=== PATIENT | male | born 1955 | race Two or more races ===

== ENCOUNTER 2016-09-07 12:09 | Day surgery (SDC) | payer OTHER ==
[~2016-09-07] VITALS: Ht 165.1 cm; Wt 77.4 kg
[~2016-09-07 12:09] MED LIST: ATOR20TA38 PO; FENO48TA PO; NICO1PAT6 TD; OMEG1CAP2 PO
[2016-09-07 12:54] VITALS: Ht 165.1 cm; Wt 77.4 kg
[2016-09-07] MEDS ORDERED: SITA100T8 PO (13:14)
[2016-09-07] MEDS ORDERED: MTF1000T PO (13:15)
[2016-09-07] MEDS ORDERED: ASPI81TA3 PO (13:15)
[2016-09-07 13:25] VITALS: BP 164/80; PULSE 55; RESP 15
[2016-09-07] MEDS ORDERED: MIDAZOLAM 1 MG/ML 2 ML INJ ONE ×2 (14:31)
[2016-09-07] MEDS ORDERED: FENTAnyl 50 MCG/ML VIAL ONE (14:32)
[2016-09-07 14:43] VITALS: BP 130/69; PULSE 62; RESP 24
--- NOTE | 2016-09-08 08:16 | GILP ---
DATE OF PROCEDURE: 09/07/2016 PREOPERATIVE DIAGNOSIS: Screening colonoscopy. PROCEDURE DONE: Colonoscopy, biopsy. POSTOPERATIVE DIAGNOSES: Three mall hyperplastic polyps less than 2 mm in the rectum, hyperplasia a lso noted. Internal hemorrhoids, grade II. DESCRIPTION OF PROCEDURE: The patient was put in left lateral decubitus after obtaining informed co nsent, was sedated, monitored on oximetry, EKG, blood pressure. He received 3 mg IV Versed and 75 m cg of fentanyl. Advanced an Olympus video colonoscope all the way to cecum. Appendiceal opening an d ileocecal valve were identified. Cecum, ascending colon, transverse colon, descending colon, sigm oid colon thoroughly examined and normal. In the rectum hyperplasia with a hyperplastic polyps note d. They were less than 2 mm. Three of them were biopsied. There was very normal looking mucosa on top and then it was sent to histopathology. While in the rectum by retroflexion and antegrade exam , grade II hemorrhoids were noted. Internal hemorrhoids noted. Upon removal of scope, patient had no complication. Rectal exam also negative for any mass. Plan will be to await for biopsy report, follow up in 2 weeks. Dictated By: BRUCE HOPSON Conf#: [id number] DID#: [id number] CC: Yg Sanabria;*End*
== END 2016-09-07 16:00 | disposition home or self-care (01) ==
LOC: GIL 12:09
PROVIDERS: ATTEND Internal Medicine
DX: Z12.11 Encounter for screening for malignant neoplasm of colon (principal); K62.1 Rectal polyp; K64.1 Second degree hemorrhoids; E11.9 Type 2 diabetes mellitus without complications; E78.5 Hyperlipidemia, unspecified
CPT/HCPCS: 45380; 88305; J2250; J3010; Z7610

== ENCOUNTER 2017-04-16 09:01 | Emergency (ER) | payer OTHER ==
[~2017-04-16] VITALS: Wt 77.5 kg
[~2017-04-16 09:01] MED LIST changes: +ASPI81TA3 PO; +MTF1000T PO; -NICO1PAT6 TD; -OMEG1CAP2 PO; +SITA100T8 PO
--- NOTE | 2017-04-16 09:36 | RADRPT ---
PROCEDURE: XR Chest. CLINICAL INDICATION: Positive quantiferon TECHNIQUE: Single frontal view of the chest was obtained COMPARISON: None FINDINGS: The heart and mediastinum are within normal limits. The lungs are clear and there is no pleural effusion or pneumothorax. RPTAT: AA IMPRESSION: No active disease. No radiographic evidence of active tuberculosis. .Lennox Santana MD, MD Date Time Electronically viewed and signed by .Lennox Santana MD, on 04/16/2017 09:35 .S/
[2017-04-16] MEDS ORDERED: ISON300T72 PO (09:53)
--- NOTE | 2017-04-16 13:25 | ERD ---
ER Documentation Chief Complaint Chief Complaint bodyaches, fever, seen by clinic sent to ed for + quant gold test(TB) HPI Patient is a 62-year-old female with diabetes and high cholesterol who presents with possible tuberculosis. The patient had a positive QuantiFERON gold study and was sent to the ER by the clinic. The patient has had fevers off and on. The patient denies cough. The patient has whole body pain. He has been dealing with this for weeks. He goes to a local clinic for his care. ROS All systems reviewed and are negative except as per history of present illness. Medications Home Meds Active Scripts Isoniazid* (Isoniazid*) 300 Mg Tablet, 300 MG PO DAILY, #30 TAB Prov:AVA EASTMAN MD 04/16/17 Reported Medications Aspirin* (Aspirin* Chew) 81 Mg Tab.chew, 81 MG PO DAILY, TAB.CHEW 09/07/16 Metformin* (Glucophage*) 1,000 Mg Tablet, 1000 MG PO BID, #60 TAB 09/07/16 Sitagliptin* (Januvia*) 100 Mg Tablet, 100 MG PO DAILY, #30 TAB 09/07/16 Fenofibrate Nanocrystallized* (Tricor*) 48 Mg Tablet, 40 MG PO DAILY, TAB 11/26/14 Atorvastatin Calcium* (Atorvastatin Calcium*) 20 Mg Tablet, 20 MG PO DAILY, TAB 11/26/14 Allergies Allergies: Coded Allergies: No Known Allergy (Unverified , 09/07/16) PMhx/Soc History of Surgery: Yes (LT. INGUINAL HERNIA) Anesthesia Reaction: No Hx Neurological Disorder: No Hx Respiratory Disorders: Yes (LATENT TUBERCULOSIS) Hx Cardiac Disorders: Yes (HLD, ) Hx Psychiatric Problems: No Hx Miscellaneous Medical Probl: Yes (DM, LIVER) Hx Alcohol Use: Yes (quit 16 years ago) Hx Substance Use: No Hx Tobacco Use: Yes (quit may 2016) Smoking Status: Former smoker FmHx Family History: diabetes Physical Exam Vitals Vital Signs Date Time Temp Pulse Resp B/P Pulse Ox O2 Delivery O2 Flow Rate FiO2 04/16/17 09:06 97.5 62 20 165/77 98 Physical Exam Const: No acute distress Head: Atraumatic Eyes: Normal Conjunctiva ENT: Normal External Ears, Nose and Mouth. Neck: Full range of motion..~ No meningismus. Resp: Clear to auscultation bilaterally Cardio: Regular rate and rhythm, no murmurs Abd: Soft, non tender, non distended. Normal bowel sounds Skin: No petechiae or rashes Back: No midline or flank tenderness Ext: No cyanosis, or edema Neur: Awake and alert Psych: Normal Mood and Affect Procedures/MDM Chest x-ray negative per radiology. Patient is a 62-year-old male with latent tuberculosis. The patient had no active TB seen on his chest x-ray. He has no weight loss or fever or cough to suggest active tuberculosis. I will treat the patient with isoniazid. The patient will be given a one-month course but he will need to get the next 8 months from his primary doctor who can follow his LFTs and other laboratory studies while being on isoniazid. The patient can return for any worsening symptoms. The patient will be reported to the public health department. The patient can return for any worsening symptoms. Departure Diagnosis: Primary Impression: Latent tuberculosis Condition: Fair Patient Instructions: Tuberculosis (TB) Referrals: ABY MARTINEZ Additional Instructions: Llame al doctor mike alejandro (Referral Sources) MAANA y soni aleksandra PAM PARA DENTRO DE ALEKSANDRA SEMANA. Dgale a la secretaria que nosotros le instruimos hacer esta pam.Avise o llame si britt condicin se empeora antes de la pam. AVA EASTMAN MD Apr 16, 2017 13:24
== END 2017-04-16 13:12 | disposition home or self-care (01) ==
LOC: E/R 09:01
DX: R76.11 Nonspecific reaction to tuberculin skin test without active tuberculosis (principal); E11.9 Type 2 diabetes mellitus without complications; Z79.84 Long term (current) use of oral hypoglycemic drugs; Z79.82 Long term (current) use of aspirin; Z87.891 Personal history of nicotine dependence
CPT/HCPCS: 71010; Z7502

== ENCOUNTER 2017-04-27 13:47 | Inpatient (IN) | payer OTHER ==
[~2017-04-27] VITALS: Ht 165.1 cm; Wt 74.8 kg
[~2017-04-27 13:47] MED LIST changes: +ISON300T72 PO
[2017-04-27] MEDS ORDERED: SOD CHLORIDE 0.9% 1,000 ML IV ONE (16:00)
[2017-04-27 16:33] LABS: ADD UMIC YES; UR ASCORBIC ACID NEGATIVE (NEGATIVE); UR BILIRUBIN (Dip) 2+ mg/dL (NEGATIVE); UR BLOOD (Dip) NEGATIVE (NEGATIVE); UR CLARITY CLEAR (CLEAR); UR COLOR AMBER (YELLOW); UR GLUCOSE (Dip) 3+ mg/dL (NEGATIVE); UR KETONES (Dip) NEGATIVE (NEGATIVE); UR LEUKOCYTE ESTERASE (Dip) NEGATIVE Leu/ul (NEGATIVE); UR NITRITE (Dip) NEGATIVE (NEGATIVE); UR RBC 1 /HPF (0-5); UR SPECIFIC GRAVITY (Dip) 1.029 (1.003-1.030); UR TOTAL PROTEIN (Dip) 1+ mg/dl (NEGATIVE); UR UROBILINOGEN (Dip) 2+ mg/dL (NEGATIVE)
[2017-04-27 16:41] LABS: BASOPHILS % 0.5 % (0.0-2.0); EOSINOPHILS # 0.2 10^3/ul (0.0-0.5); EOSINOPHILS % 2.4 % (0.0-7.0); HEMATOCRIT 40.5 % (42.0-52.0); HEMOGLOBIN 13.5 g/dl (14.0-18.0); LYMPHOCYTES # 2.4 10^3/ul (0.8-2.9); MEAN CORPUSCULAR HEMOGLOBIN 26.8 pg (29.0-33.0); MEAN CORPUSCULAR HGB CONC 33.3 g/dl (32.0-37.0); MEAN CORPUSCULAR VOLUME 80.4 fl (82.0-101.0); MEAN PLATELET VOLUME 11.7 fl (7.4-10.4); MONOCYTE # 0.5 10^3/ul (0.3-0.9); MONOCYTES % 8.4 % (0.0-11.0); NEUTROPHIL # 3.1 10^3/ul (1.6-7.5); NEUTROPHILS % 50.5 % (39.0-77.0); PLATELET COUNT 363 10^3/UL (140-415); RED BLOOD COUNT 5.04 10^6/ul (4.70-6.10); RED CELL DISTRIBUTION WIDTH 17.5 % (11.5-14.5); WHITE BLOOD COUNT 6.2 10^3/ul (4.8-10.8)
[2017-04-27 16:59] LABS: INR 0.87; PROTIME 11.8 Sec (12.2-14.2); PT RATIO 0.9
[2017-04-27 17:00] LABS: PARTIAL THROMBOPLASTIN TIME 28.1 Sec (25.0-35.0)
[2017-04-27 17:04] LABS: ALBUMIN 4.4 g/dl (3.3-4.9); ALBUMIN/GLOBULIN RATIO 0.84; BILIRUBIN,DIRECT 5.1 mg/dl (0.00-0.20); BILIRUBIN,INDIRECT 1.3 mg/dl (0-1.1); BILIRUBIN,TOTAL 6.4 mg/dl (0.2-1.3); CALCIUM 10.1 mg/dl (8.4-10.2); CREATININE 1.26 mg/dl (0.61-1.24); POTASSIUM 4.4 mmol/L (3.5-5.1); TOTAL PROTEIN 9.6 g/dl (6.1-8.1)
--- NOTE | 2017-04-27 18:17 | RADRPT ---
PROCEDURE: US Abdomen Limited . CLINICAL INDICATION: Elevated bilirubin. TECHNIQUE: Multiple real-time images were acquired of the patient's right upper quadrant abdomen u tilizing a high resolution transducer. COMPARISON: None FINDINGS: The liver measures 18.0 cm and demonstrates a coarsened echogenicity. Mild potential intrahepatic bi liary dilatation is seen. The gallbladder is filled with a moderate amount of bile. Echogenic sludg e is identified in the gallbladder. No shadowing stones are seen. The gallbladder wall is not thicke camila at 0.7 mm. No pericholecystic fluid is noted. The common bile duct measures 11.1 mm in diameter. The pancreas is not well visualized. Antegrade flow is seen in the portal vein. Right kidney measures 9.9 cm. Right kidney demonstrates a normal echogenicity. No hydronephrosis, masses or stones are noted. IMPRESSION: Diffuse fatty infiltration of an enlarged liver. Gallbladder sludge. Dilated common bile duct with mild potential intrahepatic biliary dilatation. Distal common bile taylor t obstruction is not excluded. If further characterization is needed MRCP or ERCP is recommended. Pancreas not well visualized. If characterization of this structure is needed repeat exam or CT/MRI is recommended. RPTAT: AA .Dameon Brady MD, Date Time Electronically viewed and signed by .Dameon Brady MD, on 04/27/2017 18:17 .P/
--- NOTE | 2017-04-27 18:26 | ERD ---
ER Documentation Chief Complaint Chief Complaint body itchiness x 1 month; abnormal lab test HPI This is a 62-year-old male that presents to the ER with itchy skin, yellow skin and yellowing of the eyes. Patient has been on isoniazid April 16, 2017 patient went to his primary care doctor and was told to come to the ER for further follow-up. Patient has not had any fevers or chills. He does complain of fatigue. He denies any abdominal pain. He denies any chest pain, shortness of breath. He denies any abnormal hand tremors. Doctor told him to discontinue the medication today. ROS 12 point review of systems was done, all negative except per HPI. Medications Home Meds Active Scripts Isoniazid* (Isoniazid*) 300 Mg Tablet, 300 MG PO DAILY, #30 TAB Prov:AVA EASTMAN MD 04/16/17 Reported Medications Aspirin* (Aspirin* Chew) 81 Mg Tab.chew, 81 MG PO DAILY, TAB.CHEW 09/07/16 Metformin* (Glucophage*) 1,000 Mg Tablet, 1000 MG PO BID, #60 TAB 09/07/16 Sitagliptin* (Januvia*) 100 Mg Tablet, 100 MG PO DAILY, #30 TAB 09/07/16 Fenofibrate Nanocrystallized* (Tricor*) 48 Mg Tablet, 40 MG PO DAILY, TAB 11/26/14 Atorvastatin Calcium* (Atorvastatin Calcium*) 20 Mg Tablet, 20 MG PO DAILY, TAB 11/26/14 Allergies Allergies: Coded Allergies: No Known Allergy (Unverified , 09/07/16) PMhx/Soc History of Surgery: Yes (LT. INGUINAL HERNIA) Anesthesia Reaction: No Hx Neurological Disorder: No Hx Respiratory Disorders: Yes (LATENT TUBERCULOSIS) Hx Cardiac Disorders: Yes (HLD, ) Hx Psychiatric Problems: No Hx Miscellaneous Medical Probl: Yes (DM, LIVER) Hx Alcohol Use: Yes (quit 16 years ago) Hx Substance Use: No Hx Tobacco Use: Yes (quit may 2016) Smoking Status: Former smoker Physical Exam Vitals Vital Signs Date Time Temp Pulse Resp B/P Pulse Ox O2 Delivery O2 Flow Rate FiO2 04/27/17 14:22 98.4 76 18 147/97 96 Physical Exam GENERAL: The patient is well developed and appropriate for usual state of health , in no apparent distress. HEENT: Atraumatic. he has icterus. Pupils equal, round, and reactive to light. Extraocular muscles are grossly intact. Bilateral tympanic membranes are clear with no evidence of erythema, effusion or dulling of the light reflex. The oropharynx is clear with no erythema or exudates. CHEST: Clear to auscultation bilaterally. There are no rales, wheezes or rhonchi. HEART: Regular rate and rhythm. No murmurs, clicks, rubs or gallops. ABDOMEN: Soft, nontender and nondistended. Good bowel sounds. No rebound or guarding. No gross peritonitis. No gross organomegaly or masses. No Sheppard sign or McBurney point tenderness. BACK: No midline or flank tenderness. EXTREMITIES: Equal pulses bilaterally. There is no peripheral clubbing, cyanosis or edema. No focal swelling or erythema. Full range of motion. Grossly neurovascularly intact. NEURO: Alert and oriented. Cranial nerves II through XII are intact. Motor strength in all 4 extremities with 5/5 strength. Sensation grossly intact. Normal speech and gait. SKIN: jaundiced. Result Diagram: 04/27/17 1625 04/27/17 1625 Results 24 hrs Laboratory Tests Test 04/27/17 16:10 04/27/17 16:25 Urine Color ARANZA Urine Clarity CLEAR Urine pH 6.0 Urine Specific [place] 1.029 Urine Ketones NEGATIVEmg/dL Urine Nitrite NEGATIVEmg/dL Urine Bilirubin 2+mg/dL Urine Urobilinogen 2+mg/dL Urine Leukocyte Esterase NEGATIVELeu/ul Urine Microscopic RBC 1/HPF Urine Microscopic WBC 1/HPF Urine Hemoglobin NEGATIVEmg/dL Urine Glucose 3+mg/dL Urine Total Protein 1+mg/dl White Blood Count 6.210^3/ul Red Blood Count 5.0410^6/ul Hemoglobin 13.5g/dl Hematocrit 40.5% Mean Corpuscular Volume 80.4fl Mean Corpuscular Hemoglobin 26.8pg Mean Corpuscular Hemoglobin Concent 33.3g/dl Red Cell Distribution Width 17.5% Platelet Count 58040^3/UL Mean Platelet Volume 11.7fl Neutrophils % 50.5% Lymphocytes % 38.0% Monocytes % 8.4% Eosinophils % 2.4% Basophils % 0.5% Nucleated Red Blood Cells % 0.0/100WBC Neutrophils # 3.110^3/ul Lymphocytes # 2.410^3/ul Monocytes # 0.510^3/ul Eosinophils # 0.210^3/ul Basophils # 0.010^3/ul Nucleated Red Blood Cells # 0.010^3/ul Prothrombin Time 11.8Sec Prothrombin Time Ratio 0.9 INR International Normalized Ratio 0.87 Activated Partial Thromboplast Time 28.1Sec Sodium Level 138mmol/L Potassium Level 4.4mmol/L Chloride Level 98mmol/L Carbon Dioxide Level 25mmol/L Anion Gap 19 Blood Urea Nitrogen 20mg/dl Creatinine 1.26mg/dl Glucose Level 361mg/dl Calcium Level 10.1mg/dl Total Bilirubin 6.4mg/dl Direct Bilirubin 5.10mg/dl Indirect Bilirubin 1.3mg/dl Aspartate Amino Transf (AST/SGOT) 71IU/L Alanine Aminotransferase (ALT/SGPT) 171IU/L Alkaline Phosphatase 463IU/L Total Protein 9.6g/dl Albumin 4.4g/dl Globulin 5.20g/dl Albumin/Globulin Ratio 0.84 Current Medications Medications (Trade) Dose Ordered Sig/Calli Route PRN Reason Start Time Stop Time Status Last Admin Dose Admin Sodium Chloride (NS) 1,000 ml @ 1,000 mls/hr Q1H ONCE IV 04/27/17 16:00 04/27/17 16:59 DC 04/27/17 16:21 Procedures/MDM This is a 62-year-old male that is here for evaluation secondary to abnormal lab test and yellowing of skin. Patient's bilirubin was noted to have increased from 1.8-6. Patient will be admitted into the hospital for further management and care. Departure Diagnosis: Primary Impression: Abnormal bilirubin test Condition: Stable MICHELLE VILLEGAS Apr 27, 2017 18:26
[2017-04-27 18:37] LABS: HAAIG REFLEX REFLEX FILED
[2017-04-27] MEDS ORDERED: ACETAMINOPHEN 325 MG TAB PO PRN ×2 (19:00→21:30)
[2017-04-27] MEDS ORDERED: ONDANSETRON 4 MG INJ IV PRN ×2 (19:00→21:30)
[2017-04-27 19:40] LABS: HEPATITIS B CORE ANTIBODY NEGATIVE (NEGATIVE)
[2017-04-27 21:03] VITALS: TEMP 97.4
[2017-04-27] MEDS ORDERED: SOD CHLORIDE 0.9% 1,000 ML IV SCH (21:11)
[2017-04-27] MEDS ORDERED: NACL 0.9% 3 ML SYG IV SCH (21:30)
[2017-04-27] MEDS ORDERED: CEFTRIAXONE 1 GM/50 ML (PMX) 50 ML IVPB ONE (21:30)
[2017-04-27] MEDS ORDERED: MAGNESIUM HYDROXIDE 30ML CUP PO PRN (21:30)
[2017-04-27] MEDS ORDERED: DEXTROSE 50% 50 ML SYRINGE IV PRN ×2 (21:30)
[2017-04-27] MEDS ORDERED: GLUCAGON 1 MG INJ IM PRN (21:30)
[2017-04-27] MEDS ORDERED: HYDROCODONE/APAP (5/325) TAB PO PRN (21:30)
[2017-04-27] MEDS ORDERED: GLUCOSE GEL 15 GRAM TUBE BUCCAL PRN (21:30)
[2017-04-27] MEDS ORDERED: GLUCOSE GEL 15 GRAM TUBE PO PRN ×2 (21:30)
[2017-04-27] MEDS ORDERED: morphine 2 MG INJ IV PRN (21:30)
[2017-04-27 21:50] VITALS: Ht 165.1 cm; Wt 74.8 kg
[2017-04-27] MEDS: metroNIDAZOLE 500 MG/NS (PMX) 250 MG in EVAC CONTAINER 1 BOTTLE IVPB SCH (22:00)
[2017-04-28] MEDS: metroNIDAZOLE 500 MG/NS (PMX) 250 MG in EVAC CONTAINER 1 BOTTLE IVPB SCH ×4 (01:08→22:03)
[2017-04-28] MEDS: INSULIN ASPART [NOVOLOG] 3 ML PEN SC SCH ×5 (01:17→21:40)
[2017-04-28 01:41] VITALS: BP 119/69; RESP 20
[2017-04-28] MEDS: ACCU-CHEK XX SCH (02:00)
[2017-04-28 06:00] LABS: BASOPHILS % 0.6 % (0.0-2.0); EOSINOPHILS # 0.3 10^3/ul (0.0-0.5); EOSINOPHILS % 5.1 % (0.0-7.0); HEMATOCRIT 36.2 % (42.0-52.0); HEMOGLOBIN 11.8 g/dl (14.0-18.0); LYMPHOCYTES # 1.6 10^3/ul (0.8-2.9); LYMPHOCYTES % 32.6 % (15.0-51.0); MEAN CORPUSCULAR HEMOGLOBIN 26.2 pg (29.0-33.0); MEAN CORPUSCULAR HGB CONC 32.6 g/dl (32.0-37.0); MEAN CORPUSCULAR VOLUME 80.4 fl (82.0-101.0); MEAN PLATELET VOLUME 12.1 fl (7.4-10.4); MONOCYTE # 0.5 10^3/ul (0.3-0.9); MONOCYTES % 9.8 % (0.0-11.0); NEUTROPHIL # 2.5 10^3/ul (1.6-7.5); NEUTROPHILS % 51.3 % (39.0-77.0); PLATELET COUNT 320 10^3/UL (140-415); RED CELL DISTRIBUTION WIDTH 17.7 % (11.5-14.5); WHITE BLOOD COUNT 4.9 10^3/ul (4.8-10.8)
[2017-04-28] MEDS ORDERED: PANTOPRAZOLE 40 MG INJ IV SCH (06:00)
[2017-04-28 06:35] LABS: ALBUMIN 3.5 g/dl (3.3-4.9); ALBUMIN/GLOBULIN RATIO 0.87; BILIRUBIN,DIRECT 3.8 mg/dl (0.00-0.20); BILIRUBIN,INDIRECT 1.1 mg/dl (0-1.1); BILIRUBIN,TOTAL 4.9 mg/dl (0.2-1.3); CALCIUM 8.9 mg/dl (8.4-10.2); CREATININE 1.07 mg/dl (0.61-1.24); MAGNESIUM 2.1 mg/dl (1.7-2.5); PHOSPHORUS 4.3 mg/dl (2.5-4.9); POTASSIUM 4.2 mmol/L (3.5-5.1); TOTAL PROTEIN 7.5 g/dl (6.1-8.1)
[2017-04-28 08:22] VITALS: BP 131/59; RESP 18
[2017-04-28 13:36] VITALS: BP 116/57; RESP 18
--- NOTE | 2017-04-28 17:48 | RADRPT ---
PROCEDURE: MRCP. CLINICAL INDICATION: Elevated bilirubin. Dilated bile ducts. TECHNIQUE: MRCP was performed. The following sequences were obtained: Three plane gradient echo localizers, coronal gradient echo images, breath hold axial T2-weighted fat saturation images, kem nal T2-weighted images, axial 3-D LAVA images, axial T2-weighted breath hold fast spin echo images, and 3-D coronal rotating MIP images of the biliary tree. COMPARISON: Gallbladder ultrasound dated 04/27/2017. FINDINGS: The liver is normal in size. There is normal signal intensity within the liver. There is no focal hepatic lesion. The spleen is normal in size and homogeneous in signal intensity. The gallbladder is distended. There are no gallstones in the gallbladder. There is no gallbladder wa ll thickening and there is no fluid around the gallbladder. The intrahepatic bile ducts are diffusely dilated. The common bile duct is dilated measuring 21 mm. There are small filling defects distally in the common bile duct consistent with probable stones. The pancreatic duct is not dilated. The kidneys are grossly normal. The abdominal aorta is not dilated. IMPRESSION: 1. Distended gallbladder. 2. No evidence of cholecystitis. 3. Diffusely dilated intrahepatic bile ducts and common bile duct. Small filling defects distally i n the common bile duct consistent with probable stones. Correlation with ERCP advised. 4. Otherwise unremarkable study. RPTAT: QQ .Yg Baptiste MD, Date Time Electronically viewed and signed by .Yg Baptiste MD, on 04/28/2017 17:48 .R/
--- NOTE | 2017-04-28 18:16 | QN ---
Documentation Comment [id number] EDDIE ANGLIN MD Apr 28, 2017 18:16
[2017-04-28 20:00] VITALS: BP 139/80; RESP 18
--- NOTE | 2017-04-28 22:52 | HP ---
DATE OF ADMISSION: 04/16/2017 HISTORY OF PRESENT ILLNESS: The patient is a 62-year-old male with history of diabetes, hypertensio n. Was sent in from clinic. Patient recently was noted to have QuantiFERON Gold test positive and the patient was started on INH. He has been taking it for a couple of weeks. The patient previousl y had a chest x-ray done on 04/16/2017 that shows no active disease, no radiographic evidence of act gladys tuberculosis. The patient now noted to have abnormal LFT, so patient is being admitted for furt her management. The patient has some nausea, but denies any abdominal pain. Denies any fever or ch ills. Denies any cough or sputum production. The patient was seen in the ER by the ER physician tracie quinones noted to be jaundiced. Blood pressure 147/97, hematocrit 40.5, sodium 138, potassium 4.4, creatin ine 1.26, glucose 361. Patient's total bilirubin 4.9, direct bilirubin 3.80, AST 58, ALT 140, alkal ine phosphatase 369, globulin 4. The patient had diffuse fatty infiltration of enlarged liver, gall bladder sludge, dilated common bile duct with mild potential intrahepatic biliary dilatation. Dr. Helio cordova has been called to see this patient in consultation in the morning. PAST MEDICAL HISTORY: Diabetes mellitus, hypertension, QuantiFERON Gold test positive. Patient has history of hernia surgery. ALLERGY HISTORY: NEGATIVE. FAMILY HISTORY: Negative. SOCIAL HISTORY: Negative. MEDICATION HISTORY: 1. Aspirin. 2. Atorvastatin. 3. Fenofibric acid. 4. Isoniazid. 5. Metformin. 6. Januvia. REVIEW OF SYSTEMS: HEENT: Unremarkable. RESPIRATORY: Unremarkable. CARDIOVASCULAR: Unremarkable. ABDOMEN: No nausea, vomiting, abdominal tenderness. EXTREMITIES: Unremarkable. GENITOURINARY: Unremarkable. MUSCULOSKELETAL: Unremarkable. PHYSICAL EXAMINATION: GENERAL: The patient is awake and alert. VITAL SIGNS: Stable. HEAD: Atraumatic, normocephalic. Pupils equal, reactive to light. Pale conjunctivae. Icterus posi tive. NECK: Supple, no JVD. LUNGS: Clear. CARDIOVASCULAR: S1, S2 are normal. ABDOMEN: Soft. Bowel sounds present. No palpable mass or hepatosplenomegaly. No guarding, reboun d tenderness. EXTREMITIES: There is no cyanosis, clubbing, or edema. CENTRAL NERVOUS SYSTEM: The patient is awake and alert with no focal deficit. LABORATORY DATA: Sodium 130, potassium 4.2, BUN 15, creatinine 1.107, hematocrit 36.2. Urinalysis is bilirubin positive. IMPRESSION: 1. Acute liver failure. 2. Possible common bile duct stone. 3. Gallbladder sludge. 4. The patient has a fatty liver. 5. Anemia. 6. QuantiFERON Gold test positive in the past. PLAN: To continue to give this patient gentle IV fluid. GI consultation. Sliding scale, pain medi cations, PPI. Orders were done. Dictated By: EDDIE ANGLIN MD BS/NTS Conf#: [id number] DID#: [id number]
[2017-04-29] VITALS (11 sets, daily range): BP systolic 135–172; BP diastolic 65–104; PULSE 62–77; RESP 9–22
[2017-04-29] MEDS: ACCU-CHEK XX SCH (02:12)
[2017-04-29] MEDS: PANTOPRAZOLE (EC) 40 MG TAB PO SCH (05:36)
[2017-04-29] MEDS: metroNIDAZOLE 500 MG/NS (PMX) 250 MG in EVAC CONTAINER 1 BOTTLE IVPB SCH ×3 (05:36→22:36)
[2017-04-29 06:19] LABS: BASOPHILS % 0.6 % (0.0-2.0); EOSINOPHILS # 0.3 10^3/ul (0.0-0.5); EOSINOPHILS % 5.7 % (0.0-7.0); HEMATOCRIT 36.4 % (42.0-52.0); LYMPHOCYTES # 1.5 10^3/ul (0.8-2.9); LYMPHOCYTES % 30.2 % (15.0-51.0); MEAN CORPUSCULAR HEMOGLOBIN 26.4 pg (29.0-33.0); MEAN CORPUSCULAR VOLUME 80.2 fl (82.0-101.0); MONOCYTE # 0.4 10^3/ul (0.3-0.9); MONOCYTES % 8.7 % (0.0-11.0); NEUTROPHIL # 2.7 10^3/ul (1.6-7.5); NEUTROPHILS % 54.6 % (39.0-77.0); PLATELET COUNT 319 10^3/UL (140-415); RED BLOOD COUNT 4.54 10^6/ul (4.70-6.10); RED CELL DISTRIBUTION WIDTH 17.9 % (11.5-14.5); WHITE BLOOD COUNT 4.9 10^3/ul (4.8-10.8)
[2017-04-29] MEDS ORDERED: ROCURONIUM 50 MG INJ ONE (07:00)
[2017-04-29] MEDS ORDERED: CIPRO 400 MG/200 ML D5W IVPB ONE (07:00)
[2017-04-29] MEDS ORDERED: PROPOFOL 200 MG INJ ONE (07:00)
[2017-04-29] MEDS ORDERED: LIDOCAINE 2% (SDV) 5 ML INJ ONE (07:00)
[2017-04-29] MEDS ORDERED: GLYCOPYRROLATE 0.4 MG INJ ONE (07:00)
[2017-04-29] MEDS ORDERED: NEOSTIGMINE 3 MG/3 ML SYRINGE ONE (07:00)
[2017-04-29 07:06] LABS: ALBUMIN 3.9 g/dl (3.3-4.9); ALBUMIN/GLOBULIN RATIO 1.08; BILIRUBIN,DIRECT 4.5 mg/dl (0.00-0.20); BILIRUBIN,INDIRECT 1.4 mg/dl (0-1.1); BILIRUBIN,TOTAL 5.9 mg/dl (0.2-1.3); CALCIUM 8.9 mg/dl (8.4-10.2); CREATININE 1.18 mg/dl (0.61-1.24); POTASSIUM 4.3 mmol/L (3.5-5.1); TOTAL PROTEIN 7.5 g/dl (6.1-8.1)
[2017-04-29] MEDS: INSULIN ASPART [NOVOLOG] 3 ML PEN SC SCH ×5 (08:15→20:44)
[2017-04-29] MEDS ORDERED: IOHEXOL 300MG/ML 30 ML BTL ONE (09:51)
[2017-04-29] MEDS ORDERED: INDOMETHACIN 50 MG SUPP PR ONE (10:00)
[2017-04-29] MEDS ORDERED: ONDANSETRON 4 MG INJ IV PRN (10:30)
[2017-04-29] MEDS ORDERED: METOCLOPRAMIDE 10 MG INJ IV PRN (10:30)
[2017-04-29] MEDS ORDERED: hydrALAzine 20 MG INJ IV PRN (10:30)
[2017-04-29] MEDS ORDERED: FENTAnyl 50 MCG/ML VIAL IV PRN ×3 (10:30)
[2017-04-29] MEDS ORDERED: EPHEDrine SULFATE 50 MG/5 ML SYG IV PRN (10:30)
[2017-04-29] MEDS ORDERED: LABETALOL HCL 20MG INJ IV PRN (10:30)
[2017-04-29] MEDS ORDERED: morphine (1 MG/ML) 10ML SYRINGE IV PRN ×3 (10:30)
--- NOTE | 2017-04-29 11:45 | OPPN ---
Date/Time of Note Date/Time of Note DATE: 04/29/17 TIME: 11:44 Proc Note GI Procedure Date 04/29/17 Indication: treatment Pre-procedure Diagnosis Obstructive jaundice Post-procedure Diagnosis Impacted ampulla Large sphincterotomy done Brushing done Stent deployed 10 Kh[place] 5 cm with excellent drainage Cystic duct appeared to be blocked Procedure Performed: ERCP Surgeon see signature line Project Manager/Team Coach none Anesthesia Type: MAC Tourniquet Time none EBL none Transfusion required none Biopsy 1: Brushing done Grafts/Implants none Tubes/Drains none Complication(s) none Disposition: PACU Procedure Description Dictated JUVENAL NGO MD Apr 29, 2017 11:45
--- NOTE | 2017-04-29 11:51 | RADRPT ---
PROCEDURE: Intraoperative imaging for ERCP with fluoroscopy. CLINICAL INDICATION: Right upper quadrant pain. Intraoperative. TECHNIQUE: Eight images of the right upper quadrant of the abdomen were obtained in the operating room with an image intensifier. No radiologist was in attendance. Fluoroscopy time is 5.3 seconds. COMPARISON: MRCP dated 04/28/2017. FINDINGS: Images demonstrate the endoscope in position and contrast injected into the common bile duct. The co mmon bile duct is markedly dilated. A balloon sweep was made and a stent was placed. IMPRESSION: 1. ERCP as described above. RPTAT: QQ .Yg Baptiste MD, Date Time Electronically viewed and signed by .Yg Baptiste MD, on 04/29/2017 11:51 .R/
--- NOTE | 2017-04-29 12:21 | GILP ---
DATE OF PROCEDURE: PROCEDURE PERFORMED: ERCP sphincterotomy, brushing and placement of a stent. INDICATION: A 62-year-old male who was referred to the hospital for itching and abnormal LFTs, bili sandoval was 3. MRCP done which showed 2 stones in the distal part of the bile duct. The purpose of t his procedure is to evaluate the biliary system and perform therapeutic endoscopy at the same time. Her bilirubin had jumped today almost to 6. INFORMED CONSENT: The risk of the procedure, related and unrelated complications, anesthetic risks, alternatives discussed and informed consent was obtained. DESCRIPTION OF PROCEDURE: The patient was brought to the OR room #5, intubated and placed in prone position. He was given Indocin suppository and also anesthesiologist was advised to give Ringer's l actate solution, 2 L over a period of 4 hours. After administration of antibiotics, scope was passe d with much ease into esophagus and advanced further down into stomach and duodenum. Ampulla was id entified. This was a huge ampulla. No bile was coming out and the opening was on the inferior aspe ct of the huge ampulla, long route could not be done to lift them to see the ampullary opening, so w ith a short route, with the help of sphincterotome, retrained the ampulla, lifted it up and selectiv fan cannulated the bile duct. Bile duct was dilated. The large sphincterotomy was done and after t hat there was excellent flow of dye, but no bile was coming out. The bile was not coming out most p robably due to the acute complete obstruction. A 9 to 12 mm balloon was used. Bile duct was swept multiple times with 12 mm balloon which would come out easily without any resistance. At this point , decided to do brushing, dressing was done. I did not see any stone and since the opening was so l arge that the sweeping of the bile duct with a balloon, stone may have come out. So at this point, after doing brushing, decided to deploy the stent, 10-[place] 5 cm stent was successfully deployed an d on the fluoroscopy the drainage was excellent. Scope was removed with good patient tolerance. IMPRESSION 1. Impacted stone in the ampulla. The ampulla was huge. Selectively, bile duct cannulated and lar ge sphincterotomy was done. Bile duct was swept multiple times with a 12 mm balloon which would com e out easily. 2. Brushing was done. 3. Stent was successfully deployed, 10-[place] 5 cm, excellent drainage was established. 4. Total fluoro time was 2 seconds. PLAN: Monitor LFT. Will review the brushing and when we remove the stent, we will reevaluate the a mpulla and the biliary system. ADDENDUM: While I was doing the procedure for 15 minutes the current went off and we could not do a nything with the scope inside. Dictated By: JUVENAL JOHNSTON/ABDULLAHI Conf#: [id number] DID#: [id number] CC: EDDIE ANGLIN MD;*EndCC*
--- NOTE | 2017-04-29 18:53 | PN ---
Date/Time of Note Date/Time of Note DATE: 04/29/17 TIME: 18:52 Assessment/Plan VTE Prophylaxis VTE Prophylaxis Intervention: other Lines/Catheters IV [facility] Type (from [facility] Peripheral IV Urinary Cath still in place: No Assessment/Plan Chief Complaint/Hosp Course liver failure s/p ercp dm plan per gi and ck labs Problems: Subjective 24 Hr Interval Summary Subjective hx not possible: other (s/p ercp and interven,) Respiratory: cough, no complaints Cardiovascular: no complaints Gastrointestinal: no complaints Exam/Review of Systems Vital Signs Vitals Vital Signs Date Time Temp Pulse Resp B/P Pulse Ox O2 Delivery O2 Flow Rate FiO2 04/29/17 15:33 98.4 58 18 158/90 95 04/29/17 11:56 Room Air Intake and Output 04/28/17 04/28/17 04/29/17 15:00 23:00 07:00 Intake Total 290 ml 300 ml Output Total 700 ml 600 ml Balance -410 ml -300 ml Exam Respiratory: clear to auscultation Cardiovascular: regular rate and rhythm Gastrointestinal: bowel sounds (+), soft Extremities: normal pulses Results Result Diagram: 04/29/17 0544 04/29/17 0544 Results 24 hrs Laboratory Tests Test 04/28/17 21:34 04/29/17 02:03 04/29/17 05:44 04/29/17 08:15 Bedside Glucose 241 H 208 247 H White Blood Count 4.9 Red Blood Count 4.54 L Hemoglobin 12.0 L Hematocrit 36.4 L Mean Corpuscular Volume 80.2 L Mean Corpuscular Hemoglobin 26.4 L Mean Corpuscular Hemoglobin Concent 33.0 Red Cell Distribution Width 17.9 H Platelet Count 319 Mean Platelet Volume 12.0 H Neutrophils % 54.6 Lymphocytes % 30.2 Monocytes % 8.7 Eosinophils % 5.7 Basophils % 0.6 Nucleated Red Blood Cells % 0.0 Neutrophils # 2.7 Lymphocytes # 1.5 Monocytes # 0.4 Eosinophils # 0.3 Basophils # 0.0 Nucleated Red Blood Cells # 0.0 Sodium Level 139 Potassium Level 4.3 Chloride Level 105 Carbon Dioxide Level 18 L Anion Gap 20 H Blood Urea Nitrogen 16 Creatinine 1.18 Glucose Level 244 H Calcium Level 8.9 Total Bilirubin 5.9 H Direct Bilirubin 4.50 H Indirect Bilirubin 1.4 H Aspartate Amino Transf (AST/SGOT) 55 H Alanine Aminotransferase (ALT/SGPT) 122 H Alkaline Phosphatase 372 H Total Protein 7.5 Albumin 3.9 Globulin 3.60 H Albumin/Globulin Ratio 1.08 Test 04/29/17 09:21 04/29/17 14:50 04/29/17 17:32 Bedside Glucose 215 281 H 268 H Medications Medications Current Medications Ondansetron HCl (Zofran Inj) 4 mg Q6H PRN IV NAUSEA AND/OR VOMITING; Start 04/27/17 at 21:30 Acetaminophen/ Hydrocodone Bitart ([place] (5/325)) 1 tab Q6H PRN PO MODERATE PAIN LEVEL 4-6; Start 04/27/17 at 21:30 Morphine Sulfate (morphine) 2 mg Q4H PRN IV SEVERE PAIN LEVEL 7-10; Start 04/27 at 21:30 Magnesium Hydroxide (Milk Of Mag) 30 ml DAILY PRN PO CONSTIPATION; Start at 21:30 Diagnostic Test (Pha) (Accu-Chek) 1 ea 02 XX Last administered on 04/29/17 02: 12; Admin Dose 1 EA; Start 04/28/17 at 02:00 Miscellaneous Information 1 ea NOTE XX ; Start 04/27/17 at 21:30 Glucose (Glutose) 15 gm Q15M PRN PO DECREASED GLUCOSE; Start 04/27/17 at 21:30 Glucose (Glutose) 22.5 gm Q15M PRN PO DECREASED GLUCOSE; Start 04/27/17 at 21: 30 Dextrose (D50w Syringe) 25 ml Q15M PRN IV DECREASED GLUCOSE; Start 04/27/17 at 21:30 Dextrose (D50w Syringe) 50 ml Q15M PRN IV DECREASED GLUCOSE; Start 04/27/17 at 21:30 Glucagon (Glucagen) 1 mg Q15M PRN IM DECREASED GLUCOSE; Start 04/27/17 at 21:30 Glucose 15 gm 15 gm Q15M PRN BUCCAL DECREASED GLUCOSE; Start 04/27/17 at 21:30 Metronidazole/N/A (Flagyl 500 Mg (Pmx)/Evac Container) 50 ml @ 50 mls/hr Q8 IVPB Last administered on 04/29/17 14:51; Admin Dose 50 MLS/HR; Start at 22:00 Pantoprazole (Protonix Tab) 40 mg DAILY@06 PO ; Start 04/29/17 at 06:00 EDDIE ANGLIN MD Apr 29, 2017 18:53
[2017-04-30 02:26] VITALS: BP 146/73; RESP 18
[2017-04-30] MEDS: ACCU-CHEK XX SCH (02:44)
[2017-04-30] MEDS: PANTOPRAZOLE (EC) 40 MG TAB PO SCH (05:47)
[2017-04-30] MEDS: metroNIDAZOLE 500 MG/NS (PMX) 250 MG in EVAC CONTAINER 1 BOTTLE IVPB SCH (05:47)
[2017-04-30 05:48] LABS: BASOPHILS % 0.2 % (0.0-2.0); EOSINOPHILS # 0.2 10^3/ul (0.0-0.5); EOSINOPHILS % 1.6 % (0.0-7.0); HEMATOCRIT 37.7 % (42.0-52.0); HEMOGLOBIN 12.5 g/dl (14.0-18.0); LYMPHOCYTES # 1.3 10^3/ul (0.8-2.9); LYMPHOCYTES % 14.3 % (15.0-51.0); MEAN CORPUSCULAR HEMOGLOBIN 26.4 pg (29.0-33.0); MEAN CORPUSCULAR HGB CONC 33.2 g/dl (32.0-37.0); MEAN CORPUSCULAR VOLUME 79.5 fl (82.0-101.0); MEAN PLATELET VOLUME 12.3 fl (7.4-10.4); MONOCYTE # 0.7 10^3/ul (0.3-0.9); MONOCYTES % 6.9 % (0.0-11.0); NEUTROPHIL # 7.2 10^3/ul (1.6-7.5); NEUTROPHILS % 76.6 % (39.0-77.0); PLATELET COUNT 367 10^3/UL (140-415); RED BLOOD COUNT 4.74 10^6/ul (4.70-6.10); RED CELL DISTRIBUTION WIDTH 17.5 % (11.5-14.5); WHITE BLOOD COUNT 9.4 10^3/ul (4.8-10.8)
[2017-04-30 06:17] LABS: ALBUMIN/GLOBULIN RATIO 1.08; BILIRUBIN,DIRECT 6.1 mg/dl (0.00-0.20); BILIRUBIN,INDIRECT 1.6 mg/dl (0-1.1); BILIRUBIN,TOTAL 7.7 mg/dl (0.2-1.3); CREATININE 1.32 mg/dl (0.61-1.24); POTASSIUM 4.4 mmol/L (3.5-5.1); TOTAL PROTEIN 7.7 g/dl (6.1-8.1)
[2017-04-30] MEDS: INSULIN ASPART [NOVOLOG] 3 ML PEN SC SCH ×4 (08:10→21:00)
[2017-04-30 08:33] VITALS: BP 139/88; RESP 18
--- NOTE | 2017-04-30 12:32 | PN ---
Date/Time of Note Date/Time of Note DATE: 04/30/17 TIME: 12:31 Assessment/Plan VTE Prophylaxis VTE Prophylaxis Intervention: ambulation, SCD's Lines/Catheters IV C[facility]ter Type (from [facility]): Peripheral IV Urinary Cath still in place: No Assessment/Plan Chief Complaint/Hosp Course 1. S/p ERCP: Findings are:A. Impacted stone in the ampulla. The ampulla was huge. Selectively, bile duct cannulated and large sphincterotomy was done. Bile duct was swept multiple times with a 12 mm balloon which would come out easily. B. Brushing was done. C. Stent was successfully deployed, 10-[place] 5 cm, excellent drainage was established. 2. Liver failure 3. diabetes Mellitus type II 4. Overweight 5. Hx of Quantiferon test positive Problems: Assessment/Plan 1. Better Dm control 2. Chest xray 3. continue isolation 4. Pain control Subjective 24 Hr Interval Summary Gastrointestinal: pain (abdomen) Exam/Review of Systems Vital Signs Vitals Vital Signs Date Time Temp Pulse Resp B/P Pulse Ox O2 Delivery O2 Flow Rate FiO2 04/30/17 08:33 98.4 82 18 139/88 98 04/29/17 11:56 Room Air Intake and Output 04/29/17 04/29/17 04/30/17 15:00 23:00 07:00 Intake Total 50 ml 410 ml 600 ml Output Total 500 ml Balance 50 ml -90 ml 600 ml Exam Constitutional: alert ENMT: nl external ears & nose Neck: supple Respiratory: clear to auscultation Cardiovascular: regular rate and rhythm Results Result Diagram: 04/30/1712 04/30/17 0512 Results 24 hrs Laboratory Tests Test 04/29/17 14:50 04/29/17 17:32 04/29/17 20:35 04/30/17 02:43 Bedside Glucose 281 H 268 H 181 179 Test 04/30/17 05:12 04/30/17 08:03 04/30/17 12:17 White Blood Count 9.4 # Red Blood Count 4.74 Hemoglobin 12.5 L Hematocrit 37.7 L Mean Corpuscular Volume 79.5 L Mean Corpuscular Hemoglobin 26.4 L Mean Corpuscular Hemoglobin Concent 33.2 Red Cell Distribution Width 17.5 H Platelet Count 367 Mean Platelet Volume 12.3 H Neutrophils % 76.6 Lymphocytes % 14.3 L Monocytes % 6.9 Eosinophils % 1.6 Basophils % 0.2 Nucleated Red Blood Cells % 0.0 Neutrophils # 7.2 Lymphocytes # 1.3 Monocytes # 0.7 Eosinophils # 0.2 Basophils # 0.0 Nucleated Red Blood Cells # 0.0 Sodium Level 137 Potassium Level 4.4 Chloride Level 101 Carbon Dioxide Level 24 Anion Gap 16 Blood Urea Nitrogen 21 H Creatinine 1.32 H Glucose Level 206 Calcium Level 9.0 Total Bilirubin 7.7 H Direct Bilirubin 6.10 H Indirect Bilirubin 1.6 H Aspartate Amino Transf (AST/SGOT) 53 H Alanine Aminotransferase (ALT/SGPT) 107 H Alkaline Phosphatase 389 H Total Protein 7.7 Albumin 4.0 Globulin 3.70 H Albumin/Globulin Ratio 1.08 Bedside Glucose 188 246 H Medications Medications Current Medications Ondansetron HCl (Zofran Inj) 4 mg Q6H PRN IV NAUSEA AND/OR VOMITING; Start 04/27/17 at 21:30 Acetaminophen/ Hydrocodone Bitart ([place] (5/325)) 1 tab Q6H PRN PO MODERATE PAIN LEVEL 4-6 Last administered on 04/29/17 20:55; Admin Dose 1 TAB; Start at 21:30 Morphine Sulfate (morphine) 2 mg Q4H PRN IV SEVERE PAIN LEVEL 7-10; Start 04/27 at 21:30 Magnesium Hydroxide (Milk Of Mag) 30 ml DAILY PRN PO CONSTIPATION; Start at 21:30 Diagnostic Test (Pha) (Accu-Chek) 1 ea 02 XX Last administered on 04/30/17 02 :44; Admin Dose 1 EA; Start 04/28/17 at 02:00 Miscellaneous Information 1 ea NOTE XX ; Start 04/27/17 at 21:30 Glucose (Glutose) 15 gm Q15M PRN PO DECREASED GLUCOSE; Start 04/27/17 at 21:30 Glucose (Glutose) 22.5 gm Q15M PRN PO DECREASED GLUCOSE; Start 04/27/17 at 21: 30 Dextrose (D50w Syringe) 25 ml Q15M PRN IV DECREASED GLUCOSE; Start 04/27/17 at 21:30 Dextrose (D50w Syringe) 50 ml Q15M PRN IV DECREASED GLUCOSE; Start 04/27/17 at 21:30 Glucagon (Glucagen) 1 mg Q15M PRN IM DECREASED GLUCOSE; Start 04/27/17 at 21:30 Glucose (Glutose) 15 gm Q15M PRN BUCCAL DECREASED GLUCOSE; Start 04/27/17 at 21 :30 Pantoprazole (Protonix Tab) 40 mg DAILY@06 PO Last administered on 04/30/17t 05:47; Admin Dose 40 MG; Start 04/29/17 at 06:00 Metronidazole (Flagyl) 250 mg TID PO ; Start 04/30/17 at 13:00 TRACY QUEZADA Apr 30, 2017 12:32
[2017-04-30] MEDS: metroNIDAZOLE 250 MG TAB PO SCH ×2 (13:45→21:30)
--- NOTE | 2017-04-30 14:11 | RADRPT ---
PROCEDURE: XR Chest. CLINICAL INDICATION: Positive TB screening TECHNIQUE: A single AP view of the chest was obtained. COMPARISON: Chest x-ray dated 04/16/2017 FINDINGS: There is bibasilar atelectasis. No focal airspace opacification, pleural effusion or pneumothorax is seen. The cardiomediastinal silhouette is within normal limits for size. The osseous structures a re unremarkable. IMPRESSION: 1. Bibasilar atelectasis, mildly increased when compared to the prior examination. Otherwise, unrem arkable chest x-ray. 2. No radiographic evidence of active tuberculosis. RPTAT: HH .Olivia Harrison MD, MD Date Time Electronically viewed and signed by .Olivia Harrison MD, on 04/30/2017 14:10 .G/
[2017-04-30 15:45] VITALS: BP 151/75; RESP 18
--- NOTE | 2017-04-30 16:29 | CONS ---
Date/Time of Note Date/Time of Note DATE: 04/30/17 TIME: 16:28 Assessment/Plan Assessment/Plan Additional Assessment/Plan 1. Status post a sphincterotomy removal of the stone and stenting 2. Jaundice this should come down slowly 3. Fatty liver 4. Positive gold QuantiFERON test for which patient was on INH. Plan Advance diet Monitor LFT. Consultation Date/Type/Reason Admit Date/Time Apr 27, 2017 at 18:40 Initial Consult Date 24 HR Interval Summary Free Text/Dictation Patient had a mild abdominal discomfort now feels much better Exam/Review of Systems Vital Signs Vitals Vital Signs Date Time Temp Pulse Resp B/P Pulse Ox O2 Delivery O2 Flow Rate FiO2 04/30/17 15:45 99.0 77 18 151/75 99 04/29/17 11:56 Room Air Intake and Output 04/29/17 04/29/17 04/30/17 15:00 23:00 07:00 Intake Total 50 ml 410 ml 600 ml Output Total 500 ml Balance 50 ml -90 ml 600 ml Exam Constitutional: alert, oriented, well developed Psych: nl mood/affect, no complaints Head: atraumatic, normocephalic Eyes: EOMI, PERRL, nl conjunctiva, nl lids, nl sclera ENMT: nl external ears & nose, nl lips & teeth, nl nasal mucosa & septum Neck: non-tender, supple Respiratory: clear to auscultation, normal air movement Cardiovascular: nl pulses, regular rate and rhythm Gastrointestinal: nl liver, spleen, non-tender, soft Musculoskeletal: nl extremities to inspection, nl gait and stance Extremities: normal pulses 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, nl mental status, nl speech, nl strength Skin: nl turgor, No rash or lesions Lymph: nl lymph nodes Results Result Diagram: 04/30/1751104/30/1712 Results 24 hrs Laboratory Tests Test 04/29/17 17:32 04/29/17 20:35 04/30/17 02:43 04/30/17 05:12 Bedside Glucose 268 H 181 179 White Blood Count 9.4 # Red Blood Count 4.74 Hemoglobin 12.5 L Hematocrit 37.7 L Mean Corpuscular Volume 79.5 L Mean Corpuscular Hemoglobin 26.4 L Mean Corpuscular Hemoglobin Concent 33.2 Red Cell Distribution Width 17.5 H Platelet Count 367 Mean Platelet Volume 12.3 H Neutrophils % 76.6 Lymphocytes % 14.3 L Monocytes % 6.9 Eosinophils % 1.6 Basophils % 0.2 Nucleated Red Blood Cells % 0.0 Neutrophils # 7.2 Lymphocytes # 1.3 Monocytes # 0.7 Eosinophils # 0.2 Basophils # 0.0 Nucleated Red Blood Cells # 0.0 Sodium Level 137 Potassium Level 4.4 Chloride Level 101 Carbon Dioxide Level 24 Anion Gap 16 Blood Urea Nitrogen 21 H Creatinine 1.32 H Glucose Level 206 Calcium Level 9.0 Total Bilirubin 7.7 H Direct Bilirubin 6.10 H Indirect Bilirubin 1.6 H Aspartate Amino Transf (AST/SGOT) 53 H Alanine Aminotransferase (ALT/SGPT) 107 H Alkaline Phosphatase 389 H Total Protein 7.7 Albumin 4.0 Globulin 3.70 H Albumin/Globulin Ratio 1.08 Test 04/30/17 08:03 04/30/17 12:17 Bedside Glucose 188 246 H Medications Medications Current Medications Ondansetron HCl (Zofran Inj) 4 mg Q6H PRN IV NAUSEA AND/OR VOMITING; Start 04/27/17 at 21:30 Acetaminophen/ Hydrocodone Bitart ([place] (5/325)) 1 tab Q6H PRN PO MODERATE PAIN LEVEL 4-6 Last administered on 04/29/17 20:55; Admin Dose 1 TAB; Start at 21:30 Morphine Sulfate (morphine) 2 mg Q4H PRN IV SEVERE PAIN LEVEL 7-10; Start 04/27 at 21:30 Magnesium Hydroxide (Milk Of Mag) 30 ml DAILY PRN PO CONSTIPATION; Start at 21:30 Diagnostic Test (Pha) (Accu-Chek) 1 ea 02 XX Last administered on 04/30/17 02 :44; Admin Dose 1 EA; Start 04/28/17 at 02:00 Miscellaneous Information 1 ea NOTE XX ; Start 04/27/17 at 21:30 Glucose (Glutose) 15 gm Q15M PRN PO DECREASED GLUCOSE; Start 04/27/17 at 21:30 Glucose (Glutose) 22.5 gm Q15M PRN PO DECREASED GLUCOSE; Start 04/27/17 at 21: 30 Dextrose (D50w Syringe) 25 ml Q15M PRN IV DECREASED GLUCOSE; Start 04/27/17 at 21:30 Dextrose (D50w Syringe) 50 ml Q15M PRN IV DECREASED GLUCOSE; Start 04/27/17 at 21:30 Glucagon (Glucagen) 1 mg Q15M PRN IM DECREASED GLUCOSE; Start 04/27/17 at 21:30 Glucose (Glutose) 15 gm Q15M PRN BUCCAL DECREASED GLUCOSE; Start 04/27/17 at 21 :30 Pantoprazole (Protonix Tab) 40 mg DAILY@06 PO Last administered on 04/30/17 05:47; Admin Dose 40 MG; Start 04/29/17 at 06:00 Metronidazole (Flagyl) 250 mg TID PO Last administered on 04/30/17 13:45; Admin Dose 250 MG; Start 04/30/17 at 13:00 Insulin Detemir (Levemir) 10 unit DAILY@20 SC ; Start 04/30/17 at 20:00 JUVENAL NGO MD Apr 30, 2017 16:29
[2017-04-30 19:27] VITALS: BP 151/69; RESP 20
--- NOTE | 2017-04-30 19:35 | CONS ---
DATE OF ADMISSION: 04/27/2017 DATE OF CONSULTATION: HISTORY OF PRESENT ILLNESS: The patient is a 62-year-old male admitted through the emergency room f or jaundice, abnormal LFTs, which they attributed to INH, which was started 2 weeks ago for positive gold QuantiFERON test. The patient denies abdominal pain, no nausea, no vomiting. He had lost abdon e weight. In the emergency room, his bilirubin was high at 4.9. Alkaline phosphatase was 369. MRC P was done which showed a stone in the distal part of the bile duct and biliary system was dilated, so GI consult was called in. PAST MEDICAL HISTORY: Diabetes mellitus, hypertension, history of hernia surgery. ALLERGIES: NONE. FAMILY HISTORY: Negative. SOCIAL HISTORY: Negative. MEDICATIONS: All the medication all reviewed. PHYSICAL EXAMINATION VITALS: Stable. GENERAL: Well-built, nourished, not in distress. CARDIOVASCULAR: No murmur, gallop or click. LUNGS: Clear. ABDOMEN: Benign. EXTREMITIES: No edema. CENTRAL NERVOUS SYSTEM: Grossly within normal limits. IMPRESSION: 1. Obstructive jaundice with dilatation of the biliary system and stone in the distal part of the b ile duct as described on MRCP. 2. Fatty liver. 3. Diabetes. 4. Hypertension. 5. Positive QuantiFERON test. PLAN: At this point is to stop INH. We will proceed with ERCP and continue present care. Dictated By: JUVENAL JOHNSTON/ABDULLAHI Conf#: [id number] DID#: [id number] CC: EDDIE ANGLIN MD;*EndCC*
[2017-04-30] MEDS: INSULIN DETEMIR [LEVEMIR] 3ML CART SC SCH (21:34)
[2017-05-01] MEDS: ACCU-CHEK XX SCH (02:00)
[2017-05-01 02:03] VITALS: BP 114/72; RESP 20
[2017-05-01] MEDS: PANTOPRAZOLE (EC) 40 MG TAB PO SCH (05:59)
[2017-05-01 06:00] LABS: BASOPHILS % 0.2 % (0.0-2.0); EOSINOPHILS # 0.2 10^3/ul (0.0-0.5); EOSINOPHILS % 1.7 % (0.0-7.0); HEMATOCRIT 35.5 % (42.0-52.0); HEMOGLOBIN 12.1 g/dl (14.0-18.0); LYMPHOCYTES # 2.1 10^3/ul (0.8-2.9); LYMPHOCYTES % 17.2 % (15.0-51.0); MEAN CORPUSCULAR HEMOGLOBIN 26.5 pg (29.0-33.0); MEAN CORPUSCULAR HGB CONC 34.1 g/dl (32.0-37.0); MEAN CORPUSCULAR VOLUME 77.9 fl (82.0-101.0); MEAN PLATELET VOLUME 12.3 fl (7.4-10.4); MONOCYTE # 0.9 10^3/ul (0.3-0.9); MONOCYTES % 7.6 % (0.0-11.0); NEUTROPHIL # 8.8 10^3/ul (1.6-7.5); NEUTROPHILS % 72.7 % (39.0-77.0); PLATELET COUNT 340 10^3/UL (140-415); RED BLOOD COUNT 4.56 10^6/ul (4.70-6.10); RED CELL DISTRIBUTION WIDTH 18.1 % (11.5-14.5); WHITE BLOOD COUNT 12.2 10^3/ul (4.8-10.8)
[2017-05-01 06:27] LABS: ALBUMIN 3.8 g/dl (3.3-4.9); ALBUMIN/GLOBULIN RATIO 0.97; BILIRUBIN,DIRECT 6.2 mg/dl (0.00-0.20); BILIRUBIN,INDIRECT 1.8 mg/dl (0-1.1); CALCIUM 8.8 mg/dl (8.4-10.2); CREATININE 1.3 mg/dl (0.61-1.24); POTASSIUM 4.1 mmol/L (3.5-5.1); TOTAL PROTEIN 7.7 g/dl (6.1-8.1)
[2017-05-01 08:11] VITALS: BP 137/83; RESP 18
[2017-05-01] MEDS: metroNIDAZOLE 250 MG TAB PO SCH ×3 (08:14→20:17)
[2017-05-01] MEDS: INSULIN ASPART [NOVOLOG] 3 ML PEN SC SCH ×4 (08:18→20:22)
[2017-05-01 13:51] VITALS: BP 143/75; RESP 20
--- NOTE | 2017-05-01 14:36 | PN ---
Date/Time of Note Date/Time of Note DATE: 05/01/17 TIME: 14:35 Assessment/Plan VTE Prophylaxis VTE Prophylaxis Intervention: ambulation Lines/Catheters IV [facility] Type [facility] [place] Urinary Cath still in place: No Assessment/Plan Chief Complaint/Hosp Course 1. S/p ERCP: Findings are:A. Impacted stone in the ampulla. The ampulla was huge. Selectively, bile duct cannulated and large sphincterotomy was done. Bile duct was swept multiple times with a 12 mm balloon which would come out easily. B. Brushing was done. C. Stent was successfully deployed, 10-[place] 5 cm, excellent drainage was established. 2. Liver failure 3. diabetes Mellitus type II, uncontrolled 4. Overweight 5. Hx of Quantiferon test positive 6. Hepatitis C Problems: Assessment/Plan 1. Per GI 2. Advance diet as condition permits Subjective 24 Hr Interval Summary Constitutional: improved, no complaints Exam/Review of Systems Vital Signs Vitals Vital Signs Date Time Temp Pulse Resp B/P Pulse Ox O2 Delivery O2 Flow Rate FiO2 05/01/17 13:51 100.3 76 20 143/75 98 04/29/17 11:56 Room Air Intake and Output 04/30/17 04/30/17 05/01/17 14:59 22:59 06:59 Intake Total 1240 ml 200 ml Output Total 750 ml 800 ml Balance 490 ml -600 ml Exam Constitutional: alert, oriented Neck: supple Respiratory: clear to auscultation Cardiovascular: regular rate and rhythm Results Result Diagram: 05/01/17 0503 05/01/17 0503 Results 24 hrs Laboratory Tests Test 04/30/17 17:37 04/30/17 21:29 05/01/17 05:03 05/01/17 05:48 Bedside Glucose 204 172 White Blood Count 12.2 #H Red Blood Count 4.56 L Hemoglobin 12.1 L Hematocrit 35.5 L Mean Corpuscular Volume 77.9 L Mean Corpuscular Hemoglobin 26.5 L Mean Corpuscular Hemoglobin Concent 34.1 Red Cell Distribution Width 18.1 H Platelet Count 340 Mean Platelet Volume 12.3 H Neutrophils % 72.7 Lymphocytes % 17.2 Monocytes % 7.6 Eosinophils % 1.7 Basophils % 0.2 Nucleated Red Blood Cells % 0.0 Neutrophils # 8.8 H Lymphocytes # 2.1 Monocytes # 0.9 Eosinophils # 0.2 Basophils # 0.0 Nucleated Red Blood Cells # 0.0 Sodium Level 137 Potassium Level 4.1 Chloride Level 102 Carbon Dioxide Level 21 Anion Gap 18 H Blood Urea Nitrogen 20 Creatinine 1.30 H Glucose Level 188 Calcium Level 8.8 Total Bilirubin 8.0 H Direct Bilirubin 6.20 H Indirect Bilirubin 1.8 H Aspartate Amino Transf (AST/SGOT) 41 Alanine Aminotransferase (ALT/SGPT) 90 H Alkaline Phosphatase 384 H Total Protein 7.7 Albumin 3.8 Globulin 3.90 H Albumin/Globulin Ratio 0.97 Lab Scanned Report REFERENCE LAB Test 05/01/17 08:12 05/01/17 12:15 Bedside Glucose 163 182 Medications Medications Current Medications Ondansetron HCl (Zofran Inj) 4 mg Q6H PRN IV NAUSEA AND/OR VOMITING; Start 04/27/17 at 21:30 Acetaminophen/ Hydrocodone Bitart ([place] (5/325)) 1 tab Q6H PRN PO MODERATE PAIN LEVEL 4-6 Last administered on 04/29/17 20:55; Admin Dose 1 TAB; Start at 21:30 Morphine Sulfate (morphine) 2 mg Q4H PRN IV SEVERE PAIN LEVEL 7-10; Start 04/27 at 21:30 Magnesium Hydroxide (Milk Of Mag) 30 ml DAILY PRN PO CONSTIPATION; Start at 21:30 Diagnostic Test (Pha) (Accu-Chek) 1 ea 02 XX Last administered on 04/30/17 02 :44; Admin Dose 1 EA; Start 04/28/17 at 02:00 Miscellaneous Information 1 ea NOTE XX ; Start 04/27/17 at 21:30 Glucose (Glutose) 15 gm Q15M PRN PO DECREASED GLUCOSE; Start 04/27/17 at 21:30 Glucose (Glutose) 22.5 gm Q15M PRN PO DECREASED GLUCOSE; Start 04/27/17 at 21: 30 Dextrose (D50w Syringe) 25 ml Q15M PRN IV DECREASED GLUCOSE; Start 04/27/17 at 21:30 Dextrose (D50w Syringe) 50 ml Q15M PRN IV DECREASED GLUCOSE; Start 04/27/17 at 21:30 Glucagon (Glucagen) 1 mg Q15M PRN IM DECREASED GLUCOSE; Start 04/27/17 at 21:30 Glucose (Glutose) 15 gm Q15M PRN BUCCAL DECREASED GLUCOSE; Start 04/27/17 at 21 :30 Pantoprazole (Protonix Tab) 40 mg DAILY@06 PO Last administered on 05/01/17 05:59; Admin Dose 40 MG; Start 04/29/17 at 06:00 Metronidazole (Flagyl) 250 mg TID PO Last administered on 05/01/17 12:18; Admin Dose 250 MG; Start 04/30/17 at 13:00 Insulin Detemir (Levemir) 10 unit DAILY@20 SC Last administered on 04/30/17 21:34; Admin Dose 10 UNIT; Start 04/30/17 at 20:00 TRACY QUEZADA May 01, 2017 14:36
[2017-05-01] MEDS ORDERED: ACETAMINOPHEN 325 MG TAB PO PRN (19:00)
[2017-05-01 19:15] VITALS: BP 140/73; RESP 20
[2017-05-01] MEDS: INSULIN DETEMIR [LEVEMIR] 3ML CART SC SCH (20:22)
--- NOTE | 2017-05-01 21:54 | CONS ---
Date/Time of Note Date/Time of Note DATE: 05/01/17 TIME: 21:50 Assessment/Plan Assessment/Plan Chief Complaint/Hosp Course Impression: 1. S/p ERCP: Findings are:A. Impacted stone in the ampulla. The ampulla was huge. Selectively, bile duct cannulated and large sphincterotomy was done. Bile duct was swept multiple times with a 12 mm balloon which would come out easily. B. Brushing was done. C. Stent was successfully deployed, 10-[place] 5 cm, excellent drainage was established. 2. Liver failure 3. diabetes Mellitus type II, uncontrolled 4. Overweight 5. Hx of Quantiferon test positive 6. Hepatitis C Recommendations 1. Per GI 2. advance diet as tolerated 3. ok to dc from gi perspective if ok with primary and other consultants Problems: Consultation Date/Type/Reason Admit Date/Time Apr 27, 2017 at 18:40 Type of Consultation: GI 24 HR Interval Summary Free Text/Dictation no n/v, mild abdominal pain Exam/Review of Systems Vital Signs Vitals Vital Signs Date Time Temp Pulse Resp B/P Pulse Ox O2 Delivery O2 Flow Rate FiO2 05/01/17 19:15 98.9 95 20 140/73 97 04/29/17 11:56 Room Air Intake and Output 04/30/17 04/30/17 05/01/17 14:59 22:59 06:59 Intake Total 1240 ml 200 ml Output Total 750 ml 800 ml Balance 490 ml -600 ml Exam Constitutional: alert, oriented, well developed Psych: nl mood/affect, no complaints Head: atraumatic, normocephalic Eyes: EOMI, nl conjunctiva, nl lids ENMT: nl external ears & nose, nl lips & teeth, nl nasal mucosa & septum Neck: non-tender, supple Respiratory: clear to auscultation, normal air movement Cardiovascular: nl pulses, regular rate and rhythm Gastrointestinal: bowel sounds, non-tender, soft Results Result Diagram: 05/01/17 0503 05/01/17 0503 Results 24 hrs Laboratory Tests Test 05/01/17 05:03 05/01/17 05:48 05/01/17 08:12 05/01/17 12:15 White Blood Count 12.2 #H Red Blood Count 4.56 L Hemoglobin 12.1 L Hematocrit 35.5 L Mean Corpuscular Volume 77.9 L Mean Corpuscular Hemoglobin 26.5 L Mean Corpuscular Hemoglobin Concent 34.1 Red Cell Distribution Width 18.1 H Platelet Count 340 Mean Platelet Volume 12.3 H Neutrophils % 72.7 Lymphocytes % 17.2 Monocytes % 7.6 Eosinophils % 1.7 Basophils % 0.2 Nucleated Red Blood Cells % 0.0 Neutrophils # 8.8 H Lymphocytes # 2.1 Monocytes # 0.9 Eosinophils # 0.2 Basophils # 0.0 Nucleated Red Blood Cells # 0.0 Sodium Level 137 Potassium Level 4.1 Chloride Level 102 Carbon Dioxide Level 21 Anion Gap 18 H Blood Urea Nitrogen 20 Creatinine 1.30 H Glucose Level 188 Calcium Level 8.8 Total Bilirubin 8.0 H Direct Bilirubin 6.20 H Indirect Bilirubin 1.8 H Aspartate Amino Transf (AST/SGOT) 41 Alanine Aminotransferase (ALT/SGPT) 90 H Alkaline Phosphatase 384 H Total Protein 7.7 Albumin 3.8 Globulin 3.90 H Albumin/Globulin Ratio 0.97 Lab Scanned Report REFERENCE LAB Bedside Glucose 163 182 Test 05/01/17 17:17 05/01/17 20:18 Bedside Glucose 174 238 H Medications Medications Current Medications Ondansetron HCl (Zofran Inj) 4 mg Q6H PRN IV NAUSEA AND/OR VOMITING; Start 04/27/17 at 21:30 Acetaminophen/ Hydrocodone Bitart ([place] (5/325)) 1 tab Q6H PRN PO MODERATE PAIN LEVEL 4-6 Last administered on 04/29/17 20:55; Admin Dose 1 TAB; Start at 21:30 Morphine Sulfate (morphine) 2 mg Q4H PRN IV SEVERE PAIN LEVEL 7-10; Start 04/27 at 21:30 Magnesium Hydroxide (Milk Of Mag) 30 ml DAILY PRN PO CONSTIPATION Last administered on 05/01/17 20:17; Admin Dose 30 ML; Start 04/27/17 at 21:30 Diagnostic Test (Pha) (Accu-Chek) 1 ea 02 XX Last administered on 04/30/17 02 :44; Admin Dose 1 EA; Start 04/28/17 at 02:00 Miscellaneous Information 1 ea NOTE XX ; Start 04/27/17 at 21:30 Glucose (Glutose) 15 gm Q15M PRN PO DECREASED GLUCOSE; Start 04/27/17 at 21:30 Glucose (Glutose) 22.5 gm Q15M PRN PO DECREASED GLUCOSE; Start 04/27/17 at 21: 30 Dextrose (D50w Syringe) 25 ml Q15M PRN IV DECREASED GLUCOSE; Start 04/27/17 at 21:30 Dextrose (D50w Syringe) 50 ml Q15M PRN IV DECREASED GLUCOSE; Start 04/27/17 at 21:30 Glucagon (Glucagen) 1 mg Q15M PRN IM DECREASED GLUCOSE; Start 04/27/17 at 21:30 Glucose (Glutose) 15 gm Q15M PRN BUCCAL DECREASED GLUCOSE; Start 04/27/17 at 21 :30 Pantoprazole (Protonix Tab) 40 mg DAILY@06 PO Last administered on 05/01/17 05:59; Admin Dose 40 MG; Start 04/29/17 at 06:00 Metronidazole (Flagyl) 250 mg TID PO Last administered on 05/01/17 20:17; Admin Dose 250 MG; Start 04/30/17 at 13:00 Insulin Detemir (Levemir) 10 unit DAILY@20 SC Last administered on 05/01/17 20:22; Admin Dose 10 UNIT; Start 04/30/17 at 20:00 Acetaminophen (Tylenol Tab) 650 mg Q8H PRN PO PAIN AND OR ELEVATED TEMP; Start 05/01/17 at 19:00 JAUN HANEY MD May 01, 2017 21:54
[2017-05-02 01:27] VITALS: BP 130/71; RESP 20
[2017-05-02] MEDS: ACCU-CHEK XX SCH (01:59)
[2017-05-02] MEDS: PANTOPRAZOLE (EC) 40 MG TAB PO SCH (05:35)
[2017-05-02 07:25] VITALS: BP 141/73; RESP 18
[2017-05-02] MEDS: metroNIDAZOLE 250 MG TAB PO SCH ×3 (08:06→20:41)
[2017-05-02] MEDS: INSULIN ASPART [NOVOLOG] 3 ML PEN SC SCH ×4 (08:12→20:48)
[2017-05-02] MEDS ORDERED: BISACODYL 10 MG SUPP PR PRN (09:30)
[2017-05-02] MEDS ORDERED: LACTULOSE 30ML CUP PO PRN (09:30)
--- NOTE | 2017-05-02 09:33 | PN ---
Date/Time of Note Date/Time of Note DATE: 05/02/17 TIME: 09:30 Assessment/Plan VTE Prophylaxis VTE Prophylaxis Intervention: ambulation Lines/Catheters IV C[facility]ter Type (from [facility]): [place] Urinary Cath still in place: No Assessment/Plan Chief Complaint/Hosp Course 1. S/p ERCP: Findings are:A. Impacted stone in the ampulla. The ampulla was huge. Selectively, bile duct cannulated and large sphincterotomy was done. Bile duct was swept multiple times with a 12 mm balloon which would come out easily. B. Brushing was done. C. Stent was successfully deployed, 10-B[place] 5 cm, excellent drainage was established. 2. Liver failure 3. diabetes Mellitus type II, uncontrolled 4. Overweight 5. Hx of Quantiferon test positive 6. Hepatitis C 7. SIRS 8. Possible cholangitis or cholecystitis. Problems: Assessment/Plan 1. Sepsis workout 2. Start on NAcl 50 ml hour 3. Start on Zosyn 4. Bile sequestrant per dr Hu 5. Dr Peña called Subjective 24 Hr Interval Summary Constitutional: chills Musculoskeletal: back pain, bone/joint pain Skin: other (icteric) Exam/Review of Systems Vital Signs Vitals Vital Signs Date Time Temp Pulse Resp B/P Pulse Ox O2 Delivery O2 Flow Rate FiO2 05/02/17 07:25 99.3 82 18 141/73 96 04/29/17 11:56 Room Air Intake and Output 05/01/17 05/01/17 05/02/17 15:00 23:00 07:00 Intake Total 1640 ml 400 ml Output Total 450 ml 0 ml Balance 1190 ml 400 ml Exam Constitutional: alert, oriented Cardiovascular: regular rate and rhythm Gastrointestinal: soft Results Result Diagram: 05/01/17 0503 05/01/17 0503 Results 24 hrs Laboratory Tests Test 05/01/17 12:15 05/01/17 17:17 05/01/17 20:18 05/02/17 01:49 Bedside Glucose 182 174 238 H 183 Test 05/02/17 08:04 Bedside Glucose 170 Medications Medications Current Medications Ondansetron HCl (Zofran Inj) 4 mg Q6H PRN IV NAUSEA AND/OR VOMITING; Start 04/27/17 at 21:30 Acetaminophen/ Hydrocodone Bitart ([place] (5/325)) 1 tab Q6H PRN PO MODERATE PAIN LEVEL 4-6 Last administered on 04/29/17 20:55; Admin Dose 1 TAB; Start at 21:30 Morphine Sulfate (morphine) 2 mg Q4H PRN IV SEVERE PAIN LEVEL 7-10; Start 04/27 at 21:30 Magnesium Hydroxide (Milk Of Mag) 30 ml DAILY PRN PO CONSTIPATION Last administered on 05/01/17 20:17; Admin Dose 30 ML; Start 04/27/17 at 21:30 Diagnostic Test (Pha) (Accu-Chek) 1 ea 02 XX Last administered on 05/02/17 01 :59; Admin Dose 1 EA; Start 04/28/17 at 02:00 Miscellaneous Information 1 ea NOTE XX ; Start 04/27/17 at 21:30 Glucose (Glutose) 15 gm Q15M PRN PO DECREASED GLUCOSE; Start 04/27/17 at 21:30 Glucose (Glutose) 22.5 gm Q15M PRN PO DECREASED GLUCOSE; Start 04/27/17 at 21: 30 Dextrose (D50w Syringe) 25 ml Q15M PRN IV DECREASED GLUCOSE; Start 04/27/17 at 21:30 Dextrose (D50w Syringe) 50 ml Q15M PRN IV DECREASED GLUCOSE; Start 04/27/17 at 21:30 Glucagon (Glucagen) 1 mg Q15M PRN IM DECREASED GLUCOSE; Start 04/27/17 at 21:30 Glucose (Glutose) 15 gm Q15M PRN BUCCAL DECREASED GLUCOSE; Start 04/27/17 at 21 :30 Pantoprazole (Protonix Tab) 40 mg DAILY@06 PO Last administered on 05/02/17 05:35; Admin Dose 40 MG; Start 04/29/17 at 06:00 Metronidazole (Flagyl) 250 mg TID PO Last administered on 05/02/17 08:06; Admin Dose 250 MG; Start 04/30/17 at 13:00 Insulin Detemir (Levemir) 10 unit DAILY@20 SC Last administered on 05/01/17 20:22; Admin Dose 10 UNIT; Start 04/30/17 at 20:00 Acetaminophen (Tylenol Tab) 650 mg Q8H PRN PO PAIN AND OR ELEVATED TEMP; Start 05/01/17 at 19:00 TRACY QUEZADA May 02, 2017 09:33
--- NOTE | 2017-05-02 09:54 | CONS ---
Date/Time of Note Date/Time of Note DATE: 05/02/17 TIME: 09:47 Assessment/Plan Assessment/Plan Chief Complaint/Hosp Course Impression: 1. S/p ERCP: Findings are:A. Impacted stone in the ampulla. The ampulla was huge. Selectively, bile duct cannulated and large sphincterotomy was done. Bile duct was swept multiple times with a 12 mm balloon which would come out easily. B. Brushing was done. C. Stent was successfully deployed, 10-English 5 cm, excellent drainage was established. 2. Liver failure 3. diabetes Mellitus type II, uncontrolled 4. Overweight 5. Hx of Quantiferon test positive 6. Hepatitis C Recommendations 1. patient now has fever with rising bili. ERCP was already done with stent placed. Patient likely has cholecystitis causing fever. Thus, would strongly recommend surgical eval if not done already 2. start zosyn for likely cholecystitis, further abx modification per surgery 3. start ursodiol 300 mg bid 4. NPO until seen by surgery 5. increased IVF to 80 cc/hr given NPO status 6. Dr. Hu to resume care of this patient tomorrow Problems: Consultation Date/Type/Reason Admit Date/Time Apr 27, 2017 at 18:40 Type of Consultation: GI 24 HR Interval Summary Free Text/Dictation RUQ pain, fever Exam/Review of Systems Vital Signs Vitals Vital Signs Date Time Temp Pulse Resp B/P Pulse Ox O2 Delivery O2 Flow Rate FiO2 05/02/17 07:25 99.3 82 18 141/73 96 04/29/17 11:56 Room Air Intake and Output 05/01/17 05/01/17 05/02/17 15:00 23:00 07:00 Intake Total 1640 ml 400 ml Output Total 450 ml 0 ml Balance 1190 ml 400 ml Exam Constitutional: alert, oriented, well developed Psych: nl mood/affect, no complaints Head: atraumatic, normocephalic Eyes: EOMI, icteric, nl lids ENMT: nl external ears & nose, nl lips & teeth, nl nasal mucosa & septum Neck: non-tender, supple Respiratory: clear to auscultation, normal air movement Cardiovascular: nl pulses, regular rate and rhythm Gastrointestinal: bowel sounds, non-tender, soft Results Result Diagram: 05/01/17 0503 05/01/17 0503 Results 24 hrs Laboratory Tests Test 05/01/17 12:15 05/01/17 17:17 05/01/17 20:18 05/02/17 01:49 Bedside Glucose 182 174 238 H 183 Test 05/02/17 08:04 Bedside Glucose 170 Medications Medications Current Medications Ondansetron HCl (Zofran Inj) 4 mg Q6H PRN IV NAUSEA AND/OR VOMITING; Start 04/27/17 at 21:30 Acetaminophen/ Hydrocodone Bitart ([place] (5/325)) 1 tab Q6H PRN PO MODERATE PAIN LEVEL 4-6 Last administered on 04/29/17 20:55; Admin Dose 1 TAB; Start at 21:30 Morphine Sulfate (morphine) 2 mg Q4H PRN IV SEVERE PAIN LEVEL 7-10; Start 04/27 at 21:30 Magnesium Hydroxide (Milk Of Mag) 30 ml DAILY PRN PO CONSTIPATION Last administered on 05/01/17 20:17; Admin Dose 30 ML; Start 04/27/17 at 21:30 Diagnostic Test (Pha) (Accu-Chek) 1 ea 02 XX Last administered on 05/02/17 01 :59; Admin Dose 1 EA; Start 04/28/17 at 02:00 Miscellaneous Information 1 ea NOTE XX ; Start 04/27/17 at 21:30 Glucose (Glutose) 15 gm Q15M PRN PO DECREASED GLUCOSE; Start 04/27/17 at 21:30 Glucose (Glutose) 22.5 gm Q15M PRN PO DECREASED GLUCOSE; Start 04/27/17 at 21: 30 Dextrose (D50w Syringe) 25 ml Q15M PRN IV DECREASED GLUCOSE; Start 04/27/17 at 21:30 Dextrose (D50w Syringe) 50 ml Q15M PRN IV DECREASED GLUCOSE; Start 04/27/17 at 21:30 Glucagon (Glucagen) 1 mg Q15M PRN IM DECREASED GLUCOSE; Start 04/27/17 at 21:30 Glucose (Glutose) 15 gm Q15M PRN BUCCAL DECREASED GLUCOSE; Start 04/27/17 at 21 :30 Pantoprazole (Protonix Tab) 40 mg DAILY@06 PO Last administered on 05/02/17 05:35; Admin Dose 40 MG; Start 04/29/17 at 06:00 Metronidazole (Flagyl) 250 mg TID PO Last administered on 05/02/17t 08:06; Admin Dose 250 MG; Start 04/30/17 at 13:00 Acetaminophen (Tylenol Tab) 650 mg Q8H PRN PO PAIN AND OR ELEVATED TEMP; Start 05/01/17 at 19:00 Insulin Detemir 15 unit 15 unit DAILY@20 SC ; Start 05/02/17 at 20:00 Piperacillin Sod/ Tazobactam Sod (Zosyn 3.375gm/ 50 ml (Pmx)) 50 ml @ 100 mls/ hr Q8 IVPB ; Start 05/02/17 at 14:00; Status UNV Bisacodyl (Dulcolax Supp) 10 mg DAILY PRN [place] CONSTIPATION; Start 05/02/17 at 09:30; Status UNV Lactulose 10 gm 10 gm DAILY PRN PO CONSTIPATION; Start 05/02/17 at 09:30; Status UNV Sodium Chloride (NS) 1,000 ml @ 50 mls/hr Q20H IV ; Start 05/02/17 at 09:30; Status UNV JAUN HANEY MD May 02, 2017 09:54
[2017-05-02] MEDS: SOD CHLORIDE 0.9% 1,000 ML IV SCH ×2 (09:57→22:08)
[2017-05-02] MEDS: PIPER-TAZO 3.375 GM IV (PMX) 50 ML IVPB SCH ×3 (11:50→21:42)
[2017-05-02 15:48] VITALS: BP 138/73; RESP 18
--- NOTE | 2017-05-02 17:45 | CONS ---
Date/Time of Note Date/Time of Note DATE: 05/02/17 TIME: 17:09 Assessment/Plan Assessment/Plan Chief Complaint/Hosp Course 1. Obstructive jaundice with choledocholithiasis, cholangitis, ?cholelithiasis possible cholecystitis: Impacted stone in ampulla; s/p ercp with sphincterotomy and stent; wbc elevated, biliary dilatation, jaundice -recommend repeat ercp -eventual lap howie when stable -abx -npo 2. Pancreatitis: likely 2/2 #1 -ivf -npo 3. Transaminitis: 2/2 #1 +/- liver disease -as above 4. JULIO: -judicious fluids -limit nephrotoxic meds 5. Fatty liver and reactive hep c antibody -diet and exercise modification 6. Diabetes: -blood sugar optimization -weight management 7. Microcytic hypochromic anemia: -monitor -transfuse as needed -further workup per medical team Thank you. Patient seen and examined in collaboration with Dr. Aditya Peña. Problems: Consultation Date/Type/Reason Admit Date/Time Apr 27, 2017 at 18:40 Date of Consultation: May 02, 2017 Type of Consultation: Surgical Reason for Consultation ?cholecystitis, cholelithiasis, choledocholithiasis Referring Provider: MARYCARMEN DE LA CRUZ MD Hx of Present Illness Aditya Peck is a 62 yo man who presented with jaundice and elevated lft's. He had an MRCP which showed choledocholithiasis, for which he had an ERCP on the with sphincterotomy and stenting. His numbers were initially improving after the ERCP, however his bilirubin has recently began to increase. He reports minimal tenderness in his abdomen. He denies fever, chills, congested cough, nausea, vomiting, esparza, dizziness, cp, palpitations, hematochezia, hematemesis. General surgery was asked to evaluate. 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: s/p inh treatment Past Surgical History Left open inguinal hernia repair Family History Significant Family History: no pertinent family hx Social History Alcohol Use: none Smoking Status: Former smoker Exam/Review of Systems Vital Signs Vitals Vital Signs Date Time Temp Pulse Resp B/P Pulse Ox O2 Delivery O2 Flow Rate FiO2 05/02/17 15:48 99.0 76 18 138/73 96 04/29/17 11:56 Room Air Intake and Output 05/01/17 05/01/17 05/02/17 15:00 23:00 07:00 Intake Total 1640 ml 400 ml Output Total 450 ml 0 ml Balance 1190 ml 400 ml Exam Constitutional: alert, oriented Psych: nl mood/affect Head: atraumatic, normocephalic Eyes: icteric, nl lids ENMT: mucosa pink and moist, nl nasal mucosa & septum Neck: non-tender, supple Respiratory: clear to auscultation, normal air movement Cardiovascular: nl pulses, regular rate and rhythm Gastrointestinal: distended (min), soft, tender (tender lower abdomen) Genitourinary - Male: nl penis, nl scrotum Musculoskeletal: nl extremities to inspection Extremities: normal pulses Neurological: nl mental status, nl speech, nl strength Skin: other (jaundice) Results Result Diagram: 05/01/17 0503 05/01/17 0503 Results 24 hrs Laboratory Tests Test 05/01/17 17:17 05/01/17 20:18 05/02/17 01:49 05/02/17 08:04 Bedside Glucose 174 238 H 183 170 Test 05/02/17 10:55 05/02/17 11:57 Lactic Acid Level 1.6 Bedside Glucose 203 Medications Medications Current Medications Ondansetron HCl (Zofran Inj) 4 mg Q6H PRN IV NAUSEA AND/OR VOMITING; Start 04/27/17 at 21:30 Acetaminophen/ Hydrocodone Bitart ([place] (5/325)) 1 tab Q6H PRN PO MODERATE PAIN LEVEL 4-6 Last administered on 04/29/17 20:55; Admin Dose 1 TAB; Start at 21:30 Morphine Sulfate (morphine) 2 mg Q4H PRN IV SEVERE PAIN LEVEL 7-10; Start 04/27 at 21:30 Magnesium Hydroxide (Milk Of Mag) 30 ml DAILY PRN PO CONSTIPATION Last administered on 05/01/17 20:17; Admin Dose 30 ML; Start 04/27/17 at 21:30 Diagnostic Test (Pha) (Accu-Chek) 1 ea 02 XX Last administered on 05/02/17 01 :59; Admin Dose 1 EA; Start 04/28/17 at 02:00 Miscellaneous Information 1 ea NOTE XX ; Start 04/27/17 at 21:30 Glucose (Glutose) 15 gm Q15M PRN PO DECREASED GLUCOSE; Start 04/27/17 at 21:30 Glucose (Glutose) 22.5 gm Q15M PRN PO DECREASED GLUCOSE; Start 04/27/17 at 21: 30 Dextrose (D50w Syringe) 25 ml Q15M PRN IV DECREASED GLUCOSE; Start 04/27/17 at 21:30 Dextrose (D50w Syringe) 50 ml Q15M PRN IV DECREASED GLUCOSE; Start 04/27/17 at 21:30 Glucagon (Glucagen) 1 mg Q15M PRN IM DECREASED GLUCOSE; Start 04/27/17 at 21:30 Glucose (Glutose) 15 gm Q15M PRN BUCCAL DECREASED GLUCOSE; Start 04/27/17 at 21 :30 Pantoprazole (Protonix Tab) 40 mg DAILY@06 PO Last administered on 05/02/17 05:35; Admin Dose 40 MG; Start 04/29/17 at 06:00 Metronidazole (Flagyl) 250 mg TID PO Last administered on 05/02/17 12:24; Admin Dose 250 MG; Start 04/30/17 at 13:00 Acetaminophen (Tylenol Tab) 650 mg Q8H PRN PO PAIN AND OR ELEVATED TEMP; Start 05/01/17 at 19:00 Insulin Detemir 15 unit 15 unit DAILY@20 SC ; Start 05/02/17 at 20:00 Piperacillin Sod/ Tazobactam Sod (Zosyn 3.375gm/ 50 ml (Pmx)) 50 ml @ 100 mls/ hr Q8 IVPB Last administered on 05/02/17 16:23; Admin Dose 100 MLS/HR; Start 05/02/17 at 11:00 Bisacodyl (Dulcolax Supp) 10 mg DAILY PRN [place] CONSTIPATION Last administered on 05/02/17 11:51; Admin Dose 10 MG; Start 05/02/17 at 09:30 Lactulose 10 gm 10 gm DAILY PRN PO CONSTIPATION; Start 05/02/17 at 09:30 Sodium Chloride (NS) 1,000 ml @ 80 mls/hr [id number] IV Last administered on t 09:57; Admin Dose 80 MLS/HR; Start 05/02/17 at 09:30 Ursodiol (Actigall) 300 mg BID PO ; Start 05/02/17 at 21:00 DARIN THAKUR NP May 02, 2017 17:19
[2017-05-02 19:27] VITALS: BP 127/69; RESP 20
[2017-05-02] MEDS ORDERED: INSULIN GLARGINE [LANtus] 3 ML PEN SC SCH (20:00)
[2017-05-02] MEDS ORDERED: INSULIN DETEMIR [LEVEMIR] 3ML CART SC SCH (20:00)
[2017-05-02] MEDS: URSODIOL 300 MG CAP PO SCH (20:41)
[2017-05-03 01:53] VITALS: BP 151/76; RESP 20
[2017-05-03] MEDS: ACCU-CHEK XX SCH (02:00)
[2017-05-03] MEDS: INSULIN ASPART [NOVOLOG] 3 ML PEN SC SCH ×4 (05:09→17:52)
[2017-05-03] MEDS: PANTOPRAZOLE (EC) 40 MG TAB PO SCH (05:10)
[2017-05-03] MEDS: PIPER-TAZO 3.375 GM IV (PMX) 50 ML IVPB SCH ×3 (05:10→21:27)
[2017-05-03] MEDS: SOD CHLORIDE 0.9% 1,000 ML IV SCH ×3 (05:11→21:27)
[2017-05-03 06:12] LABS: BASOPHILS % 0.3 % (0.0-2.0); EOSINOPHILS # 0.2 10^3/ul (0.0-0.5); EOSINOPHILS % 1.5 % (0.0-7.0); HEMATOCRIT 33.9 % (42.0-52.0); HEMOGLOBIN 11.2 g/dl (14.0-18.0); LYMPHOCYTES # 1.7 10^3/ul (0.8-2.9); LYMPHOCYTES % 12.7 % (15.0-51.0); MEAN CORPUSCULAR HEMOGLOBIN 26.1 pg (29.0-33.0); MEAN PLATELET VOLUME 12.1 fl (7.4-10.4); MONOCYTES % 7.6 % (0.0-11.0); NEUTROPHIL # 10.5 10^3/ul (1.6-7.5); NEUTROPHILS % 76.9 % (39.0-77.0); PLATELET COUNT 364 10^3/UL (140-415); RED BLOOD COUNT 4.29 10^6/ul (4.70-6.10); RED CELL DISTRIBUTION WIDTH 18.4 % (11.5-14.5); WHITE BLOOD COUNT 13.6 10^3/ul (4.8-10.8)
[2017-05-03 06:30] LABS: ALBUMIN 3.2 g/dl (3.3-4.9); ALBUMIN/GLOBULIN RATIO 0.78; BILIRUBIN,DIRECT 6.9 mg/dl (0.00-0.20); BILIRUBIN,INDIRECT 1.6 mg/dl (0-1.1); BILIRUBIN,TOTAL 8.5 mg/dl (0.2-1.3); CALCIUM 8.5 mg/dl (8.4-10.2); CREATININE 1.08 mg/dl (0.61-1.24); TOTAL PROTEIN 7.3 g/dl (6.1-8.1)
[2017-05-03 07:56] VITALS: BP 130/75; RESP 18
[2017-05-03] MEDS: metroNIDAZOLE 250 MG TAB PO SCH (08:31)
[2017-05-03] MEDS: URSODIOL 300 MG CAP PO SCH ×2 (08:31→21:26)
--- NOTE | 2017-05-03 10:02 | PN ---
Date/Time of Note Date/Time of Note DATE: 05/03/17 TIME: 09:50 Assessment/Plan VTE Prophylaxis VTE Prophylaxis Intervention: SCD's Lines/Catheters IV [facility]from [facility] Peripheral IV Urinary Cath still in place: No Assessment/Plan Chief Complaint/Hosp Course 62 y/o with # Obstructive jaundice with choledocholithiasis and cholangitis and cholelithiasis possible cholecystitis s/p ERCP on 04/29 with impacted ampulla Large sphincterotomy done Brushing done Stent deployed 10 English 5 cm with excellent drainage Cystic duct appeared to be blocked. 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 Isonazid Plan - Spoke to Dr Hu , will do stat HIDA, IF cystic duct blocked will put stent again - c/w zosyn, dc flagyl - monitor for fevers and wbc - c/w NPO - iv fluids - hold lantus while NPO - c/w Urodiol - GI Prophylaxsis Problems: Subjective 24 Hr Interval Summary Free Text/Dictation Slight lower abdominal pain NPO Exam/Review of Systems Vital Signs Vitals Vital Signs Date Time Temp Pulse Resp B/P Pulse Ox O2 Delivery O2 Flow Rate FiO2 05/03/17 07:56 98.3 81 18 130/75 98 04/29/17 11:56 Room Air Intake and Output 05/02/17 05/02/17 05/03/17 14:59 22:59 06:59 Intake Total 50 ml 700 ml 570 ml Output Total 500 ml Balance 50 ml 200 ml 570 ml Exam Gen: Awake,alert HEENT: Scleral icterus CVS: Regular rate and rthym Lungs: clear to auscultate Abdomen: some TTP suprapubic Ext: no edema Results Result Diagram: 05/03/17 0533 05/03/1733 Results 24 hrs Laboratory Tests Test 05/02/17 10:55 05/02/17 11:57 05/02/17 17:10 05/02/17 20:39 Lactic Acid Level 1.6 Bedside Glucose 203 140 150 Test 05/03/17 00:10 05/03/17 05:09 05/03/17 05:33 Bedside Glucose 118 135 White Blood Count 13.6 H Red Blood Count 4.29 L Hemoglobin 11.2 L Hematocrit 33.9 L Mean Corpuscular Volume 79.0 L Mean Corpuscular Hemoglobin 26.1 L Mean Corpuscular Hemoglobin Concent 33.0 Red Cell Distribution Width 18.4 H Platelet Count 364 Mean Platelet Volume 12.1 H Neutrophils % 76.9 Lymphocytes % 12.7 L Monocytes % 7.6 Eosinophils % 1.5 Basophils % 0.3 Nucleated Red Blood Cells % 0.0 Neutrophils # 10.5 H Lymphocytes # 1.7 Monocytes # 1.0 H Eosinophils # 0.2 Basophils # 0.0 Nucleated Red Blood Cells # 0.0 Sodium Level 137 Potassium Level 4.0 Chloride Level 106 Carbon Dioxide Level 22 Anion Gap 13 Blood Urea Nitrogen 20 Creatinine 1.08 Glucose Level 149 Calcium Level 8.5 Total Bilirubin 8.5 H Direct Bilirubin 6.90 H Indirect Bilirubin 1.6 H Aspartate Amino Transf (AST/SGOT) 42 Alanine Aminotransferase (ALT/SGPT) 67 Alkaline Phosphatase 344 H Total Protein 7.3 Albumin 3.2 L Globulin 4.10 H Albumin/Globulin Ratio 0.78 Medications Medications Current Medications Ondansetron HCl (Zofran Inj) 4 mg Q6H PRN IV NAUSEA AND/OR VOMITING; Start 04/27/17 at 21:30 Acetaminophen/ Hydrocodone Bitart ([place] (5/325)) 1 tab Q6H PRN PO MODERATE PAIN LEVEL 4-6 Last administered on 04/29/17 20:55; Admin Dose 1 TAB; Start at 21:30 Morphine Sulfate (morphine) 2 mg Q4H PRN IV SEVERE PAIN LEVEL 7-10; Start 04/27 at 21:30 Magnesium Hydroxide (Milk Of Mag) 30 ml DAILY PRN PO CONSTIPATION Last administered on 05/01/17 20:17; Admin Dose 30 ML; Start 04/27/17 at 21:30 Diagnostic Test (Pha) (Accu-Chek) 1 ea 02 XX Last administered on 05/02/17 01 :59; Admin Dose 1 EA; Start 04/28/17 at 02:00 Miscellaneous Information 1 ea NOTE XX ; Start 04/27/17 at 21:30 Glucose (Glutose) 15 gm Q15M PRN PO DECREASED GLUCOSE; Start 04/27/17 at 21:30 Glucose (Glutose) 22.5 gm Q15M PRN PO DECREASED GLUCOSE; Start 04/27/17 at 21: 30 Dextrose (D50w Syringe) 25 ml Q15M PRN IV DECREASED GLUCOSE; Start 04/27/17 at 21:30 Dextrose (D50w Syringe) 50 ml Q15M PRN IV DECREASED GLUCOSE; Start 04/27/17 at 21:30 Glucagon (Glucagen) 1 mg Q15M PRN IM DECREASED GLUCOSE; Start 04/27/17 at 21:30 Glucose (Glutose) 15 gm Q15M PRN BUCCAL DECREASED GLUCOSE; Start 04/27/17 at 21 :30 Pantoprazole (Protonix Tab) 40 mg DAILY@06 PO Last administered on 05/03/17 05:10; Admin Dose 40 MG; Start 04/29/17 at 06:00 Metronidazole (Flagyl) 250 mg TID PO Last administered on 05/03/17 08:31; Admin Dose 250 MG; Start 04/30/17 at 13:00 Acetaminophen (Tylenol Tab) 650 mg Q8H PRN PO PAIN AND OR ELEVATED TEMP; Start 05/01/17 at 19:00 Insulin Detemir 15 unit 15 unit DAILY@20 SC ; Start 05/02/17 at 20:00 Piperacillin Sod/ Tazobactam Sod (Zosyn 3.375gm/ 50 ml (Pmx)) 50 ml @ 100 mls/ hr Q8 IVPB Last administered on 05/03/17 05:10; Admin Dose 100 MLS/HR; Start 05/02/17 at 11:00 Bisacodyl (Dulcolax Supp) 10 mg DAILY PRN [place] CONSTIPATION Last administered on 05/02/17 11:51; Admin Dose 10 MG; Start 05/02/17 at 09:30 Lactulose 10 gm 10 gm DAILY PRN PO CONSTIPATION; Start 05/02/17 at 09:30 Sodium Chloride (NS) 1,000 ml @ 80 mls/hr [id number] IV Last administered on 05:11; Admin Dose 80 MLS/HR; Start 05/02/17 at 09:30 Ursodiol (Actigall) 300 mg BID PO Last administered on 05/03/17 08:31; Admin Dose 300 MG; Start 05/02/17 at 21:00 Insulin Aspart (Novolog Insulin Pen) NOVOLOG *MILD* ALGORI... Q6 SC ; Start at 00:00 MARYCARMEN DE LA CRUZ MD May 03, 2017 10:01
--- NOTE | 2017-05-03 13:29 | PN ---
Date/Time of Note Date/Time of Note DATE: 05/03/17 TIME: 13:22 Assessment/Plan Lines/Catheters IV C[facility]ter Type (from [facility]): Peripheral IV Diaz in Place (from [facility]): No Assessment/Plan Chief Complaint/Hosp Course 1. Obstructive jaundice with choledocholithiasis, cholangitis, ?cholelithiasis possible cholecystitis: Impacted stone in ampulla; s/p ercp with sphincterotomy and stent; wbc elevated, biliary dilatation, jaundice -recommend repeat ercp- pending HIDA -eventual lap howie when stable -abx -npo 2. Pancreatitis: likely 2/2 #1 -ivf -npo 3. Transaminitis: 2/2 #1 +/- liver disease; improving -as above 4. JULIO: -judicious fluids -limit nephrotoxic meds 5. Fatty liver and reactive hep c antibody -diet and exercise modification 6. Diabetes: -blood sugar optimization -weight management 7. Microcytic hypochromic anemia: -monitor -transfuse as needed -further workup per medical team 8. Leukocytosis: likely 2/2 #1,2 -as above Thank you. Patient seen and examined in collaboration with Dr. Aditya Peña. Problems: Subjective 24 Hr Interval Summary No acute abdominal pain. Bili continuing to increase. Itchy. Pending HIDA. No fevers, chills, sob, congested cough, cp, palpitations, esparza, dizziness, n/v/d/ dysuria. Exam/Review of Systems Vital Signs Vitals Vital Signs Date Time Temp Pulse Resp B/P Pulse Ox O2 Delivery O2 Flow Rate FiO2 05/03/17 07:56 98.3 81 18 130/75 98 04/29/17 11:56 Room Air Intake and Output 05/02/17 05/02/17 05/03/17 14:59 22:59 06:59 Intake Total 50 ml 700 ml 570 ml Output Total 500 ml Balance 50 ml 200 ml 570 ml Exam Free Text/Dictation Constitutional: alert, oriented Psych: nl mood/affect Head: atraumatic, normocephalic Eyes: icteric, nl lids ENMT: mucosa pink and moist, nl nasal mucosa & septum Neck: non-tender, supple Respiratory: clear to auscultation, normal air movement Cardiovascular: nl pulses, regular rate and rhythm Gastrointestinal: distended (min), soft, tender (tender lower abdomen) Genitourinary - Male: nl penis, nl scrotum Musculoskeletal: nl extremities to inspection Extremities: normal pulses Neurological: nl mental status, nl speech, nl strength Skin: other (jaundice), no rash Results Result Diagram: 05/03/17 0533 05/03/17 0533 DARIN THAKUR NP May 03, 2017 13:28
[2017-05-03 13:36] VITALS: BP 134/71; RESP 18
--- NOTE | 2017-05-03 17:51 | RADRPT ---
PROCEDURE: HIDA scan CLINICAL INDICATION: 62 -year-old patient with abdominal pain. TECHNIQUE: Following the intravenous injection of 9.0 mCi of Tc-99m Mebrofenin, multiple anterior dynamic images of the abdomen along with numerous planar spot images of the abdomen were obtained up to 90 minutes post injection. COMPARISON: No prior HIDA scans. FINDINGS: The liver is promptly visualized, demonstrates homogeneous distribution of radionuclide. There is a visualization of the common bile duct, gallbladder and gastrointestinal activity within n ormal time. IMPRESSION: No evidence to suggest the presence of common bile or cystic ducts obstruction. RPTAT: HH .Rekha Elias MD, MD Date Time Electronically viewed and signed by .Rekha Elias MD, MD on 05/03/2017 17:51 .L/
[2017-05-03 19:22] VITALS: BP 142/63; RESP 20
[2017-05-04] MEDS: ACCU-CHEK XX SCH (00:19)
[2017-05-04 01:37] VITALS: BP 130/77; RESP 20
--- NOTE | 2017-05-04 01:56 | CONS ---
DATE OF ADMISSION: 04/27/2017 DATE OF CONSULTATION: GASTROINTESTINAL CONSULTATION HISTORY OF PRESENT ILLNESS: A 62-year-old male has a constant itching and his abdominal pain has re solved. OBJECTIVE: VITAL SIGNS: Stable. ABDOMEN: Benign. LUNGS: Clear. EXTREMITIES: No edema. CENTRAL NERVOUS SYSTEM: Grossly within normal limits. LABORATORY DATA: Bilirubin indeed has gone up. WBC is 13.2. Bilirubin is 8.5, alkaline phosphatas e is 344. The patient had a HIDA scan done. The bile duct was visualized there was no eviden ce of obstruction. IMPRESSION: 1. Jaundice. Stent is functional. 2. Itching. 3. Fever for which the patient is on antibiotic. PLAN: Not to give any hepatotoxic medication. We will monitor LFTs closely and if the bilirubin do es not come down, then may need repeat ERCP or liver biopsy. Dictated By: JUVENAL JOHNSTON/NTS Conf#: [id number] DID#: [id number] CC: MARYCARMEN DE LA CRUZ;*EndCC*
[2017-05-04] MEDS: INSULIN ASPART [NOVOLOG] 3 ML PEN SC SCH ×4 (06:00→21:58)
[2017-05-04 06:03] LABS: BASOPHIL # 0.1 10^3/ul (0.0-0.1); BASOPHILS % 0.4 % (0.0-2.0); EOSINOPHILS # 0.4 10^3/ul (0.0-0.5); HEMATOCRIT 32.3 % (42.0-52.0); HEMOGLOBIN 10.8 g/dl (14.0-18.0); LYMPHOCYTES # 1.7 10^3/ul (0.8-2.9); LYMPHOCYTES % 13.9 % (15.0-51.0); MEAN CORPUSCULAR HEMOGLOBIN 26.7 pg (29.0-33.0); MEAN CORPUSCULAR HGB CONC 33.4 g/dl (32.0-37.0); MEAN PLATELET VOLUME 11.2 fl (7.4-10.4); MONOCYTE # 1.1 10^3/ul (0.3-0.9); NEUTROPHIL # 8.5 10^3/ul (1.6-7.5); NEUTROPHILS % 72.1 % (39.0-77.0); PLATELET COUNT 391 10^3/UL (140-415); RED BLOOD COUNT 4.04 10^6/ul (4.70-6.10); RED CELL DISTRIBUTION WIDTH 18.2 % (11.5-14.5); WHITE BLOOD COUNT 11.8 10^3/ul (4.8-10.8)
[2017-05-04] MEDS: PANTOPRAZOLE (EC) 40 MG TAB PO SCH (06:15)
[2017-05-04] MEDS: PIPER-TAZO 3.375 GM IV (PMX) 50 ML IVPB SCH ×3 (06:15→21:53)
[2017-05-04 06:28] LABS: MAGNESIUM 2.3 mg/dl (1.7-2.5); PHOSPHORUS 4.1 mg/dl (2.5-4.9)
[2017-05-04 06:57] LABS: ALBUMIN/GLOBULIN RATIO 0.85; BILIRUBIN,DIRECT 5.7 mg/dl (0.00-0.20); BILIRUBIN,INDIRECT 1.4 mg/dl (0-1.1); BILIRUBIN,TOTAL 7.1 mg/dl (0.2-1.3); CALCIUM 8.6 mg/dl (8.4-10.2); CREATININE 1.03 mg/dl (0.61-1.24); TOTAL PROTEIN 6.5 g/dl (6.1-8.1)
[2017-05-04 07:17] VITALS: BP 130/72; RESP 16
[2017-05-04] MEDS: URSODIOL 300 MG CAP PO SCH ×2 (09:01→21:53)
[2017-05-04 10:52] LABS: TB-NIL 0.03 IU/mL
[2017-05-04] MEDS ORDERED: DIPHENHYDRAMINE 25 MG CAP PO PRN (12:00)
--- NOTE | 2017-05-04 12:32 | PN ---
Date/Time of Note Date/Time of Note DATE: 05/04/17 TIME: 12:29 Assessment/Plan VTE Prophylaxis VTE Prophylaxis Intervention: contraindicated Lines/Catheters IV Catheter Type (from [facility]): Peripheral IV Urinary Cath still in place: No Assessment/Plan Chief Complaint/Hosp Course 62 y/o with # Obstructive jaundice with choledocholithiasis and cholangitis and cholelithiasis possible cholecystitis s/p ERCP on 04/29 with impacted ampulla Large sphincterotomy done Brushing done Stent deployed 10 [place] 5 cm with excellent drainage Cystic duct appeared to be blocked. 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 Isonazid Plan - HIDA scan negative - Monitor LFT, if does not improve will need ERCP vs biopsy - D C vicodin/tyenolol - c/w zosyn, dc flagyl - monitor for fevers and wbc - advance diet - dc iv fluids - c/w Urodiol - benadryl prn - GI Prophylaxsis Problems: Subjective 24 Hr Interval Summary Free Text/Dictation Pt denies any abdominal pain Exam/Review of Systems Vital Signs Vitals Vital Signs Date Time Temp Pulse Resp B/P Pulse Ox O2 Delivery O2 Flow Rate FiO2 05/04/17 07:17 97.8 65 16 130/72 99 Intake and Output 05/03/17 05/03/17 05/04/17 15:00 23:00 07:00 Intake Total 50 ml 1050 ml 700 ml Output Total 500 ml Balance 50 ml 550 ml 700 ml Exam Gen: Awake,alert HEENT: Scleral icterus CVS: Regular rate and rthym Lungs: clear to auscultate Abdomen: some TTP suprapubic Ext: no edema Results Result Diagram: 05/04/17 0533 05/04/1733 Results 24 hrs Laboratory Tests Test 05/03/17 17:38 05/04/17 00:18 05/04/17 05:33 05/04/17 06:14 Bedside Glucose 111 107 110 White Blood Count 11.8 H Red Blood Count 4.04 L Hemoglobin 10.8 L Hematocrit 32.3 L Mean Corpuscular Volume 80.0 L Mean Corpuscular Hemoglobin 26.7 L Mean Corpuscular Hemoglobin Concent 33.4 Red Cell Distribution Width 18.2 H Platelet Count 391 Mean Platelet Volume 11.2 H Neutrophils % 72.1 Lymphocytes % 13.9 L Monocytes % 9.0 Eosinophils % 3.0 Basophils % 0.4 Nucleated Red Blood Cells % 0.0 Neutrophils # 8.5 H Lymphocytes # 1.7 Monocytes # 1.1 H Eosinophils # 0.4 Basophils # 0.1 Nucleated Red Blood Cells # 0.0 Sodium Level 139 Potassium Level 5.0 Chloride Level 108 Carbon Dioxide Level 22 Anion Gap 14 Blood Urea Nitrogen 23 H Creatinine 1.03 Glucose Level 112 Calcium Level 8.6 Phosphorus Level 4.1 Magnesium Level 2.3 Total Bilirubin 7.1 H Direct Bilirubin 5.70 H Indirect Bilirubin 1.4 H Aspartate Amino Transf (AST/SGOT) 49 H Alanine Aminotransferase (ALT/SGPT) 64 Alkaline Phosphatase 305 H Total Protein 6.5 Albumin 3.0 L Globulin 3.50 H Albumin/Globulin Ratio 0.85 Lipase 405 H Test 05/04/17 12:09 Bedside Glucose 112 Medications Medications Current Medications Ondansetron HCl (Zofran Inj) 4 mg Q6H PRN IV NAUSEA AND/OR VOMITING; Start 04/27/17 at 21:30 Morphine Sulfate (morphine) 2 mg Q4H PRN IV SEVERE PAIN LEVEL 7-10; Start 04/27 at 21:30 Magnesium Hydroxide (Milk Of Mag) 30 ml DAILY PRN PO CONSTIPATION Last administered on 05/01/17 20:17; Admin Dose 30 ML; Start 04/27/17 at 21:30 Diagnostic Test (Pha) (Accu-Chek) 1 ea 02 XX Last administered on 05/02/17 01 :59; Admin Dose 1 EA; Start 04/28/17 at 02:00 Miscellaneous Information 1 ea NOTE XX ; Start 04/27/17 at 21:30 Glucose (Glutose) 15 gm Q15M PRN PO DECREASED GLUCOSE; Start 04/27/17 at 21:30 Glucose (Glutose) 22.5 gm Q15M PRN PO DECREASED GLUCOSE; Start 04/27/17 at 21: 30 Dextrose (D50w Syringe) 25 ml Q15M PRN IV DECREASED GLUCOSE; Start 04/27/17 at 21:30 Dextrose (D50w Syringe) 50 ml Q15M PRN IV DECREASED GLUCOSE; Start 04/27/17 at 21:30 Glucagon (Glucagen) 1 mg Q15M PRN IM DECREASED GLUCOSE; Start 04/27/17 at 21:30 Glucose (Glutose) 15 gm Q15M PRN BUCCAL DECREASED GLUCOSE; Start 04/27/17 at 21 :30 Pantoprazole 40 mg 40 mg DAILY@06 PO Last administered on 05/04/17 06:15; Admin Dose 40 MG; Start 04/29/17 at 06:00 Piperacillin Sod/ Tazobactam Sod (Zosyn 3.375gm/ 50 ml (Pmx)) 50 ml @ 100 mls/ hr Q8 IVPB Last administered on 05/04/17 06:15; Admin Dose 100 MLS/HR; Start 05/02/17 at 11:00 Bisacodyl (Dulcolax Supp) 10 mg DAILY PRN [place] CONSTIPATION Last administered on 05/02/17 11:51; Admin Dose 10 MG; Start 05/02/17 at 09:30 Lactulose 10 gm 10 gm DAILY PRN PO CONSTIPATION; Start 05/02/17 at 09:30 Sodium Chloride (NS) 1,000 ml @ 80 mls/hr [id number] IV Last administered on 21:27; Admin Dose 80 MLS/HR; Start 05/02/17 at 09:30 Ursodiol (Actigall) 300 mg BID PO Last administered on 05/04/17 09:01; Admin Dose 300 MG; Start 05/02/17 at 21:00 Insulin Aspart (Novolog Insulin Pen) NOVOLOG *MILD* ALGORI... Q6 SC ; Start at 00:00 Diphenhydramine HCl (Benadryl) 25 mg Q6H PRN PO ITCHING; Start 05/04/17 at 12: 00 MARYCARMEN DE LA CRUZ MD May 04, 2017 12:32
[2017-05-04 15:51] VITALS: BP 142/70; RESP 17
--- NOTE | 2017-05-04 17:53 | PN ---
Date/Time of Note Date/Time of Note DATE: 05/04/17 TIME: 17:51 Assessment/Plan Lines/Catheters IV Catheter Type (from [facility]): Peripheral IV Diaz in Place (from [facility]): No Assessment/Plan Chief Complaint/Hosp Course 1. Obstructive jaundice with choledocholithiasis, cholangitis, ?cholelithiasis possible cholecystitis: Impacted stone in ampulla; s/p ercp with sphincterotomy and stent; wbc elevated, biliary dilatation, jaundice -if not improving or worsening may need repeat ercp -eventual lap howie when stable -abx 2. Pancreatitis: likely 2/2 #1 -ivf -monitor 3. Transaminitis: 2/2 #1 +/- liver disease; improving -as above 4. JULIO: -judicious fluids -limit nephrotoxic meds 5. Fatty liver and reactive hep c antibody -diet and exercise modification 6. Diabetes: -blood sugar optimization -weight management 7. Microcytic hypochromic anemia: -monitor -transfuse as needed -further workup per medical team 8. Leukocytosis: likely 2/2 #1,2 -as above Thank you, Problems: Subjective 24 Hr Interval Summary HIDA negative. No acute abdominal pain. Abnormal LFTs. Itchy. No fevers, chills, sob, congested cough, cp, palpitations, esparza, dizziness, n/v/d/dysuria. Exam/Review of Systems Vital Signs Vitals Vital Signs Date Time Temp Pulse Resp B/P Pulse Ox O2 Delivery O2 Flow Rate FiO2 05/04/17 15:51 97.7 65 17 142/70 100 Intake and Output 05/03/17 05/03/17 05/04/17 14:59 22:59 06:59 Intake Total 50 ml 1050 ml 700 ml Output Total 500 ml Balance 50 ml 550 ml 700 ml Exam Free Text/Dictation Constitutional: alert, oriented Psych: nl mood/affect Head: atraumatic, normocephalic Eyes: icteric, nl lids ENMT: mucosa pink and moist, nl nasal mucosa & septum Neck: non-tender, supple Respiratory: clear to auscultation, normal air movement Cardiovascular: nl pulses, regular rate and rhythm Gastrointestinal: distended (min), soft, tender (tender lower abdomen) Genitourinary - Male: nl penis, nl scrotum Musculoskeletal: nl extremities to inspection Extremities: normal pulses Neurological: nl mental status, nl speech, nl strength Skin: other (jaundice), no rash Results Result Diagram: 05/04/17 0533 05/04/17 0533 JENNIFER BLACKWELL MD May 04, 2017 17:53
--- NOTE | 2017-05-04 19:21 | CONS ---
Date/Time of Note Date/Time of Note DATE: 05/04/17 TIME: 19:20 Assessment/Plan Assessment/Plan Additional Assessment/Plan IMPRESSION: 1. Jaundice. Stent is functional. Total bilirubin is gradually coming down 2. Itching. 3. Fever for which the patient is on antibiotic. Plan Patient is overall improving it does a delay in improvement and the bilirubin to come down due to acute obstruction and high back pressure in the biliary system Consultation Date/Type/Reason Admit Date/Time Apr 27, 2017 at 18:40 Type of Consultation: Surgical Referring Provider: MARYCARMEN DE LA CRUZ MD 24 HR Interval Summary Free Text/Dictation Pain has disappeared Itching has reduced Constitutional: improved Exam/Review of Systems Vital Signs Vitals Vital Signs Date Time Temp Pulse Resp B/P Pulse Ox O2 Delivery O2 Flow Rate FiO2 05/04/17 15:51 97.7 65 17 142/70 100 Intake and Output 05/03/17 05/03/17 05/04/17 15:00 23:00 07:00 Intake Total 50 ml 1050 ml 700 ml Output Total 500 ml Balance 50 ml 550 ml 700 ml Exam Constitutional: alert, oriented, well developed Psych: nl mood/affect, no complaints Head: atraumatic, normocephalic Eyes: EOMI, PERRL, nl conjunctiva, nl lids, nl sclera ENMT: nl external ears & nose, nl lips & teeth, nl nasal mucosa & septum Neck: non-tender, supple Respiratory: clear to auscultation, normal air movement Cardiovascular: nl pulses, regular rate and rhythm Gastrointestinal: nl liver, spleen, non-tender, soft Musculoskeletal: nl extremities to inspection, nl gait and stance Extremities: normal pulses Neurological: TOP AND SEAT COVER FITTER II-XII intact, nl mental status, nl speech, nl strength Skin: nl turgor, No rash or lesions Lymph: nl lymph nodes Results Result Diagram: 05/04/17 0533 05/04/1733 Results 24 hrs Laboratory Tests Test 05/04/17 00:18 05/04/17 05:33 05/04/17 06:14 05/04/17 12:09 Bedside Glucose 107 110 112 White Blood Count 11.8 H Red Blood Count 4.04 L Hemoglobin 10.8 L Hematocrit 32.3 L Mean Corpuscular Volume 80.0 L Mean Corpuscular Hemoglobin 26.7 L Mean Corpuscular Hemoglobin Concent 33.4 Red Cell Distribution Width 18.2 H Platelet Count 391 Mean Platelet Volume 11.2 H Neutrophils % 72.1 Lymphocytes % 13.9 L Monocytes % 9.0 Eosinophils % 3.0 Basophils % 0.4 Nucleated Red Blood Cells % 0.0 Neutrophils # 8.5 H Lymphocytes # 1.7 Monocytes # 1.1 H Eosinophils # 0.4 Basophils # 0.1 Nucleated Red Blood Cells # 0.0 Sodium Level 139 Potassium Level 5.0 Chloride Level 108 Carbon Dioxide Level 22 Anion Gap 14 Blood Urea Nitrogen 23 H Creatinine 1.03 Glucose Level 112 Calcium Level 8.6 Phosphorus Level 4.1 Magnesium Level 2.3 Total Bilirubin 7.1 H Direct Bilirubin 5.70 H Indirect Bilirubin 1.4 H Aspartate Amino Transf (AST/SGOT) 49 H Alanine Aminotransferase (ALT/SGPT) 64 Alkaline Phosphatase 305 H Total Protein 6.5 Albumin 3.0 L Globulin 3.50 H Albumin/Globulin Ratio 0.85 Lipase 405 H Test 05/04/17 17:32 Bedside Glucose 106 Medications Medications Current Medications Ondansetron HCl (Zofran Inj) 4 mg Q6H PRN IV NAUSEA AND/OR VOMITING; Start 04/27/17 at 21:30 Morphine Sulfate (morphine) 2 mg Q4H PRN IV SEVERE PAIN LEVEL 7-10; Start 04/27 at 21:30 Magnesium Hydroxide (Milk Of Mag) 30 ml DAILY PRN PO CONSTIPATION Last administered on 05/01/17 20:17; Admin Dose 30 ML; Start 04/27/17 at 21:30 Diagnostic Test (Pha) (Accu-Chek) 1 ea 02 XX Last administered on 05/02/17 01 :59; Admin Dose 1 EA; Start 04/28/17 at 02:00 Miscellaneous Information 1 ea NOTE XX ; Start 04/27/17 at 21:30 Glucose (Glutose) 15 gm Q15M PRN PO DECREASED GLUCOSE; Start 04/27/17 at 21:30 Glucose (Glutose) 22.5 gm Q15M PRN PO DECREASED GLUCOSE; Start 04/27/17 at 21: 30 Dextrose (D50w Syringe) 25 ml Q15M PRN IV DECREASED GLUCOSE; Start 04/27/17 at 21:30 Dextrose (D50w Syringe) 50 ml Q15M PRN IV DECREASED GLUCOSE; Start 04/27/17 at 21:30 Glucagon (Glucagen) 1 mg Q15M PRN IM DECREASED GLUCOSE; Start 04/27/17 at 21:30 Glucose (Glutose) 15 gm Q15M PRN BUCCAL DECREASED GLUCOSE; Start 04/27/17 at 21 :30 Pantoprazole 40 mg 40 mg DAILY@06 PO Last administered on 05/04/17 06:15; Admin Dose 40 MG; Start 04/29/17 at 06:00 Piperacillin Sod/ Tazobactam Sod (Zosyn 3.375gm/ 50 ml (Pmx)) 50 ml @ 100 mls/ hr Q8 IVPB Last administered on 05/04/17 13:38; Admin Dose 100 MLS/HR; Start 05/02/17 at 11:00 Bisacodyl (Dulcolax Supp) 10 mg DAILY PRN [place] CONSTIPATION Last administered on 05/02/17 11:51; Admin Dose 10 MG; Start 05/02/17 at 09:30 Lactulose (Enulose) 10 gm DAILY PRN PO CONSTIPATION; Start 05/02/17 at 09:30 Ursodiol (Actigall) 300 mg BID PO Last administered on 05/04/17 09:01; Admin Dose 300 MG; Start 05/02/17 at 21:00 Diphenhydramine HCl (Benadryl) 25 mg Q6H PRN PO ITCHING; Start 05/04/17 at 12: 00 JUVENAL NGO MD May 04, 2017 19:21
[2017-05-04 19:59] VITALS: BP 139/68; RESP 18
[2017-05-05] MEDS: ACCU-CHEK XX SCH (02:00)
[2017-05-05 02:18] VITALS: BP 125/69; RESP 18
[2017-05-05] MEDS: PANTOPRAZOLE (EC) 40 MG TAB PO SCH (06:08)
[2017-05-05] MEDS: PIPER-TAZO 3.375 GM IV (PMX) 50 ML IVPB SCH ×3 (06:08→21:19)
[2017-05-05 06:21] LABS: BASOPHIL # 0.1 10^3/ul (0.0-0.1); BASOPHILS % 0.5 % (0.0-2.0); EOSINOPHILS # 0.4 10^3/ul (0.0-0.5); EOSINOPHILS % 3.5 % (0.0-7.0); HEMATOCRIT 33.8 % (42.0-52.0); HEMOGLOBIN 11.4 g/dl (14.0-18.0); LYMPHOCYTES # 2.3 10^3/ul (0.8-2.9); LYMPHOCYTES % 22.8 % (15.0-51.0); MEAN CORPUSCULAR HEMOGLOBIN 26.9 pg (29.0-33.0); MEAN CORPUSCULAR HGB CONC 33.7 g/dl (32.0-37.0); MEAN CORPUSCULAR VOLUME 79.7 fl (82.0-101.0); MEAN PLATELET VOLUME 11.2 fl (7.4-10.4); MONOCYTE # 0.8 10^3/ul (0.3-0.9); MONOCYTES % 7.9 % (0.0-11.0); NEUTROPHIL # 6.6 10^3/ul (1.6-7.5); NEUTROPHILS % 63.6 % (39.0-77.0); PLATELET COUNT 455 10^3/UL (140-415); RED BLOOD COUNT 4.24 10^6/ul (4.70-6.10); RED CELL DISTRIBUTION WIDTH 18.1 % (11.5-14.5); WHITE BLOOD COUNT 10.3 10^3/ul (4.8-10.8)
[2017-05-05 06:35] LABS: ALBUMIN 3.3 g/dl (3.3-4.9); ALBUMIN/GLOBULIN RATIO 0.86; BILIRUBIN,DIRECT 3.4 mg/dl (0.00-0.20); BILIRUBIN,INDIRECT 1.3 mg/dl (0-1.1); BILIRUBIN,TOTAL 4.7 mg/dl (0.2-1.3); CALCIUM 8.7 mg/dl (8.4-10.2); CREATININE 1.11 mg/dl (0.61-1.24); TOTAL PROTEIN 7.1 g/dl (6.1-8.1)
[2017-05-05 07:33] VITALS: BP 125/70; RESP 18
[2017-05-05] MEDS: INSULIN ASPART [NOVOLOG] 3 ML PEN SC SCH ×4 (08:00→21:11)
[2017-05-05] MEDS: URSODIOL 300 MG CAP PO SCH ×2 (08:24→21:05)
--- NOTE | 2017-05-05 10:27 | PN ---
Date/Time of Note Date/Time of Note DATE: 05/05/17 TIME: 10:24 Assessment/Plan Lines/Catheters IV Catheter Type (from [facility]): Saline Lock Diaz in Place (from [facility]): No Assessment/Plan Chief Complaint/Hosp Course 1. Obstructive jaundice with choledocholithiasis, cholangitis, ?cholelithiasis possible cholecystitis: Impacted stone in ampulla; s/p ercp with sphincterotomy and stent; wbc elevated, biliary dilatation, jaundice -eventual lap howie when common duct cleared -abx 2. Pancreatitis: likely 2/2 #1. Improved -ivf -monitor 3. Transaminitis: 2/2 #1 +/- liver disease; Improving -as above 4. JULIO: -judicious fluids -limit nephrotoxic meds 5. Fatty liver and hep c antibody -diet and exercise modification -?eventual liver bx 6. Diabetes: -blood sugar optimization -weight management 7. Microcytic hypochromic anemia: -monitor -transfuse as needed -further workup per medical team 8. Leukocytosis: likely 2/2 #1,2. Resolved. -as above Thank you, Problems: Subjective 24 Hr Interval Summary WBC normalized. LFTs improving. No acute abdominal pain. Itchy. No fevers, chills, sob, congested cough, cp, palpitations, esparza, dizziness, n/v/d/dysuria. Exam/Review of Systems Vital Signs Vitals Vital Signs Date Time Temp Pulse Resp B/P Pulse Ox O2 Delivery O2 Flow Rate FiO2 05/05/17 07:33 97.7 64 18 125/70 98 Intake and Output 05/04/17 05/04/17 05/05/17 15:00 23:00 07:00 Intake Total 650 ml 50 ml 550 ml Output Total 450 ml Balance 650 ml 50 ml 100 ml Exam Free Text/Dictation Constitutional: alert, oriented Psych: nl mood/affect Head: atraumatic, normocephalic Eyes: icteric, nl lids ENMT: mucosa pink and moist, nl nasal mucosa & septum Neck: non-tender, supple Respiratory: clear to auscultation, normal air movement Cardiovascular: nl pulses, regular rate and rhythm Gastrointestinal: ND, soft, less tender Genitourinary - Male: nl penis, nl scrotum Musculoskeletal: nl extremities to inspection Extremities: normal pulses Neurological: nl mental status, nl speech, nl strength Skin: jaundice, no rash Results Result Diagram: 05/05/17 0548 05/05/17 0548 JENNIFER BLACKWELL MD May 05, 2017 10:27
--- NOTE | 2017-05-05 10:58 | PN ---
Date/Time of Note Date/Time of Note DATE: 05/05/17 TIME: 10:43 Assessment/Plan Lines/Catheters IV Catheter Type (from [facility]): Saline Lock Diaz in Place (from [facility]): No Assessment/Plan Chief Complaint/Hosp Course 1. Obstructive jaundice with choledocholithiasis, cholangitis, ?cholelithiasis: Impacted stone in ampulla; s/p ercp with sphincterotomy and stent; wbc elevated , biliary dilatation, jaundice; negative hida -eventual lap howie when duct is cleared -abx -npo 2. Pancreatitis: likely 2/2 #1 -ivf -npo -trend 3. Transaminitis: 2/2 #1 +/- liver disease; improving -as above 4. JULIO: -judicious fluids -limit nephrotoxic meds 5. Fatty liver and reactive hep c antibody -diet and exercise modification 6. Diabetes: -blood sugar optimization -weight management 7. Microcytic hypochromic anemia: -monitor -transfuse as needed -further workup per medical team 8. Leukocytosis: likely 2/2 #1,2 -as above Thank you. Patient seen and examined in collaboration with Dr. Aditya Peña. Problems: Subjective 24 Hr Interval Summary Feels well. No c/o abd pain/discomfort. Transaminases improving. No fevers, chills, sob, congested cough, cp, palpitations, esparza, dizziness, n/v/d/dysuria. Exam/Review of Systems Vital Signs Vitals Vital Signs Date Time Temp Pulse Resp B/P Pulse Ox O2 Delivery O2 Flow Rate FiO2 05/05/17 07:33 97.7 64 18 125/70 98 Intake and Output 05/04/17 05/04/17 05/05/17 15:00 23:00 07:00 Intake Total 650 ml 50 ml 550 ml Output Total 450 ml Balance 650 ml 50 ml 100 ml Exam Free Text/Dictation Constitutional: alert, oriented Psych: nl mood/affect Head: atraumatic, normocephalic Eyes: icteric, nl lids ENMT: mucosa pink and moist, nl nasal mucosa & septum Neck: non-tender, supple Respiratory: clear to auscultation, normal air movement Cardiovascular: nl pulses, regular rate and rhythm Gastrointestinal: ND, soft, non tender Genitourinary - Male: nl penis, nl scrotum Musculoskeletal: nl extremities to inspection Extremities: normal pulses Neurological: nl mental status, nl speech, nl strength Skin: jaundice, no rash Results Result Diagram: 05/05/17 0548 05/05/17 0548 DARIN THAKUR NP May 05, 2017 10:55
--- NOTE | 2017-05-05 13:59 | PN ---
Date/Time of Note Date/Time of Note DATE: 05/05/17 TIME: 13:56 Assessment/Plan VTE Prophylaxis VTE Prophylaxis Intervention: ambulation Lines/Catheters IV Catheter Type (from [facility]): Saline Lock Urinary Cath still in place: No Assessment/Plan Chief Complaint/Hosp Course 62 y/o with # Obstructive jaundice with choledocholithiasis and cholangitis and cholelithiasis possible cholecystitis s/p ERCP on 04/29 with impacted ampulla Large sphincterotomy done Brushing done Stent deployed 10 [place] 5 cm with excellent drainage Cystic duct appeared to be blocked. Now still with elevated LFT> improving now # Abdominal pain with Pancreatitis # Hyperbilirubemenia and elevated alk phos due to #1 # JULIO resolved # Hep C ab+ # DM # Microcytic hypochromic anemia: # hx Quantiferon gold in past was on Isonazid Plan - HIDA scan negative, c/w monitor LFT - D C vicodin/tyenolol - c/w zosyn, - advance diet - c/w Urodiol - benadryl prn - GI Prophylaxsis - Will likely need Cholecystectomy Problems: Subjective 24 Hr Interval Summary Free Text/Dictation Overall improving, denies any abdominal pain Started on regular diet Wbc normalized and bilirubin improving Exam/Review of Systems Vital Signs Vitals Vital Signs Date Time Temp Pulse Resp B/P Pulse Ox O2 Delivery O2 Flow Rate FiO2 05/05/17 07:33 97.7 64 18 125/70 98 Intake and Output 05/04/17 05/04/17 05/05/17 15:00 23:00 07:00 Intake Total 650 ml 50 ml 550 ml Output Total 450 ml Balance 650 ml 50 ml 100 ml Exam Gen: Awake,alert HEENT: Scleral icterus CVS: Regular rate and rthym Lungs: clear to auscultate Abdomen: some TTP suprapubic Ext: no julia Results Result Diagram: 05/05/17 0548 05/05/17 0548 Results 24 hrs Laboratory Tests Test 05/04/17 17:32 05/04/17 21:52 05/05/17 02:01 05/05/17 05:48 Bedside Glucose 106 149 136 White Blood Count 10.3 Red Blood Count 4.24 L Hemoglobin 11.4 L Hematocrit 33.8 L Mean Corpuscular Volume 79.7 L Mean Corpuscular Hemoglobin 26.9 L Mean Corpuscular Hemoglobin Concent 33.7 Red Cell Distribution Width 18.1 H Platelet Count 455 H Mean Platelet Volume 11.2 H Neutrophils % 63.6 Lymphocytes % 22.8 Monocytes % 7.9 Eosinophils % 3.5 Basophils % 0.5 Nucleated Red Blood Cells % 0.0 Neutrophils # 6.6 Lymphocytes # 2.3 Monocytes # 0.8 Eosinophils # 0.4 Basophils # 0.1 Nucleated Red Blood Cells # 0.0 Sodium Level 137 Potassium Level 4.0 Chloride Level 104 Carbon Dioxide Level 23 Anion Gap 14 Blood Urea Nitrogen 17 Creatinine 1.11 Glucose Level 164 Calcium Level 8.7 Total Bilirubin 4.7 #H Direct Bilirubin 3.40 #H Indirect Bilirubin 1.3 H Aspartate Amino Transf (AST/SGOT) 50 H Alanine Aminotransferase (ALT/SGPT) 61 Alkaline Phosphatase 321 H Total Protein 7.1 Albumin 3.3 Globulin 3.80 H Albumin/Globulin Ratio 0.86 Test 05/05/17 12:10 Bedside Glucose 127 Medications Medications Current Medications Ondansetron HCl (Zofran Inj) 4 mg Q6H PRN IV NAUSEA AND/OR VOMITING; Start 04/27/17 at 21:30 Morphine Sulfate (morphine) 2 mg Q4H PRN IV SEVERE PAIN LEVEL 7-10; Start 04/27 at 21:30 Magnesium Hydroxide (Milk Of Mag) 30 ml DAILY PRN PO CONSTIPATION Last administered on 05/01/17 20:17; Admin Dose 30 ML; Start 04/27/17 at 21:30 Diagnostic Test (Pha) (Accu-Chek) 1 ea 02 XX Last administered on 05/02/17 01 :59; Admin Dose 1 EA; Start 04/28/17 at 02:00 Miscellaneous Information 1 ea NOTE XX ; Start 04/27/17 at 21:30 Glucose (Glutose) 15 gm Q15M PRN PO DECREASED GLUCOSE; Start 04/27/17 at 21:30 Glucose (Glutose) 22.5 gm Q15M PRN PO DECREASED GLUCOSE; Start 04/27/17 at 21: 30 Dextrose (D50w Syringe) 25 ml Q15M PRN IV DECREASED GLUCOSE; Start 04/27/17 at 21:30 Dextrose (D50w Syringe) 50 ml Q15M PRN IV DECREASED GLUCOSE; Start 04/27/17 at 21:30 Glucagon (Glucagen) 1 mg Q15M PRN IM DECREASED GLUCOSE; Start 04/27/17 at 21:30 Glucose (Glutose) 15 gm Q15M PRN BUCCAL DECREASED GLUCOSE; Start 04/27/17 at 21 :30 Pantoprazole 40 mg 40 mg DAILY@06 PO Last administered on 05/05/17 06:08; Admin Dose 40 MG; Start 04/29/17 at 06:00 Piperacillin Sod/ Tazobactam Sod (Zosyn 3.375gm/ 50 ml (Pmx)) 50 ml @ 100 mls/ hr Q8 IVPB Last administered on 05/05/17 13:49; Admin Dose 100 MLS/HR; Start 05/02/17 at 11:00 Bisacodyl (Dulcolax Supp) 10 mg DAILY PRN [place] CONSTIPATION Last administered on 05/02/17 11:51; Admin Dose 10 MG; Start 05/02/17 at 09:30 Lactulose (Enulose) 10 gm DAILY PRN PO CONSTIPATION; Start 05/02/17 at 09:30 Ursodiol (Actigall) 300 mg BID PO Last administered on 05/05/17 08:24; Admin Dose 300 MG; Start 05/02/17 at 21:00 Diphenhydramine HCl (Benadryl) 25 mg Q6H PRN PO ITCHING Last administered on 21:53; Admin Dose 25 MG; Start 05/04/17 at 12:00 MARYCARMEN DE LA CRUZ MD May 05, 2017 13:59
[2017-05-05 14:10] VITALS: BP 128/89; RESP 18
--- NOTE | 2017-05-05 16:13 | CONS ---
Date/Time of Note Date/Time of Note DATE: 05/05/17 TIME: 16:13 Assessment/Plan Assessment/Plan Additional Assessment/Plan IMPRESSION: 1. Jaundice. Stent is functional. Total bilirubin is gradually coming down 2. Itching. 3. Fever for which the patient is on antibiotic. 4. Abdominal pain resolved 5. Itching drastically reduced 6. Positive gold QuantiFERON test, will hold off on INH until LFT normalizes Plan Continue present care monitor LFT Consultation Date/Type/Reason Admit Date/Time Apr 27, 2017 at 18:40 Type of Consultation: Surgical Referring Provider: MARYCARMEN DE LA CRUZ MD 24 HR Interval Summary Constitutional: improved Exam/Review of Systems Vital Signs Vitals Vital Signs Date Time Temp Pulse Resp B/P Pulse Ox O2 Delivery O2 Flow Rate FiO2 05/05/17 14:10 97.8 70 18 128/89 100 Intake and Output 05/04/17 05/04/17 05/05/17 15:00 23:00 07:00 Intake Total 650 ml 50 ml 550 ml Output Total 450 ml Balance 650 ml 50 ml 100 ml Exam Constitutional: alert, oriented, well developed Psych: nl mood/affect, no complaints Head: atraumatic, normocephalic Eyes: EOMI, PERRL, nl conjunctiva, nl lids, nl sclera ENMT: nl external ears & nose, nl lips & teeth, nl nasal mucosa & septum Neck: non-tender, supple Respiratory: clear to auscultation, normal air movement Cardiovascular: nl pulses, regular rate and rhythm Gastrointestinal: nl liver, spleen, non-tender, soft Musculoskeletal: nl extremities to inspection, nl gait and stance Extremities: normal pulses 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, nl mental status, nl speech, nl strength Skin: nl turgor, No rash or lesions Lymph: nl lymph nodes Results Result Diagram: 05/05/17 0548 05/05/17 0548 Results 24 hrs Laboratory Tests Test 05/04/17 17:32 05/04/17 21:52 05/05/17 02:01 05/05/17 05:48 Bedside Glucose 106 149 136 White Blood Count 10.3 Red Blood Count 4.24 L Hemoglobin 11.4 L Hematocrit 33.8 L Mean Corpuscular Volume 79.7 L Mean Corpuscular Hemoglobin 26.9 L Mean Corpuscular Hemoglobin Concent 33.7 Red Cell Distribution Width 18.1 H Platelet Count 455 H Mean Platelet Volume 11.2 H Neutrophils % 63.6 Lymphocytes % 22.8 Monocytes % 7.9 Eosinophils % 3.5 Basophils % 0.5 Nucleated Red Blood Cells % 0.0 Neutrophils # 6.6 Lymphocytes # 2.3 Monocytes # 0.8 Eosinophils # 0.4 Basophils # 0.1 Nucleated Red Blood Cells # 0.0 Sodium Level 137 Potassium Level 4.0 Chloride Level 104 Carbon Dioxide Level 23 Anion Gap 14 Blood Urea Nitrogen 17 Creatinine 1.11 Glucose Level 164 Calcium Level 8.7 Total Bilirubin 4.7 #H Direct Bilirubin 3.40 #H Indirect Bilirubin 1.3 H Aspartate Amino Transf (AST/SGOT) 50 H Alanine Aminotransferase (ALT/SGPT) 61 Alkaline Phosphatase 321 H Total Protein 7.1 Albumin 3.3 Globulin 3.80 H Albumin/Globulin Ratio 0.86 Test 05/05/17 12:10 Bedside Glucose 127 Medications Medications Current Medications Ondansetron HCl (Zofran Inj) 4 mg Q6H PRN IV NAUSEA AND/OR VOMITING; Start 04/27/17 at 21:30 Morphine Sulfate (morphine) 2 mg Q4H PRN IV SEVERE PAIN LEVEL 7-10; Start 04/27 at 21:30 Magnesium Hydroxide (Milk Of Mag) 30 ml DAILY PRN PO CONSTIPATION Last administered on 05/01/17t 20:17; Admin Dose 30 ML; Start 04/27/17 at 21:30 Diagnostic Test (Pha) (Accu-Chek) 1 ea 02 XX Last administered on 05/02/17 01 :59; Admin Dose 1 EA; Start 04/28/17 at 02:00 Miscellaneous Information 1 ea NOTE XX ; Start 04/27/17 at 21:30 Glucose (Glutose) 15 gm Q15M PRN PO DECREASED GLUCOSE; Start 04/27/17 at 21:30 Glucose (Glutose) 22.5 gm Q15M PRN PO DECREASED GLUCOSE; Start 04/27/17 at 21: 30 Dextrose (D50w Syringe) 25 ml Q15M PRN IV DECREASED GLUCOSE; Start 04/27/17 at 21:30 Dextrose (D50w Syringe) 50 ml Q15M PRN IV DECREASED GLUCOSE; Start 04/27/17 at 21:30 Glucagon (Glucagen) 1 mg Q15M PRN IM DECREASED GLUCOSE; Start 04/27/17 at 21:30 Glucose (Glutose) 15 gm Q15M PRN BUCCAL DECREASED GLUCOSE; Start 04/27/17 at 21 :30 Pantoprazole 40 mg 40 mg DAILY@06 PO Last administered on 05/05/17 06:08; Admin Dose 40 MG; Start 04/29/17 at 06:00 Piperacillin Sod/ Tazobactam Sod (Zosyn 3.375gm/ 50 ml (Pmx)) 50 ml @ 100 mls/ hr Q8 IVPB Last administered on 05/05/17 13:49; Admin Dose 100 MLS/HR; Start 05/02/17 at 11:00 Bisacodyl (Dulcolax Supp) 10 mg DAILY PRN [place] CONSTIPATION Last administered on 05/02/17 11:51; Admin Dose 10 MG; Start 05/02/17 at 09:30 Lactulose (Enulose) 10 gm DAILY PRN PO CONSTIPATION; Start 05/02/17 at 09:30 Ursodiol (Actigall) 300 mg BID PO Last administered on 05/05/17 08:24; Admin Dose 300 MG; Start 05/02/17 at 21:00 Diphenhydramine HCl (Benadryl) 25 mg Q6H PRN PO ITCHING Last administered on 21:53; Admin Dose 25 MG; Start 05/04/17 at 12:00 JUVENAL NGO MD May 05, 2017 16:13
[2017-05-05 19:55] VITALS: BP 144/78; RESP 20
[2017-05-06] MEDS: ACCU-CHEK XX SCH (01:50)
[2017-05-06 02:10] VITALS: BP 133/70; RESP 20
[2017-05-06 05:36] LABS: BASOPHIL # 0.1 10^3/ul (0.0-0.1); BASOPHILS % 0.6 % (0.0-2.0); EOSINOPHILS # 0.3 10^3/ul (0.0-0.5); EOSINOPHILS % 3.3 % (0.0-7.0); HEMATOCRIT 32.4 % (42.0-52.0); HEMOGLOBIN 10.8 g/dl (14.0-18.0); LYMPHOCYTES # 2.3 10^3/ul (0.8-2.9); LYMPHOCYTES % 27.2 % (15.0-51.0); MEAN CORPUSCULAR HEMOGLOBIN 26.9 pg (29.0-33.0); MEAN CORPUSCULAR HGB CONC 33.3 g/dl (32.0-37.0); MEAN CORPUSCULAR VOLUME 80.6 fl (82.0-101.0); MONOCYTE # 0.9 10^3/ul (0.3-0.9); NEUTROPHIL # 4.8 10^3/ul (1.6-7.5); NEUTROPHILS % 56.3 % (39.0-77.0); PLATELET COUNT 452 10^3/UL (140-415); RED BLOOD COUNT 4.02 10^6/ul (4.70-6.10); RED CELL DISTRIBUTION WIDTH 17.8 % (11.5-14.5); WHITE BLOOD COUNT 8.5 10^3/ul (4.8-10.8)
[2017-05-06] MEDS: PIPER-TAZO 3.375 GM IV (PMX) 50 ML IVPB SCH ×3 (05:40→21:17)
[2017-05-06] MEDS: PANTOPRAZOLE (EC) 40 MG TAB PO SCH (05:40)
[2017-05-06 06:02] LABS: MAGNESIUM 2.1 mg/dl (1.7-2.5); PHOSPHORUS 4.3 mg/dl (2.5-4.9)
[2017-05-06 06:05] LABS: ALBUMIN 3.4 g/dl (3.3-4.9); ALBUMIN/GLOBULIN RATIO 0.91; AMYLASE 93 U/L (11-123); BILIRUBIN,DIRECT 1.6 mg/dl (0.00-0.20); BILIRUBIN,TOTAL 2.6 mg/dl (0.2-1.3); CALCIUM 8.8 mg/dl (8.4-10.2); CREATININE 1.21 mg/dl (0.61-1.24); POTASSIUM 4.4 mmol/L (3.5-5.1); TOTAL PROTEIN 7.1 g/dl (6.1-8.1)
[2017-05-06 07:37] VITALS: BP 111/67; PULSE 67; RESP 16
[2017-05-06] MEDS: INSULIN ASPART [NOVOLOG] 3 ML PEN SC SCH ×4 (08:15→21:13)
[2017-05-06] MEDS: URSODIOL 300 MG CAP PO SCH ×2 (08:19→21:07)
--- NOTE | 2017-05-06 10:27 | PN ---
Date/Time of Note Date/Time of Note DATE: 05/06/17 TIME: 10:12 Assessment/Plan Lines/Catheters IV Catheter Type (from [facility]): Saline Lock Diaz in Place (from [facility]): No Assessment/Plan Chief Complaint/Hosp Course 1. Obstructive jaundice with choledocholithiasis, cholangitis, ?cholelithiasis: Impacted stone in ampulla; s/p ercp with sphincterotomy and stent; wbc elevated , biliary dilatation, jaundice; negative hida -eventual lap howie when duct is cleared- outpatient -abx 2. Pancreatitis: likely 2/2 #1; improving -monitor 3. Transaminitis: 2/2 #1 +/- liver disease; improving -as above 4. Fatty liver and reactive hep c antibody -diet and exercise modification 5. Diabetes: -blood sugar optimization -weight management 6. Microcytic hypochromic anemia: -monitor -transfuse as needed -further workup per medical team Thank you. Patient seen and examined in collaboration with Dr. Aditya Peña. Problems: Subjective 24 Hr Interval Summary Feels well. Transaminitis. Tolerating diet. No fevers, chills, sob, congested cough, cp, palpitations, esparza, dizziness, n/v/d/dysuria. Exam/Review of Systems Vital Signs Vitals Vital Signs Date Time Temp Pulse Resp B/P Pulse Ox O2 Delivery O2 Flow Rate FiO2 05/06/17 07:37 97.4 67 16 111/67 98 Room Air Intake and Output 05/05/17 05/05/17 05/06/17 14:59 22:59 06:59 Intake Total 50 ml 1150 ml Output Total 1300 ml Balance 50 ml -150 ml Exam Free Text/Dictation Constitutional: alert, oriented Psych: nl mood/affect Head: atraumatic, normocephalic Eyes: icteric (improved), nl lids ENMT: mucosa pink and moist, nl nasal mucosa & septum Neck: non-tender, supple Respiratory: clear to auscultation, normal air movement Cardiovascular: nl pulses, regular rate and rhythm Gastrointestinal: ND, soft, non tender Genitourinary - Male: nl penis, nl scrotum Musculoskeletal: nl extremities to inspection Extremities: normal pulses Neurological: nl mental status, nl speech, nl strength Skin: jaundice (improved), no rash Results Result Diagram: 05/06/1715 05/06/17 0515 DARIN THAKUR [employer] May 06, 2017 10:22
[2017-05-06 13:08] VITALS: BP 132/75; PULSE 64; RESP 18
--- NOTE | 2017-05-06 17:23 | PN ---
Date/Time of Note Date/Time of Note DATE: 05/06/17 TIME: 17:22 Assessment/Plan VTE Prophylaxis VTE Prophylaxis Intervention: SCD's Lines/Catheters IV C[facility] Type (from [facility]): Saline Lock Urinary Cath still in place: No Assessment/Plan Chief Complaint/Hosp Course 62 y/o with # Obstructive jaundice with choledocholithiasis and cholangitis and cholelithiasis possible cholecystitis s/p ERCP on 04/29 with impacted ampulla Large sphincterotomy done Brushing done Stent deployed 10 Telugu 5 cm with excellent drainage Cystic duct appeared to be blocked. Now still with elevated LFT> improving now # Abdominal pain with Pancreatitis # Hyperbilirubemenia and elevated alk phos due to #1 # JULIO resolved # Hep C ab+ # DM # Microcytic hypochromic anemia: # hx Quantiferon gold in past was on Isonazid Plan - HIDA scan negative, c/w monitor LFT - c/w zosyn, - advance diet - c/w Urodiol - benadryl prn - GI Prophylaxsis - Will likely need Cholecystectomy as outpatient - Will dc home if LFT continue to improve Problems: Subjective 24 Hr Interval Summary Free Text/Dictation Abdominal pain improving LFT improving Exam/Review of Systems Vital Signs Vitals Vital Signs Date Time Temp Pulse Resp B/P Pulse Ox O2 Delivery O2 Flow Rate FiO2 05/06/17 13:08 97.7 64 18 132/75 99 Room Air Intake and Output 05/05/17 05/05/17 05/06/17 15:00 23:00 07:00 Intake Total 50 ml 1150 ml Output Total 1300 ml Balance 50 ml -150 ml Exam Gen: Awake,alert HEENT: Scleral icterus CVS: Regular rate and rthym Lungs: clear to auscultate Abdomen: some TTP suprapubic Ext: no julia Results Result Diagram: 05/06/17 0515 05/06/17 0515 Results 24 hrs Laboratory Tests Test 05/05/17 17:32 05/05/17 21:07 05/06/17 01:50 05/06/17 05:15 Bedside Glucose 153 178 136 White Blood Count 8.5 Red Blood Count 4.02 L Hemoglobin 10.8 L Hematocrit 32.4 L Mean Corpuscular Volume 80.6 L Mean Corpuscular Hemoglobin 26.9 L Mean Corpuscular Hemoglobin Concent 33.3 Red Cell Distribution Width 17.8 H Platelet Count 452 H Mean Platelet Volume 11.0 H Neutrophils % 56.3 Lymphocytes % 27.2 Monocytes % 10.0 Eosinophils % 3.3 Basophils % 0.6 Nucleated Red Blood Cells % 0.0 Neutrophils # 4.8 Lymphocytes # 2.3 Monocytes # 0.9 Eosinophils # 0.3 Basophils # 0.1 Nucleated Red Blood Cells # 0.0 Sodium Level 137 Potassium Level 4.4 Chloride Level 103 Carbon Dioxide Level 25 Anion Gap 13 Blood Urea Nitrogen 17 Creatinine 1.21 Glucose Level 177 Calcium Level 8.8 Phosphorus Level 4.3 Magnesium Level 2.1 Total Bilirubin 2.6 #H Direct Bilirubin 1.60 #H Indirect Bilirubin 1.0 Aspartate Amino Transf (AST/SGOT) 62 H Alanine Aminotransferase (ALT/SGPT) 69 Alkaline Phosphatase 309 H Total Protein 7.1 Albumin 3.4 Globulin 3.70 H Albumin/Globulin Ratio 0.91 Amylase Level 93 Lipase 476 H Test 05/06/17 07:48 05/06/17 11:56 05/06/17 16:55 Bedside Glucose 176 164 174 Medications Medications Current Medications Ondansetron HCl (Zofran Inj) 4 mg Q6H PRN IV NAUSEA AND/OR VOMITING; Start 04/27/17 at 21:30 Morphine Sulfate (morphine) 2 mg Q4H PRN IV SEVERE PAIN LEVEL 7-10; Start 04/27 at 21:30 Magnesium Hydroxide (Milk Of Mag) 30 ml DAILY PRN PO CONSTIPATION Last administered on 05/01/17 20:17; Admin Dose 30 ML; Start 04/27/17 at 21:30 Diagnostic Test (Pha) (Accu-Chek) 1 ea 02 XX Last administered on 05/06/17 01 :50; Admin Dose 1 EA; Start 04/28/17 at 02:00 Miscellaneous Information 1 ea NOTE XX ; Start 04/27/17 at 21:30 Glucose (Glutose) 15 gm Q15M PRN PO DECREASED GLUCOSE; Start 04/27/17 at 21:30 Glucose (Glutose) 22.5 gm Q15M PRN PO DECREASED GLUCOSE; Start 04/27/17 at 21: 30 Dextrose (D50w Syringe) 25 ml Q15M PRN IV DECREASED GLUCOSE; Start 04/27/17 at 21:30 Dextrose (D50w Syringe) 50 ml Q15M PRN IV DECREASED GLUCOSE; Start 04/27/17 at 21:30 Glucagon (Glucagen) 1 mg Q15M PRN IM DECREASED GLUCOSE; Start 04/27/17 at 21:30 Glucose (Glutose) 15 gm Q15M PRN BUCCAL DECREASED GLUCOSE; Start 04/27/17 at 21 :30 Pantoprazole 40 mg 40 mg DAILY@06 PO Last administered on 05/06/17 05:40; Admin Dose 40 MG; Start 04/29/17 at 06:00 Piperacillin Sod/ Tazobactam Sod (Zosyn 3.375gm/ 50 ml (Pmx)) 50 ml @ 100 mls/ hr Q8 IVPB Last administered on 05/06/17 13:20; Admin Dose 100 MLS/HR; Start 05/02/17 at 11:00 Bisacodyl (Dulcolax Supp) 10 mg DAILY PRN [place] CONSTIPATION Last administered on 05/02/17 11:51; Admin Dose 10 MG; Start 05/02/17 at 09:30 Lactulose (Enulose) 10 gm DAILY PRN PO CONSTIPATION; Start 05/02/17 at 09:30 Ursodiol (Actigall) 300 mg BID PO Last administered on 05/06/17 08:19; Admin Dose 300 MG; Start 05/02/17 at 21:00 Diphenhydramine HCl (Benadryl) 25 mg Q6H PRN PO ITCHING Last administered on 21:53; Admin Dose 25 MG; Start 05/04/17 at 12:00 MARYCARMEN DE LA CRUZ MD May 06, 2017 17:23
[2017-05-06 19:16] VITALS: BP 125/82; PULSE 65; RESP 16
--- NOTE | 2017-05-06 20:32 | CONS ---
Date/Time of Note Date/Time of Note DATE: 05/06/17 TIME: 20:31 Assessment/Plan Assessment/Plan Additional Assessment/Plan Additional Assessment/Plan IMPRESSION: 1. Jaundice. Stent is functional. Total bilirubin is gradually coming down 2. Itching. 3. Fever for which the patient is on antibiotic. 4. Abdominal pain resolved 5. Itching drastically reduced 6. 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 Mild elevation of lipase is common after ERCP and does not justify the diagnosis of pancreatitis Consultation Date/Type/Reason Admit Date/Time Apr 27, 2017 at 18:40 Type of Consultation: Surgical Referring Provider: MARYCARMEN DE LA CRUZ MD 24 HR Interval Summary Constitutional: improved Exam/Review of Systems Vital Signs Vitals Vital Signs Date Time Temp Pulse Resp B/P Pulse Ox O2 Delivery O2 Flow Rate FiO2 05/06/17 19:16 98.4 65 16 125/82 99 Room Air Intake and Output 05/05/17 05/05/17 05/06/17 15:00 23:00 07:00 Intake Total 50 ml 1150 ml Output Total 1300 ml Balance 50 ml -150 ml Exam Constitutional: alert, oriented, well developed Psych: nl mood/affect, no complaints Head: atraumatic, normocephalic Eyes: EOMI, PERRL, nl conjunctiva, nl lids, nl sclera ENMT: nl external ears & nose, nl lips & teeth, nl nasal mucosa & septum Neck: non-tender, supple Respiratory: clear to auscultation, normal air movement Cardiovascular: nl pulses, regular rate and rhythm Gastrointestinal: nl liver, spleen, non-tender, soft Musculoskeletal: nl extremities to inspection, nl gait and stance Extremities: normal pulses 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, nl mental status, nl speech, nl strength Skin: nl turgor, No rash or lesions Lymph: nl lymph nodes Results Result Diagram: 05/06/17 0515 05/06/17 0515 Results 24 hrs Laboratory Tests Test 05/05/17 21:07 05/06/17 01:50 05/06/17 05:15 05/06/17 07:48 Bedside Glucose 178 136 176 White Blood Count 8.5 Red Blood Count 4.02 L Hemoglobin 10.8 L Hematocrit 32.4 L Mean Corpuscular Volume 80.6 L Mean Corpuscular Hemoglobin 26.9 L Mean Corpuscular Hemoglobin Concent 33.3 Red Cell Distribution Width 17.8 H Platelet Count 452 H Mean Platelet Volume 11.0 H Neutrophils % 56.3 Lymphocytes % 27.2 Monocytes % 10.0 Eosinophils % 3.3 Basophils % 0.6 Nucleated Red Blood Cells % 0.0 Neutrophils # 4.8 Lymphocytes # 2.3 Monocytes # 0.9 Eosinophils # 0.3 Basophils # 0.1 Nucleated Red Blood Cells # 0.0 Sodium Level 137 Potassium Level 4.4 Chloride Level 103 Carbon Dioxide Level 25 Anion Gap 13 Blood Urea Nitrogen 17 Creatinine 1.21 Glucose Level 177 Calcium Level 8.8 Phosphorus Level 4.3 Magnesium Level 2.1 Total Bilirubin 2.6 #H Direct Bilirubin 1.60 #H Indirect Bilirubin 1.0 Aspartate Amino Transf (AST/SGOT) 62 H Alanine Aminotransferase (ALT/SGPT) 69 Alkaline Phosphatase 309 H Total Protein 7.1 Albumin 3.4 Globulin 3.70 H Albumin/Globulin Ratio 0.91 Amylase Level 93 Lipase 476 H Test 05/06/17 11:56 05/06/17 16:55 Bedside Glucose 164 174 Medications Medications Current Medications Ondansetron HCl (Zofran Inj) 4 mg Q6H PRN IV NAUSEA AND/OR VOMITING; Start 04/27/17 at 21:30 Morphine Sulfate (morphine) 2 mg Q4H PRN IV SEVERE PAIN LEVEL 7-10; Start 04/27 at 21:30 Magnesium Hydroxide (Milk Of Mag) 30 ml DAILY PRN PO CONSTIPATION Last administered on 05/01/17 20:17; Admin Dose 30 ML; Start 04/27/17 at 21:30 Diagnostic Test (Pha) (Accu-Chek) 1 ea 02 XX Last administered on 05/06/17 01 :50; Admin Dose 1 EA; Start 04/28/17 at 02:00 Miscellaneous Information 1 ea NOTE XX ; Start 04/27/17 at 21:30 Glucose (Glutose) 15 gm Q15M PRN PO DECREASED GLUCOSE; Start 04/27/17 at 21:30 Glucose (Glutose) 22.5 gm Q15M PRN PO DECREASED GLUCOSE; Start 04/27/17 at 21: 30 Dextrose (D50w Syringe) 25 ml Q15M PRN IV DECREASED GLUCOSE; Start 04/27/17 at 21:30 Dextrose (D50w Syringe) 50 ml Q15M PRN IV DECREASED GLUCOSE; Start 04/27/17 at 21:30 Glucagon (Glucagen) 1 mg Q15M PRN IM DECREASED GLUCOSE; Start 04/27/17 at 21:30 Glucose (Glutose) 15 gm Q15M PRN BUCCAL DECREASED GLUCOSE; Start 04/27/17 at 21 :30 Pantoprazole 40 mg 40 mg DAILY@06 PO Last administered on 05/06/17 05:40; Admin Dose 40 MG; Start 04/29/17 at 06:00 Piperacillin Sod/ Tazobactam Sod (Zosyn 3.375gm/ 50 ml (Pmx)) 50 ml @ 100 mls/ hr Q8 IVPB Last administered on 05/06/17 13:20; Admin Dose 100 MLS/HR; Start 05/02/17 at 11:00 Bisacodyl (Dulcolax Supp) 10 mg DAILY PRN [place] CONSTIPATION Last administered on 05/02/17 11:51; Admin Dose 10 MG; Start 05/02/17 at 09:30 Lactulose (Enulose) 10 gm DAILY PRN PO CONSTIPATION; Start 05/02/17 at 09:30 Ursodiol (Actigall) 300 mg BID PO Last administered on 05/06/17 08:19; Admin Dose 300 MG; Start 05/02/17 at 21:00 Diphenhydramine HCl (Benadryl) 25 mg Q6H PRN PO ITCHING Last administered on 21:53; Admin Dose 25 MG; Start 05/04/17 at 12:00 JUVENAL NGO MD May 06, 2017 20:32
[2017-05-06 20:37] VITALS: BP 136/72; RESP 16
[2017-05-07 02:00] VITALS: BP 124/74; RESP 16
[2017-05-07] MEDS: ACCU-CHEK XX SCH (02:31)
[2017-05-07 05:32] LABS: BASOPHILS % 0.6 % (0.0-2.0); EOSINOPHILS # 0.2 10^3/ul (0.0-0.5); EOSINOPHILS % 3.3 % (0.0-7.0); HEMATOCRIT 33.7 % (42.0-52.0); LYMPHOCYTES # 1.8 10^3/ul (0.8-2.9); LYMPHOCYTES % 25.2 % (15.0-51.0); MEAN CORPUSCULAR HEMOGLOBIN 26.6 pg (29.0-33.0); MEAN CORPUSCULAR HGB CONC 32.6 g/dl (32.0-37.0); MEAN CORPUSCULAR VOLUME 81.6 fl (82.0-101.0); MEAN PLATELET VOLUME 11.1 fl (7.4-10.4); MONOCYTE # 0.7 10^3/ul (0.3-0.9); MONOCYTES % 9.1 % (0.0-11.0); NEUTROPHIL # 4.2 10^3/ul (1.6-7.5); NEUTROPHILS % 57.9 % (39.0-77.0); PLATELET COUNT 451 10^3/UL (140-415); RED BLOOD COUNT 4.13 10^6/ul (4.70-6.10); RED CELL DISTRIBUTION WIDTH 17.2 % (11.5-14.5); WHITE BLOOD COUNT 7.3 10^3/ul (4.8-10.8)
[2017-05-07] MEDS: PANTOPRAZOLE (EC) 40 MG TAB PO SCH (05:44)
[2017-05-07] MEDS: PIPER-TAZO 3.375 GM IV (PMX) 50 ML IVPB SCH ×2 (05:44→14:06)
[2017-05-07 05:59] LABS: MAGNESIUM 2.2 mg/dl (1.7-2.5); PHOSPHORUS 4.7 mg/dl (2.5-4.9)
[2017-05-07 06:00] LABS: ALBUMIN 3.4 g/dl (3.3-4.9); ALBUMIN/GLOBULIN RATIO 0.97; BILIRUBIN,DIRECT 1.4 mg/dl (0.00-0.20); BILIRUBIN,INDIRECT 0.7 mg/dl (0-1.1); BILIRUBIN,TOTAL 2.1 mg/dl (0.2-1.3); CALCIUM 8.8 mg/dl (8.4-10.2); CREATININE 1.08 mg/dl (0.61-1.24); POTASSIUM 4.4 mmol/L (3.5-5.1); TOTAL PROTEIN 6.9 g/dl (6.1-8.1)
[2017-05-07 07:33] VITALS: BP 113/73; PULSE 65; RESP 16
[2017-05-07 07:36] VITALS: BP 113/73; RESP 16
[2017-05-07] MEDS: URSODIOL 300 MG CAP PO SCH (08:09)
[2017-05-07] MEDS: INSULIN ASPART [NOVOLOG] 3 ML PEN SC SCH ×3 (08:28→17:39)
--- NOTE | 2017-05-07 12:31 | PDOCDIS ---
Discharge Instructions CONDITION Patient Condition: Stable HOME CARE INSTRUCTIONS: Special Diet: CARB CONTROLLED DIET ACTIVITY: Activity Restrictions: Slowly Increase Activity FOLLOW UP/APPOINTMENTS Follow-up Plan dr Hu 1 month PCP 1 week ID 1 month tocontinue care for the latent TB REFERRALS Other Referrals case management please make an appointment for surgeon per insurance for scheduled outpatient cholecystectomy SCHOOL/WORK RELEASE May return to School/Work with: With Restrictions TRACY QUEZADA May 07, 2017 12:31
[2017-05-07] MEDS ORDERED: URSO300C21 PO (12:33)
[2017-05-07] MEDS ORDERED: NOVO3I SC (12:33)
--- NOTE | 2017-05-07 12:40 | DS ---
Date/Time of Note Date/Time of Note DATE: 05/07/17 TIME: 12:40 Discharge Summary Admission/Discharge Info Admit Date/Time Apr 27, 2017 at 18:40 Discharge Date/Time 05/07/2017 Discharge Diagnosis Obstructive jaundice with choledocholithiasis and cholangitis Patient Condition: Stable Consults Dr Hu GI, Dr Mariee surgeon Procedures ERCP, MRCP, HIDA scan Hospital Course 62 y/o male was admitted. # Obstructive jaundice with choledocholithiasis and cholangitis and cholelithiasis possible cholecystitis s/p ERCP on 04/29 with impacted ampulla Large sphincterotomy done Brushing done Stent deployed 10 Turkmen 5 cm with excellent drainage Cystic duct appeared to be blocked. Now still with elevated LFT> improving now # Abdominal pain with Pancreatitis # Hyperbilirubinemia and elevated alk phos due to #1 # JULIO resolved # Hep C ab+ # DM type II # Microcytic hypochromic anemia: # hx Quantiferon gold in past was on Isonazid Pt was underwent ERCP, MRCP and his bilirubin got decreased. Surgeon evaluated him on possible gall bladder removal, recommended it in outpatient setting. Pt was stabilized, his pruritis was decreased, diabetic education was performed and pt was discharged Home Meds Active Scripts Lancets (ADVANCED TRAVEL LANCETS) 1 Each Each, 1 EACH MC, #100 Prov:TRACY QUEZADA 05/07/17 Blood Glucose Strips-Dispmeter (Cardinal Midstream Blood Glucose System) 1 Each Kit, 1 EACH MC, #100 Prov:TRACY QUEZADA 05/07/17 [glucometer] No Conflict Check Prov:TRACY QUEZADA 05/07/17 Insulin Detemir (Levemir) 100 Unit/1 Ml Vial, 12 UNIT SC QHS for 30 Days, VIAL Prov:TRACY QUEZADA 05/07/17 Ursodiol* (Actigall*) 300 Mg Cap, 300 MG PO BID for 30 Days, CAP Prov:TRACY QUEZADA 05/07/17 Reported Medications Aspirin* (Aspirin* Chew) 81 Mg Tab.chew, 81 MG PO DAILY, TAB.CHEW 09/07/16 Atorvastatin Calcium* (Atorvastatin Calcium*) 20 Mg Tablet, 20 MG PO DAILY, TAB 11/26/14 Discontinued Reported Medications Metformin* (Glucophage*) 1,000 Mg Tablet, 1000 MG PO BID, #60 TAB 09/07/16 Sitagliptin* (Januvia*) 100 Mg Tablet, 100 MG PO DAILY, #30 TAB 09/07/16 Fenofibrate Nanocrystallized* (Tricor*) 48 Mg Tablet, 40 MG PO DAILY, TAB 11/26/14 Discontinued Scripts Isoniazid* (Isoniazid*) 300 Mg Tablet, 300 MG PO DAILY, #30 TAB Prov:AVA EASTMAN MD 04/16/17 Follow-up Plan PCP 1 week, ID specialist for the latent TB 1 month 3. Outpatient surgeon 2 weeks for possible cholecystectomy Primary Care Provider Yg Sanabria Time spent on discharge: < 30 minutes Pending Labs Laboratory Tests Test 05/06/17 16:55 05/06/17 21:09 05/07/17 02:28 05/07/17 05:00 Bedside Glucose 174mg/dL (70-220) 180mg/dL (70-220) 179mg/dL (70-220) White Blood Count 7.310^3/ul (4.8-10.8) Red Blood Count 4.1310^6/ul (4.70-6.10) Hemoglobin 11.0g/dl (14.0-18.0) Hematocrit 33.7% (42.0-52.0) Mean Corpuscular Volume 81.6fl (82.0-101.0) Mean Corpuscular Hemoglobin 26.6pg (29.0-33.0) Mean Corpuscular Hemoglobin Concent 32.6g/dl (32.0-37.0) Red Cell Distribution Width 17.2% (11.5-14.5) Platelet Count 27445^3/UL (140-415) Mean Platelet Volume 11.1fl (7.4-10.4) Neutrophils % 57.9% (39.0-77.0) Lymphocytes % 25.2% (15.0-51.0) Monocytes % 9.1% (0.0-11.0) Eosinophils % 3.3% (0.0-7.0) Basophils % 0.6% (0.0-2.0) Nucleated Red Blood Cells % 0.0/100WBC (0.0-0.0) Neutrophils # 4.210^3/ul (1.6-7.5) Lymphocytes # 1.810^3/ul (0.8-2.9) Monocytes # 0.710^3/ul (0.3-0.9) Eosinophils # 0.210^3/ul (0.0-0.5) Basophils # 0.010^3/ul (0.0-0.1) Nucleated Red Blood Cells # 0.010^3/ul (0.0-0.0) Sodium Level 139mmol/L (135-144) Potassium Level 4.4mmol/L (3.5-5.1) Chloride Level 105mmol/L (97-110) Carbon Dioxide Level 24mmol/L (21-31) Anion Gap 14 (8-16) Blood Urea Nitrogen 15mg/dl (7-20) Creatinine 1.08mg/dl (0.61-1.24) Glucose Level 190mg/dl (70-220) Calcium Level 8.8mg/dl (8.4-10.2) Phosphorus Level 4.7mg/dl (2.5-4.9) Magnesium Level 2.2mg/dl (1.7-2.5) Total Bilirubin 2.1mg/dl (0.2-1.3) Direct Bilirubin 1.40mg/dl (0.00-0.20) Indirect Bilirubin 0.7mg/dl (0-1.1) Aspartate Amino Transf (AST/SGOT) 64IU/L (15-46) Alanine Aminotransferase (ALT/SGPT) 62IU/L (13-69) Alkaline Phosphatase 294IU/L (42-121) Total Protein 6.9g/dl (6.1-8.1) Albumin 3.4g/dl (3.3-4.9) Globulin 3.50g/dl (1.3-3.2) Albumin/Globulin Ratio 0.97 Test 05/07/17 07:57 05/07/17 12:02 Bedside Glucose 174mg/dL (70-220) 122mg/dL (70-220) TRACY QUEZADA May 07, 2017 12:40
[2017-05-07] MEDS ORDERED: LEVEM SC (12:47)
[2017-05-07] MEDS ORDERED: glucometer (13:14)
[2017-05-07] MEDS ORDERED: BLOO-432 MC (13:14)
[2017-05-07] MEDS ORDERED: LANC1EAC MC (13:14)
--- NOTE | 2017-05-07 13:31 | CONS ---
Date/Time of Note Date/Time of Note DATE: 05/07/17 TIME: 13:30 Assessment/Plan Assessment/Plan Additional Assessment/Plan Additional Assessment/Plan IMPRESSION: 1. Jaundice. Stent is functional. Total bilirubin is gradually coming down 2. Itching. 3. Fever for which the patient is on antibiotic. 4. Abdominal pain resolved 5. Itching drastically reduced 6. 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 Mild elevation of lipase is common after ERCP Patient needs to be followed by pharmacy coordinator for the removal of the stent after 6-8 weeks Consultation Date/Type/Reason Admit Date/Time Apr 27, 2017 at 18:40 Type of Consultation: Surgical Referring Provider: MARYCARMEN DE LA CRUZ MD 24 HR Interval Summary Free Text/Dictation No abdominal pain Itching reduced atraumatically Constitutional: improved Exam/Review of Systems Vital Signs Vitals Vital Signs Date Time Temp Pulse Resp B/P Pulse Ox O2 Delivery O2 Flow Rate FiO2 05/07/17 07:36 98.3 65 16 113/73 91 05/07/17 07:33 Room Air Intake and Output 05/06/17 05/06/17 05/07/17 15:00 23:00 07:00 Intake Total 1050 ml 1690 ml 810 ml Output Total 1500 ml 650 ml Balance 1050 ml 190 ml 160 ml Exam Constitutional: alert, oriented, well developed Psych: nl mood/affect, no complaints Head: atraumatic, normocephalic Eyes: EOMI, PERRL, nl conjunctiva, nl lids, nl sclera ENMT: nl external ears & nose, nl lips & teeth, nl nasal mucosa & septum Neck: non-tender, supple Respiratory: clear to auscultation, normal air movement Cardiovascular: nl pulses, regular rate and rhythm Gastrointestinal: nl liver, spleen, non-tender, soft Musculoskeletal: nl extremities to inspection, nl gait and stance Extremities: normal pulses Neurological: WASHER ENGINEER II-XII intact, nl mental status, nl speech, nl strength Skin: nl turgor, No rash or lesions Lymph: nl lymph nodes Results Result Diagram: 05/07/17 0500 05/07/17 0500 Results 24 hrs Laboratory Tests Test 05/06/17 16:55 05/06/17 21:09 05/07/17 02:28 05/07/17 05:00 Bedside Glucose 174 180 179 White Blood Count 7.3 Red Blood Count 4.13 L Hemoglobin 11.0 L Hematocrit 33.7 L Mean Corpuscular Volume 81.6 L Mean Corpuscular Hemoglobin 26.6 L Mean Corpuscular Hemoglobin Concent 32.6 Red Cell Distribution Width 17.2 H Platelet Count 451 H Mean Platelet Volume 11.1 H Neutrophils % 57.9 Lymphocytes % 25.2 Monocytes % 9.1 Eosinophils % 3.3 Basophils % 0.6 Nucleated Red Blood Cells % 0.0 Neutrophils # 4.2 Lymphocytes # 1.8 Monocytes # 0.7 Eosinophils # 0.2 Basophils # 0.0 Nucleated Red Blood Cells # 0.0 Sodium Level 139 Potassium Level 4.4 Chloride Level 105 Carbon Dioxide Level 24 Anion Gap 14 Blood Urea Nitrogen 15 Creatinine 1.08 Glucose Level 190 Calcium Level 8.8 Phosphorus Level 4.7 Magnesium Level 2.2 Total Bilirubin 2.1 H Direct Bilirubin 1.40 H Indirect Bilirubin 0.7 Aspartate Amino Transf (AST/SGOT) 64 H Alanine Aminotransferase (ALT/SGPT) 62 Alkaline Phosphatase 294 H Total Protein 6.9 Albumin 3.4 Globulin 3.50 H Albumin/Globulin Ratio 0.97 Test 05/07/17 07:57 05/07/17 12:02 Bedside Glucose 174 122 Medications Medications Current Medications Ondansetron HCl (Zofran Inj) 4 mg Q6H PRN IV NAUSEA AND/OR VOMITING; Start 04/27/17 at 21:30 Morphine Sulfate (morphine) 2 mg Q4H PRN IV SEVERE PAIN LEVEL 7-10; Start 04/27 at 21:30 Magnesium Hydroxide (Milk Of Mag) 30 ml DAILY PRN PO CONSTIPATION Last administered on 05/01/17 20:17; Admin Dose 30 ML; Start 04/27/17 at 21:30 Diagnostic Test (Pha) (Accu-Chek) 1 ea 02 XX Last administered on 05/07/17 02 :31; Admin Dose 1 EA; Start 04/28/17 at 02:00 Miscellaneous Information 1 ea NOTE XX ; Start 04/27/17 at 21:30 Glucose (Glutose) 15 gm Q15M PRN PO DECREASED GLUCOSE; Start 04/27/17 at 21:30 Glucose (Glutose) 22.5 gm Q15M PRN PO DECREASED GLUCOSE; Start 04/27/17 at 21: 30 Dextrose (D50w Syringe) 25 ml Q15M PRN IV DECREASED GLUCOSE; Start 04/27/17 at 21:30 Dextrose (D50w Syringe) 50 ml Q15M PRN IV DECREASED GLUCOSE; Start 04/27/17 at 21:30 Glucagon (Glucagen) 1 mg Q15M PRN IM DECREASED GLUCOSE; Start 04/27/17 at 21:30 Glucose (Glutose) 15 gm Q15M PRN BUCCAL DECREASED GLUCOSE; Start 04/27/17 at 21 :30 Pantoprazole 40 mg 40 mg DAILY@06 PO Last administered on 05/07/17 05:44; Admin Dose 40 MG; Start 04/29/17 at 06:00 Piperacillin Sod/ Tazobactam Sod (Zosyn 3.375gm/ 50 ml (Pmx)) 50 ml @ 100 mls/ hr Q8 IVPB Last administered on 05/07/17 05:44; Admin Dose 100 MLS/HR; Start 05/02/17 at 11:00 Bisacodyl (Dulcolax Supp) 10 mg DAILY PRN [place] CONSTIPATION Last administered on 05/02/17 11:51; Admin Dose 10 MG; Start 05/02/17 at 09:30 Lactulose (Enulose) 10 gm DAILY PRN PO CONSTIPATION; Start 05/02/17 at 09:30 Ursodiol (Actigall) 300 mg BID PO Last administered on 05/07/17 08:09; Admin Dose 300 MG; Start 05/02/17 at 21:00 Diphenhydramine HCl (Benadryl) 25 mg Q6H PRN PO ITCHING Last administered on 21:53; Admin Dose 25 MG; Start 05/04/17 at 12:00 JUVENAL NGO MD May 07, 2017 13:31
[2017-05-07 13:55] VITALS: BP 152/71; RESP 16
--- NOTE | 2017-05-07 20:11 | PN ---
Date/Time of Note Date/Time of Note DATE: 05/07/17 TIME: 20:10 Assessment/Plan Lines/Catheters IV Catheter Type (from [facility]): Saline Lock Diaz in Place (from [facility]): No Assessment/Plan Chief Complaint/Hosp Course 1. Obstructive jaundice with choledocholithiasis, cholangitis, ?cholelithiasis: Impacted stone in ampulla; s/p ercp with sphincterotomy and stent; wbc elevated , biliary dilatation, jaundice; negative hida -eventual lap howie when duct is cleared- outpatient -abx 2. Pancreatitis: likely 2/2 #1; improving -monitor 3. Transaminitis: 2/2 #1 +/- liver disease; improving -as above 4. Fatty liver and reactive hep c antibody -diet and exercise modification 5. Diabetes: -blood sugar optimization -weight management 6. Microcytic hypochromic anemia: -monitor -transfuse as needed -further workup per medical team Thank you, Problems: Subjective 24 Hr Interval Summary Feels well. Transaminitis. Tolerating diet. No fevers, chills, sob, congested cough, cp, palpitations, esparza, dizziness, n/v/d/dysuria. Exam/Review of Systems Vital Signs Vitals Vital Signs Date Time Temp Pulse Resp B/P Pulse Ox O2 Delivery O2 Flow Rate FiO2 05/07/17 13:55 98.1 62 16 152/71 98 05/07/17 07:33 Room Air Intake and Output 05/06/17 05/06/17 05/07/17 15:00 23:00 07:00 Intake Total 1050 ml 1690 ml 810 ml Output Total 1500 ml 650 ml Balance 1050 ml 190 ml 160 ml Exam Free Text/Dictation Constitutional: alert, oriented Psych: nl mood/affect Head: atraumatic, normocephalic Eyes: icteric (improved), nl lids ENMT: mucosa pink and moist, nl nasal mucosa & septum Neck: non-tender, supple Respiratory: clear to auscultation, normal air movement Cardiovascular: nl pulses, regular rate and rhythm Gastrointestinal: ND, soft, non tender Genitourinary - Male: nl penis, nl scrotum Musculoskeletal: nl extremities to inspection Extremities: normal pulses Neurological: nl mental status, nl speech, nl strength Skin: jaundice (improved), no rash Results Result Diagram: 05/07/17 0500 05/07/17 0500 JENNIFER BLACKWELL MD May 07, 2017 20:11
== END 2017-05-07 18:25 | disposition home or self-care (01) | DRG 444 ==
LOC: FTE 13:47 → MS2 18:40
PROVIDERS: ADMIT Internal Medicine; ATTEND Internal Medicine
PROC: 0F798DZ Dilation of Common Bile Duct with Intraluminal Device, Via Natural or Artificial Opening Endoscopic (ICD-10-PCS; 2017-04-29)
PROC: 0FB98ZX Excision of Common Bile Duct, Via Natural or Artificial Opening Endoscopic, Diagnostic (ICD-10-PCS; 2017-04-29)
PROC: 0FC98ZZ Extirpation of Matter from Common Bile Duct, Via Natural or Artificial Opening Endoscopic (ICD-10-PCS; principal; 2017-04-29 10:00)
DX: K80.61 Calculus of gallbladder and bile duct with cholecystitis, unspecified, with obstruction (principal); K72.00 Acute and subacute hepatic failure without coma; K85.90 Acute pancreatitis without necrosis or infection, unspecified; N17.9 Acute kidney failure, unspecified; B19.20 Unspecified viral hepatitis C without hepatic coma; E11.9 Type 2 diabetes mellitus without complications; D50.9 Iron deficiency anemia, unspecified; K76.0 Fatty (change of) liver, not elsewhere classified; E66.3 Overweight; Z68.27 Body mass index [BMI] 27.0-27.9, adult
CPT/HCPCS: 71010; 74181; 74330; 76705; 78226; 80053; 81001; 82150; 82962; 83036; 83605; 83690; 83735; 84100; 85025; 85610; 85730; 86480; 86704; 86709; 86803; 87040; 87340; 88104; 88305; A4310; A9537; C2617; C9113; J0696; J0744; J1815; J2543; J2710; J3010; J7030; Q9967

== ENCOUNTER 2017-09-29 06:08 | Inpatient (IN) | END 2017-10-02 15:29 | disposition home or self-care (01) | DRG 445 ==

== ENCOUNTER 2017-11-19 07:33 | Day surgery (SDC) | END 2017-11-19 13:35 | disposition home or self-care (01) ==

== ENCOUNTER → 2018-03-23 | Day surgery (SDC) | END | disposition home or self-care (01) ==

== ENCOUNTER 2018-06-30 22:30 | Inpatient (IN) | payer MEDICARE, OTHER ==
[~2018-06-30] VITALS: Ht 165.1 cm; Wt 60.0 kg
[~2018-06-30 22:30] MED LIST changes: -ASPI81TA3 PO; +ATOR-2 PO; -ATOR20TA38 PO; -FENO48TA PO; +INSU100I7 SQ; -ISON300T72 PO; +LANT3I SC; -MTF1000T PO; -SITA100T8 PO
--- NOTE | 2018-06-30 23:08 | ERD ---
ER Documentation Chief Complaint Chief Complaint AP, HX OF GASTRIC CA HPI The patient is a 63-year-old, resenting to the ER because of epigastric abdominal pain chronically, worse tonight, constipation, dysuria, vomiting and subjective fever for the last 3 days. He is taking morphine for pain but it is not controlling his pain. He complains of bilateral leg edema for the last 11- day and intermittent dyspnea, denies chest pain. He does not smoke nor drink Past medical history: Diabetes mellitus, dyslipidemia, gastric carcinoma on chemotherapy since March 2018, last chemotherapy was about a week ago, history of cholangitis, hypertension, hepatitis C Past surgical history: Cholecystectomy, left inguinal herniorrhaphy, ERCP with stent placement and removal ROS All systems reviewed and are negative except as per history of present illness. Medications Home Meds Reported Medications Morphine Sulfate* (Ms Contin ER*) 15 Mg Tabsr, 15 MG PO BID PRN for PAIN LEVEL 6-10, TAB TAKE 1 TABLET BY MOUTH TWICE A DAY IF NEEDED FOR PAIN. 07/01/18 Atorvastatin* (Atorvastatin*) 80 Mg Tablet, 80 MG PO QHS, #30 TAB 03/23/18 Discontinued Reported Medications Insulin Glargine* (Lantus*) 100 Unit/Ml Soln, 17 UNIT SC DAILY PRN for ELEVATED GLUCOSE, #1 VIAL 03/23/18 Insulin Lispro Protamin/Lispro (Humalog Mix 75-25 Kwikpen) 100 Unit/1 Ml Insuln.pen, 5 UNIT SQ BID PRN for ELEVATED GLUCOSE 03/23/18 Allergies Allergies: Coded Allergies: No Known Allergy (Unverified , 07/01/18) PMhx/Soc History of Surgery: Yes (LAP LASHA, ENDOSCOPY, LT HERNIA REPAIR) Anesthesia Reaction: No Hx Neurological Disorder: No Hx Respiratory Disorders: No Hx Cardiac Disorders: No Hx Psychiatric Problems: No Hx Miscellaneous Medical Probl: No Hx Alcohol Use: No Hx Substance Use: No Hx Tobacco Use: No Physical Exam Vitals Vital Signs Date Temp Pulse Resp B/P (MAP) Pulse Ox O2 O2 Flow FiO2 Time Delivery Rate 07/01/18 98.2 91 18 99/70 (80) 100 Room Air 02:00 07/01/18 99.7 100 16 103/68 98 Room Air 00:30 (80) 06/30/18 100.2 104 18 112/81 100 Room Air 23:30 (91) 06/30/18 100.2 121 18 128/77 100 22:33 (94) Physical Exam Const: No acute distress. Head: Atraumatic. Eyes: Normal Conjunctiva. ENT: Normal External Ears, Nose and Mouth. Neck: Full range of motion. No meningismus. Resp: Clear to auscultation bilaterally. Cardio: Regular rate and rhythm. Abd: Soft, non distended, normal bowel sounds, epigastric abdominal mass, diffusely tender but more tender in the epigastric area, no rigidity, rebound or CVA tenderness Skin: No petechiae or rashes. Back: No midline or flank tenderness. Ext: Mild bilateral leg edema with mild bilateral calf tenderness Neur: Awake and alert. No focal deficit Psych: Normal Mood and Affect. Result Diagram: 06/30/18233906/30/182339 Results 24 hrs Laboratory Tests Test 06/30/18 23:35 06/30/18 23:40 07/01/18 01:46 Urine Color ARANZA Urine Clarity SLIGHTLY CLOUDY Urine pH 5.0 Urine Specific Hedrick 1.021 Urine Ketones NEGATIVE mg/dL Urine Nitrite NEGATIVE mg/dL Urine Bilirubin NEGATIVE mg/dL Urine Urobilinogen 1+ mg/dL Urine Leukocyte Esterase NEGATIVE Juan R/ul Urine Microscopic RBC 1 /HPF Urine Microscopic WBC 4 /HPF Urine Mucus MANY /HPF Urine Hemoglobin NEGATIVE mg/dL Urine Glucose NEGATIVE mg/dL Urine Total Protein 1+ mg/dl White Blood Count 20.2 10^3/ul Red Blood Count 3.16 10^6/ul Hemoglobin 8.8 g/dl Hematocrit 27.0 % Mean Corpuscular Volume 85.4 fl Mean Corpuscular Hemoglobin 27.8 pg Mean Corpuscular 32.6 g/dl Hemoglobin Concent Red Cell Distribution Width 24.5 % Platelet Count 485 10^3/UL Mean Platelet Volume 9.5 fl Immature Granulocytes % 1.700 % Neutrophils % 80.9 % Lymphocytes % 9.2 % Monocytes % 8.0 % Eosinophils % 0.0 % Basophils % 0.2 % Nucleated Red Blood Cells % 0.0 /100WBC Immature Granulocytes # 0.350 10^3/ul Neutrophils # 16.4 10^3/ul Lymphocytes # 1.9 10^3/ul Monocytes # 1.6 10^3/ul Eosinophils # 0.0 10^3/ul Basophils # 0.1 10^3/ul Nucleated Red Blood Cells # 0.0 10^3/ul Prothrombin Time 16.7 Sec Prothrombin Time Ratio 1.3 INR International 1.34 Normalized Ratio Activated Partial Thromboplast 31.1 Sec Time Sodium Level 135 mmol/L Potassium Level 4.2 mmol/L Chloride Level 94 mmol/L Carbon Dioxide Level 27 mmol/L Anion Gap 14 Blood Urea Nitrogen 21 mg/dl Creatinine 1.19 mg/dl Est Glomerular Filtrat > 60 mL/min Rate mL/min Glucose Level 117 mg/dl POC Venous Lactate 4.4 mmol/L 3.3 mmol/L Calcium Level 8.3 mg/dl Total Bilirubin 1.0 mg/dl Direct Bilirubin 0.20 mg/dl Indirect Bilirubin 0.8 mg/dl Aspartate Amino 278 IU/L Transf (AST/SGOT) Alanine 50 IU/L Aminotransferase (ALT/SGPT) Alkaline Phosphatase 640 IU/L Troponin I < 0.012 ng/ml B-Type Natriuretic Peptide 1020 PG/ML Total Protein 6.9 g/dl Albumin 3.0 g/dl Globulin 3.90 g/dl Albumin/Globulin Ratio 0.76 Current Medications Medications Dose Sig/Calli Start Time Status Last (Trade) Ordered Route PRN Stop Time Admin Dose Reason Admin Sodium 1,790 ml BOLUS OVER 2 06/30/18 Cancel Chloride HOURS STAT 23:28 (NS) IV* 06/30/18 23:29 Vancomycin 250 ml @ ONCE ONCE 07/01/18 DC 07/01/18 HCl 125 mls/hr IVPB 00:30 02:01 07/01/18 02:29 Piperacillin 100 ml @ ONCE ONCE 07/01/18 DC 07/01/18 Sod/ 200 mls/hr IVPB 00:30 00:27 Tazobactam 07/01/18 00:59 Sod Sodium 1,790 ml @ BOLUS X1 07/01/18 DC 07/01/18 Chloride 895 mls/hr ONCE IV 00:30 00:27 07/01/18 02:29 Ondansetron 4 mg ONCE ONCE 07/01/18 DC 07/01/18 HCl (Zofran IV 01:59 02:01 Inj) 07/01/18 02:00 Ondansetron 4 mg STK-MED 07/01/18 DC HCl (Zofran ONCE .ROUTE 01:59 Inj) 07/01/18 02:00 Sodium 1,000 ml @ Q10H IV 07/01/18 UNV Chloride 100 mls/hr 03:17 IV Flush 3 ml PER 07/01/18 UNV (NS 3 ml) PROTOCOL IV 03:30 Ondansetron 4 mg Q6H PRN 07/01/18 UNV HCl (Zofran IV NAUSEA 03:30 Inj) AND/OR VOMITING 650 mg Q6H PRN 07/01/18 UNV Acetaminophen PO PAIN 03:30 (Tylenol LEVEL 1-3 OR Tab) FEVER Sodium 1,000 ml @ Q1H ONCE 07/01/18 UNV Chloride 1,000 mls/hr IV 03:30 07/01/18 04:29 Procedures/MDM [place] [id number] Radiology Main Line: [phone] DIAGNOSTIC IMAGING REPORT Patient: JENNIFER SHANKAR : 1955 Age: 63 Sex: M MR #: [id number] DOS: 07/01/18 2328 Ordering MD: GLENN KIRBY MD Location: E/R Room/Bed: PROCEDURE: US Lower extremity venous. CLINICAL INDICATION: Lower extremity edema TECHNIQUE: Multiple sonographic images of the bilateral lower extremity deep venous systems obtained utilizing grayscale, color-flow, compressive sonography and doppler imaging with augmentation. The images were reviewed on a PACS workstation. COMPARISON: None. FINDINGS: There is normal compressibility and flow within the bilateral common femoral, superficial femoral, posterior tibial, peroneal and popliteal veins. IMPRESSION: No sonographic evidence for deep venous thrombosis. RPTAT: HJBB Physician Marylou Date Time Electronically viewed and signed by Physician Marylou on 07/01/2018 01:14 xB/ CC: GLENN KIRBY MD [id number] [address] [address] Radiology Main Line: [phone] DIAGNOSTIC IMAGING REPORT Patient: JENNIFER SHANKAR : 1955 Age: 63 Sex: M MR #: [id number] [facility] #: [id number] DOS: 07/01/18 0021 Ordering MD: GLENN KIRBY MD Location: E/R Room/Bed: PROCEDURE: CT Abdomen and pelvis without contrast. CLINICAL INDICATION: Abdominal pain. TECHNIQUE: CT scan of the abdomen and pelvis was performed on a multi- detector high-resolution CT scanner. Contiguous axial images were obtained from the lung bases to the ischial tuberosities without intravenous contrast. Coronal and sagittal reformatted images were also obtained. Images were reviewed on the PACS workstation. DICOM images are available. One or more of the following dose reduction techniques were used: - Automated exposure control. - Adjustment of the mA and/or kV according to patient size. - Use of iterative reconstruction technique. Exam CTD/vol = 7.99 mGy. Total exam DLP = 479.64 mGy-cm. COMPARISON: 09/29/2017. FINDINGS: Evaluation of the lung bases demonstrates mild bibasilar atelectasis. Again demonstrated is a 6 mm nodule within the lingula (image 23). Abdomen: The liver is normal in size. There are innumerable poorly defined hypodense masses throughout the liver measuring up to 4 cm in size. There is moderate dilatation of the biliary tree and pneumobilia. A biliary stent is present. The patient is status post cholecystectomy. The spleen, pancreas and bilateral adrenal glands are within normal limits. Bilateral kidneys are normal in size with no contour deforming mass identified. There is no radiopaque renal or ureteral calculus identified. There is no hydronephrosis or hydroureter. There is no retroperitoneal adenopathy. The abdominal aorta is of normal caliber with scattered atherosclerotic calcifications. There is diffuse intra-abdominal stranding and mild free fluid. There is no bowel obstruction or free air. A normal appendix is identified. There is no diverticulosis or diverticulitis. Pelvis: The bladder is unremarkable. There is mild pelvic free fluid. The prostate and seminal vesicles are within normal limits. There is no significant pelvic adenopathy or free fluid. Evaluation of the osseous structures demonstrates no suspicious lytic or blastic lesion. There are defects of bilateral pars interarticularis of L5 with grade II anterolisthesis of L5 on S1 measuring 10 mm in AP diameter. IMPRESSION: Innumerable poorly defined hypodense masses throughout the liver compatible with metastatic disease, new compared with 09/29/2017. Status post cholecystectomy with moderate biliary ductal dilatation and pneumobilia, increased compared with the prior study. There is interval placement of a biliary stent. Mild abdominal and pelvic free fluid. Lingular 6 mm nodule, unchanged. Vascular calcifications reflective of atherosclerosis. Bilateral pars defects of L5 with grade II anterolisthesis of L5 on S1, unchanged. .Spencer Gray MD, MD Date Time Electronically viewed and signed by .Spencer Gray MD, MD on 07/01/2018 01:38 .T/ CC: GLENN KIRBY MD [id number] [place] [address] Radiology Main Line: [phone] DIAGNOSTIC IMAGING REPORT Patient: JENNIFER SHANKAR : 1955 Age: 63 Sex: M MR #: [id number] DOS: 06/30/18 2328 Ordering MD: GLENN KIRBY MD Location: E/R Room/Bed: PROCEDURE: XR Chest. CLINICAL INDICATION: Possible sepsis. TECHNIQUE: Single portable view of the chest was obtained COMPARISON: 09/29/2017 FINDINGS: Right sided Port-A-Cath terminates at the cavoatrial junction. The cardiomediastinal silhouette is unremarkable. There is no focal airspace consolidation or evidence of pulmonary vascular congestion. Minimal atelectasis is noted at the left lung base. There is no pleural effusion or pneumothorax. The visualized osseous structures and soft tissues are unremarkable. IMPRESSION: 1. Minimal atelectasis at the left lung base. 2. No focal airspace opacity, pleural effusion or pneumothorax. RPTAT: HEUY. r-margaret yutan, Physician Date Time Electronically viewed and signed by adams villarreal Physician on 07/01/2018 00:23 ry/ CC: GLENN KIRBY MD [id number] EKG: Read by emergency physician Rate/Rhythm: Normal Sinus Rhythm 99 beats/min QRS, ST, T-waves: No ST elevation, no T inversion Impression: Normal EKG MEDICAL MAKING DECISION: The patient is a 63-year-old male, presenting with acute septic shock, metastatic gastric carcinoma. He was treated with Zosyn IV, vancomycin IV, 30 mL/kg normal saline IV with good response The differential diagnoses considered include but are not limited to choledocholithiasis, cholangitis, pancreatitis, hepatitis, gastritis, peptic ulcer disease, gastric ulcer, appendicitis, cystitis, diverticulitis, partial small bowel obstruction. MDM: Patient's infectious symptoms have not stabilized and the patient is at risk of rapid decompensation. The patient will be admitted for careful hydration, antibiotic therapy, and infectious source control. SEVERE SEPSIS CRITERIA: Infectious source:unknown End organ damage indicated by: Lactate > 2.0 mmol/L SEPSIS MANAGEMENT Time of recognition of septic shock: 12:20 am 3 HOUR BUNDLE Blood cultures x 2 before broad-spectrum antibiotics: Yes 30 ml/kg NS bolus completed Initial lactate4.4 Repeat lactatepending SEPTIC SHOCK ASSESSMENT: Yes lactic acid > 4.0 No persistent hypotension (SBP < 90 or 40 mmHg drop, MAP < 65) despite 30 mL/kg IV fluid bolus VOLUME REASSESSMENT FOR SEPTIC SHOCK: Reevaluation Time:12:30 am Temp99.7, BP103/68, HR100, RR16, Pox98% Heart regular rate & rhythm Lungs no crackles Skin warm & dry Cap Refill less than 2 seconds Peripheral pulses radially present PERSISTENT HYPOTENSION TREATMENT: Comfort care no Central line not Required Vasopressor started not required I considered further perfusion assessment with CVP measurement, SCVO2, bedside ultrasound volume assessment, passive leg raise, trial of further fluid bolus. And proceeded with 30 ml/kg fluid bolus of NSS and additional 1L NS, broad spectrum antibiotics, and admission. CRITICAL CARE Critical care time 35 minutes Emergent fluid management while maintaining close respiratory support. Provision of immediate and broad-spectrum antibiotic therapy. Simultaneous ass essment for possible sources in order to direct targeted therapy. Consideration for invasive and chemical support to prevent cardiopulmonary collapse. Critical care time is independent of procedures performed. Departure Diagnosis: Primary Impression: Septic shock Additional Impressions: Abnormal LFTs Anemia Condition: Stable Comments I discussed the findings with the patient. I have paged his physician Dr Melissa multiple times for more than 2 hr without response. I then discussed the patient with the hospitalist Dr Ross at 3:30 am, who was made aware of the lab, the treatment, the patient condition. He kindly accepted the patient. The patient is admitted to Tel Disclaimer: Inadvertent spelling and grammatical errors are likely due to EHR/dictation software use and do not reflect on the overall quality of patient care. Also, please note that the electronic time recorded on this note does not necessarily reflect the actual time of the patient encounter. GLENN KIRBY MD Jun 30, 2018 23:08
[2018-06-30] MEDS ORDERED: SODIUM CHLORIDE 0.9% 1L BAG IV* STA (23:28)
[2018-07-01] VITALS (8 sets, daily range): BP systolic 90–101; BP diastolic 56–57; PULSE 67–84; RESP 16–18
[2018-07-01] MEDS ORDERED: VANCOMYCIN 1 GM (PMX) 250 ML IVPB ONE (00:30)
[2018-07-01] MEDS ORDERED: PIPER-TAZO 3.375 GM IV (PMX) 100 ML IVPB ONE (00:30)
[2018-07-01] MEDS ORDERED: SOD CHLORIDE 0.9% IV ONE (00:30)
[2018-07-01] MEDS ORDERED: ONDANSETRON 4 MG INJ IV ONE (01:59)
[2018-07-01] MEDS ORDERED: ONDANSETRON 4 MG INJ ONE (01:59)
[2018-07-01] MEDS ORDERED: MORP-72 PO (03:03)
[2018-07-01] MEDS ORDERED: ONDANSETRON 4 MG INJ IV PRN (03:30)
[2018-07-01] MEDS ORDERED: NACL 0.9% 3 ML SYG IV SCH (03:30)
[2018-07-01] MEDS ORDERED: SOD CHLORIDE 0.9% 1,000 ML IV ONE (03:30)
[2018-07-01] MEDS: SOD CHLORIDE 0.9% 1,000 ML IV SCH ×3 (03:43→19:51)
[2018-07-01] MEDS ORDERED: VANCOMYCIN IV PER PHARMACY XX SCH (04:00)
--- NOTE | 2018-07-01 05:15 | NUR ---
ADMISSION NOTES: Admitted this 63y/o male pt from the ER via mihaela accompanied by the OFFICE MACHINE REPAIR SHOP SUPERVISOR and the tar heat exchanger cleaner in stable condition with the diagnosis of Sepsis. Admission care rendered. Pt is alert and oriented X4; ambulatory with steady gait. VS stable with mechanical design engineer products showing SR=82. Denies any discomfort. IVF infusing well. at bedside. Dr Ross with new orders noted and carried out. Pt and notified of new orders. Kept clean and comfortable. Call light in reach. All needs anticipated and attended promptly.
[2018-07-01] MEDS: PIPER-TAZO 3.375 GM IV (PMX) 100 ML IVPB SCH ×4 (06:05→23:58)
--- NOTE | 2018-07-01 12:50 | CONS ---
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 Recommend continuation of current care, supportive care. once he is stable recommend f/u with Dr Lawson who is his primary oncologist. Check CT chest for full staging Result Diagram: 06/30/18233906/30/182339 Results 24hrs Laboratory Tests Test 06/30/18 23:35 06/30/18 23:40 07/01/18 01:46 07/01/18 03:56 Urine Color ARANZA Urine Clarity SLIGHTLY CLOUDY A Urine pH 5.0 Urine Specific 1.021 [place] Urine Ketones NEGATIVE Urine Nitrite NEGATIVE Urine Bilirubin NEGATIVE Urine 1+ H Urobilinogen Urine Leukocyte NEGATIVE Esterase Urine Microscopic 1 RBC Urine Microscopic 4 WBC Urine Mucus MANY A Urine Hemoglobin NEGATIVE Urine Glucose NEGATIVE Urine Total 1+ H Protein White Blood Count 20.2 #H Red Blood Count 3.16 #L Hemoglobin 8.8 #L Hematocrit 27.0 #L Mean Corpuscular 85.4 Volume Mean Corpuscular 27.8 L Hemoglobin Mean Corpuscular 32.6 Hemoglobin Concen t Red Cell 24.5 #H Distribution Width Platelet Count 485 #H Mean Platelet 9.5 Volume Immature 1.700 H Granulocytes % Neutrophils % 80.9 H Lymphocytes % 9.2 L Monocytes % 8.0 Eosinophils % 0.0 Basophils % 0.2 Nucleated Red 0.0 Blood Cells % Immature 0.350 H Granulocytes # Neutrophils # 16.4 H Lymphocytes # 1.9 Monocytes # 1.6 H Eosinophils # 0.0 Basophils # 0.1 Nucleated Red 0.0 Blood Cells # Prothrombin Time 16.7 #H Prothrombin Time 1.3 Ratio INR International 1.34 Normalized Ratio Activated 31.1 Partial Thrombopl ast Time Sodium Level 135 Potassium Level 4.2 Chloride Level 94 L Carbon Dioxide 27 Level Anion Gap 14 H Blood Urea 21 H Nitrogen Creatinine 1.19 Est Glomerular > 60 Filtrat Rate mL/min Glucose Level 117 POC Venous 4.4 *H 3.3 *H Lactate Calcium Level 8.3 L Total Bilirubin 1.0 Direct Bilirubin 0.20 Indirect 0.8 Bilirubin Aspartate Amino 278 H Transf (AST/SGOT) Alanine 50 Aminotransferase (ALT/SGPT) Alkaline 640 H Phosphatase Troponin I < 0.012 B-Type 1020 H Natriuretic Peptide Total Protein 6.9 Albumin 3.0 L Globulin 3.90 H Albumin/Globulin 0.76 Ratio Lactic Acid Level 2.6 *H Test 07/01/18 08:05 Lactic Acid Level 2.3 *H Consultation Date/Type/Reason Admit Date/Time Jul 01, 2018 at 03:27 Hx of Present Illness 63 yo admitted through ER. He has h/o Diabetes mellitus, dyslipidemia, gastric carcinoma on chemotherapy since March 2018, last chemotherapy was about a week ago, history of cholangitis, hypertension, hepatitis C. He has surgical history of Cholecystectomy, left inguinal herniorrhaphy, ERCP with stent placement and removal. He presented with epigastric abdominal pain chronically, worse tonight, constipation, dysuria, vomiting and subjective fever for the last 3 days. He is taking morphine for pain but it is not controlling his pain. He had CT AP yesterday showing: Innumerable poorly defined hypodense masses throughout the liver compatible with metastatic disease, new compared with 09/29/2017. Status post cholecystectomy with moderate biliary ductal dilatation and pneumobilia, increased compared with the prior study. There is interval placement of a biliary stent. Mild abdominal and pelvic free fluid. Lingular 6 mm nodule, unchanged. Vascular calcifications reflective of atherosclerosis. Bilateral pars defects of L5 with grade II anterolisthesis of L5 on S1, unchanged. PET scan as outpt from Jan 2018 showed: PET + cholangiocarcinoma CBD, PET + peripancreatic adenopathy with liver mets Constitutional: no complaints, improved Eyes: no complaints ENT: no complaints Respiratory: no complaints Cardiovascular: no complaints Gastrointestinal: nausea Genitourinary: no complaints Musculoskeletal: no complaints Past Medical History Medications Current Medications Sodium Chloride 1,000 ml @ 100 mls/hr Q10H IV Last administered on 07/01/18at 03:43; Admin Dose 100 MLS/HR; Start 07/01/18 at 03:17 IV Flush (NS 3 ml) 3 ml PER PROTOCOL IV ; Start 07/01/18 at 03:30 Acetaminophen (Tylenol Tab) 650 mg Q6H PRN PO PAIN LEVEL 1-3 OR FEVER; Start 07/01/18 at 03:30 Ondansetron HCl (Zofran Inj) 4 mg Q4 PRN IV NAUSEA AND/OR VOMITING; Start 07/01/18 at 03:30 Vancomycin HCl (Vanco Iv Per Pharmacy) VANCOMYCIN PER PHARMACY PER PROTOCOL XX ; Start 07/01/18 at 04:00 Piperacillin Sod/ Tazobactam Sod 100 ml @ 200 mls/hr Q6 IVPB Last administered on 07/01/18at 11:53; Admin Dose 200 MLS/HR; Start 07/01/18 at 06:00 Vancomycin/Sodium Chloride 250 ml @ 125 mls/hr Q12H IVPB ; Start 07/01/18 at 14:00 Allergies: Coded Allergies: No Known Allergy (Unverified , 07/01/18) Social History Smoking Status: Never smoker Exam/Review of Systems Vital Signs Vitals Vital Signs Date Temp Pulse Resp B/P (MAP) Pulse Ox O2 O2 Flow FiO2 Time Delivery Rate 07/01/18 97.9 67 17 101/57 98 Room Air 12:31 (72) Intake and Output 06/30/18 06/30/18 07/01/18 1414:59 22:59 06:59 IntakeIntake Total 200 ml OutputOutput Total 0 ml BalanceBalance 200 ml Exam Constitutional: frail Head: normocephalic, atraumatic Eyes: nl conjunctiva, EOMI, nl lids, nl sclera, PERRL ENMT: nl external ears & nose, nl lips & teeth, nl nasal mucosa & septum Neck: supple, non-tender Respiratory: clear to auscultation, normal air movement Cardiovascular: regular rate and rhythm, nl pulses Medications Medications Current Medications Sodium Chloride 1,000 ml @ 100 mls/hr Q10H IV Last administered on 07/01/18at 03:43; Admin Dose 100 MLS/HR; Start 07/01/18 at 03:17 IV Flush (NS 3 ml) 3 ml PER PROTOCOL IV ; Start 07/01/18 at 03:30 Acetaminophen (Tylenol Tab) 650 mg Q6H PRN PO PAIN LEVEL 1-3 OR FEVER; Start 07/01/18 at 03:30 Ondansetron HCl (Zofran Inj) 4 mg Q4 PRN IV NAUSEA AND/OR VOMITING; Start 07/01/18 at 03:30 Vancomycin HCl (Vanco Iv Per Pharmacy) VANCOMYCIN PER PHARMACY PER PROTOCOL XX ; Start 07/01/18 at 04:00 Piperacillin Sod/ Tazobactam Sod 100 ml @ 200 mls/hr Q6 IVPB Last administered on 07/01/18at 11:53; Admin Dose 200 MLS/HR; Start 07/01/18 at 06:00 Vancomycin/Sodium Chloride 250 ml @ 125 mls/hr Q12H IVPB ; Start 07/01/18 at 14:00 RYANN GONSALES Jul 01, 2018 12:50
--- NOTE | 2018-07-01 13:05 | CONS ---
Date/Time of Note Date/Time of Note DATE: 07/01/18 TIME: 12:28 Assessment/Plan Assessment/Plan Hospital Course 63 yo male with gastric cancer presents with worsening epigastric pain 1. Abdominal, RUQ pain -worsening -R/O cholangitis, pt has stent placed in 09/2017 2. 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 Pancreatic ductal dilatation noted on US 4. Abnormal LFTs 5. Mod free fluid and diffuse intra abdominal stranding seen in CT scan 6. Anemia, chronic 7. H/O Hep C 8. H/O cholecystectomy for blocked cystic duct Stent placement in bile duct per Dr Hu in September 2017 IMPRESSION: 1. Removal of the old clogged stent. 2. Large sphincterotomy done. 3. Multiple small stones removed, fragments removed. 4. Self-expanding metallic stent deployed with successful hemostasis and excellent drainage. 5. There was a lesion distal to the ampulla 1 cm in diameter, the exact significance of which is unclear, may need a biopsy in the future. PLAN: To continue present care. We will monitor LFTs. The patient definitely needs laparoscopic cholecystectomy since the cystic duct is completely blocked. We will remove the stent after [address] scan of abd/pelvis 07/01: IMPRESSION: Innumerable poorly defined hypodense masses throughout the liver compatible with metastatic disease, new compared with 09/29/2017. Status post cholecystectomy with moderate biliary ductal dilatation and pneumobilia, increased compared with the prior study. There is interval placement of a biliary stent. Mild abdominal and pelvic free fluid. Lingular 6 mm nodule, unchanged. Vascular calcifications reflective of atherosclerosis. Bilateral pars defects of L5 with grade II anterolisthesis of L5 on S1, unchanged. Plan: ERCP. Procedure was explained to pt along with risks and benefits. Pt consents to procedure NO anti coagulants Continue with Zosyn NPO CBC, CMP, INR, lipase in am Anemia work up PPI for GI prophylaxis Pt examined and plan of care discussed iwth Dr. Hu Result Diagram: 06/30/18 2340 06/30/18 2340 Results 24hrs Laboratory Tests Test 06/30/18 23:35 06/30/18 23:40 07/01/18 01:46 07/01/18 03:56 Urine Color ARANZA Urine Clarity SLIGHTLY CLOUDY A Urine pH 5.0 Urine Specific 1.021 [place] Urine Ketones NEGATIVE Urine Nitrite NEGATIVE Urine Bilirubin NEGATIVE Urine 1+ H Urobilinogen Urine Leukocyte NEGATIVE Esterase Urine Microscopic 1 RBC Urine Microscopic 4 WBC Urine Mucus MANY A Urine Hemoglobin NEGATIVE Urine Glucose NEGATIVE Urine Total 1+ H Protein White Blood Count 20.2 #H Red Blood Count 3.16 #L Hemoglobin 8.8 #L Hematocrit 27.0 #L Mean Corpuscular 85.4 Volume Mean Corpuscular 27.8 L Hemoglobin Mean Corpuscular 32.6 Hemoglobin Concen t Red Cell 24.5 #H Distribution Width Platelet Count 485 #H Mean Platelet 9.5 Volume Immature 1.700 H Granulocytes % Neutrophils % 80.9 H Lymphocytes % 9.2 L Monocytes % 8.0 Eosinophils % 0.0 Basophils % 0.2 Nucleated Red 0.0 Blood Cells % Immature 0.350 H Granulocytes # Neutrophils # 16.4 H Lymphocytes # 1.9 Monocytes # 1.6 H Eosinophils # 0.0 Basophils # 0.1 Nucleated Red 0.0 Blood Cells # Prothrombin Time 16.7 #H Prothrombin Time 1.3 Ratio INR International 1.34 Normalized Ratio Activated 31.1 Partial Thrombopl ast Time Sodium Level 135 Potassium Level 4.2 Chloride Level 94 L Carbon Dioxide 27 Level Anion Gap 14 H Blood Urea 21 H Nitrogen Creatinine 1.19 Est Glomerular > 60 Filtrat Rate mL/min Glucose Level 117 POC Venous 4.4 *H 3.3 *H Lactate Calcium Level 8.3 L Total Bilirubin 1.0 Direct Bilirubin 0.20 Indirect 0.8 Bilirubin Aspartate Amino 278 H Transf (AST/SGOT) Alanine 50 Aminotransferase (ALT/SGPT) Alkaline 640 H Phosphatase Troponin I < 0.012 B-Type 1020 H Natriuretic Peptide Total Protein 6.9 Albumin 3.0 L Globulin 3.90 H Albumin/Globulin 0.76 Ratio Lactic Acid Level 2.6 *H Test 07/01/18 08:05 Lactic Acid Level 2.3 *H Consultation Date/Type/Reason Admit Date/Time Jul 01, 2018 at 03:27 Hx of Present Illness 63 yo male with PMH of diabetes, dyslipidemia, gastric carcinoma on chemotherapy since March 2018 (last chemo one week ago), cholangitis, hypertension, hep C, cholecystectomy, lt inguinal herniorrhaphy, and ERCP with stent placement and removal presented for chronic epigastric pain which has worsened. He has been taking morphine PO which is not helping his pain. Pt also c/o BLE edema x 11 days per ER note. Pt states he has abdominal pain everyday. The pain appears to be more in RUQ and radiates to RLQ. Pt says he has been having subjective fevers but currently he doesn't fell as though he has a fever. Denies N/V. Is usually constipated. NO signs of GI bleeding per pt. Pt has a stent which was placed in September of 2017 which was advised to be removed after 4 months. Denies smoking cigarettes or drinking alcohol. Per Ct patient has a stent in biliary duct, pneumobilia and moderate biliary ductal dilatation in setting of cholecystectomy and innumerable poorly defined hypodense masses throughout the liver compatible with metastatic disease which is new compare to scan 09/29/2017, intrabdominal stranding and mild free fluid. US of upper abdomen shows dilated pancreatic duct as well as liver metastasis. WBC are 20. HH 8.8/20. Lactic acid 2.3. BNP 1020. total bili 1.0, alk [id number], alt 50, ast 278. BuN/Blue Line Operator 21/1.19. Stent placement in bile duct per Dr Hu in September 2017 IMPRESSION: 1. Removal of the old clogged stent. 2. Large sphincterotomy done. 3. Multiple small stones removed, fragments removed. 4. Self-expanding metallic stent deployed with successful hemostasis and excellent drainage. 5. There was a lesion distal to the ampulla 1 cm in diameter, the exact significance of which is unclear, may need a biopsy in the future. PLAN: To continue present care. We will monitor LFTs. The patient definitely needs laparoscopic cholecystectomy since the cystic duct is completely blocked. We will remove the stent after [address] scan of abd/pelvis 07/01: IMPRESSION: Innumerable poorly defined hypodense masses throughout the liver compatible with metastatic disease, new compared with 09/29/2017. Status post cholecystectomy with moderate biliary ductal dilatation and pneumobilia, increased compared with the prior study. There is interval placement of a biliary stent. Mild abdominal and pelvic free fluid. Lingular 6 mm nodule, unchanged. Vascular calcifications reflective of atherosclerosis. Bilateral pars defects of L5 with grade II anterolisthesis of L5 on S1, unchanged. Past Medical History Medications Current Medications Sodium Chloride 1,000 ml @ 100 mls/hr Q10H IV Last administered on 07/01/18at 03:43; Admin Dose 100 MLS/HR; Start 07/01/18 at 03:17 IV Flush (NS 3 ml) 3 ml PER PROTOCOL IV ; Start 07/01/18 at 03:30 Acetaminophen (Tylenol Tab) 650 mg Q6H PRN PO PAIN LEVEL 1-3 OR FEVER; Start 07/01/18 at 03:30 Ondansetron HCl (Zofran Inj) 4 mg Q4 PRN IV NAUSEA AND/OR VOMITING; Start 07/01/18 at 03:30 Vancomycin HCl (Vanco Iv Per Pharmacy) VANCOMYCIN PER PHARMACY PER PROTOCOL XX ; Start 07/01/18 at 04:00 Piperacillin Sod/ Tazobactam Sod 100 ml @ 200 mls/hr Q6 IVPB Last administered on 07/01/18at 11:53; Admin Dose 200 MLS/HR; Start 07/01/18 at 06:00 Vancomycin/Sodium Chloride 250 ml @ 125 mls/hr Q12H IVPB ; Start 07/01/18 at 14:00 Allergies: Coded Allergies: No Known Allergy (Unverified , 07/01/18) Social History Smoking Status: Never smoker Exam/Review of Systems Vital Signs Vitals Vital Signs Date Temp Pulse Resp B/P (MAP) Pulse Ox O2 O2 Flow FiO2 Time Delivery Rate 07/01/18 74 08:00 07/01/18 98.7 18 96/57 (70) 99 Room Air 07:39 Intake and Output 06/30/18 06/30/18 07/01/18 1515:00 23:00 07:00 IntakeIntake Total 200 ml OutputOutput Total 0 ml BalanceBalance 200 ml Exam Constitutional: alert, oriented Psych: no complaints Head: normocephalic Eyes: nl sclera, PERRL ENMT: mucosa pink and moist Respiratory: clear to auscultation Cardiovascular: regular rate and rhythm Gastrointestinal: soft, distended, tender Musculoskeletal: nl gait and stance Extremities: normal pulses Neurological: nl mental status Medications Medications Current Medications Sodium Chloride 1,000 ml @ 100 mls/hr Q10H IV Last administered on 07/01/18at 03:43; Admin Dose 100 MLS/HR; Start 07/01/18 at 03:17 IV Flush (NS 3 ml) 3 ml PER PROTOCOL IV ; Start 07/01/18 at 03:30 Acetaminophen (Tylenol Tab) 650 mg Q6H PRN PO PAIN LEVEL 1-3 OR FEVER; Start 07/01/18 at 03:30 Ondansetron HCl (Zofran Inj) 4 mg Q4 PRN IV NAUSEA AND/OR VOMITING; Start 06/21 07/09 at 03:30 Vancomycin HCl (Vanco Iv Per Pharmacy) VANCOMYCIN PER PHARMACY PER PROTOCOL XX ; Start 07/01/18 at 04:00 Piperacillin Sod/ Tazobactam Sod 100 ml @ 200 mls/hr Q6 IVPB Last administered on 07/01/18at 11:53; Admin Dose 200 MLS/HR; Start 07/01/18 at 06:00 Vancomycin/Sodium Chloride 250 ml @ 125 mls/hr Q12H IVPB ; Start 07/01/18 at 14:00 ELVIA PALACIOS Jul 01, 2018 12:43
--- NOTE | 2018-07-01 13:24 | NUR ---
VANCO PER RX PROTOCOL : DAY #1 S/O: 63 YO MALE W/ METASTATIC GASTRIC CA (S/P CHEM0), LEUKOCYTOSIS, FUO TEMP = 99.7 SCR/BUN = 1.19/21 (06/30), WBC = 20.2 (06/30) A/P: VANCO 1GM LD FOLLOWED BY 750MG Q 12HR. TR LEVEL TOMORROW AFTERNOON TO CHECK CLEARANCE. WILL CONTINUE TO FOLLOW.
[2018-07-01] MEDS: VANCOMYCIN 750 MG (PMX) 250 ML IVPB SCH (14:28)
--- NOTE | 2018-07-01 15:06 | HP ---
REYNAANANTSuzanneTRACY 07/01/18 1506: Date/Time of Note Date/Time of Note DATE: 07/01/18 TIME: 15:05 Assessment/Plan VTE Prophylaxis [place] [facility] [place] risk: 5 SCD applied (from [facility] [place] Yes Pharmacological prophylaxis: NA/contraindicated Pharm contraindication: bleeding Lines/Catheters IV C[facility]ter Type (from [facility] Saline Lock Urinary Cath still in place: No Assessment/Plan Hospital Course 1. Sepsis with severe lactic acidosis probably due to cholecystitis. Pr is positive for abdominal, RUQ pain. S.p stent placed in 09/2017 2. 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 Chemotherapy ended last week, started March 2018 3. Pancreatic ductal dilatation noted on US 4. Abnormal LFTs 5. Mod free fluid and diffuse intra abdominal stranding seen in CT scan 6. Anemia, chronic 7. H/O Hep C 8. H/O cholecystectomy for blocked cystic duct Assessment/Plan -DC tele -ERCP pending -c/w maranda / sima -dr Hernandez/Naveed onco consult -Dr Hu consult seen - monitor LFTs. -DVT prophylaxis SCD bilaterally. -GI prophylaxis start Protonix -per GI patient definitely needs laparoscopic cholecystectomy since the cystic duct is completely blocked. Result Diagram: 06/30/18 2340 06/30/18 2340 Results 24hrs Laboratory Tests Test 06/30/18 23:35 06/30/18 23:40 07/01/18 01:46 07/01/18 03:56 Urine Color ARANZA Urine Clarity SLIGHTLY CLOUDY A Urine pH 5.0 Urine Specific 1.021 [place] Urine Ketones NEGATIVE Urine Nitrite NEGATIVE Urine Bilirubin NEGATIVE Urine 1+ H Urobilinogen Urine Leukocyte NEGATIVE Esterase Urine Microscopic 1 RBC Urine Microscopic 4 WBC Urine Mucus MANY A Urine Hemoglobin NEGATIVE Urine Glucose NEGATIVE Urine Total 1+ H Protein White Blood Count 20.2 #H Red Blood Count 3.16 #L Hemoglobin 8.8 #L Hematocrit 27.0 #L Mean Corpuscular 85.4 Volume Mean Corpuscular 27.8 L Hemoglobin Mean Corpuscular 32.6 Hemoglobin Concen t Red Cell 24.5 #H Distribution Width Platelet Count 485 #H Mean Platelet 9.5 Volume Immature 1.700 H Granulocytes % Neutrophils % 80.9 H Lymphocytes % 9.2 L Monocytes % 8.0 Eosinophils % 0.0 Basophils % 0.2 Nucleated Red 0.0 Blood Cells % Immature 0.350 H Granulocytes # Neutrophils # 16.4 H Lymphocytes # 1.9 Monocytes # 1.6 H Eosinophils # 0.0 Basophils # 0.1 Nucleated Red 0.0 Blood Cells # Prothrombin Time 16.7 #H Prothrombin Time 1.3 Ratio INR International 1.34 Normalized Ratio Activated 31.1 Partial Thrombopl ast Time Sodium Level 135 Potassium Level 4.2 Chloride Level 94 L Carbon Dioxide 27 Level Anion Gap 14 H Blood Urea 21 H Nitrogen Creatinine 1.19 Est Glomerular > 60 Filtrat Rate mL/min Glucose Level 117 POC Venous 4.4 *H 3.3 *H Lactate Calcium Level 8.3 L Total Bilirubin 1.0 Direct Bilirubin 0.20 Indirect 0.8 Bilirubin Aspartate Amino 278 H Transf (AST/SGOT) Alanine 50 Aminotransferase (ALT/SGPT) Alkaline 640 H Phosphatase Troponin I < 0.012 B-Type 1020 H Natriuretic Peptide Total Protein 6.9 Albumin 3.0 L Globulin 3.90 H Albumin/Globulin 0.76 Ratio Lactic Acid Level 2.6 *H Test 07/01/18 08:05 Lactic Acid Level 2.3 *H HPI/ROS Admit Date/Time Admit Date/Time Jul 01, 2018 at 03:27 Hx of Present Illness This is a 63-year-old male with a past medical history of diabetes, hypertension, hyperlipidemia, who was admitted recently at [facility] secondary to acute liver failure, CBD stone, he had stent placed. He resenting to the ER because of epigastric abdominal pain, worse tonight, constipation, dysuria, vomiting and subjective fever for the last 3 days. He is taking MS Contin 15 mg for pain but it is not controlling his pain. He complains of bilateral leg edema for the last 11-day and intermittent dyspnea. Past medical history: Diabetes mellitus, dyslipidemia, gastric carcinoma on chemotherapy since March 2018, last chemotherapy was about a week ago, history of cholangitis, hypertension, hepatitis C Past surgical history: Cholecystectomy, left inguinal herniorrhaphy, ERCP with stent placement and removal ROS Respiratory: pleuritic pain; No no complaints, No pain, No cough, No shortness of breath, No sputum, No wheezing, No other Gastrointestinal: pain Skin: bruising; No no complaints, No erythema, No laceration, No pruritis, No rash, No skin lesions, No other PMH/Family/Social Past Medical History Medications Current Medications Sodium Chloride 1,000 ml @ 100 mls/hr Q10H IV Last administered on 07/01/18at 03:43; Admin Dose 100 MLS/HR; Start 07/01/18 at 03:17 IV Flush (NS 3 ml) 3 ml PER PROTOCOL IV ; Start 07/01/18 at 03:30 Acetaminophen (Tylenol Tab) 650 mg Q6H PRN PO PAIN LEVEL 1-3 OR FEVER; Start 07/01/18 at 03:30 Ondansetron HCl (Zofran Inj) 4 mg Q4 PRN IV NAUSEA AND/OR VOMITING; Start 07/01/18 at 03:30 Vancomycin HCl (Vanco Iv Per Pharmacy) VANCOMYCIN PER PHARMACY PER PROTOCOL XX ; Start 07/01/18 at 04:00 Piperacillin Sod/ Tazobactam Sod 100 ml @ 200 mls/hr Q6 IVPB Last administered on 07/01/18at 11:53; Admin Dose 200 MLS/HR; Start 07/01/18 at 06:00 Vancomycin/Sodium Chloride 250 ml @ 125 mls/hr Q12H IVPB Last administered on 07/01/18at 14:28; Admin Dose 125 MLS/HR; Start 07/01/18 at 14:00 Miscellaneous Information (*Rx Drug Level Order Reminder*) VANCO TR LEVEL PRIOR... ONCE ONCE XX ; Start 07/02/18 at 13:00; Stop 07/02/18 at 13:01 Coded Allergies: No Known Allergy (Unverified , 07/01/18) Past Surgical History Past Surgical Hx: other (Cholecystectomy, left inguinal herniorrhaphy, ERCP with stent placement and removal) Family History Significant Family History: no pertinent family hx Social History Alcohol Use: none Smoking Status: Never smoker Drug Use: none Exam/Review of Systems Vital Signs Vitals Vital Signs Date Temp Pulse Resp B/P (MAP) Pulse Ox O2 O2 Flow FiO2 Time Delivery Rate 07/01/18 97.9 67 17 101/57 98 Room Air 12:31 (72) Intake and Output 06/30/18 06/30/18 07/01/18 1515:00 23:00 07:00 IntakeIntake Total 200 ml OutputOutput Total 0 ml BalanceBalance 200 ml Exam Exam right chest portacath Constitutional: alert, oriented Eyes: nl conjunctiva ENMT: nl external ears & nose Neck: supple Respiratory: clear to auscultation Cardiovascular: regular rate and rhythm, nl pulses Gastrointestinal: soft MARYCARMEN DE LA CRUZ MD 07/01/18 1807: Assessment/Plan Assessment/Plan Assessment/Plan seen and ecamined with [facility] ? cholangitis with leukocystosis with hx stent ercp today sx cholangio CA S/P [facility] Result Diagram: 06/30/18 2340 06/30/18 2340 PMH/Family/Social Past Medical History Coded Allergies: No Known Allergy (Unverified , 07/01/18) TRACY QUEZADA Jul 01, 2018 15:06 MARYCARMEN DE LA CRUZ MD Jul 01, 2018 18:07
[2018-07-01] MEDS ORDERED: GLUCAGON 1 MG INJ IM PRN (16:30)
[2018-07-01] MEDS ORDERED: GLUCOSE GEL 15 GRAM TUBE PO PRN ×2 (16:30)
[2018-07-01] MEDS ORDERED: GLUCOSE GEL 15 GRAM TUBE BUCCAL PRN (16:30)
[2018-07-01] MEDS ORDERED: DEXTROSE 50% 50 ML SYRINGE IV PRN ×2 (16:30)
--- NOTE | 2018-07-01 17:32 | PREAC ---
Date/Time of Note Date/Time of Note DATE: 07/01/18 TIME: 17:32 Anesthesia Eval and Record Evaluation Time Pre-Procedure Interview DATE: 07/01/18 TIME: 17:32 Age 63 Sex male NPO: 8 hrs Preoperative diagnosis biliary stent Planned procedure ERCP Past Medical History Past Medical History: Includes Cardio: HTN, Dyslipidemia Endo: Diabetes Hepatic: Hepatitis Surgery & Anesthesia Issues No known issue Meds Anticoagulation: No Beta Cassandra within 24 hr: No Reason Beta Cassandra not given: Pt. not on B-Cassandra Reported Medications Morphine Sulfate* (Ms Contin ER*) 15 Mg Tabsr, 15 MG PO BID PRN for PAIN LEVEL 6-10, TAB TAKE 1 TABLET BY MOUTH TWICE A DAY IF NEEDED FOR PAIN. 07/01/18 Atorvastatin* (Atorvastatin*) 80 Mg Tablet, 80 MG PO QHS, #30 TAB 03/23/18 Discontinued Reported Medications Insulin Glargine* (Lantus*) 100 Unit/Ml Soln, 17 UNIT SC DAILY PRN for ELEVATED GLUCOSE, #1 VIAL 03/23/18 Insulin Lispro Protamin/Lispro (Humalog Mix 75-25 Kwikpen) 100 Unit/1 Ml Insuln.pen, 5 UNIT SQ BID PRN for ELEVATED GLUCOSE 03/23/18 Current Medications Sodium Chloride 1,000 ml @ 100 mls/hr Q10H IV Last administered on 07/01/18at 03:43; Admin Dose 100 MLS/HR; Start 07/01/18 at 03:17 IV Flush (NS 3 ml) 3 ml PER PROTOCOL IV ; Start 07/01/18 at 03:30 Acetaminophen (Tylenol Tab) 650 mg Q6H PRN PO PAIN LEVEL 1-3 OR FEVER; Start 07/01/18 at 03:30 Ondansetron HCl (Zofran Inj) 4 mg Q4 PRN IV NAUSEA AND/OR VOMITING; Start 07/01/18 at 03:30 Vancomycin HCl (Vanco Iv Per Pharmacy) VANCOMYCIN PER PHARMACY PER PROTOCOL XX ; Start 07/01/18 at 04:00 Piperacillin Sod/ Tazobactam Sod 100 ml @ 200 mls/hr Q6 IVPB Last administered on 07/01/18at 11:53; Admin Dose 200 MLS/HR; Start 07/01/18 at 06:00 Vancomycin/Sodium Chloride 250 ml @ 125 mls/hr Q12H IVPB Last administered on 07/01/18at 14:28; Admin Dose 125 MLS/HR; Start 07/01/18 at 14:00 Miscellaneous Information (*Rx Drug Level Order Reminder*) VANCO TR LEVEL PRIOR... ONCE ONCE XX ; Start 07/02/18 at 13:00; Stop 07/02/18 at 13:01 Pantoprazole (Protonix Iv) 40 mg BID@06,18 IV ; Start 07/01/18 at 18:00 Diagnostic Test (Pha) (Accu-Chek) 1 ea 02 XX ; Start 07/02/18 at 02:00 Insulin Aspart (Novolog Insulin Pen) NOVOLOG *MILD* ALGORITHM WITH MEALS BEDT ANDI SC ; Start 07/01/18 at 17:55 Miscellaneous Information 1 ea NOTE XX ; Start 07/01/18 at 16:30 Glucose (Glutose) 15 gm Q15M PRN PO DECREASED GLUCOSE; Start 07/01/18 at 16:30 Glucose (Glutose) 22.5 gm Q15M PRN PO DECREASED GLUCOSE; Start 07/01/18 at 16:30 Dextrose (D50w Syringe) 25 ml Q15M PRN IV DECREASED GLUCOSE; Start 07/01/18 at 16:30 Dextrose (D50w Syringe) 50 ml Q15M PRN IV DECREASED GLUCOSE; Start 07/01/18 at 16:30 Glucagon (Glucagen) 1 mg Q15M PRN IM DECREASED GLUCOSE; Start 07/01/18 at 16:30 Glucose (Glutose) 15 gm Q15M PRN BUCCAL DECREASED GLUCOSE; Start 07/01/18 at 16:30 Meds reviewed: Yes Allergies Coded Allergies: No Known Allergy (Unverified , 07/01/18) Allergies Reviewed: Yes Labs/Studies Labs Reviewed: Reviewed by anesthesiologist Result Diagram: 06/30/18 2340 06/30/18 2340 Laboratory Tests 06/30/18 23:40 test: N/A Pre-procedure Exam Last vitals Vital Signs Date Temp Pulse Resp B/P (MAP) Pulse Ox O2 O2 Flow FiO2 Time Delivery Rate 07/01/18 74 16:02 07/01/18 98.0 16 90/56 (67) 98 Room Air 15:47 Airway: Adequate mouth opening, Adequate thyromental dist Mallampati: Mallampati II Teeth: Abnormal (partial dentures) Lung: Normal Heart: Normal ASA Physical Status ASA physical status: 3 Emergency: None Planned Anesthetic General/MAC: ETT Planned Pain Management Parenteral pain med Pre-operative Attestations Prior to commencing anesthesia and surgery, the patient was re-evaluated, there was verification of: *The patient's identity *The results of appropriate recent lab work and preoperative vital signs *The above evaluation not changing prior to induction *Anesthetic plan, risk benefits, alternative and complications discussed with patient/family; questions answered; patient/family understands, accepts and wishes to proceed. [employer] used PHILOMENA PINEDA MD Jul 01, 2018 17:32
--- NOTE | 2018-07-01 17:38 | HPN ---
Date/Time of Note Date/Time of Note DATE: 07/01/18 TIME: 17:37 Interval H&P Admission Note Pt. seen H&P reviewed: No system changes JUVENAL NGO MD Jul 01, 2018 17:38
[2018-07-01] MEDS ORDERED: SUCCINYLCHOLINE CHLORIDE 100 MG/5 ML SYG IV ONE (17:40)
[2018-07-01] MEDS ORDERED: LIDOCAINE 2% (SDV) 5 ML INJ ONE (17:40)
[2018-07-01] MEDS ORDERED: IOHEXOL 300MG/ML 30 ML BTL ONE (17:40)
[2018-07-01] MEDS ORDERED: PROPOFOL 20 ML ONE (17:40)
[2018-07-01] MEDS: INSULIN ASPART [NOVOLOG] 3 ML PEN SC SCH ×2 (17:55→21:00)
[2018-07-01] MEDS: PANTOPRAZOLE 40 MG INJ IV SCH (18:13)
--- NOTE | 2018-07-01 18:30 | NUR ---
EOSS: Pt stable, a/o x 4, Med Surg status, pending ERCP, instructed pt on NPO after MN order, voiced understanding. Dr. Wu aware of current lactic acid, no new orders given. Report given to Amalia SEGURA in 2E.
--- NOTE | 2018-07-01 20:19 | NUR ---
Patient transferred from Tele at the change of shift. Patient is alert and oriented x4, denies any pain. Per IMELDA Bryan patient will be NPO after midnight for ERCP tomorrow. Patient is diabetic. Called Dr. Melissa to ask if he wanted patient on BG check Q4H after midnight but Dr. Melissa ordered for BG check Q6H.
[2018-07-02] VITALS (15 sets, daily range): BP systolic 90–142; BP diastolic 51–76; PULSE 64–88; RESP 15–20
--- NOTE | 2018-07-02 01:26 | NUR ---
Patient complained of multiple episodes of diarrhea. Contact isolation precautions in place per protocol. Educated patient and on the importance of initiating isolation precautions, both verbalized understanding. Will collect stool. Addendum: 07/02/18 at 0135 by MEHNAZ HERNANDEZ RN Contact isolations for r/o cdiff.
[2018-07-02] MEDS ORDERED: ACCU-CHEK XX SCH (02:00)
[2018-07-02] MEDS: VANCOMYCIN 750 MG (PMX) 250 ML IVPB SCH (02:14)
--- NOTE | 2018-07-02 05:20 | NUR ---
Patient is alert and oriented x4, denies any pain. Stool collected and sent to lab. Isolations precautions in place for r/o cdiff. BG check Q6H, no insulin coverage needed. Patient is NPO for scheduled procedure today. Hourly rounding provided. Fall precautions in place. Call light within reach. Will endorse to upcoming nurse accordingly.
[2018-07-02] MEDS: PANTOPRAZOLE 40 MG INJ IV SCH ×2 (05:43→17:53)
[2018-07-02] MEDS: INSULIN ASPART [NOVOLOG] 3 ML PEN SC SCH ×5 (05:43→20:53)
[2018-07-02] MEDS: PIPER-TAZO 3.375 GM IV (PMX) 100 ML IVPB SCH ×4 (05:44→23:34)
[2018-07-02] MEDS ORDERED: SUCCINYLCHOLINE CHLORIDE 100 MG/5 ML SYG IV ONE (07:00)
[2018-07-02] MEDS ORDERED: ETOMIDATE 20 MG INJ ONE (07:00)
[2018-07-02] MEDS ORDERED: SEVOFLURANE 15 MIN ONE (07:00)
[2018-07-02] MEDS ORDERED: LIDOCAINE 2% (SDV) 5 ML INJ ONE (07:00)
[2018-07-02] MEDS: SOD CHLORIDE 0.9% 1,000 ML IV SCH (09:06)
--- NOTE | 2018-07-02 11:52 | NUR ---
Blood glucose checked scheduled at 12pm was checked at 11:25am due to patient going to ERCP procedure. Blood Glucose reading 85. will reassess when patient comes back from procedure.
[2018-07-02] MEDS ORDERED: MIDAZOLAM 1 MG/ML 2 ML INJ ONE (11:55)
[2018-07-02] MEDS ORDERED: HYDROmorphONE 1 MG/5 ML IV SYRINGE IV PRN ×2 (12:00)
[2018-07-02] MEDS ORDERED: MEPERIDINE 25 MG INJ IV PRN (12:00)
[2018-07-02] MEDS ORDERED: DIPHENHYDRAMINE 50 MG INJ IV PRN (12:00)
[2018-07-02] MEDS ORDERED: FENTAnyl 50 MCG/ML VIAL IV PRN (12:00)
[2018-07-02] MEDS ORDERED: ONDANSETRON 4 MG INJ IV PRN (12:00)
[2018-07-02] MEDS ORDERED: PROCHLORPERAZINE 10 MG INJ IV PRN (12:00)
[2018-07-02] MEDS ORDERED: CEFAZOLIN 1 GM INJ ONE (12:14)
[2018-07-02] MEDS ORDERED: ONDANSETRON 4 MG INJ ONE (12:16)
[2018-07-02] MEDS ORDERED: FAMOTIDINE 20 MG INJ ONE (12:16)
[2018-07-02] MEDS ORDERED: FENTAnyl 50 MCG/ML VIAL ONE (12:25)
[2018-07-02] MEDS ORDERED: GLUCAGON 1 MG INJ ONE (12:48)
--- NOTE | 2018-07-02 13:12 | PAC ---
Date/Time of Note Date/Time of Note DATE: 07/02/18 TIME: 13:10 Post-Anesthesia Notes Post-Anesthesia Note Last documented vital signs Vital Signs Date Temp Pulse Resp B/P (MAP) Pulse Ox O2 O2 Flow FiO2 Time Delivery Rate 07/02/18 98.8 76 18 142/76 96 08:00 (98) 07/01/18 Room Air 15:47 Activity: WNL Respiratory function: WNL Cardiovascular function: WNL Mental status: Baseline Pain reasonably controlled: Yes Hydration appropriate: Yes Nausea/Vomiting absent: Yes Comments BP: 114/69 HR: 70 RR: 16 T: 98 SaO2: 100% PHILOMENA PINEDA MD Jul 02, 2018 13:12
--- NOTE | 2018-07-02 13:27 | PN ---
Date/Time of Note Date/Time of Note DATE: 07/02/18 TIME: 13:18 Outpatient Progress Note Chief Complaint better less pain no bleeding no SOB no chest pain Review of Systems Const: No Fever, no chills, no Wt. loss, no Fatigue, normal appetite, no diaphoresis. Eyes: No pain, no discharge, no redness, no visual change, no foreign body. ENT: No pain, no bleeding, no congestion, no sore throat, no dysphagia, no discharge or rhinitis. Lymph: No adenopathy, no tender nodes, no lymphedema. Resp: No SOB, no cough, no sputum, no wheezing, no chest pain. CV: No chest pain, no palpitaions, no MATA, no PND, no edema. GI: Normal appetite, no pain, no nausea, no vomiting, no diarrhea, no blood, no constipation. : No frequency, no urgency, no dysuria, no hematuria, no flank pain, no discharge, no bleeding. Musc: No bone/joint pain, no back pain, no neck pain, no knee pain, no restricted ROM. Skin: No rash, no skin lesions, no erythema, no laceration, no bruising, no pruritus. Neuro: No ADKINS, no dizziness, no syncope, no seizure, no focal-weakness. Endo: No polyuria, no polydypsia, no dry-skin, no temp-intolerance. Psych: No hallucinations, no depression, no anxiety, no suicidal ideation. Ext: No edema, no pain, no ulcer, no weakness. 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 He has surgical history of Cholecystectomy, left inguinal herniorrhaphy, ERCP with stent placement and removal. He presented with epigastric abdominal pain chronically, worse tonight, constipation, dysuria, vomiting and subjective fever for the last 3 days. He is taking morphine for pain but it is not controlling his pain Comfort care supportive measures pain meds anti-emetics Keep Hb > 8 Hct >24 Keep plts > 50,000 Keep wbc > 3,000. Medications Home Meds Reported Medications Morphine Sulfate* (Ms Contin ER*) 15 Mg Tabsr, 15 MG PO BID PRN for PAIN LEVEL 6-10, TAB TAKE 1 TABLET BY MOUTH TWICE A DAY IF NEEDED FOR PAIN. 07/01/18 Atorvastatin* (Atorvastatin*) 80 Mg Tablet, 80 MG PO QHS, #30 TAB 03/23/18 Discontinued Reported Medications Insulin Glargine* (Lantus*) 100 Unit/Ml Soln, 17 UNIT SC DAILY PRN for ELEVATED GLUCOSE, #1 VIAL 03/23/18 Insulin Lispro Protamin/Lispro (Humalog Mix 75-25 Kwikpen) 100 Unit/1 Ml Insuln.pen, 5 UNIT SQ BID PRN for ELEVATED GLUCOSE 03/23/18 LONG LEIGH Jul 02, 2018 13:27
--- NOTE | 2018-07-02 14:38 | PN ---
Date/Time of Note Date/Time of Note DATE: 07/02/18 TIME: 14:38 Assessment/Plan VTE Prophylaxis Risk score (from Ns)>0 risk: 7 SCD applied (from [facility]): Yes Pharmacological prophylaxis: NA/contraindicated Pharm contraindication: bleeding Lines/Catheters IV C[facility]ter Type (from [facility] Peripheral IV Urinary Cath still in place: No Assessment/Plan Hospital Course 1. Sepsis with severe lactic acidosis probably due to cholecystitis. Pr is positive for abdominal, RUQ pain. S.p stent placed in 09/2017 2. 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 Chemotherapy ended last week, started March 2018 3. Pancreatic ductal dilatation noted on US 4. Abnormal LFTs 5. Mod free fluid and diffuse intra abdominal stranding seen in CT scan 6. Anemia, chronic 7. H/O Hep C 8. H/O cholecystectomy for blocked cystic duct Assessment/Plan -s/p ERCP -c/w vanco / zosyn -dr Hernandez/Naveed onco consult -Dr Hu consult seen - monitor LFTs. -DVT prophylaxis SCD bilaterally. -GI prophylaxis Protonix -per GI patient definitely needs laparoscopic cholecystectomy since the cystic duct is completely blocked. Result Diagram: 06/30/180 06/30/180 Results 24hrs Laboratory Tests Test 07/01/18 18:13 07/01/18 21:30 07/01/18 23:58 07/02/18 05:00 Bedside Glucose 96 118 106 Stool Occult Blood NEGATIVE Test 07/02/18 05:43 07/02/18 11:24 07/02/18 13:08 Bedside Glucose 85 85 97 Subjective 24 Hr Interval Summary Constitutional: no complaints, improved Exam/Review of Systems Vital Signs Vitals Vital Signs Date Temp Pulse Resp B/P (MAP) Pulse Ox O2 O2 Flow FiO2 Time Delivery Rate 07/02/18 66 15 96/60 (72) 100 Room Air 13:50 07/02/18 98.0 13:05 Intake and Output 07/01/18 07/01/18 07/02/18 1515:00 23:00 07:00 IntakeIntake Total 100 ml 950 ml 1340 ml BalanceBalance 100 ml 950 ml 1340 ml Exam Constitutional: alert, oriented Neck: supple Respiratory: clear to auscultation Cardiovascular: regular rate and rhythm Gastrointestinal: soft Medications Medications Current Medications Sodium Chloride 1,000 ml @ 100 mls/hr Q10H IV Last administered on 07/02/18at 09:06; Admin Dose 100 MLS/HR; Start 07/01/18 at 03:17 IV Flush (NS 3 ml) 3 ml PER PROTOCOL IV ; Start 07/01/18 at 03:30 Acetaminophen (Tylenol Tab) 650 mg Q6H PRN PO PAIN LEVEL 1-3 OR FEVER; Start 07/01/18 at 03:30 Ondansetron HCl (Zofran Inj) 4 mg Q4 PRN IV NAUSEA AND/OR VOMITING; Start 07/01/18 at 03:30 Vancomycin HCl (Vanco Iv Per Pharmacy) VANCOMYCIN PER PHARMACY PER PROTOCOL XX ; Start 07/01/18 at 04:00 Piperacillin Sod/ Tazobactam Sod 100 ml @ 200 mls/hr Q6 IVPB Last administered on 07/02/18at 05:44; Admin Dose 200 MLS/HR; Start 07/01/18 at 06:00 Vancomycin/Sodium Chloride 250 ml @ 125 mls/hr Q12H IVPB Last administered on 07/02/18at 02:14; Admin Dose 125 MLS/HR; Start 07/01/18 at 14:00 Pantoprazole (Protonix Iv) 40 mg BID@06,18 IV Last administered on 07/02/18at 05:43; Admin Dose 40 MG; Start 07/01/18 at 18:00 Miscellaneous Information 1 ea NOTE XX ; Start 07/01/18 at 16:30 Glucose (Glutose) 15 gm Q15M PRN PO DECREASED GLUCOSE; Start 07/01/18 at 16:30 Glucose (Glutose) 22.5 gm Q15M PRN PO DECREASED GLUCOSE; Start 07/01/18 at 16:30 Dextrose (D50w Syringe) 25 ml Q15M PRN IV DECREASED GLUCOSE; Start 07/01/18 at 16:30 Dextrose (D50w Syringe) 50 ml Q15M PRN IV DECREASED GLUCOSE; Start 07/01/18 at 16:30 Glucagon (Glucagen) 1 mg Q15M PRN IM DECREASED GLUCOSE; Start 07/01/18 at 16:30 Glucose (Glutose) 15 gm Q15M PRN BUCCAL DECREASED GLUCOSE; Start 07/01/18 at 16:30 Insulin Aspart (Novolog Insulin Pen) NOVOLOG *MILD* ALGORI... Q6 SC ; Start 07/02/18 at 00:00 Hydromorphone HCl (Dilaudid) 0.2 mg PACU PRN IV MILD PAIN LEVEL 1-3; Start 07/02/18 at 12:00; Stop 07/02/18 at 20:00 Hydromorphone HCl (Dilaudid) 0.4 mg PACU PRN IV MODERATE PAIN LEVEL 4-6; Start 07/02/18 at 12:00; Stop 07/02/18 at 20:00 Fentanyl (Sublimaze) 25 mcg PACU ORDER PRN IV MILD PAIN LEVEL 1-3; Start 07/02/18 at 12:00; Stop 07/02/18 at 20:00 Ondansetron HCl (Zofran Inj) 4 mg PACU ORDER PRN IV NAUSEA AND/OR VOMITING; Start 07/02/18 at 12:00; Stop 07/02/18 at 20:00 Prochlorperazine (Compazine Inj) 5 mg PACU ORDER PRN IV NAUSEA AND/OR VOMITING; Start 07/02/18 at 12:00; Stop 07/02/18 at 20:00 Meperidine HCl (Demerol) 25 mg PACU ORDER PRN IV POST OPERATIVE SHIVERING; Start 07/02/18 at 12:00; Stop 07/02/18 at 20:00 Diphenhydramine HCl (Benadryl) 25 mg PACU ORDER PRN IV PRURITUS; Start 07/02/18 at 12:00; Stop 07/02/18 at 20:00 TRACY QUEZADA Jul 02, 2018 14:38
--- NOTE | 2018-07-02 15:26 | NUR ---
zosyn due at 12pm was delayed due to patient going to procedure. Confirmed with Yg at pharmacy that it is okay to run it now. will continue to monitor
--- NOTE | 2018-07-02 16:40 | NUR ---
Vancomycin per Rx Vancomycin trough = 17 SCr increased to 1.96 DC Vancomycin 750 mg IV q12h Change to Vancomycin 1gm IV q24h, start tonight Monitor renal function
--- NOTE | 2018-07-02 18:20 | NUR ---
Patient is alert and oriented x4, denies any pain. Isolations precautions in place for r/o cdiff. BG check Q6H, no insulin coverage needed. Patient is on clear liquid diet and tolerated well. patient complain of feeling weak and tired. Hourly rounding provided. Fall precautions in place. Call light within reach. Will endorse to upcoming nurse accordingly.
--- NOTE | 2018-07-02 18:34 | GILP ---
DATE OF PROCEDURE: PROCEDURE: ERCP and EGD. INDICATION: A 63-year-old male who presented with cholangitis and possible biliary obstruction. The patient had a self-expanding metallic stent. The purpose of this procedure is to evaluate the bilia ry system and hopefully remove the metallic stent. The risk of the procedure, related and unrelated complications, anesthetic risk, and alternatives discussed. Informed consent was obtained. DESCRIPTION OF PROCEDURE: The patient was brought to the OR, intubated and placed in a prone positio n. ERCP scope passed with much ease into esophagus and advanced further down into stomach and duoden um. Second part appeared completely blocked. The scope could not be advanced and there was some inf iltrating tissue seen on the medial wall. At this point, I removed the ERCP scope and pass the upper scope. Again, there was a complete obstruction. With the help of pressure on the spleen, we were a ble to advance the scope slightly and at that point, I identified my metallic stent. With the help o f rescue forceps, removed the stent. Scope was reintroduced. Upper endoscope introduced. Again cou ld not go into second part. Barely, the opening was visible, it appeared to be completely closed. F rom the medial wall, three biopsies were taken to rule out malignancy, and the endoscope was removed with good patient tolerance. FINDINGS: 1. Removal of the metallic stent. 2. Blockage of the second part of the duodenum, most probably from the tumor. 3. Biopsies from the possible infiltration in the second part of the duodenum on the medial wall, th ree biopsies taken. PLAN: Review histopathology. We will start the patient on clear liquid diet. Dictated By: JUVENAL NGO MD PJ/NTS Conf#: [id number] DID#: [id number] CC: EDDIE ANGLIN MD;*EndCC*
--- NOTE | 2018-07-02 19:00 | NUR ---
Patient tolerating clear-liquid diet. Received orders from Dr. Melissa to change insulin to ACHS on novolog mild algorithm. Patient educated on plan of care and verbalized understanding. Safety precautions and hourly rounding currently in place.
[2018-07-02] MEDS: VANCOMYCIN 1 GM 250 ML IVPB SCH (20:29)
--- NOTE | 2018-07-02 22:00 | NUR ---
Received notice of negative stool culture for C-Diff. Contact spore precautions removed at this time. Patient asymptomatic and with no signs of distress. Safety precautions and hourly rounding currently in place.
[2018-07-03 02:16] VITALS: BP 89/56; PULSE 81; RESP 18
[2018-07-03] MEDS: SOD CHLORIDE 0.9% 1,000 ML IV SCH (03:15)
--- NOTE | 2018-07-03 03:24 | NUR ---
Bladder scan performed at this time per MD order. 80mls noted. No straight catheter required per MD orders. Patient voiding adequate amount of clear, yellow urine. Safety precautions and hourly rounding currently in place. Patient with no signs of distress.
[2018-07-03 03:33] VITALS: BP 90/52; PULSE 74; RESP 18
[2018-07-03] MEDS: PANTOPRAZOLE 40 MG INJ IV SCH ×2 (05:33→17:43)
[2018-07-03] MEDS: PIPER-TAZO 3.375 GM IV (PMX) 100 ML IVPB SCH (05:33)
--- NOTE | 2018-07-03 06:14 | NUR ---
Patient in room asleep with no signs of distress. Vital signs stable. Patient denied pain this shift. BG 87 with no insulin coverage needed. Patient provided with HS snack. No abdominal pain, fatigue, headache, or distress indicating signs of hypoglycemia/hyperglycemia noted. No skin breakdown noted upon assessment. No other changes otherwise noted. All needs met and medications administered per MD order. Patient turned every 2 hours and OOB this shift. Patient refusing application of SCDs at this time after providing education on the importance, risks, and benefits behind the intervention. Safety precautions and hourly rounding currently in place until change of shift.
[2018-07-03] MEDS: INSULIN ASPART [NOVOLOG] 3 ML PEN SC SCH ×4 (08:00→20:37)
[2018-07-03 08:07] VITALS: BP 87/50; PULSE 85; RESP 17
[2018-07-03 08:20] VITALS: BP_SYST 59; BP_SYST 89; BP_DIAS 59; PULSE 85
[2018-07-03] MEDS: PIPER-TAZO 2.25 GM (PMX) 50 ML IVPB SCH ×3 (11:37→23:24)
--- NOTE | 2018-07-03 13:42 | PN ---
Date/Time of Note Date/Time of Note DATE: 07/03/18 TIME: 13:41 Assessment/Plan VTE Prophylaxis Risk score (from Ns)>0 risk: 7 [place] [facility] SCD contraindicated: other Pharmacological prophylaxis: other Lines/Catheters IV [facility]ter Type (from [facility] Peripheral IV Urinary Cath still in place: No Assessment/Plan Hospital Course 1. Sepsis with severe lactic acidosis probably due to cholecystitis. S.p stent placed in 09/2017 2. 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 Chemotherapy ended last week, started March 2018 3. Pancreatic ductal dilatation noted on US 4. Abnormal LFTs 5. Mod free fluid and diffuse intra abdominal stranding seen in CT scan 6. Anemia, chronic 7. H/O Hep C 8. H/O cholecystectomy for blocked cystic duct plan per gi antibiotic Result Diagram: 07/03/18 0525 07/03/18 0525 Results 24hrs Laboratory Tests Test 07/02/18 14:41 07/02/18 15:02 07/02/18 17:55 07/02/18 20:27 Vancomycin Level 17.0 Trough White Blood Count 22.0 H Red Blood Count 3.55 L Hemoglobin 9.8 L Hematocrit 30.8 L Mean Corpuscular 86.8 Volume Mean Corpuscular 27.6 L Hemoglobin Mean Corpuscular 31.8 L Hemoglobin Concent Red Cell 24.5 H Distribution Width Platelet Count 435 H Mean Platelet Volume 10.0 Immature 1.500 H Granulocytes % Neutrophils % 85.2 H Lymphocytes % 8.4 L Monocytes % 4.7 Eosinophils % 0.0 Basophils % 0.2 Nucleated Red Blood 0.0 Cells % Immature 0.330 H Granulocytes # Neutrophils # 18.8 H Lymphocytes # 1.8 Monocytes # 1.0 H Eosinophils # 0.0 Basophils # 0.0 Nucleated Red Blood 0.0 Cells # Sodium Level 134 L Potassium Level 4.1 Chloride Level 105 # Carbon Dioxide Level 20 L Anion Gap 9 # Blood Urea Nitrogen 32 #H Creatinine 1.96 H Est Glomerular 34 L Filtrat Rate mL/min Glucose Level 94 Calcium Level 7.5 L Bedside Glucose 91 87 Test 07/03/18 05:25 07/03/18 08:15 07/03/18 11:36 White Blood Count 18.6 H Red Blood Count 2.96 L Hemoglobin 8.3 L Hematocrit 25.7 L Mean Corpuscular 86.8 Volume Mean Corpuscular 28.0 L Hemoglobin Mean Corpuscular 32.3 Hemoglobin Concent Red Cell 23.8 H Distribution Width Platelet Count 401 Mean Platelet Volume 10.1 Immature 1.000 H Granulocytes % Neutrophils % 81.5 H Lymphocytes % 11.5 L Monocytes % 5.7 Eosinophils % 0.0 Basophils % 0.3 Nucleated Red Blood 0.0 Cells % Immature 0.180 H Granulocytes # Neutrophils # 15.2 H Lymphocytes # 2.1 Monocytes # 1.1 H Eosinophils # 0.0 Basophils # 0.1 Nucleated Red Blood 0.0 Cells # Sodium Level 136 Potassium Level 3.9 Chloride Level 109 Carbon Dioxide Level 18 L Anion Gap 9 Blood Urea Nitrogen 32 H Creatinine 2.20 H Est Glomerular 30 L Filtrat Rate mL/min Glucose Level 83 Calcium Level 7.2 L Bedside Glucose 97 104 Subjective 24 Hr Interval Summary Respiratory: no complaints Cardiovascular: no complaints Gastrointestinal: No no complaints, No vomiting Exam/Review of Systems Vital Signs Vitals Vital Signs Date Temp Pulse Resp B/P (MAP) Pulse Ox O2 O2 Flow FiO2 Time Delivery Rate 07/03/18 85 89/59 (69) 08:20 07/03/18 97.5 17 99 Room Air 08:07 Intake and Output 07/02/18 07/02/18 07/03/18 1515:00 23:00 07:00 IntakeIntake Total 600 ml 640 ml 1434 ml OutputOutput Total 2 ml BalanceBalance 600 ml 638 ml 1434 ml Exam Respiratory: clear to auscultation Cardiovascular: regular rate and rhythm Gastrointestinal: soft, bowel sounds (+) Extremities: No edema Medications Medications Current Medications Sodium Chloride 1,000 ml @ 30 mls/hr Q24H IV Last administered on 07/03/18at 03:15; Admin Dose 30 MLS/HR; Start 07/01/18 at 03:17 IV Flush (NS 3 ml) 3 ml PER PROTOCOL IV ; Start 07/01/18 at 03:30 Acetaminophen (Tylenol Tab) 650 mg Q6H PRN PO PAIN LEVEL 1-3 OR FEVER; Start 07/01/18 at 03:30 Ondansetron HCl (Zofran Inj) 4 mg Q4 PRN IV NAUSEA AND/OR VOMITING; Start 07/01/18 at 03:30 Vancomycin HCl (Vanco Iv Per Pharmacy) VANCOMYCIN PER PHARMACY PER PROTOCOL XX ; Start 07/01/18 at 04:00 Pantoprazole (Protonix Iv) 40 mg BID@06,18 IV Last administered on 07/03/18at 05:33; Admin Dose 40 MG; Start 07/01/18 at 18:00 Miscellaneous Information 1 ea NOTE XX ; Start 07/01/18 at 16:30 Glucose (Glutose) 15 gm Q15M PRN PO DECREASED GLUCOSE; Start 07/01/18 at 16:30 Glucose (Glutose) 22.5 gm Q15M PRN PO DECREASED GLUCOSE; Start 07/01/18 at 16:30 Dextrose (D50w Syringe) 25 ml Q15M PRN IV DECREASED GLUCOSE; Start 07/01/18 at 16:30 Dextrose (D50w Syringe) 50 ml Q15M PRN IV DECREASED GLUCOSE; Start 07/01/18 at 16:30 Glucagon (Glucagen) 1 mg Q15M PRN IM DECREASED GLUCOSE; Start 07/01/18 at 16:30 Glucose (Glutose) 15 gm Q15M PRN BUCCAL DECREASED GLUCOSE; Start 07/01/18 at 16:30 Vancomycin HCl 250 ml @ 125 mls/hr Q24H IVPB Last administered on 07/02/18at 20:29; Admin Dose 125 MLS/HR; Start 07/02/18 at 21:00 Insulin Aspart (Novolog Insulin Pen) NOVOLOG *MILD* ALGORITHM WITH MEALS BEDTIME SC ; Start 07/02/18 at 21:00 Piperacillin Sod/ Tazobactam Sod 50 ml @ 100 mls/hr Q6 IVPB Last administered on 07/03/18at 11:37; Admin Dose 100 MLS/HR; Start 07/03/18 at 12:00 EDDIE ANGLIN MD Jul 03, 2018 13:42
[2018-07-03 15:43] VITALS: BP 108/69; PULSE 84; RESP 17
--- NOTE | 2018-07-03 17:12 | CONS ---
Date/Time of Note Date/Time of Note DATE: 07/03/18 TIME: 17:10 Assessment/Plan Assessment/Plan Assessment/Plan Stent placement in bile duct per Dr Ngo in September 2017 IMPRESSION: 1. Removal of the old clogged stent. 2. Large sphincterotomy done. 3. Multiple small stones removed, fragments removed. 4. Self-expanding metallic stent deployed with successful hemostasis and excellent drainage. 5. There was a lesion distal to the ampulla 1 cm in diameter, the exact significance of which is unclear, may need a biopsy in the future. 6. Status post removal of the metallic biliary stent 7. Obstruction of the second part of the duodenum most probably from the infiltrating tumor 8. Bilateral pedal edema Plan advance diet as tolerated Diuretics to reduce his pedal edema Result Diagram: 07/03/18 0525 07/03/18 0525 Results 24hrs Laboratory Tests Test 07/02/18 17:55 07/02/18 20:27 07/03/18 05:25 07/03/18 08:15 Bedside Glucose 91 87 97 White Blood Count 18.6 H Red Blood Count 2.96 L Hemoglobin 8.3 L Hematocrit 25.7 L Mean Corpuscular 86.8 Volume Mean Corpuscular 28.0 L Hemoglobin Mean Corpuscular 32.3 Hemoglobin Concent Red Cell 23.8 H Distribution Width Platelet Count 401 Mean Platelet Volume 10.1 Immature 1.000 H Granulocytes % Neutrophils % 81.5 H Lymphocytes % 11.5 L Monocytes % 5.7 Eosinophils % 0.0 Basophils % 0.3 Nucleated Red Blood 0.0 Cells % Immature 0.180 H Granulocytes # Neutrophils # 15.2 H Lymphocytes # 2.1 Monocytes # 1.1 H Eosinophils # 0.0 Basophils # 0.1 Nucleated Red Blood 0.0 Cells # Sodium Level 136 Potassium Level 3.9 Chloride Level 109 Carbon Dioxide Level 18 L Anion Gap 9 Blood Urea Nitrogen 32 H Creatinine 2.20 H Est Glomerular 30 L Filtrat Rate mL/min Glucose Level 83 Calcium Level 7.2 L Test 07/03/18 11:36 07/03/18 16:59 Bedside Glucose 104 118 Consultation Date/Type/Reason Admit Date/Time Jul 01, 2018 at 03:27 Initial Consult Date 24 HR Interval Summary Free Text/Dictation Some complaints of pedal edema and edema of the upper extremity No abdominal pain no nausea no vomiting He wants to advance his diet Exam/Review of Systems Vital Signs Vitals Vital Signs Date Temp Pulse Resp B/P (MAP) Pulse Ox O2 O2 Flow FiO2 Time Delivery Rate 07/03/18 98.0 84 17 108/69 97 Room Air 15:43 (82) Intake and Output 07/02/18 07/02/18 07/03/18 1515:00 23:00 07:00 IntakeIntake Total 600 ml 640 ml 1434 ml OutputOutput Total 2 ml BalanceBalance 600 ml 638 ml 1434 ml Exam Constitutional: alert, oriented, well developed Eyes: EOMI ENMT: nl external ears & nose, nl lips & teeth, nl nasal mucosa & septum Musculoskeletal: nl extremities to inspection Extremities: pitting pedal edema Medications Medications Current Medications Sodium Chloride 1,000 ml @ 30 mls/hr Q24H IV Last administered on 07/03/18at 03:15; Admin Dose 30 MLS/HR; Start 07/01/18 at 03:17 IV Flush (NS 3 ml) 3 ml PER PROTOCOL IV ; Start 07/01/18 at 03:30 Acetaminophen (Tylenol Tab) 650 mg Q6H PRN PO PAIN LEVEL 1-3 OR FEVER; Start 07/01/18 at 03:30 Ondansetron HCl (Zofran Inj) 4 mg Q4 PRN IV NAUSEA AND/OR VOMITING; Start 07/01/18 at 03:30 Vancomycin HCl (Vanco Iv Per Pharmacy) VANCOMYCIN PER PHARMACY PER PROTOCOL XX ; Start 07/01/18 at 04:00 Pantoprazole (Protonix Iv) 40 mg BID@06,18 IV Last administered on 07/03/18at 05:33; Admin Dose 40 MG; Start 07/01/18 at 18:00 Miscellaneous Information 1 ea NOTE XX ; Start 07/01/18 at 16:30 Glucose (Glutose) 15 gm Q15M PRN PO DECREASED GLUCOSE; Start 07/01/18 at 16:30 Glucose (Glutose) 22.5 gm Q15M PRN PO DECREASED GLUCOSE; Start 07/01/18 at 16:30 Dextrose (D50w Syringe) 25 ml Q15M PRN IV DECREASED GLUCOSE; Start 07/01/18 at 16:30 Dextrose (D50w Syringe) 50 ml Q15M PRN IV DECREASED GLUCOSE; Start 07/01/18 at 16:30 Glucagon (Glucagen) 1 mg Q15M PRN IM DECREASED GLUCOSE; Start 07/01/18 at 16:30 Glucose (Glutose) 15 gm Q15M PRN BUCCAL DECREASED GLUCOSE; Start 07/01/18 at 16:30 Vancomycin HCl 250 ml @ 125 mls/hr Q24H IVPB Last administered on 07/02/18at 20:29; Admin Dose 125 MLS/HR; Start 07/02/18 at 21:00 Insulin Aspart (Novolog Insulin Pen) NOVOLOG *MILD* ALGORITHM WITH MEALS BE DTIME SC ; Start 07/02/18 at 21:00 Piperacillin Sod/ Tazobactam Sod 50 ml @ 100 mls/hr Q6 IVPB Last administered on 07/03/18at 11:37; Admin Dose 100 MLS/HR; Start 07/03/18 at 12:00 JUVENAL NGO MD Jul 03, 2018 17:12
[2018-07-03] MEDS ORDERED: FUROSEMIDE 20 MG INJ IV ONE (17:30)
--- NOTE | 2018-07-03 18:22 | NUR ---
No acute changes during shift. Pt safe and free from injury. Pt refuses bed alarm. Charge nurse aware. Family and friends at bedside throughout shift. Diet advanced to regular. Pt denies any pain or nausea. No signs of discomfort or distress. No SOB. Pt currently sitting in bed eating dinner with at bedside. Bed brakes on, call light within reach. Will continue to monitor. Addendum: 07/03/18 at 1851 by NHI ZAMARRIPA RN Bladder scan performed at this time per MD order. 291mls noted. No straight catheter required per MD orders.
[2018-07-03 20:20] VITALS: BP 91/61; PULSE 89; RESP 18
[2018-07-03] MEDS: VANCOMYCIN 1 GM 250 ML IVPB SCH (20:38)
[2018-07-03] MEDS: ACETAMINOPHEN 325 MG TAB PO PRN (23:24)
[2018-07-04 02:00] VITALS: BP 96/54; PULSE 80; RESP 18
[2018-07-04] MEDS: PIPER-TAZO 2.25 GM (PMX) 50 ML IVPB SCH ×2 (05:39→12:22)
[2018-07-04] MEDS: PANTOPRAZOLE 40 MG INJ IV SCH ×2 (05:39→17:31)
[2018-07-04] MEDS: SOD CHLORIDE 0.9% 1,000 ML IV SCH (05:42)
--- NOTE | 2018-07-04 06:05 | NUR ---
Patient in room asleep with no signs of distress. Vital signs stable. Patient complained of mild abdominal pain this shift. Administered Tylenol x1 per MD order; patient denied pain thereafter. BG 112 this shift with no insulin coverage provided. Patient provided with HS snack. No abdominal pain, fatigue, excessive hunger, or distress indicating signs of hypoglycemia/hyperglycemia. Bladder scan done this shift per MD order at 0545. 136 mLs noted; no straight catheter needed. No other changes otherwise noted. All needs met and medications administered. Patient turned every 2 hours and OOB this shift. Patient currently refusing SCDs at this time after providing education on the importance, risks, and benefits behind the intervention. Safety precautions and hourly rounding in place until change of shift.
--- NOTE | 2018-07-04 07:09 | PN ---
Date/Time of Note Date/Time of Note DATE: 07/04/18 TIME: 07:05 Assessment/Plan VTE Prophylaxis Risk score (from [facility] [place])>0 risk: 8 SCD applied (from [facility] [place]): Yes Pharmacological prophylaxis: NA/contraindicated Pharm contraindication: liver dx Lines/Catheters IV Catheter Type (from [facility]): Peripheral IV Urinary Cath still in place: No Assessment/Plan Hospital Course 63 yo male with gastric cancer presents with worsening epigastric pain 1. Abdominal, RUQ pain -improved 2. 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 Pancreatic ductal dilatation noted on US 4. Abnormal LFTs 5. Mod free fluid and diffuse intra abdominal stranding seen in CT scan 6. Anemia, chronic -FOB neg 7. H/O Hep C 8. H/O cholecystectomy for blocked cystic duct 9. Status post ERCP and removal of the metallic biliary stent 07/02 10. Obstruction of the second part of the duodenum most probably from the infiltrating tumor 11. Bilateral pedal edema Plan: Continue with abx Diet as tolerated PPI for GI prophylaxis Pt examined and plan of care discussed iw Dr. Hu Result Diagram: 07/04/18 0448 07/03/18 0525 Results 24hrs Laboratory Tests Test 07/03/18 08:15 07/03/18 11:36 07/03/18 16:59 07/03/18 20:36 Bedside Glucose 97 104 118 112 Test 07/04/18 04:48 White Blood Count 19.3 H Red Blood Count 3.13 L Hemoglobin 8.8 L Hematocrit 26.4 L Mean Corpuscular 84.3 Volume Mean Corpuscular 28.1 L Hemoglobin Mean Corpuscular 33.3 Hemoglobin Concent Red Cell 23.6 H Distribution Width Platelet Count 401 Mean Platelet Volume 9.9 Immature 1.100 H Granulocytes % Neutrophils % 79.8 H Lymphocytes % 13.7 L Monocytes % 5.2 Eosinophils % 0.0 Basophils % 0.2 Nucleated Red Blood 0.2 H Cells % Immature 0.210 H Granulocytes # Neutrophils # 15.4 H Lymphocytes # 2.7 Monocytes # 1.0 H Eosinophils # 0.0 Basophils # 0.0 Nucleated Red Blood 0.0 Cells # Exam/Review of Systems Vital Signs Vitals Vital Signs Date Temp Pulse Resp B/P (MAP) Pulse Ox O2 O2 Flow FiO2 Time Delivery Rate 07/04/18 98.2 80 18 96/54 (68) 98 02:00 07/03/18 Room Air 15:43 Intake and Output 07/03/18 07/03/18 07/04/18 1515:00 23:00 07:00 IntakeIntake Total 50 ml 1900 ml 1060 ml BalanceBalance 50 ml 1900 ml 1060 ml Medications Medications Current Medications Sodium Chloride 1,000 ml @ 30 mls/hr Q24H IV Last administered on 07/03/18at 03:15; Admin Dose 30 MLS/HR; Start 07/01/18 at 03:17 IV Flush (NS 3 ml) 3 ml PER PROTOCOL IV ; Start 07/01/18 at 03:30 Acetaminophen (Tylenol Tab) 650 mg Q6H PRN PO PAIN LEVEL 1-3 OR FEVER Last administered on 07/03/18at 23:24; Admin Dose 650 MG; Start 07/01/18 at 03:30 Ondansetron HCl (Zofran Inj) 4 mg Q4 PRN IV NAUSEA AND/OR VOMITING; Start 07/01/18 at 03:30 Vancomycin HCl (Vanco Iv Per Pharmacy) VANCOMYCIN PER PHARMACY PER PROTOCOL XX ; Start 07/01/18 at 04:00 Pantoprazole (Protonix Iv) 40 mg BID@06,18 IV Last administered on 07/04/18at 05:39; Admin Dose 40 MG; Start 07/01/18 at 18:00 Miscellaneous Information 1 ea NOTE XX ; Start 07/01/18 at 16:30 Glucose (Glutose) 15 gm Q15M PRN PO DECREASED GLUCOSE; Start 07/01/18 at 16:30 Glucose (Glutose) 22.5 gm Q15M PRN PO DECREASED GLUCOSE; Start 07/01/18 at 16:30 Dextrose (D50w Syringe) 25 ml Q15M PRN IV DECREASED GLUCOSE; Start 07/01/18 at 16:30 Dextrose (D50w Syringe) 50 ml Q15M PRN IV DECREASED GLUCOSE; Start 07/01/18 at 16:30 Glucagon (Glucagen) 1 mg Q15M PRN IM DECREASED GLUCOSE; Start 07/01/18 at 16:30 Glucose (Glutose) 15 gm Q15M PRN BUCCAL DECREASED GLUCOSE; Start 07/01/18 at 16:30 Vancomycin HCl 250 ml @ 125 mls/hr Q24H IVPB Last administered on 07/03/18at 20:38; Admin Dose 125 MLS/HR; Start 07/02/18 at 21:00 Insulin Aspart (Novolog Insulin Pen) NOVOLOG *MILD* ALGORITHM WITH MEALS BEDTIME SC ; Start 07/02/18 at 21:00 Piperacillin Sod/ Tazobactam Sod 50 ml @ 100 mls/hr Q6 IVPB Last administered on 07/04/18at 05:39; Admin Dose 100 MLS/HR; Start 07/03/18 at 12:00 ELVIA PALACIOS Jul 04, 2018 07:09
--- NOTE | 2018-07-04 07:20 | NUR ---
RN NOTES Patient was seen by MAKSIM Perez with labs ordered in AM. Patient denied pain upon rounds, kept comfortable and safe. Will continue to monitor.
[2018-07-04] MEDS: INSULIN ASPART [NOVOLOG] 3 ML PEN SC SCH ×4 (08:00→20:27)
[2018-07-04 08:29] VITALS: BP 105/77; PULSE 77; RESP 17
--- NOTE | 2018-07-04 13:33 | PN ---
Date/Time of Note Date/Time of Note DATE: 07/04/18 TIME: 13:33 Assessment/Plan VTE Prophylaxis Risk score (from [facility])>0 risk: 8 [place]CD applied [place] [facility] [place] Yes Pharmacological prophylaxis: NA/contraindicated Pharm contraindication: low risk/ambulating Lines/Catheters IV Catheter Type (from [facility]): Peripheral IV Urinary Cath still in place: No Assessment/Plan Hospital Course 63 y/o with 1 Sepsis with severe lactic acidosis probably due to cholangittis S.p stent placed in 09/2017 s/p ERCP with removal, still with persistent leukoctytosis, enterococcus in urine 2. 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 Chemotherapy ended last week, started March 2018 3. Pancreatic ductal dilatation noted on US 4. Abnormal LFTs 5. Mod free fluid and diffuse intra abdominal stranding seen in CT scan 6. Anemia, chronic 7. H/O Hep C 8. H/O cholecystectomy for blocked cystic duct 9 JULIO i with worseinng Creatine ? ATN due to abx ?? Vanco/zosyn 10 Anasarca with edema BLE , neg for DVT with hypoalbunemia Plan - Stat UA, strict i and o - Renal U/S - Hold vanco/ switch zosyn due to renal toxicity - avoid fluids due to ansarca - strict I and o - Still persistent leukocyotosis> ID consult - labs am Result Diagram: 07/04/18 0448 07/04/18 0448 Results 24hrs Laboratory Tests Test 07/03/18 16:59 07/03/18 20:36 07/04/18 04:48 07/04/18 08:00 Bedside Glucose 118 112 86 White Blood Count 19.3 H Red Blood Count 3.13 L Hemoglobin 8.8 L Hematocrit 26.4 L Mean Corpuscular 84.3 Volume Mean Corpuscular 28.1 L Hemoglobin Mean Corpuscular 33.3 Hemoglobin Concent Red Cell 23.6 H Distribution Width Platelet Count 401 Mean Platelet Volume 9.9 Immature 1.100 H Granulocytes % Neutrophils % 79.8 H Lymphocytes % 13.7 L Monocytes % 5.2 Eosinophils % 0.0 Basophils % 0.2 Nucleated Red Blood 0.2 H Cells % Immature 0.210 H Granulocytes # Neutrophils # 15.4 H Lymphocytes # 2.7 Monocytes # 1.0 H Eosinophils # 0.0 Basophils # 0.0 Nucleated Red Blood 0.0 Cells # Sodium Level 135 Potassium Level 3.8 Chloride Level 109 Carbon Dioxide Level 14 L Anion Gap 12 Blood Urea Nitrogen 31 H Creatinine 2.54 H Est Glomerular 26 L Filtrat Rate mL/min Glucose Level 87 Calcium Level 7.7 L Total Bilirubin 1.1 Direct Bilirubin 0.70 H Indirect Bilirubin 0.4 Aspartate Amino 231 H Transf (AST/SGOT) Alanine 27 Aminotransferase (AL T/SGPT) Alkaline Phosphatase 557 H Total Protein 6.1 Albumin 2.5 L Globulin 3.60 H Albumin/Globulin 0.69 Ratio Test 07/04/18 12:26 Bedside Glucose 104 Subjective 24 Hr Interval Summary Free Text/Dictation Still has persistent BLE edema pt says no changes in UOP Cr worse today Exam/Review of Systems Vital Signs Vitals Vital Signs Date Temp Pulse Resp B/P (MAP) Pulse Ox O2 O2 Flow FiO2 Time Delivery Rate 07/04/18 97.8 77 17 105/77 100 Room Air 08:29 (86) Intake and Output 07/03/18 07/03/18 07/04/18 1515:00 23:00 07:00 IntakeIntake Total 50 ml 1900 ml 1060 ml BalanceBalance 50 ml 1900 ml 1060 ml Exam Scleral icterus Respiratory: clear to auscultation Cardiovascular: regular rate and rhythm Gastrointestinal: soft, bowel sounds (+) Extremities: edema Medications Medications Current Medications Sodium Chloride 1,000 ml @ 30 mls/hr Q24H IV Last administered on 07/03/18at 03:15; Admin Dose 30 MLS/HR; Start 07/01/18 at 03:17 IV Flush (NS 3 ml) 3 ml PER PROTOCOL IV ; Start 07/01/18 at 03:30 Acetaminophen (Tylenol Tab) 650 mg Q6H PRN PO PAIN LEVEL 1-3 OR FEVER Last administered on 07/03/18at 23:24; Admin Dose 650 MG; Start 07/01/18 at 03:30 Ondansetron HCl (Zofran Inj) 4 mg Q4 PRN IV NAUSEA AND/OR VOMITING; Start 07/01/18 at 03:30 Vancomycin HCl (Vanco Iv Per Pharmacy) VANCOMYCIN PER PHARMACY PER PROTOCOL XX ; Start 07/01/18 at 04:00 Pantoprazole (Protonix Iv) 40 mg BID@06,18 IV Last administered on 07/04/18at 05:39; Admin Dose 40 MG; Start 07/01/18 at 18:00 Miscellaneous Information 1 ea NOTE XX ; Start 07/01/18 at 16:30 Glucose (Glutose) 15 gm Q15M PRN PO DECREASED GLUCOSE; Start 07/01/18 at 16:30 Glucose (Glutose) 22.5 gm Q15M PRN PO DECREASED GLUCOSE; Start 07/01/18 at 16:30 Dextrose (D50w Syringe) 25 ml Q15M PRN IV DECREASED GLUCOSE; Start 07/01/18 at 16:30 Dextrose (D50w Syringe) 50 ml Q15M PRN IV DECREASED GLUCOSE; Start 07/01/18 at 16:30 Glucagon (Glucagen) 1 mg Q15M PRN IM DECREASED GLUCOSE; Start 07/01/18 at 16:30 Glucose (Glutose) 15 gm Q15M PRN BUCCAL DECREASED GLUCOSE; Start 07/01/18 at 16:30 Vancomycin HCl 250 ml @ 125 mls/hr Q24H IVPB Last administered on 07/03/18at 20:38; Admin Dose 125 MLS/HR; Start 07/02/18 at 21:00 Insulin Aspart (Novolog Insulin Pen) NOVOLOG *MILD* ALGORITHM WITH MEALS BEDTIM E SC ; Start 07/02/18 at 21:00 Piperacillin Sod/ Tazobactam Sod 50 ml @ 100 mls/hr Q6 IVPB Last administered on 07/04/18at 12:22; Admin Dose 100 MLS/HR; Start 07/03/18 at 12:00 MARYCARMEN DE LA CRUZ MD Jul 04, 2018 13:33
[2018-07-04 15:02] VITALS: BP 124/65; PULSE 86; RESP 17
[2018-07-04] MEDS: CEFEPIME 1GM/50 ML (PMX) 50 ML IVPB SCH (16:10)
[2018-07-04] MEDS: ACETAMINOPHEN 325 MG TAB PO PRN (16:10)
--- NOTE | 2018-07-04 16:21 | CONS ---
DATE OF ADMISSION: 07/01/2018 DATE OF CONSULTATION: 07/04/2018 TYPE OF CONSULTATION: Infectious disease. REASON FOR CONSULTATION: Antibiotic management. HISTORY OF PRESENT ILLNESS: Aditya Peck is a 63-year-old male admitted on 06/30/2018 with a histo ry of gastric carcinoma and presents to the emergency room with epigastric abdominal pain. The patient's problems include: 1. Adult-onset diabetes mellitus. 2. Dyslipidemia. 3. Gastric carcinoma on chemotherapy since 03/2018. Last chemotherapy was about 1 week ago. 4. History of cholangitis. 5. Hypertension. 6. Hepatitis C. 7. Status post cholecystectomy. 8. Left inguinal herniorrhaphy. 9. ERCP with stent placement and removal. The patient has chronic abdominal pain, constipation, dysuria, nausea, vomiting and subjective fevers for the last 3 days. He is taking morphine for pain, but it is not controlling his pain. He has bi lateral leg edema for the past 11 days with intermittent dyspnea. PAST MEDICAL HISTORY: Essentially as outlined. PAST SURGICAL HISTORY: History also as outlined. He is status post laparoscopic cholecystectomy, en doscopy, left hernia repair. FAMILY HISTORY: Noncontributory. SOCIAL HISTORY: He does not smoke, drink or abuse drugs. ANCILLARY LABORATORY DATA: On admission, his white count was 20.2, H and H of 8.8 and 27, platelet c ount 485,000. BUN and creatinine is 21/1.19, glucose of 117. His urine was negative for nitrite and leukocyte esterase. HOSPITAL COURSE: The patient was started on vancomycin and Zosyn. Chest x-ray on admission showed m inimal atelectasis at the left lung base, no focal airspace opacity, pleural effusion or pneumothorax . Liver ultrasound: Liver metastasis, small amount of ascites, dilated pancreatic duct. A CT scan of the abdomen and pelvis on 07/01/2018 showed innumerable poorly defined hypodense masses throughout the liver compatible with metastatic disease, new compared with 09/29/2017, status post cholecystect sarah with moderate biliary duct dilatation and pneumobilia, increased compared with prior study. Ther e is interval biliary stent. The patient has mild abdominal pelvic free fluid. The lingula has a 6 mm nodule, unchanged, vascular calcifications reflective of atherosclerosis, bilateral pars defects o f L5 with grade II anterolisthesis of L5 on S1, unchanged. A DVT study is negative. The patient was seen by numerous consultants. He was seen by Lee Lucio who noted 63-year-old with metastatic cholangiocarcinoma on chemotherapy with gemcitabine and cisplatin, status post cycle 4 about 2 weeks ago. His current CT scan shows multiple liver lesions. I will recommend continuation of current sup port. White count of 20.2. Dr. Hu saw the patient on 07/01/2018. He noted sepsis with severe l actic acidosis probably due to cholecystitis. is positive for abdominal right upper quadrant p ain status post stent placement in 09/2017. Pancreatic duct dilatation noted on ultrasound. White c ount was 20.2. The patient is on vancomycin and Zosyn on the 07/01/2018. On the 07/02/2018, white c ount was unchanged. A procedure was done, ERCP and EGD, removal of metallic stent, blockage of the s econd part of the duodenum most probably from tumor, biopsies from possible infiltration and second p art of the duodenum on the medial wall. Three biopsies were taken. The patient was started on a jamil ar liquid diet. On the 07/03/2018, Dr. Hu noted removal of old clogged stent, large sphincteroto my done, multiple small stones removed, fragments removed, self expanding metallic stent deployed wit h successful hemostasis and excellent drainage. There was a lesion distal to the ampulla 1 cm in karthik meter. The exact significance of which is unclear, may need biopsy in the future, status post remova l of the metallic biliary stent, obstruction of the second part of the duodenum most probably from in filtrating tumor. White count was 18.6 from 07/03/2018. BUN and creatinine of 32 and 2.2. Today, t he patient was seen by Dr. Lucio. Once he is stable, I recommend to follow up with Dr. Lawson who is his primary oncologist for cholangitis and suspected UTI on antibiotics. White count of 19.3 , H and H 8.8 and 26.4, platelet count 41,000. BUN and creatinine 31/2.54, glucose of 87. He was se en by Dr. Wu. BUN and creatinine was 31/2.54. White count of 19.3. Because of persistent leuko cytosis, infectious disease consult was obtained. PAST MEDICAL HISTORY: Operations as outlined. FAMILY HISTORY: Noncontributory. MEDICATIONS: He does not smoke, drink or abuse drugs. ALLERGIES: NONE TO PENICILLIN, SULFA OR FOODS. MEDICATIONS: Per chart. REVIEW OF SYSTEMS: Noncontributory. PHYSICAL EXAMINATION: GENERAL: The patient is an elderly ill-appearing male who is awake, responsive, in no acute distress . VITAL SIGNS: Stable. He is afebrile. SKIN: Without generalized rash. HEENT: Within normal limits. NECK: Supple. LYMPH NODES: None palpable. CHEST: Decreased breath sounds at the bases. HEART: Without murmur or gallop. ABDOMEN: Soft, somewhat tender, nondistended without organosplenomegaly or masses. EXTREMITIES: Without cyanosis, clubbing. He has mild edema. RECTAL AND GENITAL: Deferred. NEUROLOGIC: No focal neurological abnormality. IMPRESSION AND PLAN: The patient has ongoing evidence of cholangitis from his recent episode. He esparza s persistent leukocytosis. His microbiology shows Enterococcus in the urine from 06/30/2018, sensiti ve to everything. His Clostridium difficile is negative. Blood cultures were done on 06/30/2018. T hey are negative as well. He is currently on cefepime changed from vancomycin and Zosyn. We will ob serve him on the cefepime for the time being. I may want to put him on meropenem. I will dictate my findings to Dr. Wu and to the aforementioned physicians. We will continue to follow in his care . Dictated By: CHRISTIAN SCHMIDT MD, JD/NTS Conf#: [id number] DID#: [id number] CC: EDDIE ANGLIN MD; JUVENAL HU MD;*End*
--- NOTE | 2018-07-04 18:09 | NUR ---
RN NOTES Patient remained alert and oriented, no significant change noted all throughout the shift. patient was medicated with Tylenol 650 mg tablet x 1 for stomach pain ad was relieved after. Patient was also seen by Dr Wu, MD was made aware that patient is still noted with edema on bilateral upper and lower extremity. Dr Wu was also made aware that patient's creatinine level is 2.54. Md then discontinued both Vanco and Zosyn IV and was replaced with Cefepime 1 gm IV every 24 hours, urinalysis , kidney ultrasound and labs in AM. Patient's blood glucose remained stable. Kept safe and comfortable. Will endorse to next shift for continuity of care.
[2018-07-04 20:14] VITALS: BP 115/68; PULSE 83; RESP 18
[2018-07-04] MEDS: NA BICARBONATE 650 MG TAB PO SCH (20:27)
[2018-07-05] MEDS: ACETAMINOPHEN 325 MG TAB PO PRN (01:41)
[2018-07-05 02:22] VITALS: BP 121/79; PULSE 90; RESP 18
[2018-07-05] MEDS: PANTOPRAZOLE 40 MG INJ IV SCH ×2 (05:31→17:00)
--- NOTE | 2018-07-05 05:45 | NUR ---
Patient is able to verbalize needs. Tylenol administered x1 for pain. Bladder scanned x1, 88ml showed. BG WNL, no insulin coverage needed. No s/s of hypo/hyperglycemia noted. Fall precautions in place, call light within reach. at bedside. Will continue to monitor for the remaining of the shift.
[2018-07-05 08:00] VITALS: BP 121/55; PULSE 77; RESP 18
[2018-07-05] MEDS: INSULIN ASPART [NOVOLOG] 3 ML PEN SC SCH ×4 (08:00→20:52)
[2018-07-05] MEDS: NA BICARBONATE 650 MG TAB PO SCH ×3 (08:14→20:52)
--- NOTE | 2018-07-05 09:19 | NUR ---
RN NOTES Patient complained of abdominal pain that is not relieved by Tylenol 650 mg tablet, Paged Dr Wu 2x, spoke with Yeni in the office, awaiting for the call back. Will continue to monitor patient.
--- NOTE | 2018-07-05 09:20 | NUR ---
RN NOTES Patient was just seen by MAKSIM Perez, was made aware of the abdominal pain, gave an order for labs in am, patient was also placed on NPO, NS 1000 ml at 40ml/hr and morphine every [address] Wu then called back was notified about the WBC level of 25.0 and the abdominal pain, MD change the morphine order to every 4 hours as needed. Will continue to monitor patient and carry out order.
[2018-07-05] MEDS ORDERED: morphine 2 MG INJ IV PRN (09:30)
[2018-07-05] MEDS ORDERED: SOD CHLORIDE 0.9% 1,000 ML IV SCH (09:30)
--- NOTE | 2018-07-05 09:31 | PN ---
Date/Time of Note Date/Time of Note DATE: 07/05/18 TIME: 09:11 Assessment/Plan VTE Prophylaxis Risk score (from Ns)>0 risk: 7 SCD applied (from Ns): Yes Pharmacological prophylaxis: NA/contraindicated Pharm contraindication: liver dx Lines/Catheters [facility]from [facility] Urinary Cath still in place: No Assessment/Plan Hospital Course 63 yo male with gastric cancer presents with worsening epigastric pain 1. Abdominal pain secondary to pancreatitis 2. Pancreatitis spontaneous - lipase 19,127 3. 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 Pancreatic ductal dilatation noted on US secondary to tumor 5. Abnormal LFTs 6. Mod free fluid and diffuse intra abdominal stranding seen in CT scan 7. Anemia, chronic -FOB neg, Iron and TIBC low 8. H/O Hep C 9. H/O cholecystectomy for blocked cystic duct 10. Status post ERCP and removal of the metallic biliary stent 07/02 11. Obstruction of the second part of the duodenum most probably from the infiltrating tumor 12. Bilateral pedal edema Plan: Lipid waterproof bag sewer LFTs, amylase, lipase NPO, IVF Pain management, morphine 2 mg q 6 hours prn pain Recommend iron supplements Continue with abx PPI for GI prophylaxis Pt examined and plan of care discussed iw Dr. Hu Result Diagram: 07/05/1842707/05/187 Results 24hrs Laboratory Tests Test 07/04/18 12:26 07/04/18 16:00 07/04/18 17:28 07/04/18 17:30 Bedside Glucose 104 114 Iron Level 31 L Total Iron 158 L Binding Capacity Percent Iron 20 L Saturation Ferritin 1610.0 H Vancomycin Level 19.5 Trough Urine Color YELLOW Urine Clarity SLIGHTLY CLOUDY A Urine pH 5.0 Urine Specific 1.016 [place] Urine Ketones NEGATIVE Urine Nitrite NEGATIVE Urine Bilirubin NEGATIVE Urine NEGATIVE Urobilinogen Urine Leukocyte NEGATIVE Esterase Urine Microscopic 1 RBC Urine Microscopic 3 WBC Urine Amorphous MODERATE Crystals Urine Bacteria FEW A Urine Mucus FEW A Urine Hemoglobin 3+ H Urine Glucose NEGATIVE Urine Total NEGATIVE Protein Test 07/04/18 20:26 07/05/18 04:27 07/05/18 04:28 07/05/18 08:12 Bedside Glucose 109 95 Sodium Level 137 Potassium Level 3.5 Chloride Level 109 Carbon Dioxide 16 L Level Anion Gap 12 Blood Urea 28 H Nitrogen Creatinine 2.38 H Est Glomerular 28 L Filtrat Rate mL/min Glucose Level 99 Calcium Level 7.9 L Phosphorus Level 3.7 Magnesium Level 2.1 Ferritin Pending Total Bilirubin 1.1 Direct Bilirubin 0.70 H Indirect 0.4 Bilirubin Aspartate Amino 221 H Transf (AST/SGOT) Alanine 25 Aminotransferase (ALT/SGPT) Alkaline 583 H Phosphatase Total Protein 6.1 Albumin 2.6 L Globulin 3.50 H Albumin/Globulin 0.74 Ratio Lipase 32541 H Vitamin B12 Level > 1000 H Folate 5.8 White Blood Count 25.0 #H Red Blood Count 2.93 L Hemoglobin 8.1 L Hematocrit 25.8 L Mean Corpuscular 88.1 Volume Mean Corpuscular 27.6 L Hemoglobin Mean Corpuscular 31.4 L Hemoglobin Concen t Red Cell 23.9 H Distribution Width Platelet Count 432 H Mean Platelet 10.2 Volume Immature 1.000 H Granulocytes % Neutrophils % 88.5 H Lymphocytes % 5.5 L Monocytes % 4.8 Eosinophils % 0.0 Basophils % 0.2 Nucleated Red 0.0 Blood Cells % Immature 0.260 H Granulocytes # Neutrophils # 22.1 H Lymphocytes # 1.4 Monocytes # 1.2 H Eosinophils # 0.0 Basophils # 0.1 Nucleated Red 0.0 Blood Cells # Absolute 0.055 Reticulocyte Count Percent 1.9 H Reticulocyte Count Subjective 24 Hr Interval Summary Free Text/Dictation Pt is having severe abd pain mid abdomen. Lipase is elevated. No n/v Exam/Review of Systems Vital Signs Vitals Vital Signs Date Temp Pulse Resp B/P (MAP) Pulse Ox O2 O2 Flow FiO2 Time Delivery Rate 07/05/18 97.8 77 18 121/55 100 Room Air 08:00 (77) Intake and Output 07/04/18 07/04/18 07/05/18 1515:00 23:00 07:00 IntakeIntake Total 570 ml 490 ml OutputOutput Total 120 ml 100 ml BalanceBalance 570 ml 370 ml -100 ml Exam Constitutional: alert, oriented Psych: no complaints Head: normocephalic Eyes: PERRL ENMT: mucosa pink and moist Respiratory: clear to auscultation Cardiovascular: regular rate and rhythm Gastrointestinal: soft, tender Musculoskeletal: nl gait and stance Extremities: normal pulses Neurological: nl mental status Medications Medications Current Medications IV Flush (NS 3 ml) 3 ml PER PROTOCOL IV ; Start 07/01/18 at 03:30 Acetaminophen (Tylenol Tab) 650 mg Q6H PRN PO PAIN LEVEL 1-3 OR FEVER Last administered on 07/05/18at 01:41; Admin Dose 650 MG; Start 07/01/18 at 03:30 Ondansetron HCl (Zofran Inj) 4 mg Q4 PRN IV NAUSEA AND/OR VOMITING; Start 07/01/18 at 03:30 Pantoprazole (Protonix Iv) 40 mg BID@06,18 IV Last administered on 07/05/18at 05:31; Admin Dose 40 MG; Start 07/01/18 at 18:00 Miscellaneous Information 1 ea NOTE XX ; Start 07/01/18 at 16:30 Glucose (Glutose) 15 gm Q15M PRN PO DECREASED GLUCOSE; Start 07/01/18 at 16:30 Glucose (Glutose) 22.5 gm Q15M PRN PO DECREASED GLUCOSE; Start 07/01/18 at 16 :30 Dextrose (D50w Syringe) 25 ml Q15M PRN IV DECREASED GLUCOSE; Start 07/01/18 at 16:30 Dextrose (D50w Syringe) 50 ml Q15M PRN IV DECREASED GLUCOSE; Start 07/01/18 at 16:30 Glucagon (Glucagen) 1 mg Q15M PRN IM DECREASED GLUCOSE; Start 07/01/18 at 16:30 Glucose (Glutose) 15 gm Q15M PRN BUCCAL DECREASED GLUCOSE; Start 07/01/18 at 16:30 Insulin Aspart (Novolog Insulin Pen) NOVOLOG *MILD* ALGORITHM WITH MEALS BEDTIME SC ; Start 07/02/18 at 21:00 Cefepime HCl 50 ml @ 100 mls/hr Q24H IVPB Last administered on 07/04/18at 16:10; Admin Dose 100 MLS/HR; Start 07/04/18 at 14:00 Sodium Bicarbonate (Sodium Bicarbonate Tab) 650 mg TID PO Last administered on 07/05/18at 08:14; Admin Dose 650 MG; Start 07/04/18 at 21:00 ELVIA PALACIOS Jul 05, 2018 09:24
[2018-07-05] MEDS: morphine SULFATE/PF (2 MG/2 ML) SYG IV PRN ×3 (09:53→18:18)
[2018-07-05] MEDS ORDERED: DEXTROSE 5%-0.45% NACL 1,000 ML IV SCH (13:00)
--- NOTE | 2018-07-05 13:05 | CONS ---
Date/Time of Note Date/Time of Note DATE: 07/05/18 TIME: 12:57 Assessment/Plan Assessment/Plan Assessment/Plan 63 yo male with met cholangiocarcinoma on chemo with gemcitabine and cisplatin s/p cycle 4 about 2 weeks ago # 1 Cholangiocarcinoma -06/15/18 patients latest chemotherapy - Cholangiocarcinoma with new metastasis to liver noted on CT scan. - Recommended out patient PET CT once pancreatitis resolves and patient is discharged; will need to compare PET SCAN to scan done 03/03/2018 to assess how patent is responding to chemotherapy - Continue supportive care per PMD . - 07/02/18- sp ERCP and removal of stent .Noted during ERCP- obstruction of 2nd past of duodenum 2/2 to inflammation - once he is stable recommend f/u with Dr Lawson who is his primary oncologist. # 2 Pancreatitis-Lipase elevated 81202 today - NPO - management per PMD # 3 Anemia - Anemia panel labs are consistent with chronic inflammation and mild iron deficiency Anemia - will start on Ferrlecit 125 mg iv daily x 3 days - fu am labs # 4 Sepsis - 07/01/18 Initial Lactic acid 2.6 to latest 2.2 - cont. antibiotics per ID # 5 Acute Kidney Injury- Cr 2.38 - possibly 2/2 to antibiotics. - 05/09/18- Cr - 0.99 wnl - management per nephrology A total of 50 minutes of face to face time was spent speaking with the patient and his sister of which greater than 50% was spent in counseling and coordinati on of care and the detailed question and answer session. Dw staff Patient seen in collaboration with Dr Hernandez Result Diagram: 07/05/18 0428 07/05/18 0427 Results 24hrs Laboratory Tests Test 07/04/18 16:00 07/04/18 17:28 07/04/18 17:30 07/04/18 20:26 Iron Level 31 L Total Iron 158 L Binding Capacity Percent Iron 20 L Saturation Ferritin 1610.0 H Vancomycin Level 19.5 Trough Bedside Glucose 114 109 Urine Color YELLOW Urine Clarity SLIGHTLY CLOUDY A Urine pH 5.0 Urine Specific 1.016 [place] Urine Ketones NEGATIVE Urine Nitrite NEGATIVE Urine Bilirubin NEGATIVE Urine NEGATIVE Urobilinogen Urine Leukocyte NEGATIVE Esterase Urine Microscopic 1 RBC Urine Microscopic 3 WBC Urine Amorphous MODERATE Crystals Urine Bacteria FEW A Urine Mucus FEW A Urine Hemoglobin 3+ H Urine Glucose NEGATIVE Urine Total NEGATIVE Protein Test 07/05/18 04:27 07/05/18 04:28 07/05/18 08:12 07/05/18 12:31 Sodium Level 137 Potassium Level 3.5 Chloride Level 109 Carbon Dioxide 16 L Level Anion Gap 12 Blood Urea 28 H Nitrogen Creatinine 2.38 H Est Glomerular 28 L Filtrat Rate mL/min Glucose Level 99 Calcium Level 7.9 L Phosphorus Level 3.7 Magnesium Level 2.1 Ferritin 1780.0 H Total Bilirubin 1.1 Direct Bilirubin 0.70 H Indirect 0.4 Bilirubin Aspartate Amino 221 H Transf (AST/SGOT) Alanine 25 Aminotransferase (ALT/SGPT) Alkaline 583 H Phosphatase Total Protein 6.1 Albumin 2.6 L Globulin 3.50 H Albumin/Globulin 0.74 Ratio Lipase 21512 H Vitamin B12 Level > 1000 H Folate 5.8 White Blood Count 25.0 #H Red Blood Count 2.93 L Hemoglobin 8.1 L Hematocrit 25.8 L Mean Corpuscular 88.1 Volume Mean Corpuscular 27.6 L Hemoglobin Mean Corpuscular 31.4 L Hemoglobin Concen t Red Cell 23.9 H Distribution Width Platelet Count 432 H Mean Platelet 10.2 Volume Immature 1.000 H Granulocytes % Neutrophils % 88.5 H Lymphocytes % 5.5 L Monocytes % 4.8 Eosinophils % 0.0 Basophils % 0.2 Nucleated Red 0.0 Blood Cells % Immature 0.260 H Granulocytes # Neutrophils # 22.1 H Lymphocytes # 1.4 Monocytes # 1.2 H Eosinophils # 0.0 Basophils # 0.1 Nucleated Red 0.0 Blood Cells # Absolute 0.055 Reticulocyte Count Percent 1.9 H Reticulocyte Count Bedside Glucose 95 80 Consultation Date/Type/Reason Admit Date/Time Jul 01, 2018 at 3:27 am Initial Consult Date Type of Consult ONCOLOGY Reason for Consultation CHOLANGIOCARCINOMA 24 HR Interval Summary Free Text/Dictation c/o abdominal pain sister at bed side- all Qs answered no new events reported last night Detailed Summary Eyes: no complaints ENT: no complaints Respiratory: no complaints Cardiovascular: no complaints Gastrointestinal: pain Genitourinary: no complaints Musculoskeletal: no complaints Skin: no complaints Neurologic: no complaints Endocrine: no complaints Psychological: nl mood/affect Exam/Review of Systems Vital Signs Vitals Vital Signs Date Temp Pulse Resp B/P (MAP) Pulse Ox O2 O2 Flow FiO2 Time Delivery Rate 07/05/18 97.8 77 18 121/55 100 Room Air 08:00 (77) Intake and Output 07/04/18 07/04/18 07/05/18 1515:00 23:00 07:00 IntakeIntake Total 570 ml 490 ml OutputOutput Total 120 ml 100 ml BalanceBalance 570 ml 370 ml -100 ml Exam Constitutional: alert, well developed Psych: nl mood/affect Head: atraumatic Eyes: nl conjunctiva, EOMI ENMT: nl external ears & nose Neck: non-tender Respiratory: clear to auscultation (bilaterally) Cardiovascular: nl pulses, other (s1s2) Gastrointestinal: soft, other (RUQ- ) Musculoskeletal: nl extremities to inspection Extremities: normal pulses Neurological: nl speech, other (ALER/AWAKE) Skin: nl turgor Medications Medications Current Medications IV Flush (NS 3 ml) 3 ml PER PROTOCOL IV ; Start 07/01/18 at 03:30 Acetaminophen (Tylenol Tab) 650 mg Q6H PRN PO PAIN LEVEL 1-3 OR FEVER Last administered on 07/05/18at 01:41; Admin Dose 650 MG; Start 07/01/18 at 03:30 Ondansetron HCl (Zofran Inj) 4 mg Q4 PRN IV NAUSEA AND/OR VOMITING; Start 07/01/18 at 03:30 Pantoprazole (Protonix Iv) 40 mg BID@06,18 IV Last administered on 07/05/18at 05:31; Admin Dose 40 MG; Start 07/01/18 at 18:00 Miscellaneous Information 1 ea NOTE XX ; Start 07/01/18 at 16:30 Glucose (Glutose) 15 gm Q15M PRN PO DECREASED GLUCOSE; Start 07/01/18 at 16:30 Glucose (Glutose) 22.5 gm Q15M PRN PO DECREASED GLUCOSE; Start 07/01/18 at 16:30 Dextrose (D50w Syringe) 25 ml Q15M PRN IV DECREASED GLUCOSE; Start 07/01/18 at 16:30 Dextrose (D50w Syringe) 50 ml Q15M PRN IV DECREASED GLUCOSE; Start 07/01/18 at 16:30 Glucagon (Glucagen) 1 mg Q15M PRN IM DECREASED GLUCOSE; Start 07/01/18 at 16:30 Glucose (Glutose) 15 gm Q15M PRN BUCCAL DECREASED GLUCOSE; Start 07/01/18 at 16:30 Cefepime HCl 50 ml @ 100 mls/hr Q24H IVPB Last administered on 07/04/18at 16:10; Admin Dose 100 MLS/HR; Start 07/04/18 at 14:00 Sodium Bicarbonate (Sodium Bicarbonate Tab) 650 mg TID PO Last administered on 07/05/18at 12:32; Admin Dose 650 MG; Start 07/04/18 at 21:00 Morphine Sulfate (morphine SULFATE (PF)) 2 mg Q4H PRN IV SEVERE PAIN LEVEL 7-10 Last administered on 07/05/18at 09:53; Admin Dose 2 MG; Start 07/05/18 at 10:00 Insulin Aspart (Novolog Insulin Pen) NOVOLOG *MILD* ALGORI... Q4 SC ; Start 07/05/18 at 13:00 Dextrose/Sodium Chloride 1,000 ml @ 40 mls/hr Q24H IV Last administered on 07/05/18at 12:53; Admin Dose 40 MLS/HR; Start 07/05/18 at 13:00 RANDALL APONTE Jul 05, 2018 1:05 pm
[2018-07-05] MEDS: CEFEPIME 1GM/50 ML (PMX) 50 ML IVPB SCH (14:09)
[2018-07-05 14:47] VITALS: BP 127/63; PULSE 92; RESP 18
--- NOTE | 2018-07-05 14:50 | PN ---
Date/Time of Note Date/Time of Note DATE: 07/05/18 TIME: 14:46 Assessment/Plan VTE [place] [facility] [place]: 8 SCD applied (from Ns): Yes Pharmacological prophylaxis: NA/contraindicated Pharm contraindication: low risk/ambulating Lines/Catheters IV Catheter Type (from [facility]): Saline Lock Urinary Cath still in place: No Assessment/Plan Hospital Course 63 y/o with 1 Sepsis with severe lactic acidosis probably due to cholangittis S.p stent placed in 09/2017 s/p ERCP with removal, still with persistent leukoctytosis, enterococcus in urine now with pancreatitis ? s/p ERCP?? 2. 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 Chemotherapy ended last week, started March 2018 3. Pancreatic ductal dilatation noted on US 4. Abnormal LFTs 5. Mod free fluid and diffuse intra abdominal stranding seen in CT scan 6. Anemia, chronic 7. H/O Hep C 8. H/O cholecystectomy for blocked cystic duct 9 JULIO i with worseinng Creatine ? ATN due to abx ?? Vanco/zosyn 10 Anasarca with edema BLE , neg for DVT with hypoalbunemia 11 Persistent leukocytosis to 25 Plan - Cr improving - Pancreatitis with elevated lipase > gentle fluids due to anarsca - cw iv cefepime ? meropenam - NPO, iv fluids - strict I and o - Renal U/S neg for hydro - fu ID and GI recs - labs am Result Diagram: 07/05/18 0428 07/05/18 0427 Results 24hrs Laboratory Tests Test 07/04/18 16:00 07/04/18 17:28 07/04/18 17:30 07/04/18 20:26 Iron Level 31 L Total Iron 158 L Binding Capacity Percent Iron 20 L Saturation Ferritin 1610.0 H Vancomycin Level 19.5 Trough Bedside Glucose 114 109 Urine Color YELLOW Urine Clarity SLIGHTLY CLOUDY A Urine pH 5.0 Urine Specific 1.016 [place] Urine Ketones NEGATIVE Urine Nitrite NEGATIVE Urine Bilirubin NEGATIVE Urine NEGATIVE Urobilinogen Urine Leukocyte NEGATIVE Esterase Urine Microscopic 1 RBC Urine Microscopic 3 WBC Urine Amorphous MODERATE Crystals Urine Bacteria FEW A Urine Mucus FEW A Urine Hemoglobin 3+ H Urine Glucose NEGATIVE Urine Total NEGATIVE Protein Test 07/05/18 04:27 07/05/18 04:28 07/05/18 08:12 07/05/18 12:31 Sodium Level 137 Potassium Level 3.5 Chloride Level 109 Carbon Dioxide 16 L Level Anion Gap 12 Blood Urea 28 H Nitrogen Creatinine 2.38 H Est Glomerular 28 L Filtrat Rate mL/min Glucose Level 99 Calcium Level 7.9 L Phosphorus Level 3.7 Magnesium Level 2.1 Ferritin 1780.0 H Total Bilirubin 1.1 Direct Bilirubin 0.70 H Indirect 0.4 Bilirubin Aspartate Amino 221 H Transf (AST/SGOT) Alanine 25 Aminotransferase (ALT/SGPT) Alkaline 583 H Phosphatase Total Protein 6.1 Albumin 2.6 L Globulin 3.50 H Albumin/Globulin 0.74 Ratio Lipase 68494 H Vitamin B12 Level > 1000 H Folate 5.8 White Blood Count 25.0 #H Red Blood Count 2.93 L Hemoglobin 8.1 L Hematocrit 25.8 L Mean Corpuscular 88.1 Volume Mean Corpuscular 27.6 L Hemoglobin Mean Corpuscular 31.4 L Hemoglobin Concen t Red Cell 23.9 H Distribution Width Platelet Count 432 H Mean Platelet 10.2 Volume Immature 1.000 H Granulocytes % Neutrophils % 88.5 H Lymphocytes % 5.5 L Monocytes % 4.8 Eosinophils % 0.0 Basophils % 0.2 Nucleated Red 0.0 Blood Cells % Immature 0.260 H Granulocytes # Neutrophils # 22.1 H Lymphocytes # 1.4 Monocytes # 1.2 H Eosinophils # 0.0 Basophils # 0.1 Nucleated Red 0.0 Blood Cells # Absolute 0.055 Reticulocyte Count Percent 1.9 H Reticulocyte Count Bedside Glucose 95 80 Subjective 24 Hr Interval Summary Free Text/Dictation Pt was having abdominal pain , lipase elevated WBC elevated 25 Exam/Review of Systems Vital Signs Vitals Vital Signs Date Temp Pulse Resp B/P (MAP) Pulse Ox O2 O2 Flow FiO2 Time Delivery Rate 07/05/18 97.8 77 18 121/55 100 Room Air 08:00 (77) Intake and Output 07/04/18 07/04/18 07/05/18 1515:00 23:00 07:00 IntakeIntake Total 570 ml 490 ml OutputOutput Total 120 ml 100 ml BalanceBalance 570 ml 370 ml -100 ml Exam Scleral icterus Respiratory: clear to auscultation Cardiovascular: regular rate and rhythm Gastrointestinal: soft, bowel sounds (+) TTP Extremities: edema Medications Medications Current Medications IV Flush (NS 3 ml) 3 ml PER PROTOCOL IV ; Start 07/01/18 at 03:30 Acetaminophen (Tylenol Tab) 650 mg Q6H PRN PO PAIN LEVEL 1-3 OR FEVER Last administered on 07/05/18at 01:41; Admin Dose 650 MG; Start 07/01/18 at 03:30 Ondansetron HCl (Zofran Inj) 4 mg Q4 PRN IV NAUSEA AND/OR VOMITING; Start 07/01/18 at 03:30 Pantoprazole (Protonix Iv) 40 mg BID@06,18 IV Last administered on 07/05/18at 05:31; Admin Dose 40 MG; Start 07/01/18 at 18:00 Miscellaneous Information 1 ea NOTE XX ; Start 07/01/18 at 16:30 Glucose (Glutose) 15 gm Q15M PRN PO DECREASED GLUCOSE; Start 07/01/18 at 16:30 Glucose (Glutose) 22.5 gm Q15M PRN PO DECREASED GLUCOSE; Start 07/01/18 at 16:30 Dextrose (D50w Syringe) 25 ml Q15M PRN IV DECREASED GLUCOSE; Start 07/01/18 at 16:30 Dextrose (D50w Syringe) 50 ml Q15M PRN IV DECREASED GLUCOSE; Start 07/01/18 at 16:30 Glucagon (Glucagen) 1 mg Q15M PRN IM DECREASED GLUCOSE; Start 07/01/18 at 16:30 Glucose (Glutose) 15 gm Q15M PRN BUCCAL DECREASED GLUCOSE; Start 07/01/18 at 16:30 Cefepime HCl 50 ml @ 100 mls/hr Q24H IVPB Last administered on 07/05/18at 14:09; Admin Dose 100 MLS/HR; Start 07/04/18 at 14:00 Sodium Bicarbonate (Sodium Bicarbonate Tab) 650 mg TID PO Last administered on 07/05/18at 12:32; Admin Dose 650 MG; Start 07/04/18 at 21:00 Morphine Sulfate (morphine SULFATE (PF)) 2 mg Q4H PRN IV SEVERE PAIN LEVEL 7-10 Last administered on 07/05/18at 14:08; Admin Dose 2 MG; Start 07/05/18 at 10:00 Insulin Aspart (Novolog Insulin Pen) NOVOLOG *MILD* ALGORI... Q4 SC ; Start 07/05/18 at 13:00 Dextrose/Sodium Chloride 1,000 ml @ 40 mls/hr Q24H IV Last administered on 07/05/18at 12:53; Admin Dose 40 MLS/HR; Start 07/05/18 at 13:00 Ferric Sodium Gluconate Complex 125 mg/Sodium Chloride 100 ml @ 100 mls/hr DAILY@1300 IVPB ; Start 07/05/18 at 17:00; Stop 07/07/18 at 13:59 MARYCARMEN DE LA CRUZ MD Jul 05, 2018 14:50
--- NOTE | 2018-07-05 16:14 | CONS ---
Date/Time of Note Date/Time of Note DATE: 07/05/18 TIME: 16:13 Assessment/Plan Assessment/Plan Hospital Course Patient is awake and looks comfortable no fevers overnight WBC today 25 H&H 8.1 and 25.8 platelets 432 neutrophils 88.5 BUN 28 creatinine 2.38. Lipase 62068 Microbiology: Blood cultures since admission negative urine culture grew enterococcus, stool for C. difficile negative Antimicrobials: Patient is on cefepime Physical examination this is a chronically ill-appearing elderly man who is in no distress. Head atraumatic normocephalic sclera nonicteric vehicle mucosa dry neck is supple chest rise symmetrical breath sounds diminished bases. Heart: S1-S2. Abdomen distended, soft, some tenderness on palpation. Extremities without cyanosis. Assessment: 1. Ongoing leukocytosis 2. Cholangiocarcinoma with liver metastases, status post chemotherapy 3. Status post urinary tract infection 4. Acute kidney injury 5. Status post ERCP with removal of the old clogged stent with sphincterotomy 6. Pancreatitis status post ERCP Plan: Patient is clinically stable, renal ultrasound was unremarkable, he is afebrile and being followed by gastroenterology, we will will change antibiotics to meropenem, repeat cultures Result Diagram: 07/05/18 0428 07/05/18 0427 Results 24hrs Laboratory Tests Test 07/04/18 17:28 07/04/18 17:30 07/04/18 20:26 07/05/18 04:27 Bedside Glucose 114 109 Urine Color YELLOW Urine Clarity SLIGHTLY CLOUDY A Urine pH 5.0 Urine Specific 1.016 [place] Urine Ketones NEGATIVE Urine Nitrite NEGATIVE Urine Bilirubin NEGATIVE Urine NEGATIVE Urobilinogen Urine Leukocyte NEGATIVE Esterase Urine Microscopic 1 RBC Urine Microscopic 3 WBC Urine Amorphous MODERATE Crystals Urine Bacteria FEW A Urine Mucus FEW A Urine Hemoglobin 3+ H Urine Glucose NEGATIVE Urine Total NEGATIVE Protein Sodium Level 137 Potassium Level 3.5 Chloride Level 109 Carbon Dioxide 16 L Level Anion Gap 12 Blood Urea 28 H Nitrogen Creatinine 2.38 H Est Glomerular 28 L Filtrat Rate mL/min Glucose Level 99 Calcium Level 7.9 L Phosphorus Level 3.7 Magnesium Level 2.1 Ferritin 1780.0 H Total Bilirubin 1.1 Direct Bilirubin 0.70 H Indirect 0.4 Bilirubin Aspartate Amino 221 H Transf (AST/SGOT) Alanine 25 Aminotransferase (ALT/SGPT) Alkaline 583 H Phosphatase Total Protein 6.1 Albumin 2.6 L Globulin 3.50 H Albumin/Globulin 0.74 Ratio Lipase 15301 H Vitamin B12 Level > 1000 H Folate 5.8 Test 07/05/18 04:28 07/05/18 08:12 07/05/18 12:31 White Blood Count 25.0 #H Red Blood Count 2.93 L Hemoglobin 8.1 L Hematocrit 25.8 L Mean Corpuscular 88.1 Volume Mean Corpuscular 27.6 L Hemoglobin Mean Corpuscular 31.4 L Hemoglobin Concen t Red Cell 23.9 H Distribution Width Platelet Count 432 H Mean Platelet 10.2 Volume Immature 1.000 H Granulocytes % Neutrophils % 88.5 H Lymphocytes % 5.5 L Monocytes % 4.8 Eosinophils % 0.0 Basophils % 0.2 Nucleated Red 0.0 Blood Cells % Immature 0.260 H Granulocytes # Neutrophils # 22.1 H Lymphocytes # 1.4 Monocytes # 1.2 H Eosinophils # 0.0 Basophils # 0.1 Nucleated Red 0.0 Blood Cells # Absolute 0.055 Reticulocyte Count Percent 1.9 H Reticulocyte Count Bedside Glucose 95 80 Consultation Date/Type/Reason Admit Date/Time Jul 01, 2018 at 03:27 Initial Consult Date Type of Consult id Exam/Review of Systems Vital Signs Vitals Vital Signs Date Temp Pulse Resp B/P (MAP) Pulse Ox O2 O2 Flow FiO2 Time Delivery Rate 07/05/18 98.4 92 18 127/63 100 Room Air 14:47 (84) Intake and Output 07/04/18 07/04/18 07/05/18 1515:00 23:00 07:00 IntakeIntake Total 570 ml 490 ml OutputOutput Total 120 ml 100 ml BalanceBalance 570 ml 370 ml -100 ml Medications Medications Current Medications IV Flush (NS 3 ml) 3 ml PER PROTOCOL IV ; Start 07/01/18 at 03:30 Acetaminophen (Tylenol Tab) 650 mg Q6H PRN PO PAIN LEVEL 1-3 OR FEVER Last administered on 07/05/18at 01:41; Admin Dose 650 MG; Start 07/01/18 at 03:30 Ondansetron HCl (Zofran Inj) 4 mg Q4 PRN IV NAUSEA AND/OR VOMITING; Start 07/01/18 at 03:30 Pantoprazole (Protonix Iv) 40 mg BID@06,18 IV Last administered on 07/05/18at 05:31; Admin Dose 40 MG; Start 07/01/18 at 18:00 Miscellaneous Information 1 ea NOTE XX ; Start 07/01/18 at 16:30 Glucose (Glutose) 15 gm Q15M PRN PO DECREASED GLUCOSE; Start 07/01/18 at 16:30 Glucose (Glutose) 22.5 gm Q15M PRN PO DECREASED GLUCOSE; Start 07/01/18 at 16:30 Dextrose (D50w Syringe) 25 ml Q15M PRN IV DECREASED GLUCOSE; Start 07/01/18 at 16:30 Dextrose (D50w Syringe) 50 ml Q15M PRN IV DECREASED GLUCOSE; Start 07/01/18 at 16:30 Glucagon (Glucagen) 1 mg Q15M PRN IM DECREASED GLUCOSE; Start 07/01/18 at 16:30 Glucose (Glutose) 15 gm Q15M PRN BUCCAL DECREASED GLUCOSE; Start 07/01/18 at 16:30 Cefepime HCl 50 ml @ 100 mls/hr Q24H IVPB Last administered on 07/05/18at 14:09; Admin Dose 100 MLS/HR; Start 07/04/18 at 14:00 Sodium Bicarbonate (Sodium Bicarbonate Tab) 650 mg TID PO Last administered on 07/05/18at 12:32; Admin Dose 650 MG; Start 07/04/18 at 21:00 Morphine Sulfate (morphine SULFATE (PF)) 2 mg Q4H PRN IV SEVERE PAIN LEVEL 7-10 Last administered on 07/05/18at 14:08; Admin Dose 2 MG; Start 07/05/18 at 10:00 Insulin Aspart (Novolog Insulin Pen) NOVOLOG *MILD* ALGORI... Q4 SC ; Start 07/05/18 at 13:00 Dextrose/Sodium Chloride 1,000 ml @ 40 mls/hr Q24H IV Last administered on 07/05/18at 12:53; Admin Dose 40 MLS/HR; Start 07/05/18 at 13:00 Ferric Sodium Gluconate Complex 125 mg/Sodium Chloride 100 ml @ 100 mls/hr DAILY@1300 IVPB ; Start 07/05/18 at 17:00; Stop 07/07/18 at 13:59 CLARK HOLT NP Jul 05, 2018 16:14
[2018-07-05] MEDS ORDERED: SOD FERRIC GLUC COMPLX 125 MG in SOD CHLORIDE 0.9% 100 ML IVPB SCH (17:00)
--- NOTE | 2018-07-05 17:42 | NUR ---
RN NOTES Patient remained stable, pain has greatly improved from Morphine [address] Wu also changed the IV fluids to D5 1/2 NS at 40ml/hr. Blood glucose stable at 80 mg/dl. Patient was also seen by MAKSIM Hall in collaboration with Dr Hernandez with order for Ferrlecit IV x 3 days. ID SURGICAL GARMENT ASSEMBLER Brittany also did see the patient with changes made on the antibiotics ordered, Cefepime discontinued and was replaced by Meropenem 500 mg IV every 12 hours, Chest X Ray , Blood culture x 2, and urine culture. Urine collected and was sent to lab. Patient was kept comfortable and safe. Needs attended. Bilateral extremity kept elevated at all times to decrease swelling. Will endorse to shift mechanic for continuity of care.
[2018-07-05 20:30] VITALS: BP 110/71; PULSE 107; RESP 19
[2018-07-05] MEDS: MEROPENEM 500MG/50 ML (PMX) 50 ML IVPB SCH (20:52)
[2018-07-06] MEDS: INSULIN ASPART [NOVOLOG] 3 ML PEN SC SCH ×6 (00:49→21:00)
[2018-07-06 02:19] VITALS: BP 124/71; PULSE 90; RESP 18
[2018-07-06] MEDS: PANTOPRAZOLE 40 MG INJ IV SCH ×2 (05:41→17:30)
--- NOTE | 2018-07-06 06:23 | NUR ---
Patient is able to ambulate with assistance. Denies any pain. Currently on NPO. BG checks Q4H, no coverage needed. No s/s of hypo/hyperglycemia noted. IV antibiotics administered as ordered. Hourly rounding provided. Call light within reach. Will continue to monitor for the remaining of the shift.
[2018-07-06 07:54] VITALS: BP 105/59; PULSE 83; RESP 18
[2018-07-06] MEDS: MEROPENEM 500MG/50 ML (PMX) 50 ML IVPB SCH ×2 (08:10→21:19)
[2018-07-06] MEDS: NA BICARBONATE 650 MG TAB PO SCH ×3 (08:12→21:19)
--- NOTE | 2018-07-06 11:48 | PN ---
Date/Time of Note Date/Time of Note DATE: 07/06/18 TIME: 11:34 Assessment/Plan VTE Prophylaxis Risk score (from [facility])>0 risk: 7 SCD applied (from [facility] [place] Yes Pharmacological prophylaxis: NA/contraindicated Pharm contraindication: liver dx, renal impairment Lines/Catheters IV Catheter Type (from [email or web address] Peripheral IV Urinary Cath still in place: No Assessment/Plan Hospital Course 63 yo male with cholangiocarcinoma presents with worsening epigastric pain 1. Abdominal pain secondary to pancreatitis -improved 2. Pancreatitis spontaneous - lipase 19,127 3. 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 Pancreatic ductal dilatation noted on US secondary to tumor 5. Abnormal LFTs 6. Mod free fluid and diffuse intra abdominal stranding seen in CT scan 7. Anemia, chronic -FOB neg, Iron and TIBC low, anemia work up noted. 8. H/O Hep C 9. H/O cholecystectomy for blocked cystic duct 10. Status post ERCP and removal of the metallic biliary stent 07/02 11. Obstruction of the second part of the duodenum most probably from the infiltrating tumor 12. Bilateral pedal edema 13. Acute renal injury 14. Leukocytosis -infectious vs inflammatory? -on meropenum Plan: Lactated Ringers at 100cc/hour Stat lactate LALA stockings, legs elevated Monitor LFTs, amylase, lipase NPO, IVF Pain management, morphine 2 mg q 6 hours prn pain Recommend iron supplements Continue with abx PPI for GI prophylaxis Pt examined and plan of care discussed iw Dr. Hu Result Diagram: 07/06/18 1012 07/06/18 1012 Results 24hrs Laboratory Tests Test 07/05/18 12:31 07/05/18 16:54 07/05/18 20:51 07/06/18 00:46 Bedside Glucose 80 80 90 97 Test 07/06/18 04:54 07/06/18 05:56 07/06/18 09:03 07/06/18 10:12 Bedside Glucose 91 97 Total Bilirubin 1.0 Direct Bilirubin 0.70 H Indirect Bilirubin 0.3 Aspartate Amino 263 H Transf (AST/SGOT) Alanine 36 Aminotransferase (AL T/SGPT) Alkaline Phosphatase 603 H Total Protein 5.8 L Albumin 2.4 L Triglycerides Level 239 H Cholesterol Level 193 LDL Cholesterol, 132 Calculated HDL Cholesterol 13 L Cholesterol/HDL 14.8 Ratio Amylase Level 607 H Lipase White Blood Count 26.0 H Red Blood Count 2.97 L Hemoglobin 8.3 L Hematocrit 26.1 L Mean Corpuscular 87.9 Volume Mean Corpuscular 27.9 L Hemoglobin Mean Corpuscular 31.8 L Hemoglobin Concent Red Cell 24.7 H Distribution Width Platelet Count 334 # Mean Platelet Volume 9.7 Immature 1.200 H Granulocytes % Neutrophils % Lymphocytes % Monocytes % Eosinophils % Basophils % Nucleated Red Blood 0.0 Cells % Immature 0.300 H Granulocytes # Neutrophils # Lymphocytes # Monocytes # Eosinophils # Basophils # Nucleated Red Blood Cells # Sodium Level 140 Potassium Level 3.8 Chloride Level 109 Carbon Dioxide Level 21 Anion Gap 10 Blood Urea Nitrogen 29 H Creatinine 1.87 H Est Glomerular 36 L Filtrat Rate mL/min Glucose Level 98 Calcium Level 7.7 L Subjective 24 Hr Interval Summary Free Text/Dictation Denies fever, chills. Denies N/V and abd pain. Has been afebrile. He modynamically stable. WBC are trending upward. AST and Alk phos are trending upward. Total bili is 1.0, wnl. Direct bili is 0.7. Amylase 607. Lipase is out of range. Exam/Review of Systems Vital Signs Vitals Vital Signs Date Temp Pulse Resp B/P (MAP) Pulse Ox O2 O2 Flow FiO2 Time Delivery Rate 07/06/18 97.5 83 18 105/59 98 07:54 (74) 07/05/18 Room Air 14:47 Intake and Output 07/05/18 07/05/18 07/06/18 1515:00 23:00 07:00 IntakeIntake Total 170 ml 350 ml 440 ml OutputOutput Total 50 ml BalanceBalance 170 ml 350 ml 390 ml Exam Constitutional: alert, oriented Psych: no complaints Head: normocephalic Eyes: PERRL Gastrointestinal: other (TTP, primarily RUQ and epigastric region. slightly distended. pos bowel sounds) Neurological: nl mental status Medications Medications Current Medications IV Flush (NS 3 ml) 3 ml PER PROTOCOL IV ; Start 07/01/18 at 03:30 Acetaminophen (Tylenol Tab) 650 mg Q6H PRN PO PAIN LEVEL 1-3 OR FEVER Last administered on 07/05/18at 01:41; Admin Dose 650 MG; Start 07/01/18 at 03:30 Ondansetron HCl (Zofran Inj) 4 mg Q4 PRN IV NAUSEA AND/OR VOMITING; Start 07/01/18 at 03:30 Pantoprazole (Protonix Iv) 40 mg BID@06,18 IV Last administered on 07/06/18at 05:41; Admin Dose 40 MG; Start 07/01/18 at 18:00 Miscellaneous Information 1 ea NOTE XX ; Start 07/01/18 at 16:30 Glucose (Glutose) 15 gm Q15M PRN PO DECREASED GLUCOSE; Start 07/01/18 at 16:30 Glucose (Glutose) 22.5 gm Q15M PRN PO DECREASED GLUCOSE; Start 07/01/18 at 16:30 Dextrose (D50w Syringe) 25 ml Q15M PRN IV DECREASED GLUCOSE; Start 07/01/18 at 16:30 Dextrose (D50w Syringe) 50 ml Q15M PRN IV DECREASED GLUCOSE; Start 07/01/18 at 16:30 Glucagon (Glucagen) 1 mg Q15M PRN IM DECREASED GLUCOSE; Start 07/01/18 at 16:30 Glucose (Glutose) 15 gm Q15M PRN BUCCAL DECREASED GLUCOSE; Start 07/01/18 at 16:30 Sodium Bicarbonate (Sodium Bicarbonate Tab) 650 mg TID PO Last administered on 07/06/18at 08:12; Admin Dose 650 MG; Start 07/04/18 at 21:00 Morphine Sulfate (morphine SULFATE (PF)) 2 mg Q4H PRN IV SEVERE PAIN LEVEL 7-10 Last administered on 07/05/18at 18:18; Admin Dose 2 MG; Start 07/05/18 at 10:00 Insulin Aspart (Novolog Insulin Pen) NOVOLOG *MILD* ALGORI... Q4 SC ; Start 07/05/18 at 13:00 Dextrose/Sodium Chloride 1,000 ml @ 40 mls/hr Q24H IV Last administered on 07/05/18at 12:53; Admin Dose 40 MLS/HR; Start 07/05/18 at 13:00 Ferric Sodium Gluconate Complex 125 mg/Sodium Chloride 100 ml @ 100 mls/hr DAILY@1300 IVPB Last administered on 07/05/18at 16:54; Admin Dose 100 MLS/HR; Start 07/05/18 at 17:00; Stop 07/07/18 at 13:59 Meropenem/Sodium Chloride 50 ml @ 100 mls/hr Q12 IVPB Last administered on 07/06/18at 08:10; Admin Dose 100 MLS/HR; Start 07/05/18 at 21:00 ELVIA PALACIOS Jul 06, 2018 11:46
[2018-07-06] MEDS ORDERED: LACTATED RINGER'S 1,000 ML IV ONE (12:30)
[2018-07-06] MEDS ORDERED: LACTATED RINGER'S 1,000 ML IV SCH ×2 (12:30→13:00)
--- NOTE | 2018-07-06 12:54 | CONS ---
Date/Time of Note Date/Time of Note DATE: 07/06/18 TIME: 12:48 Assessment/Plan Assessment/Plan Hospital Course Assessment/Plan 63 yo with met cholangiocarcinoma on chemo with gemcitabine and cisplatin s/p cycle 4 about 2 weeks ago #met cholangiocarcinoma -his current scans show multiple liver lesions new compared to scan from September 2017 however what would be most useful is to compare the current scan to scan from Jan 2018. Recommend continuation of current care, supportive care. once he is stable recommend f/u with Dr Lawson who is his primary oncologist. #ID -cholangitis and suspected UTI, on abx #pancreatitis supportive care #normocytic anemia suspect anemia of chronic disease and due to chemo iron studies consistent with chronic disease and ongoing inflammation with very elevated ferritin stop IV iron Result Diagram: 07/06/18 1012 07/06/18 1012 Results 24hrs Laboratory Tests Test 07/05/18 16:54 07/05/18 20:51 07/06/18 00:46 07/06/18 04:54 Bedside Glucose 80 90 97 91 Test 07/06/18 05:56 07/06/18 09:03 07/06/18 10:10 07/06/18 10:12 Total Bilirubin 1.0 Direct Bilirubin 0.70 H Indirect Bilirubin 0.3 Aspartate Amino 263 H Transf (AST/SGOT) Alanine 36 Aminotransferase (AL T/SGPT) Alkaline Phosphatase 603 H Total Protein 5.8 L Albumin 2.4 L Triglycerides Level 239 H Cholesterol Level 193 LDL Cholesterol, 132 Calculated HDL Cholesterol 13 L Cholesterol/HDL 14.8 Ratio Amylase Level 607 H Lipase Bedside Glucose 97 Lactate 4152 H Dehydrogenase White Blood Count 26.0 H Red Blood Count 2.97 L Hemoglobin 8.3 L Hematocrit 26.1 L Mean Corpuscular 87.9 Volume Mean Corpuscular 27.9 L Hemoglobin Mean Corpuscular 31.8 L Hemoglobin Concent Red Cell 24.7 H Distribution Width Platelet Count 334 # Mean Platelet Volume 9.7 Immature 1.200 H Granulocytes % Neutrophils % Segmented 92 H Neutrophils % (Manual) Band Neutrophils % 2 (Manual) Lymphocytes % Lymphocytes % 3 L (Manual) Monocytes % Monocytes % (Manual) 2 Eosinophils % Eosinophils % 1 (Manual) Basophils % Nucleated Red Blood 0.0 Cells % Immature 0.300 H Granulocytes # Neutrophils # Neutrophils # 24.1 H (Manual) Band Neutrophils # 0.5 Lymphocytes (Manual) 0.7 L Lymphocytes # Monocytes # Monocytes # (Manual) 0.5 Eosinophils # Basophils # Nucleated Red Blood Cells # Platelet Estimate NORMAL Polychromasia 1+ Hypochromasia 1+ Anisocytosis 2+ Macrocytosis 2+ Target Cells 1+ Sodium Level 140 Potassium Level 3.8 Chloride Level 109 Carbon Dioxide Level 21 Anion Gap 10 Blood Urea Nitrogen 29 H Creatinine 1.87 H Est Glomerular 36 L Filtrat Rate mL/min Glucose Level 98 Calcium Level 7.7 L Consultation Date/Type/Reason Admit Date/Time Jul 01, 2018 at 03:27 Initial Consult Date Exam/Review of Systems Vital Signs Vitals Vital Signs Date Temp Pulse Resp B/P (MAP) Pulse Ox O2 O2 Flow FiO2 Time Delivery Rate 07/06/18 97.5 83 18 105/59 98 07:54 (74) 07/05/18 Room Air 14:47 Intake and Output 07/05/18 07/05/18 07/06/18 1515:00 23:00 07:00 IntakeIntake Total 170 ml 350 ml 440 ml OutputOutput Total 50 ml BalanceBalance 170 ml 350 ml 390 ml Exam Constitutional: alert, well developed Head: normocephalic, atraumatic Gastrointestinal: soft Musculoskeletal: nl extremities to inspection Medications Medications Current Medications IV Flush (NS 3 ml) 3 ml PER PROTOCOL IV ; Start 07/01/18 at 03:30 Acetaminophen (Tylenol Tab) 650 mg Q6H PRN PO PAIN LEVEL 1-3 OR FEVER Last administered on 07/05/18at 01:41; Admin Dose 650 MG; Start 07/01/18 at 03:30 Ondansetron HCl (Zofran Inj) 4 mg Q4 PRN IV NAUSEA AND/OR VOMITING; Start 07/01/18 at 03:30 Pantoprazole (Protonix Iv) 40 mg BID@06,18 IV Last administered on 07/06/18at 05:41; Admin Dose 40 MG; Start 07/01/18 at 18:00 Miscellaneous Information 1 ea NOTE XX ; Start 07/01/18 at 16:30 Glucose (Glutose) 15 gm Q15M PRN PO DECREASED GLUCOSE; Start 07/01/18 at 16:30 Glucose (Glutose) 22.5 gm Q15M PRN PO DECREASED GLUCOSE; Start 07/01/18 at 16:30 Dextrose (D50w Syringe) 25 ml Q15M PRN IV DECREASED GLUCOSE; Start 07/01/18 at 16:30 Dextrose (D50w Syringe) 50 ml Q15M PRN IV DECREASED GLUCOSE; Start 07/01/18 at 16:30 Glucagon (Glucagen) 1 mg Q15M PRN IM DECREASED GLUCOSE; Start 07/01/18 at 16:30 Glucose (Glutose) 15 gm Q15M PRN BUCCAL DECREASED GLUCOSE; Start 07/01/18 at 16:30 Sodium Bicarbonate (Sodium Bicarbonate Tab) 650 mg TID PO Last administered on 07/06/18at 12:41; Admin Dose 650 MG; Start 07/04/18 at 21:00 Morphine Sulfate (morphine SULFATE (PF)) 2 mg Q4H PRN IV SEVERE PAIN LEVEL 7-10 Last administered on 07/05/18at 18:18; Admin Dose 2 MG; Start 07/05/18 at 10:00 Insulin Aspart (Novolog Insulin Pen) NOVOLOG *MILD* ALGORI... Q4 SC ; Start 07/05/18 at 13:00 Ferric Sodium Gluconate Complex 125 mg/Sodium Chloride 100 ml @ 100 mls/hr DAILY@1300 IVPB Last administered on 07/05/18at 16:54; Admin Dose 100 MLS/HR; Start 07/05/18 at 17:00; Stop 07/07/18 at 13:59 Meropenem/Sodium Chloride 50 ml @ 100 mls/hr Q12 IVPB Last administered on at 08:10; Admin Dose 100 MLS/HR; Start 07/05/18 at 21:00 Lactated Ringer's 1,000 ml @ 100 mls/hr Q10H IV Last administered on 07/06/18at 12:41; Admin Dose 100 MLS/HR; Start 07/06/18 at 13:00 RYANN GONSALES Jul 06, 2018 12:53
--- NOTE | 2018-07-06 13:42 | CONS ---
Date/Time of Note Date/Time of Note DATE: 07/06/18 TIME: 13:40 Assessment/Plan Assessment/Plan Hospital Course Patient is awake looks comfortable no fevers overnight WBC today 26 H&H 8.3 and 26.1 platelets 334 neutrophils 92 BUN 29 creatinine 1.87 Antimicrobials: Meropenem Chest x-ray yesterday revealed no evidence of active cardiopulmonary disease Microbiology: Blood cultures since admission negative urine culture grew enterococcus, stool for C. difficile negative Physical examination this is a chronically ill-appearing elderly man who is in no distress. Head atraumatic normocephalic sclera nonicteric vehicle mucosa dry neck is supple chest rise symmetrical breath sounds diminished bases. Heart: S1-S2. Abdomen distended, soft, some tenderness on palpation. Extremities without cyanosis. Assessment: 1. Ongoing leukocytosis 2. Cholangiocarcinoma with liver metastases, status post chemotherapy 3. Status post urinary tract infection 4. Acute kidney injury 5. Status post ERCP with removal of the old clogged stent with sphincterotomy 6. Pancreatitis status post ERCP Plan: Patient remains unchanged we will continue him on current antibiotics, await for repeat cultures, follow GI/oncology recommendations Result Diagram: 07/06/18 1012 07/06/18 1012 Results 24hrs Laboratory Tests Test 07/05/18 16:54 07/05/18 20:51 07/06/18 00:46 07/06/18 04:54 Bedside Glucose 80 90 97 91 Test 07/06/18 05:56 07/06/18 09:03 07/06/18 10:10 07/06/18 10:12 Total Bilirubin 1.0 Direct Bilirubin 0.70 H Indirect Bilirubin 0.3 Aspartate Amino 263 H Transf (AST/SGOT) Alanine 36 Aminotransferase (AL T/SGPT) Alkaline Phosphatase 603 H Total Protein 5.8 L Albumin 2.4 L Triglycerides Level 239 H Cholesterol Level 193 LDL Cholesterol, 132 Calculated HDL Cholesterol 13 L Cholesterol/HDL 14.8 Ratio Amylase Level 607 H Lipase Bedside Glucose 97 Lactate 4152 H Dehydrogenase White Blood Count 26.0 H Red Blood Count 2.97 L Hemoglobin 8.3 L Hematocrit 26.1 L Mean Corpuscular 87.9 Volume Mean Corpuscular 27.9 L Hemoglobin Mean Corpuscular 31.8 L Hemoglobin Concent Red Cell 24.7 H Distribution Width Platelet Count 334 # Mean Platelet Volume 9.7 Immature 1.200 H Granulocytes % Neutrophils % Segmented 92 H Neutrophils % (Manual) Band Neutrophils % 2 (Manual) Lymphocytes % Lymphocytes % 3 L (Manual) Monocytes % Monocytes % (Manual) 2 Eosinophils % Eosinophils % 1 (Manual) Basophils % Nucleated Red Blood 0.0 Cells % Immature 0.300 H Granulocytes # Neutrophils # Neutrophils # 24.1 H (Manual) Band Neutrophils # 0.5 Lymphocytes (Manual) 0.7 L Lymphocytes # Monocytes # Monocytes # (Manual) 0.5 Eosinophils # Basophils # Nucleated Red Blood Cells # Platelet Estimate NORMAL Polychromasia 1+ Hypochromasia 1+ Anisocytosis 2+ Macrocytosis 2+ Target Cells 1+ Sodium Level 140 Potassium Level 3.8 Chloride Level 109 Carbon Dioxide Level 21 Anion Gap 10 Blood Urea Nitrogen 29 H Creatinine 1.87 H Est Glomerular 36 L Filtrat Rate mL/min Glucose Level 98 Calcium Level 7.7 L Test 07/06/18 12:45 Bedside Glucose 90 Consultation Date/Type/Reason Admit Date/Time Jul 01, 2018 at 03:27 Initial Consult Date Type of Consult id Exam/Review of Systems Vital Signs Vitals Vital Signs Date Temp Pulse Resp B/P (MAP) Pulse Ox O2 O2 Flow FiO2 Time Delivery Rate 07/06/18 97.5 83 18 105/59 98 07:54 (74) 07/05/18 Room Air 14:47 Intake and Output 07/05/18 07/05/18 07/06/18 1515:00 23:00 07:00 IntakeIntake Total 170 ml 350 ml 440 ml OutputOutput Total 50 ml BalanceBalance 170 ml 350 ml 390 ml Medications Medications Current Medications IV Flush (NS 3 ml) 3 ml PER PROTOCOL IV ; Start 07/01/18 at 03:30 Acetaminophen (Tylenol Tab) 650 mg Q6H PRN PO PAIN LEVEL 1-3 OR FEVER Last administered on 07/05/18at 01:41; Admin Dose 650 MG; Start 07/01/18 at 03:30 Ondansetron HCl (Zofran Inj) 4 mg Q4 PRN IV NAUSEA AND/OR VOMITING; Start 07/01/18 at 03:30 Pantoprazole (Protonix Iv) 40 mg BID@06,18 IV Last administered on 07/06/18at 05:41; Admin Dose 40 MG; Start 07/01/18 at 18:00 Miscellaneous Information 1 ea NOTE XX ; Start 07/01/18 at 16:30 Glucose (Glutose) 15 gm Q15M PRN PO DECREASED GLUCOSE; Start 07/01/18 at 16:30 Glucose (Glutose) 22.5 gm Q15M PRN PO DECREASED GLUCOSE; Start 07/01/18 at 16:30 Dextrose (D50w Syringe) 25 ml Q15M PRN IV DECREASED GLUCOSE; Start 07/01/18 at 16:30 Dextrose (D50w Syringe) 50 ml Q15M PRN IV DECREASED GLUCOSE; Start 07/01/18 at 16:30 Glucagon (Glucagen) 1 mg Q15M PRN IM DECREASED GLUCOSE; Start 07/01/18 at 16:30 Glucose (Glutose) 15 gm Q15M PRN BUCCAL DECREASED GLUCOSE; Start 07/01/18 at 16:30 Sodium Bicarbonate (Sodium Bicarbonate Tab) 650 mg TID PO Last administered on 07/06/18at 12:41; Admin Dose 650 MG; Start 07/04/18 at 21:00 Morphine Sulfate (morphine SULFATE (PF)) 2 mg Q4H PRN IV SEVERE PAIN LEVEL 7-10 Last administered on 07/05/18at 18:18; Admin Dose 2 MG; Start 07/05/18 at 10:00 Insulin Aspart (Novolog Insulin Pen) NOVOLOG *MILD* ALGORI... Q4 SC ; Start 07/05/18 at 13:00 Meropenem/Sodium Chloride 50 ml @ 100 mls/hr Q12 IVPB Last administered on 07/06/18at 08:10; Admin Dose 100 MLS/HR; Start 07/05/18 at 21:00 Lactated Ringer's 1,000 ml @ 100 mls/hr Q10H IV Last administered on 07/06/18at 12:41; Admin Dose 100 MLS/HR; Start 07/06/18 at 13:00 CLARK HOLT NP Jul 06, 2018 13:42
[2018-07-06 14:28] VITALS: BP 136/72; PULSE 85; RESP 16
--- NOTE | 2018-07-06 15:01 | PN ---
Date/Time of Note Date/Time of Note DATE: 07/06/18 TIME: 14:59 Assessment/Plan VTE Prophylaxis Risk score (from [facility] [place])>0 risk: 7 SCD applied (from [facility] [place]): Yes Pharmacological prophylaxis: NA/contraindicated Pharm contraindication: low risk/ambulating Lines/Catheters IV Catheter Type (from [facility]): Peripheral IV Urinary Cath still in place: No Assessment/Plan Hospital Course 63 y/o with 1 Sepsis with severe lactic acidosis probably due to cholangittis S.p stent placed in 09/2017 s/p ERCP with removal, still with persistent leukoctytosis, enterococcus in urine now with pancreatitis ? s/p ERCP?? 2. 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 Chemotherapy ended last week, started March 2018 3. Pancreatic ductal dilatation noted on US 4. Abnormal LFTs 5. Mod free fluid and diffuse intra abdominal stranding seen in CT scan 6. Anemia, chronic 7. H/O Hep C 8. H/O cholecystectomy for blocked cystic duct 9 JULIO i with worseinng Creatine ? ATN due to abx ?? Vanco/zosyn 10 Anasarca with edema BLE , neg for DVT with hypoalbunemia 11 Persistent leukocytosis to 25 Plan - iv fluids with d51/2 ns at 100 - montior WBC - Don hose - cw meropenam - iv calcium replacemetn - NPO, iv fluids - strict I and o - fu ID and GI recs - labs am Result Diagram: 07/06/18 1012 07/06/18 1012 Results 24hrs Laboratory Tests Test 07/05/18 16:54 07/05/18 20:51 07/06/18 00:46 07/06/18 04:54 Bedside Glucose 80 90 97 91 Test 07/06/18 05:56 07/06/18 09:03 07/06/18 10:10 07/06/18 10:12 Total Bilirubin 1.0 Direct Bilirubin 0.70 H Indirect Bilirubin 0.3 Aspartate Amino 263 H Transf (AST/SGOT) Alanine 36 Aminotransferase (AL T/SGPT) Alkaline Phosphatase 603 H Total Protein 5.8 L Albumin 2.4 L Triglycerides Level 239 H Cholesterol Level 193 LDL Cholesterol, 132 Calculated HDL Cholesterol 13 L Cholesterol/HDL 14.8 Ratio Amylase Level 607 H Lipase Bedside Glucose 97 Lactate 4152 H Dehydrogenase White Blood Count 26.0 H Red Blood Count 2.97 L Hemoglobin 8.3 L Hematocrit 26.1 L Mean Corpuscular 87.9 Volume Mean Corpuscular 27.9 L Hemoglobin Mean Corpuscular 31.8 L Hemoglobin Concent Red Cell 24.7 H Distribution Width Platelet Count 334 # Mean Platelet Volume 9.7 Immature 1.200 H Granulocytes % Neutrophils % Segmented 92 H Neutrophils % (Manual) Band Neutrophils % 2 (Manual) Lymphocytes % Lymphocytes % 3 L (Manual) Monocytes % Monocytes % (Manual) 2 Eosinophils % Eosinophils % 1 (Manual) Basophils % Nucleated Red Blood 0.0 Cells % Immature 0.300 H Granulocytes # Neutrophils # Neutrophils # 24.1 H (Manual) Band Neutrophils # 0.5 Lymphocytes (Manual) 0.7 L Lymphocytes # Monocytes # Monocytes # (Manual) 0.5 Eosinophils # Basophils # Nucleated Red Blood Cells # Platelet Estimate NORMAL Polychromasia 1+ Hypochromasia 1+ Anisocytosis 2+ Macrocytosis 2+ Target Cells 1+ Sodium Level 140 Potassium Level 3.8 Chloride Level 109 Carbon Dioxide Level 21 Anion Gap 10 Blood Urea Nitrogen 29 H Creatinine 1.87 H Est Glomerular 36 L Filtrat Rate mL/min Glucose Level 98 Calcium Level 7.7 L Test 07/06/18 12:45 Bedside Glucose 90 Subjective 24 Hr Interval Summary Free Text/Dictation Still having abdominal pain WBC 26 LIPASE NOT Calculated Exam/Review of Systems Vital Signs Vitals Vital Signs Date Temp Pulse Resp B/P (MAP) Pulse Ox O2 O2 Flow FiO2 Time Delivery Rate 07/06/18 97.5 85 16 136/72 100 14:28 (93) 07/05/18 Room Air 14:47 Intake and Output 07/05/18 07/05/18 07/06/18 1414:59 22:59 06:59 IntakeIntake Total 170 ml 350 ml 440 ml OutputOutput Total 50 ml BalanceBalance 170 ml 350 ml 390 ml Exam Scleral icterus Respiratory: clear to auscultation Cardiovascular: regular rate and rhythm Gastrointestinal: soft, bowel sounds (+) TTP Extremities: edema 2+ le and upper ext Medications Medications Current Medications IV Flush (NS 3 ml) 3 ml PER PROTOCOL IV ; Start 07/01/18 at 03:30 Acetaminophen (Tylenol Tab) 650 mg Q6H PRN PO PAIN LEVEL 1-3 OR FEVER Last administered on 07/05/18at 01:41; Admin Dose 650 MG; Start 07/01/18 at 03:30 Ondansetron HCl (Zofran Inj) 4 mg Q4 PRN IV NAUSEA AND/OR VOMITING; Start 07/01/18 at 03:30 Pantoprazole (Protonix Iv) 40 mg BID@06,18 IV Last administered on 07/06/18at 05:41; Admin Dose 40 MG; Start 07/01/18 at 18:00 Miscellaneous Information 1 ea NOTE XX ; Start 07/01/18 at 16:30 Glucose (Glutose) 15 gm Q15M PRN PO DECREASED GLUCOSE; Start 07/01/18 at 16:30 Glucose (Glutose) 22.5 gm Q15M PRN PO DECREASED GLUCOSE; Start 07/01/18 at 16:30 Dextrose (D50w Syringe) 25 ml Q15M PRN IV DECREASED GLUCOSE; Start 07/01/18 at 16:30 Dextrose (D50w Syringe) 50 ml Q15M PRN IV DECREASED GLUCOSE; Start 07/01/18 at 16:30 Glucagon (Glucagen) 1 mg Q15M PRN IM DECREASED GLUCOSE; Start 07/01/18 at 16:30 Glucose (Glutose) 15 gm Q15M PRN BUCCAL DECREASED GLUCOSE; Start 07/01/18 at 16:30 Sodium Bicarbonate (Sodium Bicarbonate Tab) 650 mg TID PO Last administered on 07/06/18at 12:41; Admin Dose 650 MG; Start 07/04/18 at 21:00 Morphine Sulfate (morphine SULFATE (PF)) 2 mg Q4H PRN IV SEVERE PAIN LEVEL 7-10 Last administered on 07/05/18at 18:18; Admin Dose 2 MG; Start 07/05/18 at 10:00 Insulin Aspart (Novolog Insulin Pen) NOVOLOG *MILD* ALGORI... Q4 SC ; Start 07/05/18 at 13:00 Meropenem/Sodium Chloride 50 ml @ 100 mls/hr Q12 IVPB Last administered on 07/06/18at 08:10; Admin Dose 100 MLS/HR; Start 07/05/18 at 21:00 MARYCARMEN DE LA CRUZ MD Jul 06, 2018 15:01
[2018-07-06] MEDS: DEXTROSE 5%-0.45% NACL 1,000 ML IV SCH (15:58)
[2018-07-06] MEDS ORDERED: CALCIUM GLUCONATE 10% 1 GM in DEXTROSE 5% 100 ML IVPB ONE (16:30)
[2018-07-06] MEDS: morphine SULFATE/PF (2 MG/2 ML) SYG IV PRN (17:29)
--- NOTE | 2018-07-06 17:55 | NUR ---
NURSE NOTES: patient remained stable throughout the shift with no acute changes noted. No SOB or distress. assessed and reassessed for pain, medicated with Morphine x 1, stated relief. All due medications were given, tolerated well. Still on NPO except medications. Performed blood sugar checks as scheduled, no s/sx of hypoglycemia. IV patent and intact. Safety precautions observed. Hourly rounding done. Patient refused bed alarm, explained to patient the importance of the bed alarm but still patient refused. Frequent visual checks done. Call light telephone and urinal within reach at all time.s. Encouraged to use call light or telephone whenever assistance is needed. Will continue to monitor. Will endorse accordingly to next shift for continuity of care.
[2018-07-06 20:00] VITALS: BP 112/68; PULSE 93; RESP 19
[2018-07-07] VITALS (8 sets, daily range): BP systolic 103–126; BP diastolic 56–75; PULSE 86–94; RESP 18–20
[2018-07-07] MEDS: INSULIN ASPART [NOVOLOG] 3 ML PEN SC SCH ×6 (01:00→22:47)
[2018-07-07] MEDS: morphine SULFATE/PF (2 MG/2 ML) SYG IV PRN ×4 (01:27→23:07)
[2018-07-07] MEDS: DEXTROSE 5%-0.45% NACL 1,000 ML IV SCH ×3 (03:35→22:56)
[2018-07-07] MEDS: PANTOPRAZOLE 40 MG INJ IV SCH ×2 (05:09→17:51)
[2018-07-07] MEDS: NA BICARBONATE 650 MG TAB PO SCH (09:01)
[2018-07-07] MEDS: MEROPENEM 500MG/50 ML (PMX) 50 ML IVPB SCH ×2 (09:01→22:41)
--- NOTE | 2018-07-07 11:49 | CONS ---
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 recently had biliary stent removed because infected. abdomen distended, hard epigastric mass CT reviewed labs: not jaundiced. leukocytosis, unchanged plan: NGT to see if any residual, if not will give pt clears and laxative abd xray to assess distention( duodenal obstruction. no bm 6 dayas, fissue distention on exam MRCP: to determine if any dominant stricture and/or multiple isolated intrahepatic ducts from tumor burden with that information: ? Interventional radiology vs repeat endoscopic placement. Will place a duodenal stent wednesday should help ugi sx's and provide access to repeat stent placement if feasible and clinically indicated Result Diagram: 07/07/18 0525 07/07/18 0525 Results 24hrs Laboratory Tests Test 07/06/18 12:45 07/06/18 17:27 07/06/18 21:17 07/07/18 01:23 Bedside Glucose 90 97 114 109 Test 07/07/18 05:09 07/07/18 05:25 07/07/18 09:04 Bedside Glucose 115 126 White Blood Count 25.1 H Red Blood Count 2.72 L Hemoglobin 7.7 L Hematocrit 24.0 L Mean Corpuscular 88.2 Volume Mean Corpuscular 28.3 L Hemoglobin Mean Corpuscular 32.1 Hemoglobin Concent Red Cell 24.9 H Distribution Width Platelet Count 318 Mean Platelet Volume 10.4 Immature 1.300 H Granulocytes % Neutrophils % 83.5 H Lymphocytes % 9.2 L Monocytes % 5.9 Eosinophils % 0.0 Basophils % 0.1 Nucleated Red Blood 0.0 Cells % Immature 0.320 H Granulocytes # Neutrophils # 20.9 H Lymphocytes # 2.3 Monocytes # 1.5 H Eosinophils # 0.0 Basophils # 0.0 Nucleated Red Blood 0.0 Cells # Sodium Level 137 Potassium Level 3.7 Chloride Level 109 Carbon Dioxide Level 21 Anion Gap 7 Blood Urea Nitrogen 26 H Creatinine 1.43 H Est Glomerular 50 L Filtrat Rate mL/min Glucose Level 121 Calcium Level 8.0 L Phosphorus Level 3.2 Magnesium Level 2.0 Total Bilirubin 1.1 Direct Bilirubin 0.70 H Indirect Bilirubin 0.4 Aspartate Amino 378 H Transf (AST/SGOT) Alanine 35 Aminotransferase (AL T/SGPT) Alkaline Phosphatase 673 H Total Protein 5.6 L Albumin 2.2 L Globulin 3.40 H Albumin/Globulin 0.64 Ratio Consultation Date/Type/Reason Admit Date/Time Jul 01, 2018 at 03:27 Initial Consult Date Type of Consult Consult follow up Reason for Consultation cholangiocarcinoma Duodeanl obstruction Exam/Review of Systems Vital Signs Vitals Vital Signs Date Temp Pulse Resp B/P (MAP) Pulse Ox O2 O2 Flow FiO2 Time Delivery Rate 07/07/18 98.9 92 18 110/69 98 Room Air 08:23 (83) Intake and Output 07/06/18 07/06/18 07/07/18 1515:00 23:00 07:00 IntakeIntake Total 530 ml 385 ml 250 ml OutputOutput Total 250 ml 150 ml BalanceBalance 280 ml 385 ml 100 ml Medications Medications Current Medications IV Flush (NS 3 ml) 3 ml PER PROTOCOL IV ; Start 07/01/18 at 03:30 Acetaminophen (Tylenol Tab) 650 mg Q6H PRN PO PAIN LEVEL 1-3 OR FEVER Last administered on 07/05/18at 01:41; Admin Dose 650 MG; Start 07/01/18 at 03:30 Ondansetron HCl (Zofran Inj) 4 mg Q4 PRN IV NAUSEA AND/OR VOMITING; Start 07/01/18 at 03:30 Pantoprazole (Protonix Iv) 40 mg BID@06,18 IV Last administered on 07/07/18at 05:09; Admin Dose 40 MG; Start 07/01/18 at 18:00 Miscellaneous Information 1 ea NOTE XX ; Start 07/01/18 at 16:30 Glucose (Glutose) 15 gm Q15M PRN PO DECREASED GLUCOSE; Start 07/01/18 at 16:30 Glucose (Glutose) 22.5 gm Q15M PRN PO DECREASED GLUCOSE; Start 07/01/18 at 16:30 Dextrose (D50w Syringe) 25 ml Q15M PRN IV DECREASED GLUCOSE; Start 07/01/18 at 16:30 Dextrose (D50w Syringe) 50 ml Q15M PRN IV DECREASED GLUCOSE; Start 07/01/18 at 16:30 Glucagon (Glucagen) 1 mg Q15M PRN IM DECREASED GLUCOSE; Start 07/01/18 at 16:30 Glucose (Glutose) 15 gm Q15M PRN BUCCAL DECREASED GLUCOSE; Start 07/01/18 at 16:30 Sodium Bicarbonate (Sodium Bicarbonate Tab) 650 mg TID PO Last administered on 07/07/18at 09:01; Admin Dose 650 MG; Start 07/04/18 at 21:00 Morphine Sulfate (morphine SULFATE (PF)) 2 mg Q4H PRN IV SEVERE PAIN LEVEL 7-10 Last administered on 07/07/18at 11:38; Admin Dose 2 MG; Start 07/05/18 at 10:00 Insulin Aspart (Novolog Insulin Pen) NOVOLOG *MILD* ALGORI... Q4 SC ; Start 07/05/18 at 13:00 Meropenem/Sodium Chloride 50 ml @ 100 mls/hr Q12 IVPB Last administered on 07/07/18at 09:01; Admin Dose 100 MLS/HR; Start 07/05/18 at 21:00 Dextrose/Sodium Chloride 1,000 ml @ 100 mls/hr Q10H IV Last administered on 07/07/18at 03:35; Admin Dose 100 MLS/HR; Start 07/06/18 at 16:00 QUINN MOON MD Jul 07, 2018 11:49
--- NOTE | 2018-07-07 13:19 | CONS ---
Date/Time of Note Date/Time of Note DATE: 07/07/18 TIME: 13:11 Assessment/Plan Assessment/Plan Assessment/Plan Assessment/Plan 63 yo male with met cholangiocarcinoma on chemo with gemcitabine and cisplatin s/p cycle 4 about 2 weeks ago # 1 Met Cholangiocarcinoma -06/15/18 patients latest chemotherapy - Cholangiocarcinoma with new metastasis to liver noted on CT scan. - Recommended out patient PET CT once pancreatitis resolves and patient is discharged; will need to compare PET SCAN to scan done 03/03/2018 to assess how patent is responding to chemotherapy - Continue supportive care per PMD . - 07/02/18- sp ERCP and removal of stent .Noted during ERCP- obstruction of 2nd past of duodenum 2/2 to inflammation - 06/27/18- NGT connected to Low Intercurrent Suction per GI - once he is stable recommend f/u with Dr Lawson who is his primary oncologist. # 2 Pancreatitis - 07/05/18- Last Lipase elevated [id number]; will repeat Lipase today and tomorrow - NPO - management per PMD # 3 Normocytic anemia- Hgb 7.7 -suspect anemia of chronic disease and due to chemo - Anemia panel labs are consistent with chronic inflammation and mild iron deficiency Anemia - sp Ferrlecit 125 mg iv daily x 1 day- dcd per Dr Lucio - fu am labs # 4 Sepsis 2/2/ cholangitis/UTI - 07/01/18 Initial Lactic acid 2.6 to latest 2.2 - cont. antibiotics per ID # 5 Acute Kidney Injury- Cr 1.43 today - possibly 2/2 to antibiotics. - 05/09/18- Cr - 0.99 wnl as an out patient - management per nephrology A total of 50 minutes of face to face time was spent speaking with the patient of which greater than 50% was spent in counseling and coordination of care and the detailed question and answer session. Dw staff. Patient seen in collaboration with Dr Hernandez Result Diagram: 07/07/1825 07/07/18 05 Results 24hrs Laboratory Tests Test 07/06/18 17:27 07/06/18 21:17 07/07/18 01:23 07/07/18 05:09 Bedside Glucose 97 114 109 115 Test 07/07/18 05:25 07/07/18 09:04 White Blood Count 25.1 H Red Blood Count 2.72 L Hemoglobin 7.7 L Hematocrit 24.0 L Mean Corpuscular 88.2 Volume Mean Corpuscular 28.3 L Hemoglobin Mean Corpuscular 32.1 Hemoglobin Concent Red Cell 24.9 H Distribution Width Platelet Count 318 Mean Platelet Volume 10.4 Immature 1.300 H Granulocytes % Neutrophils % 83.5 H Lymphocytes % 9.2 L Monocytes % 5.9 Eosinophils % 0.0 Basophils % 0.1 Nucleated Red Blood 0.0 Cells % Immature 0.320 H Granulocytes # Neutrophils # 20.9 H Lymphocytes # 2.3 Monocytes # 1.5 H Eosinophils # 0.0 Basophils # 0.0 Nucleated Red Blood 0.0 Cells # Sodium Level 137 Potassium Level 3.7 Chloride Level 109 Carbon Dioxide Level 21 Anion Gap 7 Blood Urea Nitrogen 26 H Creatinine 1.43 H Est Glomerular 50 L Filtrat Rate mL/min Glucose Level 121 Calcium Level 8.0 L Phosphorus Level 3.2 Magnesium Level 2.0 Total Bilirubin 1.1 Direct Bilirubin 0.70 H Indirect Bilirubin 0.4 Aspartate Amino 378 H Transf (AST/SGOT) Alanine 35 Aminotransferase (AL T/SGPT) Alkaline Phosphatase 673 H Total Protein 5.6 L Albumin 2.2 L Globulin 3.40 H Albumin/Globulin 0.64 Ratio Bedside Glucose 126 Consultation Date/Type/Reason Admit Date/Time Jul 01, 2018 at 3:27 am Initial Consult Date Type of Consult ONCOLOGY Exam/Review of Systems Vital Signs Vitals Vital Signs Date Temp Pulse Resp B/P (MAP) Pulse Ox O2 O2 Flow FiO2 Time Delivery Rate 07/07/18 98.9 92 18 110/69 98 Room Air 08:23 (83) Intake and Output 07/06/18 07/06/18 07/07/18 1515:00 23:00 07:00 IntakeIntake Total 530 ml 385 ml 250 ml OutputOutput Total 250 ml 150 ml BalanceBalance 280 ml 385 ml 100 ml Exam Constitutional: alert, well developed Psych: nl mood/affect Head: normocephalic Eyes: EOMI, nl lids, nl sclera ENMT: nl external ears & nose Neck: non-tender Respiratory: diminished breath sounds Cardiovascular: nl pulses, other (s1s2) Gastrointestinal: soft, non-tender Musculoskeletal: nl extremities to inspection Extremities: normal pulses Neurological: nl speech, other (alert/reponsive) Medications Medications Current Medications IV Flush (NS 3 ml) 3 ml PER PROTOCOL IV ; Start 07/01/18 at 03:30 Acetaminophen (Tylenol Tab) 650 mg Q6H PRN PO PAIN LEVEL 1-3 OR FEVER Last administered on 07/05/18at 01:41; Admin Dose 650 MG; Start 07/01/18 at 03:30 Ondansetron HCl (Zofran Inj) 4 mg Q4 PRN IV NAUSEA AND/OR VOMITING; Start 07/01/18 at 03:30 Pantoprazole (Protonix Iv) 40 mg BID@06,18 IV Last administered on 07/07/18at 05:09; Admin Dose 40 MG; Start 07/01/18 at 18:00 Miscellaneous Information 1 ea NOTE XX ; Start 07/01/18 at 16:30 Glucose (Glutose) 15 gm Q15M PRN PO DECREASED GLUCOSE; Start 07/01/18 at 16:30 Glucose (Glutose) 22.5 gm Q15M PRN PO DECREASED GLUCOSE; Start 07/01/18 at 16:30 Dextrose (D50w Syringe) 25 ml Q15M PRN IV DECREASED GLUCOSE; Start 07/01/18 at 16:30 Dextrose (D50w Syringe) 50 ml Q15M PRN IV DECREASED GLUCOSE; Start 07/01/18 at 16:30 Glucagon (Glucagen) 1 mg Q15M PRN IM DECREASED GLUCOSE; Start 07/01/18 at 16:30 Glucose (Glutose) 15 gm Q15M PRN BUCCAL DECREASED GLUCOSE; Start 07/01/18 at 16:30 Sodium Bicarbonate (Sodium Bicarbonate Tab) 650 mg TID PO Last administered on 07/07/18at 09:01; Admin Dose 650 MG; Start 07/04/18 at 21:00 Morphine Sulfate (morphine SULFATE (PF)) 2 mg Q4H PRN IV SEVERE PAIN LEVEL 7-10 Last administered on 07/07/18at 11:38; Admin Dose 2 MG; Start 07/05/18 at 10:00 Insulin Aspart (Novolog Insulin Pen) NOVOLOG *MILD* ALGORI... Q4 SC ; Start 07/05/18 at 13:00 Meropenem/Sodium Chloride 50 ml @ 100 mls/hr Q12 IVPB Last administered on 07/07/18at 09:01; Admin Dose 100 MLS/HR; Start 07/05/18 at 21:00 Dextrose/Sodium Chloride 1,000 ml @ 100 mls/hr Q10H IV Last administered on 07/07/18at 03:35; Admin Dose 100 MLS/HR; Start 07/06/18 at 16:00 RANDALL APONTE Jul 07, 2018 1:19 pm
--- NOTE | 2018-07-07 14:01 | CONS ---
Date/Time of Note Date/Time of Note DATE: 07/07/18 TIME: 13:59 Assessment/Plan Assessment/Plan Hospital Course All noted, patient looks comfortable, no fevers overnight Antimicrobials: Meropenem Microbiology: Blood cultures since admission negative urine culture grew enterococcus, stool for C. difficile negative Physical examination this is a chronically ill-appearing elderly man who is in no distress. Head atraumatic normocephalic sclera nonicteric vehicle mucosa dry neck is supple chest rise symmetrical breath sounds diminished bases. Heart: S1-S2. Abdomen distended, soft, some tenderness on palpation. Extremities without cyanosis. Assessment: 1. Ongoing leukocytosis, possibly secondary to #2 2. Cholangiocarcinoma with liver metastases, status post chemotherapy 3. Status post urinary tract infection 4. Acute kidney injury 5. Status post ERCP with removal of the old clogged stent with sphincterotomy 6. Pancreatitis status post ERCP Plan: Patient remains unchanged, GI recommendations noted, continue antibiotics, plan for MRCP Result Diagram: 07/07/18 0525 07/07/18 0525 Results 24hrs Laboratory Tests Test 07/06/18 17:27 07/06/18 21:17 07/07/18 01:23 07/07/18 05:09 Bedside Glucose 97 114 109 115 Test 07/07/18 05:25 07/07/18 09:04 07/07/18 13:39 White Blood Count 25.1 H Red Blood Count 2.72 L Hemoglobin 7.7 L Hematocrit 24.0 L Mean Corpuscular 88.2 Volume Mean Corpuscular 28.3 L Hemoglobin Mean Corpuscular 32.1 Hemoglobin Concent Red Cell 24.9 H Distribution Width Platelet Count 318 Mean Platelet Volume 10.4 Immature 1.300 H Granulocytes % Neutrophils % 83.5 H Lymphocytes % 9.2 L Monocytes % 5.9 Eosinophils % 0.0 Basophils % 0.1 Nucleated Red Blood 0.0 Cells % Immature 0.320 H Granulocytes # Neutrophils # 20.9 H Lymphocytes # 2.3 Monocytes # 1.5 H Eosinophils # 0.0 Basophils # 0.0 Nucleated Red Blood 0.0 Cells # Sodium Level 137 Potassium Level 3.7 Chloride Level 109 Carbon Dioxide Level 21 Anion Gap 7 Blood Urea Nitrogen 26 H Creatinine 1.43 H Est Glomerular 50 L Filtrat Rate mL/min Glucose Level 121 Calcium Level 8.0 L Phosphorus Level 3.2 Magnesium Level 2.0 Total Bilirubin 1.1 Direct Bilirubin 0.70 H Indirect Bilirubin 0.4 Aspartate Amino 378 H Transf (AST/SGOT) Alanine 35 Aminotransferase (AL T/SGPT) Alkaline Phosphatase 673 H Total Protein 5.6 L Albumin 2.2 L Globulin 3.40 H Albumin/Globulin 0.64 Ratio Bedside Glucose 126 133 Consultation Date/Type/Reason Admit Date/Time Jul 01, 2018 at 03:27 Initial Consult Date Type of Consult id Exam/Review of Systems Vital Signs Vitals Vital Signs Date Temp Pulse Resp B/P (MAP) Pulse Ox O2 O2 Flow FiO2 Time Delivery Rate 07/07/18 98.9 92 18 110/69 98 Room Air 08:23 (83) Intake and Output 07/06/18 07/06/18 07/07/18 1515:00 23:00 07:00 IntakeIntake Total 530 ml 385 ml 250 ml OutputOutput Total 250 ml 150 ml BalanceBalance 280 ml 385 ml 100 ml Medications Medications Current Medications IV Flush (NS 3 ml) 3 ml PER PROTOCOL IV ; Start 07/01/18 at 03:30 Acetaminophen (Tylenol Tab) 650 mg Q6H PRN PO PAIN LEVEL 1-3 OR FEVER Last administered on 07/05/18at 01:41; Admin Dose 650 MG; Start 07/01/18 at 03:30 Ondansetron HCl (Zofran Inj) 4 mg Q4 PRN IV NAUSEA AND/OR VOMITING; Start 07/01/18 at 03:30 Pantoprazole (Protonix Iv) 40 mg BID@06,18 IV Last administered on 07/07/18at 05:09; Admin Dose 40 MG; Start 07/01/18 at 18:00 Miscellaneous Information 1 ea NOTE XX ; Start 07/01/18 at 16:30 Glucose (Glutose) 15 gm Q15M PRN PO DECREASED GLUCOSE; Start 07/01/18 at 16:30 Glucose (Glutose) 22.5 gm Q15M PRN PO DECREASED GLUCOSE; Start 07/01/18 at 16:30 Dextrose (D50w Syringe) 25 ml Q15M PRN IV DECREASED GLUCOSE; Start 07/01/18 at 16:30 Dextrose (D50w Syringe) 50 ml Q15M PRN IV DECREASED GLUCOSE; Start 07/01/18 at 16:30 Glucagon (Glucagen) 1 mg Q15M PRN IM DECREASED GLUCOSE; Start 07/01/18 at 16:30 Glucose (Glutose) 15 gm Q15M PRN BUCCAL DECREASED GLUCOSE; Start 07/01/18 at 16:30 Sodium Bicarbonate (Sodium Bicarbonate Tab) 650 mg TID PO Last administered on 07/07/18at 09:01; Admin Dose 650 MG; Start 07/04/18 at 21:00 Morphine Sulfate (morphine SULFATE (PF)) 2 mg Q4H PRN IV SEVERE PAIN LEVEL 7-10 Last administered on 07/07/18at 11:38; Admin Dose 2 MG; Start 07/05/18 at 10:00 Insulin Aspart (Novolog Insulin Pen) NOVOLOG *MILD* ALGORI... Q4 SC ; Start 07/05/18 at 13:00 Meropenem/Sodium Chloride 50 ml @ 100 mls/hr Q12 IVPB Last administered on 07/07/18at 09:01; Admin Dose 100 MLS/HR; Start 07/05/18 at 21:00 Dextrose/Sodium Chloride 1,000 ml @ 100 mls/hr Q10H IV Last administered on at 13:36; Admin Dose 100 MLS/HR; Start 07/06/18 at 16:00 CLARK HOLT NP Jul 07, 2018 14:01
--- NOTE | 2018-07-07 15:41 | PN ---
Date/Time of Note Date/Time of Note DATE: 07/07/18 TIME: 15:35 Assessment/Plan VTE Prophylaxis Risk score (from Ns)>0 risk: 6 SCD applied (from Ns): Yes Pharmacological prophylaxis: NA/contraindicated Pharm contraindication: low risk/ambulating Lines/Catheters IV [facility]from [facility] ANNE CATH Urinary Cath still in place: No Assessment/Plan Hospital Course 63 y/o with 1 Sepsis with severe lactic acidosis probably due to cholangittis S.p stent placed in 09/2017 s/p ERCP with removal, still with persistent leukoctytosis, enterococcus in urine now with pancreatitis ? s/p ERCP??, lipase improved however worseinig abdominal distension 2. 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 Chemotherapy ended last week, started March 2018 3. Pancreatic ductal dilatation noted on US 4. Abnormal LFTs 5. Mod free fluid and diffuse intra abdominal stranding seen in CT scan 6. Anemia, chronic 7. H/O Hep C 8. H/O cholecystectomy for blocked cystic duct 9 JULIO i with worseinng Creatine ? ATN due to abx ?? Vanco/zosyn 10 Anasarca with edema BLE , neg for DVT with hypoalbunemia 11 Persistent leukocytosis to 25 Plan - reduce fluids due to volume ovverload, especially Lipase has improved - transfer to tel for closer monitoring due to worsening resp condition - dc sodium bicarb - montior WBC - MRCP today and NG per GI - cw meropenam - NPO, iv fluids - strict I and o - fu ID and GI recs - labs am Result Diagram: 07/07/1852407/07/18 0525 Results 24hrs Laboratory Tests Test 07/06/18 17:27 07/06/18 21:17 07/07/18 01:23 07/07/18 05:09 Bedside Glucose 97 114 109 115 Test 07/07/18 05:25 07/07/18 09:04 07/07/18 13:39 07/07/18 14:48 White Blood Count 25.1 H Red Blood Count 2.72 L Hemoglobin 7.7 L Hematocrit 24.0 L Mean Corpuscular 88.2 Volume Mean Corpuscular 28.3 L Hemoglobin Mean Corpuscular 32.1 Hemoglobin Concent Red Cell 24.9 H Distribution Width Platelet Count 318 Mean Platelet Volume 10.4 Immature 1.300 H Granulocytes % Neutrophils % 83.5 H Lymphocytes % 9.2 L Monocytes % 5.9 Eosinophils % 0.0 Basophils % 0.1 Nucleated Red Blood 0.0 Cells % Immature 0.320 H Granulocytes # Neutrophils # 20.9 H Lymphocytes # 2.3 Monocytes # 1.5 H Eosinophils # 0.0 Basophils # 0.0 Nucleated Red Blood 0.0 Cells # Sodium Level 137 Potassium Level 3.7 Chloride Level 109 Carbon Dioxide Level 21 Anion Gap 7 Blood Urea Nitrogen 26 H Creatinine 1.43 H Est Glomerular 50 L Filtrat Rate mL/min Glucose Level 121 Calcium Level 8.0 L Phosphorus Level 3.2 Magnesium Level 2.0 Total Bilirubin 1.1 Direct Bilirubin 0.70 H Indirect Bilirubin 0.4 Aspartate Amino 378 H Transf (AST/SGOT) Alanine 35 Aminotransferase (AL T/SGPT) Alkaline Phosphatase 673 H Total Protein 5.6 L Albumin 2.2 L Globulin 3.40 H Albumin/Globulin 0.64 Ratio Bedside Glucose 126 133 Lipase 1502 H Subjective 24 Hr Interval Summary Free Text/Dictation Abdomen is more distended today +more swollen NG placed Exam/Review of Systems Vital Signs Vitals Vital Signs Date Temp Pulse Resp B/P (MAP) Pulse Ox O2 O2 Flow FiO2 Time Delivery Rate 07/07/18 98.0 86 20 119/71 97 Room Air 14:32 (87) Intake and Output 07/06/18 07/06/18 07/07/18 1515:00 23:00 07:00 IntakeIntake Total 530 ml 385 ml 250 ml OutputOutput Total 250 ml 150 ml BalanceBalance 280 ml 385 ml 100 ml Exam Scleral icterus Respiratory: dec breath sounds bases Cardiovascular: regular rate and rhythm Gastrointestinal: soft, bowel sounds (+) TTP Extremities: edema 2+ le and upper ext portacath Medications Medications Current Medications IV Flush (NS 3 ml) 3 ml PER PROTOCOL IV ; Start 07/01/18 at 03:30 Acetaminophen (Tylenol Tab) 650 mg Q6H PRN PO PAIN LEVEL 1-3 OR FEVER Last administered on 07/05/18at 01:41; Admin Dose 650 MG; Start 07/01/18 at 03:30 Ondansetron HCl (Zofran Inj) 4 mg Q4 PRN IV NAUSEA AND/OR VOMITING; Start 07/01/18 at 03:30 Pantoprazole (Protonix Iv) 40 mg BID@06,18 IV Last administered on 07/07/18at 05:09; Admin Dose 40 MG; Start 07/01/18 at 18:00 Miscellaneous Information 1 ea NOTE XX ; Start 07/01/18 at 16:30 Glucose (Glutose) 15 gm Q15M PRN PO DECREASED GLUCOSE; Start 07/01/18 at 16:30 Glucose (Glutose) 22.5 gm Q15M PRN PO DECREASED GLUCOSE; Start 07/01/18 at 16: 30 Dextrose (D50w Syringe) 25 ml Q15M PRN IV DECREASED GLUCOSE; Start 07/01/18 at 16:30 Dextrose (D50w Syringe) 50 ml Q15M PRN IV DECREASED GLUCOSE; Start 07/01/18 at 16:30 Glucagon (Glucagen) 1 mg Q15M PRN IM DECREASED GLUCOSE; Start 07/01/18 at 16:30 Glucose (Glutose) 15 gm Q15M PRN BUCCAL DECREASED GLUCOSE; Start 07/01/18 at 16:30 Morphine Sulfate (morphine SULFATE (PF)) 2 mg Q4H PRN IV SEVERE PAIN LEVEL 7-10 Last administered on 07/07/18at 11:38; Admin Dose 2 MG; Start 07/05/18 at 10:00 Insulin Aspart (Novolog Insulin Pen) NOVOLOG *MILD* ALGORI... Q4 SC ; Start 07/05/18 at 13:00 Meropenem/Sodium Chloride 50 ml @ 100 mls/hr Q12 IVPB Last administered on 07/07/18at 09:01; Admin Dose 100 MLS/HR; Start 07/05/18 at 21:00 Dextrose/Sodium Chloride 1,000 ml @ 50 mls/hr Q20H IV Last administered on 07/07/18at 13:36; Admin Dose 100 MLS/HR; Start 07/06/18 at 16:00 MARYCARMEN DE LA CRUZ MD Jul 07, 2018 15:41
--- NOTE | 2018-07-07 17:56 | NUR ---
REPORT GIVEN TO [facility] ANALYST HANNAH, PT. WILL BE TRANSFERRING TO TELE ROOM 619. PT JUST CAME BACK FORM MRI DEPT, REMAIN CALM AND ABLE TO COMMUNICATE NEEDS. NO SOB , NO ACUTE DISTRESS AND DENIES ANY PAIN DISCOMFORT, DISCONTINUED NGT PER GI MD MOON D/T LOW OUTPUT ABLE TO TOLERATE WELL. CHEM BLOOD SUGAR CHECK DONE RANGES 120-133 NO S/S OF HYPO- HYPERGLYCEMIA, ALL NEEDS ATTENDED VS WITHIN RANGE ENDORSED.
--- NOTE | 2018-07-07 18:22 | NUR ---
LEFT THE FLOOR VIA HOSPITAL BED W/ STABLE CONDITION ENDORSED.
[2018-07-08] VITALS (12 sets, daily range): BP systolic 109–133; BP diastolic 55–79; PULSE 84–99; RESP 18
[2018-07-08] MEDS: INSULIN ASPART [NOVOLOG] 3 ML PEN SC SCH ×6 (01:50→20:44)
[2018-07-08] MEDS: PANTOPRAZOLE 40 MG INJ IV SCH ×2 (05:24→17:34)
--- NOTE | 2018-07-08 05:58 | NUR ---
EOSS. Patient in stable condition, No acute distress noted over night, stable vs, stable blood glucose, able to get out of bed to ambulate in room and around. hourly rounds done, needs are met and all questions answered.
[2018-07-08] MEDS: MEROPENEM 500MG/50 ML (PMX) 50 ML IVPB SCH ×2 (08:15→20:32)
[2018-07-08] MEDS: morphine SULFATE/PF (2 MG/2 ML) SYG IV PRN ×3 (08:15→20:48)
--- NOTE | 2018-07-08 09:19 | CONS ---
Date/Time of Note Date/Time of Note DATE: 07/08/18 TIME: 09:17 Assessment/Plan Assessment/Plan Hospital Course 63 yo male with cholangiocarcinoma presents with worsening epigastric pain 1. Abdominal pain secondary to pancreatitis -improved 2. Pancreatitis spontaneous - lipase 19,127 3. 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 Pancreatic ductal dilatation noted on US secondary to tumor 5. Abnormal LFTs 6. Mod free fluid and diffuse intra abdominal stranding seen in CT scan 7. Anemia, chronic -FOB neg, Iron and TIBC low, anemia work up noted. 8. H/O Hep C 9. H/O cholecystectomy for blocked cystic duct 10. Status post ERCP and removal of the metallic biliary stent 07/02 11. Obstruction of the second part of the duodenum most probably from the infiltrating tumor 12. Bilateral pedal edema 13. Acute renal injury 14. Leukocytosis -infectious vs inflammatory? -on meropenum Plan: ERCP for duodenal stent placement Wednesday Clear liquid diet okay Monitor LFTs, amylase, lipase Pain management, morphine 2 mg q 6 hours prn pain Recommend iron supplements Continue with abx PPI for GI prophylaxis Pt examined and plan of care discussed iw Dr. Hu Result Diagram: 07/08/18 0504 07/08/18 0504 Results 24hrs Laboratory Tests Test 07/07/18 13:39 07/07/18 14:48 07/07/18 17:44 07/07/18 22:46 Bedside Glucose 133 120 119 Lipase 1502 H Test 07/08/18 01:51 07/08/18 05:04 07/08/18 05:26 07/08/18 08:20 Bedside Glucose 113 112 123 White Blood Count 22.4 H Red Blood Count 3.01 L Hemoglobin 8.4 L Hematocrit 27.0 L Mean Corpuscular 89.7 Volume Mean Corpuscular 27.9 L Hemoglobin Mean Corpuscular 31.1 L Hemoglobin Concent Red Cell 25.5 H Distribution Width Platelet Count 332 Mean Platelet Volume 10.5 H Immature 1.100 H Granulocytes % Neutrophils % 81.2 H Lymphocytes % 11.2 L Monocytes % 6.3 Eosinophils % 0.0 Basophils % 0.2 Nucleated Red Blood 0.0 Cells % Immature 0.240 H Granulocytes # Neutrophils # 18.2 H Lymphocytes # 2.5 Monocytes # 1.4 H Eosinophils # 0.0 Basophils # 0.0 Nucleated Red Blood 0.0 Cells # Sodium Level 138 Potassium Level 3.9 Chloride Level 110 Carbon Dioxide Level 21 Anion Gap 7 Blood Urea Nitrogen 22 H Creatinine 1.24 Est Glomerular 59 L Filtrat Rate mL/min Glucose Level 111 Calcium Level 8.1 L Phosphorus Level 2.9 Magnesium Level 1.9 Total Bilirubin 1.4 H Direct Bilirubin 0.90 #H Indirect Bilirubin 0.5 Aspartate Amino 360 H Transf (AST/SGOT) Alanine 33 Aminotransferase (AL T/SGPT) Alkaline Phosphatase 724 H Total Protein 6.0 L Albumin 2.4 L Globulin 3.60 H Albumin/Globulin 0.66 Ratio Lipase 1575 H Consultation Date/Type/Reason Admit Date/Time Jul 01, 2018 at 03:27 Initial Consult Date 24 HR Interval Summary Free Text/Dictation Pt wants to eat. Lipase has come down to 1575 on 07/07. Pain improved but still there. Exam/Review of Systems Vital Signs Vitals Vital Signs Date Temp Pulse Resp B/P (MAP) Pulse Ox O2 O2 Flow FiO2 Time Delivery Rate 07/08/18 99 08:00 07/08/18 98.2 18 109/68 99 Room Air 07:05 (82) Intake and Output 07/07/18 07/07/18 07/08/18 1515:00 23:00 07:00 IntakeIntake Total 800 ml 1000 ml 500 ml OutputOutput Total 510 ml 330 ml BalanceBalance 290 ml 670 ml 500 ml Exam Constitutional: alert, oriented Psych: no complaints Head: normocephalic Eyes: PERRL Respiratory: diminished breath sounds Cardiovascular: regular rate and rhythm Gastrointestinal: soft, distended Musculoskeletal: nl gait and stance Neurological: nl mental status Medications Medications Current Medications IV Flush (NS 3 ml) 3 ml PER PROTOCOL IV ; Start 07/01/18 at 03:30 Acetaminophen (Tylenol Tab) 650 mg Q6H PRN PO PAIN LEVEL 1-3 OR FEVER Last administered on 07/05/18at 01:41; Admin Dose 650 MG; Start 07/01/18 at 03:30 Ondansetron HCl (Zofran Inj) 4 mg Q4 PRN IV NAUSEA AND/OR VOMITING; Start 07/01/18 at 03:30 Pantoprazole (Protonix Iv) 40 mg BID@,18 IV Last administered on 07/08/18at 05:24; Admin Dose 40 MG; Start 07/01/18 at 18:00 Miscellaneous Information 1 ea NOTE XX ; Start 07/01/18 at 16:30 Glucose (Glutose) 15 gm Q15M PRN PO DECREASED GLUCOSE; Start 07/01/18 at 16:30 Glucose (Glutose) 22.5 gm Q15M PRN PO DECREASED GLUCOSE; Start 07/01/18 at 16:30 Dextrose (D50w Syringe) 25 ml Q15M PRN IV DECREASED GLUCOSE; Start 07/01/18 at 16:30 Dextrose (D50w Syringe) 50 ml Q15M PRN IV DECREASED GLUCOSE; Start 07/01/18 at 16:30 Glucagon (Glucagen) 1 mg Q15M PRN IM DECREASED GLUCOSE; Start 07/01/18 at 16:30 Glucose (Glutose) 15 gm Q15M PRN BUCCAL DECREASED GLUCOSE; Start 07/01/18 at 16:30 Morphine Sulfate (morphine SULFATE (PF)) 2 mg Q4H PRN IV SEVERE PAIN LEVEL 7-10 Last administered on 07/08/18at 08:15; Admin Dose 2 MG; Start 07/05/18 at 10:00 Insulin Aspart (Novolog Insulin Pen) NOVOLOG *MILD* ALGORI... Q4 SC ; Start 07/05/18 at 13:00 Meropenem/Sodium Chloride 50 ml @ 100 mls/hr Q12 IVPB Last administered on 07/08/18at 08:15; Admin Dose 100 MLS/HR; Start 07/05/18 at 21:00 Dextrose/Sodium Chloride 1,000 ml @ 50 mls/hr Q20H IV Last administered on 07/07/18at 22:56; Admin Dose 50 MLS/HR; Start 07/06/18 at 16:00 ELVIA PALACIOS Jul 08, 2018 09:19
[2018-07-08] MEDS: DEXTROSE 5%-0.45% NACL 1,000 ML IV SCH (10:20)
--- NOTE | 2018-07-08 12:41 | CONS ---
Date/Time of Note Date/Time of Note DATE: 07/08/18 TIME: 12:40 Assessment/Plan Assessment/Plan Hospital Course Assessment/Plan 63 yo with met cholangiocarcinoma on chemo with gemcitabine and cisplatin s/p cycle 4 about 3 weeks ago #met cholangiocarcinoma -his current scans show multiple liver lesions new compared to scan from September 2017 however what would be most useful is to compare the current scan to scan from Jan 2018 done as an outpt. Recommend continuation of current care, supportive care. once he is stable recommend f/u with Dr Lawson who is his primary oncologist. pt asking to see Dr Lawson who will probably be able to see early next week in the hospital #ID -cholangitis and suspected UTI, on abx #pancreatitis supportive care NPO IVF monitor lipase #normocytic anemia suspect anemia of chronic disease and due to chemo iron studies consistent with chronic disease and ongoing inflammation with very elevated ferritin stop IV iron transfuse if hgb <7 Result Diagram: 07/08/18 0504 07/08/18 0504 Results 24hrs Laboratory Tests Test 07/07/18 13:39 07/07/18 14:48 07/07/18 17:44 07/07/18 22:46 Bedside Glucose 133 120 119 Lipase 1502 H Test 07/08/18 01:51 07/08/18 05:04 07/08/18 05:26 07/08/18 08:20 Bedside Glucose 113 112 123 White Blood Count 22.4 H Red Blood Count 3.01 L Hemoglobin 8.4 L Hematocrit 27.0 L Mean Corpuscular 89.7 Volume Mean Corpuscular 27.9 L Hemoglobin Mean Corpuscular 31.1 L Hemoglobin Concent Red Cell 25.5 H Distribution Width Platelet Count 332 Mean Platelet Volume 10.5 H Immature 1.100 H Granulocytes % Neutrophils % 81.2 H Lymphocytes % 11.2 L Monocytes % 6.3 Eosinophils % 0.0 Basophils % 0.2 Nucleated Red Blood 0.0 Cells % Immature 0.240 H Granulocytes # Neutrophils # 18.2 H Lymphocytes # 2.5 Monocytes # 1.4 H Eosinophils # 0.0 Basophils # 0.0 Nucleated Red Blood 0.0 Cells # Sodium Level 138 Potassium Level 3.9 Chloride Level 110 Carbon Dioxide Level 21 Anion Gap 7 Blood Urea Nitrogen 22 H Creatinine 1.24 Est Glomerular 59 L Filtrat Rate mL/min Glucose Level 111 Calcium Level 8.1 L Phosphorus Level 2.9 Magnesium Level 1.9 Total Bilirubin 1.4 H Direct Bilirubin 0.90 #H Indirect Bilirubin 0.5 Aspartate Amino 360 H Transf (AST/SGOT) Alanine 33 Aminotransferase (AL T/SGPT) Alkaline Phosphatase 724 H Total Protein 6.0 L Albumin 2.4 L Globulin 3.60 H Albumin/Globulin 0.66 Ratio Lipase 1575 H Consultation Date/Type/Reason Admit Date/Time Jul 01, 2018 at 03:27 Initial Consult Date 24 HR Interval Summary Free Text/Dictation pt denies any abdo pain, N/V at present Exam/Review of Systems Vital Signs Vitals Vital Signs Date Temp Pulse Resp B/P (MAP) Pulse Ox O2 O2 Flow FiO2 Time Delivery Rate 07/08/18 97.7 84 18 126/56 100 Room Air 11:00 (79) Intake and Output 07/07/18 07/07/18 07/08/18 1515:00 23:00 07:00 IntakeIntake Total 800 ml 1000 ml 500 ml OutputOutput Total 510 ml 330 ml BalanceBalance 290 ml 670 ml 500 ml Exam Constitutional: alert, frail Head: normocephalic, atraumatic Respiratory: normal air movement Gastrointestinal: soft Neurological: nl mental status Medications Medications Current Medications IV Flush (NS 3 ml) 3 ml PER PROTOCOL IV ; Start 07/01/18 at 03:30 Acetaminophen (Tylenol Tab) 650 mg Q6H PRN PO PAIN LEVEL 1-3 OR FEVER Last administered on 07/05/18at 01:41; Admin Dose 650 MG; Start 07/01/18 at 03:30 Ondansetron HCl (Zofran Inj) 4 mg Q4 PRN IV NAUSEA AND/OR VOMITING; Start 07/01/18 at 03:30 Pantoprazole (Protonix Iv) 40 mg BID@06,18 IV Last administered on 07/08/18at 05:24; Admin Dose 40 MG; Start 07/01/18 at 18:00 Miscellaneous Information 1 ea NOTE XX ; Start 07/01/18 at 16:30 Glucose (Glutose) 15 gm Q15M PRN PO DECREASED GLUCOSE; Start 07/01/18 at 16:30 Glucose (Glutose) 22.5 gm Q15M PRN PO DECREASED GLUCOSE; Start 07/01/18 at 16:30 Dextrose (D50w Syringe) 25 ml Q15M PRN IV DECREASED GLUCOSE; Start 07/01/18 at 16:30 Dextrose (D50w Syringe) 50 ml Q15M PRN IV DECREASED GLUCOSE; Start 07/01/18 at 16:30 Glucagon (Glucagen) 1 mg Q15M PRN IM DECREASED GLUCOSE; Start 07/01/18 at 16:30 Glucose (Glutose) 15 gm Q15M PRN BUCCAL DECREASED GLUCOSE; Start 07/01/18 at 16:30 Morphine Sulfate (morphine SULFATE (PF)) 2 mg Q4H PRN IV SEVERE PAIN LEVEL 7-10 Last administered on 07/08/18at 08:15; Admin Dose 2 MG; Start 07/05/18 at 10:00 Insulin Aspart (Novolog Insulin Pen) NOVOLOG *MILD* ALGORI... Q4 SC ; Start 07/05/18 at 13:00 Meropenem/Sodium Chloride 50 ml @ 100 mls/hr Q12 IVPB Last administered on 07/08/18at 08:15; Admin Dose 100 MLS/HR; Start 07/05/18 at 21:00 Dextrose/Sodium Chloride 1,000 ml @ 50 mls/hr Q20H IV Last administered on 07/08/18at 10:20; Admin Dose 50 MLS/HR; Start 07/06/18 at 16:00 RYANN GONSALES Jul 08, 2018 12:41
[2018-07-08] MEDS ORDERED: GLUCOSE GEL 15 GRAM TUBE PO PRN ×2 (14:00)
[2018-07-08] MEDS ORDERED: GLUCOSE GEL 15 GRAM TUBE BUCCAL PRN (14:00)
[2018-07-08] MEDS ORDERED: GLUCAGON 1 MG INJ IM PRN (14:00)
[2018-07-08] MEDS ORDERED: DEXTROSE 50% 50 ML SYRINGE IV PRN ×2 (14:00)
--- NOTE | 2018-07-08 14:17 | PN ---
Date/Time of Note Date/Time of Note DATE: 07/08/18 TIME: 14:15 Assessment/Plan VTE Prophylaxis Risk score (from [facility] [place]0 risk: 7 SCD applied (from [facility] [place]): No SCD contraindicated: low risk/ambulating Pharmacological prophylaxis: NA/contraindicated Pharm contraindication: bleeding, liver dx Lines/Catheters IV [facility] Portacath Urinary Cath still in place: No Assessment/Plan Hospital Course 1 Sepsis with severe lactic acidosis probably due to cholangittis S.p stent placed in 09/2017 s/p ERCP with removal, still with persistent leukoctytosis, enterococcus in urine now with pancreatitis ? s/p ERCP??, lipase improved [place] worseinig abdominal distension 2. 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 Chemotherapy ended last week, started March 2018 3. Pancreatic ductal dilatation noted on US 4. Abnormal LFTs 5. Mod free fluid and diffuse intra abdominal stranding seen in CT scan 6. Anemia, chronic 7. H/O Hep C 8. H/O cholecystectomy for blocked cystic duct 9 JULIO i with worseinng Creatine ? ATN due to abx ?? Vanco/zosyn 10 Anasarca with edema BLE , neg for DVT with hypoalbunemia 11 Persistent leukocytosis to 25 Assessment/Plan -duodenal stent Wednesday - c/w telemetry - monitor WBC, down to 22 - constipation relief - cw meropenem - clear liquid started - strict I and o - fu ID and GI recs Result Diagram: 07/08/18 0504 07/08/18 0504 Results 24hrs Laboratory Tests Test 07/07/18 14:48 07/07/18 17:44 07/07/18 22:46 07/08/18 01:51 Lipase 1502 H Bedside Glucose 120 119 113 Test 07/08/18 05:04 07/08/18 05:26 07/08/18 08:20 07/08/18 12:50 White Blood Count 22.4 H Red Blood Count 3.01 L Hemoglobin 8.4 L Hematocrit 27.0 L Mean Corpuscular 89.7 Volume Mean Corpuscular 27.9 L Hemoglobin Mean Corpuscular 31.1 L Hemoglobin Concent Red Cell 25.5 H Distribution Width Platelet Count 332 Mean Platelet Volume 10.5 H Immature 1.100 H Granulocytes % Neutrophils % 81.2 H Lymphocytes % 11.2 L Monocytes % 6.3 Eosinophils % 0.0 Basophils % 0.2 Nucleated Red Blood 0.0 Cells % Immature 0.240 H Granulocytes # Neutrophils # 18.2 H Lymphocytes # 2.5 Monocytes # 1.4 H Eosinophils # 0.0 Basophils # 0.0 Nucleated Red Blood 0.0 Cells # Sodium Level 138 Potassium Level 3.9 Chloride Level 110 Carbon Dioxide Level 21 Anion Gap 7 Blood Urea Nitrogen 22 H Creatinine 1.24 Est Glomerular 59 L Filtrat Rate mL/min Glucose Level 111 Calcium Level 8.1 L Phosphorus Level 2.9 Magnesium Level 1.9 Total Bilirubin 1.4 H Direct Bilirubin 0.90 #H Indirect Bilirubin 0.5 Aspartate Amino 360 H Transf (AST/SGOT) Alanine 33 Aminotransferase (AL T/SGPT) Alkaline Phosphatase 724 H Total Protein 6.0 L Albumin 2.4 L Globulin 3.60 H Albumin/Globulin 0.66 Ratio Lipase 1575 H Bedside Glucose 112 123 126 Subjective 24 Hr Interval Summary Gastrointestinal: constipation (1 week) Exam/Review of Systems Vital Signs Vitals Vital Signs Date Temp Pulse Resp B/P (MAP) Pulse Ox O2 O2 Flow FiO2 Time Delivery Rate 07/08/18 94 12:00 07/08/18 97.7 18 126/56 100 Room Air 11:00 (79) Intake and Output 07/07/18 07/07/18 07/08/18 1515:00 23:00 07:00 IntakeIntake Total 800 ml 1000 ml 500 ml OutputOutput Total 510 ml 330 ml BalanceBalance 290 ml 670 ml 500 ml Exam Constitutional: alert, oriented Respiratory: diminished breath sounds Cardiovascular: regular rate and rhythm Gastrointestinal: soft Medications Medications Current Medications IV Flush (NS 3 ml) 3 ml PER PROTOCOL IV ; Start 07/01/18 at 03:30 Acetaminophen (Tylenol Tab) 650 mg Q6H PRN PO PAIN LEVEL 1-3 OR FEVER Last administered on 07/05/18at 01:41; Admin Dose 650 MG; Start 07/01/18 at 03:30 Ondansetron HCl (Zofran Inj) 4 mg Q4 PRN IV NAUSEA AND/OR VOMITING; Start 07/01/18 at 03:30 Pantoprazole (Protonix Iv) 40 mg BID@06,18 IV Last administered on 07/08/18at 05:24; Admin Dose 40 MG; Start 07/01/18 at 18:00 Miscellaneous Information 1 ea NOTE XX ; Start 07/01/18 at 16:30 Glucose (Glutose) 15 gm Q15M PRN PO DECREASED GLUCOSE; Start 07/01/18 at 16:30 Glucose (Glutose) 22.5 gm Q15M PRN PO DECREASED GLUCOSE; Start 07/01/18 at 16:30 Dextrose (D50w Syringe) 25 ml Q15M PRN IV DECREASED GLUCOSE; Start 07/01/18 at 16:30 Dextrose (D50w Syringe) 50 ml Q15M PRN IV DECREASED GLUCOSE; Start 07/01/18 at 16:30 Glucagon (Glucagen) 1 mg Q15M PRN IM DECREASED GLUCOSE; Start 07/01/18 at 16:30 Glucose (Glutose) 15 gm Q15M PRN BUCCAL DECREASED GLUCOSE; Start 07/01/18 at 16:30 Morphine Sulfate (morphine SULFATE (PF)) 2 mg Q4H PRN IV SEVERE PAIN LEVEL 7-10 Last administered on 07/08/18at 08:15; Admin Dose 2 MG; Start 07/05/18 at 10:00 Meropenem/Sodium Chloride 50 ml @ 100 mls/hr Q12 IVPB Last administered on 07/08/18at 08:15; Admin Dose 100 MLS/HR; Start 07/05/18 at 21:00 Dextrose/Sodium Chloride 1,000 ml @ 50 mls/hr Q20H IV Last administered on 07/08/18at 10:20; Admin Dose 50 MLS/HR; Start 07/06/18 at 16:00 Insulin Aspart (Novolog Insulin Pen) NOVOLOG *MILD* ALGORI... AC MEALS AND BEDTIME SC ; Start 07/08/18 at 18:00 Miscellaneous Information 1 ea NOTE XX ; Start 07/08/18 at 14:00 Glucose (Glutose) 15 gm Q15M PRN PO DECREASED GLUCOSE; Start 07/08/18 at 14:00 Glucose (Glutose) 22.5 gm Q15M PRN PO DECREASED GLUCOSE; Start 07/08/18 at 14:00 Dextrose (D50w Syringe) 25 ml Q15M PRN IV DECREASED GLUCOSE; Start 07/08/18 at 14:00 Dextrose (D50w Syringe) 50 ml Q15M PRN IV DECREASED GLUCOSE; Start 07/08/18 at 14:00 Glucagon (Glucagen) 1 mg Q15M PRN IM DECREASED GLUCOSE; Start 07/08/18 at 14:00 Glucose (Glutose) 15 gm Q15M PRN BUCCAL DECREASED GLUCOSE; Start 07/08/18 at 14:00 TRACY QUEZADA Jul 08, 2018 14:17
[2018-07-08] MEDS ORDERED: BISACODYL 10 MG SUPP PR PRN (14:30)
--- NOTE | 2018-07-08 15:45 | CONS ---
Date/Time of Note Date/Time of Note DATE: 07/08/18 TIME: 15:41 Assessment/Plan Assessment/Plan Hospital Course Patient is awake and looks comfortable no fevers overnight WBC 22.4 neutrophils 81.2 BUN 22 creatinine 1.24 Very niceAntimicrobials: Meropenem Microbiology: Blood cultures since admission negative urine culture grew enterococcus, stool for C. difficile negative Physical examination this is a chronically ill-appearing elderly man who is in no distress. Head atraumatic normocephalic sclera nonicteric vehicle mucosa dry neck is supple chest rise symmetrical breath sounds diminished bases. Heart: S1-S2. Abdomen distended, soft, some tenderness on palpation. Extremities without cyanosis. Assessment: 1. Ongoing leukocytosis, possibly secondary to #2 2. Cholangiocarcinoma with liver metastases, status post chemotherapy 3. Status post urinary tract infection 4. Acute kidney injury 5. Status post ERCP with removal of the old clogged stent with sphincterotomy 6. Pancreatitis status post ERCP Plan: Patient remains unchanged, s/p MRCP, continue abx, f/u GI rec-s Result Diagram: 07/08/18 0504 07/08/18 0504 Results 24hrs Laboratory Tests Test 07/07/18 17:44 07/07/18 22:46 07/08/18 01:51 07/08/18 05:04 Bedside Glucose 120 119 113 White Blood Count 22.4 H Red Blood Count 3.01 L Hemoglobin 8.4 L Hematocrit 27.0 L Mean Corpuscular 89.7 Volume Mean Corpuscular 27.9 L Hemoglobin Mean Corpuscular 31.1 L Hemoglobin Concent Red Cell 25.5 H Distribution Width Platelet Count 332 Mean Platelet Volume 10.5 H Immature 1.100 H Granulocytes % Neutrophils % 81.2 H Lymphocytes % 11.2 L Monocytes % 6.3 Eosinophils % 0.0 Basophils % 0.2 Nucleated Red Blood 0.0 Cells % Immature 0.240 H Granulocytes # Neutrophils # 18.2 H Lymphocytes # 2.5 Monocytes # 1.4 H Eosinophils # 0.0 Basophils # 0.0 Nucleated Red Blood 0.0 Cells # Sodium Level 138 Potassium Level 3.9 Chloride Level 110 Carbon Dioxide Level 21 Anion Gap 7 Blood Urea Nitrogen 22 H Creatinine 1.24 Est Glomerular 59 L Filtrat Rate mL/min Glucose Level 111 Calcium Level 8.1 L Phosphorus Level 2.9 Magnesium Level 1.9 Total Bilirubin 1.4 H Direct Bilirubin 0.90 #H Indirect Bilirubin 0.5 Aspartate Amino 360 H Transf (AST/SGOT) Alanine 33 Aminotransferase (AL T/SGPT) Alkaline Phosphatase 724 H Total Protein 6.0 L Albumin 2.4 L Globulin 3.60 H Albumin/Globulin 0.66 Ratio Lipase 1575 H Test 07/08/18 05:26 07/08/18 08:20 07/08/18 12:50 Bedside Glucose 112 123 126 Consultation Date/Type/Reason Admit Date/Time Jul 01, 2018 at 03:27 Initial Consult Date Type of Consult id Exam/Review of Systems Vital Signs Vitals Vital Signs Date Temp Pulse Resp B/P (MAP) Pulse Ox O2 O2 Flow FiO2 Time Delivery Rate 07/08/18 97.5 91 18 133/75 99 Room Air 15:02 (94) Intake and Output 07/07/18 07/07/18 07/08/18 1515:00 23:00 07:00 IntakeIntake Total 800 ml 1000 ml 500 ml OutputOutput Total 510 ml 330 ml BalanceBalance 290 ml 670 ml 500 ml Medications Medications Current Medications IV Flush (NS 3 ml) 3 ml PER PROTOCOL IV ; Start 07/01/18 at 03:30 Acetaminophen (Tylenol Tab) 650 mg Q6H PRN PO PAIN LEVEL 1-3 OR FEVER Last administered on 07/05/18at 01:41; Admin Dose 650 MG; Start 07/01/18 at 03:30 Ondansetron HCl (Zofran Inj) 4 mg Q4 PRN IV NAUSEA AND/OR VOMITING; Start 07/01/18 at 03:30 Pantoprazole (Protonix Iv) 40 mg BID@,18 IV Last administered on 07/08/18at 05:24; Admin Dose 40 MG; Start 07/01/18 at 18:00 Miscellaneous Information 1 ea NOTE XX ; Start 07/01/18 at 16:30 Glucose (Glutose) 15 gm Q15M PRN PO DECREASED GLUCOSE; Start 07/01/18 at 16:30 Glucose (Glutose) 22.5 gm Q15M PRN PO DECREASED GLUCOSE; Start 07/01/18 at 16:30 Dextrose (D50w Syringe) 25 ml Q15M PRN IV DECREASED GLUCOSE; Start 07/01/18 at 16:30 Dextrose (D50w Syringe) 50 ml Q15M PRN IV DECREASED GLUCOSE; Start 07/01/18 at 16:30 Glucagon (Glucagen) 1 mg Q15M PRN IM DECREASED GLUCOSE; Start 07/01/18 at 16:30 Glucose (Glutose) 15 gm Q15M PRN BUCCAL DECREASED GLUCOSE; Start 07/01/18 at 16:30 Morphine Sulfate (morphine SULFATE (PF)) 2 mg Q4H PRN IV SEVERE PAIN LEVEL 7-10 Last administered on 07/08/18at 14:54; Admin Dose 2 MG; Start 07/05/18 at 10:00 Meropenem/Sodium Chloride 50 ml @ 100 mls/hr Q12 IVPB Last administered on 07/08/18at 08:15; Admin Dose 100 MLS/HR; Start 07/05/18 at 21:00 Dextrose/Sodium Chloride 1,000 ml @ 50 mls/hr Q20H IV Last administered on 07/08/18at 10:20; Admin Dose 50 MLS/HR; Start 07/06/18 at 16:00 Insulin Aspart (Novolog Insulin Pen) NOVOLOG *MILD* ALGORI... AC MEALS AND BEDTIME SC ; Start 07/08/18 at 18:00 Miscellaneous Information 1 ea NOTE XX ; Start 07/08/18 at 14:00 Glucose (Glutose) 15 gm Q15M PRN PO DECREASED GLUCOSE; Start 07/08/18 at 14:00 Glucose (Glutose) 22.5 gm Q15M PRN PO DECREASED GLUCOSE; Start 07/08/18 at 14:00 Dextrose (D50w Syringe) 25 ml Q15M PRN IV DECREASED GLUCOSE; Start 07/08/18 at 14:00 Dextrose (D50w Syringe) 50 ml Q15M PRN IV DECREASED GLUCOSE; Start 07/08/18 at 14:00 Glucagon (Glucagen) 1 mg Q15M PRN IM DECREASED GLUCOSE; Start 07/08/18 at 14:00 Glucose (Glutose) 15 gm Q15M PRN BUCCAL DECREASED GLUCOSE; Start 07/08/18 at 14:00 Bisacodyl (Dulcolax Supp) 10 mg DAILY PRN CA CONSTIPATION; Start 07/08/18 at 14:30 CLARK HOLT NP Jul 08, 2018 15:45
--- NOTE | 2018-07-08 16:33 | NUR ---
RN Notes: Pt had 5 sec run of SVT, w/HR 190. pt is in no acute distress, B/P 117/71, P 93, SpO2 99%. Denies CP, SOB. Left message for MD, awaiting callback.
--- NOTE | 2018-07-08 18:17 | NUR ---
EOSS: PT AO x 4, no acute distress, stable for handoff to oncoming shift.
[2018-07-09] VITALS (11 sets, daily range): BP systolic 115–138; BP diastolic 60–76; PULSE 60–97; RESP 17–19
[2018-07-09] MEDS: morphine SULFATE/PF (2 MG/2 ML) SYG IV PRN (01:13)
[2018-07-09] MEDS: ONDANSETRON 4 MG INJ IV PRN ×3 (05:51→21:40)
[2018-07-09] MEDS: PANTOPRAZOLE 40 MG INJ IV SCH ×2 (05:51→17:34)
[2018-07-09] MEDS: morphine 4 MG/ML VIAL IV PRN ×4 (06:00→21:40)
--- NOTE | 2018-07-09 06:19 | NUR ---
EOSS Pt AAO x4. No s/s of respiratory distress. Provided Morphine Q4hrs PRN for abdominal pain. Pt reported this morning having small about of dark vomite. Instructed pt to call nurse if he has another episode of vomiting to see the amount, color and consistency. Gave Zofran as prescribed. VS stable. No acute changes. Pt refuses bed alarm, explained medication side effects of medication and risk for fall. Pt verbalize understanding, but still refused bed alarm. Mide charge nurse afshan
[2018-07-09] MEDS: DEXTROSE 5%-0.45% NACL 1,000 ML IV SCH (06:40)
[2018-07-09] MEDS: INSULIN ASPART [NOVOLOG] 3 ML PEN SC SCH ×4 (07:00→21:00)
--- NOTE | 2018-07-09 08:04 | CONS ---
Date/Time of Note Date/Time of Note DATE: 07/09/18 TIME: 08:03 Assessment/Plan Assessment/Plan Assessment/Plan Hospital Course 63 yo male with cholangiocarcinoma presents with worsening epigastric pain 1. Abdominal pain secondary to pancreatitis -improved 2. Pancreatitis spontaneous - lipase 19,127 3. 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 Pancreatic ductal dilatation noted on US secondary to tumor 5. Abnormal LFTs 6. Mod free fluid and diffuse intra abdominal stranding seen in CT scan 7. Anemia, chronic -FOB neg, Iron and TIBC low, anemia work up noted. 8. H/O Hep C 9. H/O cholecystectomy for blocked cystic duct 10. Status post ERCP and removal of the metallic biliary stent 07/02 11. Obstruction of the second part of the duodenum most probably from the infiltrating tumor 12. Bilateral pedal edema 13. Acute renal injury 14. Leukocytosis -infectious vs inflammatory? -on meropenum Plan: Patient is scheduled for duodenal stent on Wednesday Clear liquid diet okay Monitor LFTs, amylase, lipase Pain management, morphine 2 mg q 6 hours prn pain Recommend iron supplements Continue with abx PPI for GI prophylaxis Result Diagram: 07/08/18 0504 07/09/18 0539 Results 24hrs Laboratory Tests Test 07/08/18 08:20 07/08/18 12:50 07/08/18 17:40 07/08/18 20:36 Bedside Glucose 123 126 105 120 Test 07/09/18 05:39 Sodium Level 137 Potassium Level 4.0 Chloride Level 106 Carbon Dioxide Level 21 Anion Gap 10 Blood Urea Nitrogen 22 H Creatinine 1.10 Est Glomerular > 60 Filtrat Rate mL/min Glucose Level 123 Hemoglobin A1c 5.1 Calcium Level 8.1 L Total Bilirubin 1.8 H Direct Bilirubin 1.10 H Indirect Bilirubin 0.7 Aspartate Amino 305 H Transf (AST/SGOT) Alanine 35 Aminotransferase (AL T/SGPT) Alkaline Phosphatase 642 H Total Protein 6.6 Albumin 2.5 L Globulin 4.10 H Albumin/Globulin 0.60 Ratio Amylase Level 280 H Lipase 2134 H Consultation Date/Type/Reason Admit Date/Time Jul 01, 2018 at 03:27 Initial Consult Date 24 HR Interval Summary Free Text/Dictation Complaints of emesis. Abdominal pain reduced Exam/Review of Systems Vital Signs Vitals Vital Signs Date Temp Pulse Resp B/P (MAP) Pulse Ox O2 O2 Flow FiO2 Time Delivery Rate 07/09/18 97.9 91 18 120/66 96 07:13 (84) 07/09/18 Room Air 03:38 Intake and Output 07/08/18 07/08/18 07/09/18 1515:00 23:00 07:00 IntakeIntake Total 50 ml 550 ml 1200 ml BalanceBalance 50 ml 550 ml 1200 ml Exam Constitutional: alert, oriented, well developed Psych: no complaints, nl mood/affect Head: normocephalic, atraumatic Eyes: nl conjunctiva, EOMI, nl lids, nl sclera, PERRL ENMT: nl external ears & nose, nl lips & teeth, nl nasal mucosa & septum Neck: supple, non-tender Respiratory: clear to auscultation, normal air movement Cardiovascular: regular rate and rhythm, nl pulses Gastrointestinal: soft, nl liver, spleen, non-tender Musculoskeletal: nl extremities to inspection, nl gait and stance Extremities: normal pulses Neurological: PEDIATRIC PSYCHIATRIST II-XII intact, nl mental status, nl speech, nl strength Skin: nl turgor; No rash or lesions Lymph: nl lymph nodes Medications Medications Current Medications IV Flush (NS 3 ml) 3 ml PER PROTOCOL IV ; Start 07/01/18 at 03:30 Acetaminophen (Tylenol Tab) 650 mg Q6H PRN PO PAIN LEVEL 1-3 OR FEVER Last administered on 07/05/18at 01:41; Admin Dose 650 MG; Start 07/01/18 at 03:30 Ondansetron HCl (Zofran Inj) 4 mg Q4 PRN IV NAUSEA AND/OR VOMITING Last administered on 07/09/18at 05:51; Admin Dose 4 MG; Start 07/01/18 at 03:30 Pantoprazole (Protonix Iv) 40 mg BID@06,18 IV Last administered on 07/09/18at 05:51; Admin Dose 40 MG; Start 07/01/18 at 18:00 Miscellaneous Information 1 ea NOTE XX ; Start 07/01/18 at 16:30 Glucose (Glutose) 15 gm Q15M PRN PO DECREASED GLUCOSE; Start 07/01/18 at 16:30 Glucose (Glutose) 22.5 gm Q15M PRN PO DECREASED GLUCOSE; Start 07/01/18 at 16:30 Dextrose (D50w Syringe) 25 ml Q15M PRN IV DECREASED GLUCOSE; Start 07/01/18 at 16:30 Dextrose (D50w Syringe) 50 ml Q15M PRN IV DECREASED GLUCOSE; Start 07/01/18 at 16:30 Glucagon (Glucagen) 1 mg Q15M PRN IM DECREASED GLUCOSE; Start 07/01/18 at 16:30 Glucose (Glutose) 15 gm Q15M PRN BUCCAL DECREASED GLUCOSE; Start 07/01/18 at 16:30 Meropenem/Sodium Chloride 50 ml @ 100 mls/hr Q12 IVPB Last administered on 07/08/18at 20:32; Admin Dose 100 MLS/HR; Start 07/05/18 at 21:00 Dextrose/Sodium Chloride 1,000 ml @ 50 mls/hr Q20H IV Last administered on 07/09/18at 06:40; Admin Dose 50 MLS/HR; Start 07/06/18 at 16:00 Insulin Aspart (Novolog Insulin Pen) NOVOLOG *MILD* ALGORI... AC MEALS AND BEDTIME SC ; Start 07/08/18 at 18:00 Miscellaneous Information 1 ea NOTE XX ; Start 07/08/18 at 14:00 Glucose (Glutose) 15 gm Q15M PRN PO DECREASED GLUCOSE; Start 07/08/18 at 14:00 Glucose (Glutose) 22.5 gm Q15M PRN PO DECREASED GLUCOSE; Start 07/08/18 at 14:00 Dextrose (D50w Syringe) 25 ml Q15M PRN IV DECREASED GLUCOSE; Start 07/08/18 at 14:00 Dextrose (D50w Syringe) 50 ml Q15M PRN IV DECREASED GLUCOSE; Start 07/08/18 at 14:00 Glucagon (Glucagen) 1 mg Q15M PRN IM DECREASED GLUCOSE; Start 07/08/18 at 14:00 Glucose (Glutose) 15 gm Q15M PRN BUCCAL DECREASED GLUCOSE; Start 07/08/18 at 14:00 Bisacodyl (Dulcolax Supp) [address] CONSTIPATION; Start 07/08/18 at 14:30 Morphine Sulfate (morphine) 2 mg Q4H PRN IV SEVERE PAIN LEVEL 7-10 Last administered on 07/09/18at 06:00; Admin Dose 2 MG; Start 07/09/18 at 05:51 JUVENAL NGO MD Jul 09, 2018 08:04
[2018-07-09] MEDS: MEROPENEM 500MG/50 ML (PMX) 50 ML IVPB SCH ×2 (08:20→21:40)
[2018-07-09] MEDS ORDERED: BISACODYL (EC) 5 MG TAB PO ONE (12:30)
--- NOTE | 2018-07-09 12:44 | CONS ---
Date/Time of Note Date/Time of Note DATE: 07/09/18 TIME: 12:44 Assessment/Plan Assessment/Plan Hospital Course ID PROGRESS NOTE CURRENT ABX: DAY # 9=> Merrem s/p Zosyn / Vanco IV 07/08/18 0504 07/09/18 0539 24H INTERVAL SUMMARY * Clinically stable -- OOB chair with spouse and son present, No fevers/chills/no diarrhea, WBC slightly down today * Still has ABD pain Lipase @ 2134 today MICRO * Microbiology: Blood cultures since admission negative urine culture grew enterococcus, stool for C. difficile negative PHYSICAL EXAMINATION: GENERAL: Afebrile, VSS, HEENT: AT, NC, anicteric NECK: Supple, trach midline CHEST: Equal chest rise bilaterally, without dyspnea on observation HEART: Pulse RRR ABDOMEN: Soft / NT EXTREMITIES: Warm, dry SKIN: No rash, no diaphoresis ID ASSESSMENT 63 yo M admit with: 1. Persistent leukocytosis = suspect reactive, possibly secondary to #2 + acute pancreatitis 2. Cholangiocarcinoma with liver metastases, status post chemotherapy 3. Status post SIRS due to ENTEROCOCCAL urinary tract infection * s/p Zosyn / Vanco IV 4. Acute kidney injury 5. Status post ERCP with removal of the old clogged stent with sphincterotomy 6. Pancreatitis status post ERCP ( )MRSA Nares ABX ALLERGIES: NKDA INVASIVES: PI CURRENT ABX:DAY # 9=> Merrem s/p Zosyn / Vanco IV ID RECOMMENDATIONS/PLAN: Continue current ABX -- WBC downtrending At risk for pancreatic necrosis -- He is tolerating ABX well, anticipate continue over the 3-day [facility] weekend. . Result Diagram: 07/08/1850307/09/18 0539 Results 24hrs Laboratory Tests Test 07/08/18 12:50 07/08/18 17:40 07/08/18 20:36 07/09/18 05:39 Bedside Glucose 126 105 120 Sodium Level 137 Potassium Level 4.0 Chloride Level 106 Carbon Dioxide Level 21 Anion Gap 10 Blood Urea Nitrogen 22 H Creatinine 1.10 Est Glomerular > 60 Filtrat Rate mL/min Glucose Level 123 Hemoglobin A1c 5.1 Calcium Level 8.1 L Total Bilirubin 1.8 H Direct Bilirubin 1.10 H Indirect Bilirubin 0.7 Aspartate Amino 305 H Transf (AST/SGOT) Alanine 35 Aminotransferase (AL T/SGPT) Alkaline Phosphatase 642 H Total Protein 6.6 Albumin 2.5 L Globulin 4.10 H Albumin/Globulin 0.60 Ratio Amylase Level 280 H Lipase 2134 H Test 07/09/18 08:19 07/09/18 12:07 Bedside Glucose 125 116 Consultation Date/Type/Reason Admit Date/Time Jul 01, 2018 at 03:27 Initial Consult Date Exam/Review of Systems Vital Signs Vitals Vital Signs Date Temp Pulse Resp B/P (MAP) Pulse Ox O2 O2 Flow FiO2 Time Delivery Rate 07/09/18 98.1 85 19 115/76 100 11:01 (89) 07/09/18 Room Air 03:38 Intake and Output 07/08/18 07/08/18 07/09/18 1515:00 23:00 07:00 IntakeIntake Total 50 ml 550 ml 1200 ml BalanceBalance 50 ml 550 ml 1200 ml Medications Medications Current Medications IV Flush (NS 3 ml) 3 ml PER PROTOCOL IV ; Start 07/01/18 at 03:30 Acetaminophen (Tylenol Tab) 650 mg Q6H PRN PO PAIN LEVEL 1-3 OR FEVER Last administered on 07/05/18at 01:41; Admin Dose 650 MG; Start 07/01/18 at 03:30 Ondansetron HCl (Zofran Inj) 4 mg Q4 PRN IV NAUSEA AND/OR VOMITING Last administered on 07/09/18at 05:51; Admin Dose 4 MG; Start 07/01/18 at 03:30 Pantoprazole (Protonix Iv) 40 mg BID@06,18 IV Last administered on 07/09/18at 05:51; Admin Dose 40 MG; Start 07/01/18 at 18:00 Miscellaneous Information 1 ea NOTE XX ; Start 07/01/18 at 16:30 Glucose (Glutose) 15 gm Q15M PRN PO DECREASED GLUCOSE; Start 07/01/18 at 16:30 Glucose (Glutose) 22.5 gm Q15M PRN PO DECREASED GLUCOSE; Start 07/01/18 at 16:30 Dextrose (D50w Syringe) 25 ml Q15M PRN IV DECREASED GLUCOSE; Start 07/01/18 at 16:30 Dextrose (D50w Syringe) 50 ml Q15M PRN IV DECREASED GLUCOSE; Start 07/01/18 at 16:30 Glucagon (Glucagen) 1 mg Q15M PRN IM DECREASED GLUCOSE; Start 07/01/18 at 16:30 Glucose (Glutose) 15 gm Q15M PRN BUCCAL DECREASED GLUCOSE; Start 07/01/18 at 16:30 Meropenem/Sodium Chloride 50 ml @ 100 mls/hr Q12 IVPB Last administered on 07/09/18at 08:20; Admin Dose 100 MLS/HR; Start 07/05/18 at 21:00 Dextrose/Sodium Chloride 1,000 ml @ 50 mls/hr Q20H IV Last administered on 07/09/18at 06:40; Admin Dose 50 MLS/HR; Start 07/06/18 at 16:00 Insulin Aspart (Novolog Insulin Pen) NOVOLOG *MILD* ALGORI... AC MEALS AND BEDTIME SC ; Start 07/08/18 at 18:00 Miscellaneous Information 1 ea NOTE XX ; Start 07/08/18 at 14:00 Glucose (Glutose) 15 gm Q15M PRN PO DECREASED GLUCOSE; Start 07/08/18 at 14:00 Glucose (Glutose) 22.5 gm Q15M PRN PO DECREASED GLUCOSE; Start 07/08/18 at 14:00 Dextrose (D50w Syringe) 25 ml Q15M PRN IV DECREASED GLUCOSE; Start 07/08/18 at 14:00 Dextrose (D50w Syringe) 50 ml Q15M PRN IV DECREASED GLUCOSE; Start 07/08/18 at 14:00 Glucagon (Glucagen) 1 mg Q15M PRN IM DECREASED GLUCOSE; Start 07/08/18 at 14:00 Glucose (Glutose) 15 gm Q15M PRN BUCCAL DECREASED GLUCOSE; Start 07/08/18 at 14:00 Bisacodyl (Dulcolax Supp) 10 mg DAILY PRN [place] CONSTIPATION; Start 07/08/18 at 14:30 Morphine Sulfate (morphine) 2 mg Q4H PRN IV SEVERE PAIN LEVEL 7-10 Last administered on 07/09/18at 10:02; Admin Dose 2 MG; Start 07/09/18 at 05:51 YONI MAHAJAN NP Jul 09, 2018 12:44
--- NOTE | 2018-07-09 16:23 | PN ---
Date/Time of Note Date/Time of Note DATE: 07/09/18 TIME: 16:21 Assessment/Plan VTE Prophylaxis Risk score (from [facility] [place], [place])>0 risk: 9 SCD applied (from [facility] [place], [place]): Yes Pharmacological prophylaxis: NA/contraindicated Pharm contraindication: low risk/ambulating Lines/Catheters IV Catheter Type (from [facility]): port a cath Urinary Cath still in place: No Assessment/Plan Hospital Course 63 y/o with 1 Sepsis with severe lactic acidosis probably due to cholangittis S.p stent placed in 09/2017 s/p ERCP with removal, still with persistent leukoctytosis, enterococcus in urine now with pancreatitis ? s/p ERCP??, lipase improved however worseinig abdominal distension 2. 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 Chemotherapy ended last week, started March 2018 3. Pancreatic ductal dilatation noted on US 4. Abnormal LFTs 5. Mod free fluid and diffuse intra abdominal stranding seen in CT scan 6. Anemia, chronic 7. H/O Hep C 8. H/O cholecystectomy for blocked cystic duct 9 JULIO i with worseinng Creatine ? ATN due to abx ?? Vanco/zosyn 10 Anasarca with edema BLE , neg for DVT with hypoalbunemia 11 Persistent leukocytosis to 25 Plan - -duodenal stent Wednesday - c/w telemetry - monitor WBC, down to 22 - constipation relief - cw meropenem - clear liquid started, ON FLUIDS> Lipase still elevated - monitor amylase/lipase - strict I and o - fu ID and GI recs Result Diagram: 07/08/18 0504 07/09/18 0539 Results 24hrs Laboratory Tests Test 07/08/18 17:40 07/08/18 20:36 07/09/18 05:39 07/09/18 08:19 Bedside Glucose 105 120 125 Sodium Level 137 Potassium Level 4.0 Chloride Level 106 Carbon Dioxide Level 21 Anion Gap 10 Blood Urea Nitrogen 22 H Creatinine 1.10 Est Glomerular > 60 Filtrat Rate mL/min Glucose Level 123 Hemoglobin A1c 5.1 Calcium Level 8.1 L Total Bilirubin 1.8 H Direct Bilirubin 1.10 H Indirect Bilirubin 0.7 Aspartate Amino 305 H Transf (AST/SGOT) Alanine 35 Aminotransferase (AL T/SGPT) Alkaline Phosphatase 642 H Total Protein 6.6 Albumin 2.5 L Globulin 4.10 H Albumin/Globulin 0.60 Ratio Amylase Level 280 H Lipase 2134 H Test 07/09/18 12:07 Bedside Glucose 116 Subjective 24 Hr Interval Summary Free Text/Dictation Feels pain is better swelling still there Exam/Review of Systems Vital Signs Vitals Vital Signs Date Temp Pulse Resp B/P (MAP) Pulse Ox O2 O2 Flow FiO2 Time Delivery Rate 07/09/18 97.8 91 18 117/64 100 15:22 (81) 07/09/18 Room Air 03:38 Intake and Output 07/08/18 07/08/18 07/09/18 1414:59 22:59 06:59 IntakeIntake Total 50 ml 550 ml 1200 ml BalanceBalance 50 ml 550 ml 1200 ml Exam Scleral icterus Respiratory: dec breath sounds bases Cardiovascular: regular rate and rhythm Gastrointestinal: soft, bowel sounds (+) TTP Extremities: edema 2+ le and upper ext portacath Medications Medications Current Medications IV Flush (NS 3 ml) 3 ml PER PROTOCOL IV ; Start 07/01/18 at 03:30 Acetaminophen (Tylenol Tab) 650 mg Q6H PRN PO PAIN LEVEL 1-3 OR FEVER Last administered on 07/05/18at 01:41; Admin Dose 650 MG; Start 07/01/18 at 03:30 Ondansetron HCl (Zofran Inj) 4 mg Q4 PRN IV NAUSEA AND/OR VOMITING Last administered on 07/09/18at 13:29; Admin Dose 4 MG; Start 07/01/18 at 03:30 Pantoprazole (Protonix Iv) 40 mg BID@06,18 IV Last administered on 07/09/18at 05:51; Admin Dose 40 MG; Start 07/01/18 at 18:00 Meropenem/Sodium Chloride 50 ml @ 100 mls/hr Q12 IVPB Last administered on 07/09/18at 08:20; Admin Dose 100 MLS/HR; Start 07/05/18 at 21:00 Dextrose/Sodium Chloride 1,000 ml @ 50 mls/hr Q20H IV Last administered on 07/09/18at 06:40; Admin Dose 50 MLS/HR; Start 07/06/18 at 16:00 Insulin Aspart (Novolog Insulin Pen) NOVOLOG *MILD* ALGORI... AC MEALS AND BEDTIME SC ; Start 07/08/18 at 18:00 Miscellaneous Information 1 ea NOTE XX ; Start 07/08/18 at 14:00 Glucose (Glutose) 15 gm Q15M PRN PO DECREASED GLUCOSE; Start 07/08/18 at 14:00 Glucose (Glutose) 22.5 gm Q15M PRN PO DECREASED GLUCOSE; Start 07/08/18 at 14:00 Dextrose (D50w Syringe) 25 ml Q15M PRN IV DECREASED GLUCOSE; Start 07/08/18 at 14:00 Dextrose (D50w Syringe) 50 ml Q15M PRN IV DECREASED GLUCOSE; Start 07/08/18 at 14:00 Glucagon (Glucagen) 1 mg Q15M PRN IM DECREASED GLUCOSE; Start 07/08/18 at 14:00 Glucose (Glutose) 15 gm Q15M PRN BUCCAL DECREASED GLUCOSE; Start 07/08/18 at 14:00 Bisacodyl (Dulcolax Supp) 10 mg DAILY PRN [place] CONSTIPATION; Start 07/08/18 at 14:30 Morphine Sulfate (morphine) 2 mg Q4H PRN IV SEVERE PAIN LEVEL 7-10 Last administered on 07/09/18at 10:02; Admin Dose 2 MG; Start 07/09/18 at 05:51 MARYCARMEN DE LA CRUZ MD Jul 09, 2018 16:23
--- NOTE | 2018-07-09 17:55 | NUR ---
EOSS Patient stable, afebrile, A/Ox4, lethargic and weak, tolerating clear liquids ok but vomited 800cc of yellow liquid once this afternoon, nausea and vomiting resolved after administering 4mg IV zofran once, patient was tachycardic in the 130-140s during episode of vomiting, administered morphine 2 mg IV twice for abdominal pain, blood glucose controlled and no insulin coverage needed, maintained on IV fluid hydration D51/2NS @ 50cc/hr and IV meropenem for infection, hemoglobin stable, pending duodenal stent placement on Wednesday, currently resting, will endorse care to night supervisor.
[2018-07-10] VITALS (12 sets, daily range): BP systolic 105–132; BP diastolic 63–71; PULSE 86–120; RESP 17–19
[2018-07-10] MEDS: ONDANSETRON 4 MG INJ IV PRN ×5 (02:15→20:32)
[2018-07-10] MEDS: morphine 4 MG/ML VIAL IV PRN ×5 (02:15→20:32)
--- NOTE | 2018-07-10 04:45 | NUR ---
Called CT and spoke to Jaime regarding patient's STAT CT chest angio test. He stated that he would call transport and bring the patient down. Addendum: 07/10/18 at 0553 by SANDRA HERNANDEZ RN Disregard, wrong patient.
--- NOTE | 2018-07-10 05:32 | NUR ---
EOSS: Pt A&O x 4. VSS. Morphine administered for abdominal pain. No current s/s of distress, resting in bed comfortably. Fall precautions maintained. Hourly rounding performed. Call light within reach; instructed pt to call for assistance as needed. Pt clean and dry; all needs and concerns attended to. Will endorse pt to AM RN for continuity of care.
[2018-07-10] MEDS: PANTOPRAZOLE 40 MG INJ IV SCH ×2 (05:46→16:41)
[2018-07-10] MEDS: DEXTROSE 5%-0.45% NACL 1,000 ML IV SCH (05:49)
[2018-07-10] MEDS: INSULIN ASPART [NOVOLOG] 3 ML PEN SC SCH ×4 (07:00→21:00)
[2018-07-10] MEDS: MEROPENEM 500MG/50 ML (PMX) 50 ML IVPB SCH ×2 (08:30→20:32)
--- NOTE | 2018-07-10 10:41 | CONS ---
Date/Time of Note Date/Time of Note DATE: 07/10/18 TIME: 10:35 Assessment/Plan Assessment/Plan Hospital Course 63 yo male with cholangiocarcinoma presents with worsening epigastric pain 1. Abdominal pain secondary to pancreatitis -improved 2. Pancreatitis spontaneous - lipase 19,127->->1502->1575->2134 3. 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 Pancreatic ductal dilatation noted on US secondary to tumor 5. Abnormal LFTs -tbili 1.8->1.7, direct bili 1.10, AST 35, ALT 235 , alk 462. -trending down 6. Mod free fluid and diffuse intra abdominal stranding seen in CT scan 7. Anemia, chronic -FOB neg, Iron and TIBC low, anemia work up noted. 8. H/O Hep C 9. H/O cholecystectomy for blocked cystic duct 10. Status post ERCP and removal of the metallic biliary stent 07/02 11. Obstruction of the second part of the duodenum most probably from the infiltrating tumor 12. Bilateral pedal edema 13. Acute renal injury 14. Leukocytosis -infectious vs inflammatory? -on meropenum -trending down 15. Anasarca 16. Constipation -pt has not been eating much, receiving Morphine Plan: Bowel regimen: amitiza and miralax Promote ambulation, keep lower extremities raised ERCP for duodenal stent placement Wednesday Full liquid diet okay Monitor LFTs, amylase, lipase Pain management, morphine 2 mg q 6 hours prn pain Recommend iron supplements Continue with abx PPI for GI prophylaxis Pt examined and plan of care discussed iw Dr. Hu Result Diagram: 07/10/1852307/10/18523 Results 24hrs Laboratory Tests Test 07/09/18 12:07 07/09/18 17:31 07/09/18 20:34 07/10/18 05:23 Bedside Glucose 116 117 115 Total Bilirubin 1.7 H Direct Bilirubin 1.10 H Indirect Bilirubin 0.6 Aspartate Amino 235 H Transf (AST/SGOT) Alanine 34 Aminotransferase (AL T/SGPT) Alkaline Phosphatase 462 H Total Protein 5.5 #L Albumin 2.1 L Test 07/10/18 05:24 07/10/18 08:29 White Blood Count 17.1 #H Red Blood Count 2.58 L Hemoglobin 7.4 L Hematocrit 23.4 L Mean Corpuscular 90.7 Volume Mean Corpuscular 28.7 L Hemoglobin Mean Corpuscular 31.6 L Hemoglobin Concent Red Cell 25.0 H Distribution Width Platelet Count 235 # Mean Platelet Volume 10.8 H Immature 1.000 H Granulocytes % Neutrophils % 80.7 H Lymphocytes % 9.9 L Monocytes % 8.2 Eosinophils % 0.1 Basophils % 0.1 Nucleated Red Blood 0.0 Cells % Immature 0.170 H Granulocytes # Neutrophils # 13.8 H Lymphocytes # 1.7 Monocytes # 1.4 H Eosinophils # 0.0 Basophils # 0.0 Nucleated Red Blood 0.0 Cells # Sodium Level 136 Potassium Level 3.8 Chloride Level 110 Carbon Dioxide Level 21 Anion Gap 5 Blood Urea Nitrogen 24 H Creatinine 1.12 Est Glomerular > 60 Filtrat Rate mL/min Glucose Level 100 Calcium Level 7.9 L Bedside Glucose 110 Consultation Date/Type/Reason Admit Date/Time Jul 01, 2018 at 03:27 Initial Consult Date 24 HR Interval Summary Free Text/Dictation Pt states abd pain markedly improved, abd distention continues, no bm, pt has not been eating much. Denies N/V. Hemodynamically stable. Afebrile. WBC trending down at 17. hgb 7.4. Exam/Review of Systems Vital Signs Vitals Vital Signs Date Temp Pulse Resp B/P (MAP) Pulse Ox O2 O2 Flow FiO2 Time Delivery Rate 07/10/18 94 08:40 07/10/18 98.6 17 105/67 99 07:11 (80) 07/10/18 Room Air 03:47 Intake and Output 07/09/18 07/09/18 07/10/18 1515:00 23:00 07:00 IntakeIntake Total 50 ml 2110 ml 600 ml OutputOutput Total 800 ml BalanceBalance 50 ml 1310 ml 600 ml Medications Medications Current Medications IV Flush (NS 3 ml) 3 ml PER PROTOCOL IV ; Start 07/01/18 at 03:30 Acetaminophen (Tylenol Tab) 650 mg Q6H PRN PO PAIN LEVEL 1-3 OR FEVER Last administered on 07/05/18at 01:41; Admin Dose 650 MG; Start 07/01/18 at 03:30 Ondansetron HCl (Zofran Inj) 4 mg Q4 PRN IV NAUSEA AND/OR VOMITING Last administered on 07/10/18at 10:12; Admin Dose 4 MG; Start 07/01/18 at 03:30 Pantoprazole (Protonix Iv) 40 mg BID@06,18 IV Last administered on 07/10/18at 05:46; Admin Dose 40 MG; Start 07/01/18 at 18:00 Meropenem/Sodium Chloride 50 ml @ 100 mls/hr Q12 IVPB Last administered on 07/10/18at 08:30; Admin Dose 100 MLS/HR; Start 07/05/18 at 21:00 Dextrose/Sodium Chloride 1,000 ml @ 50 mls/hr Q20H IV Last administered on 07/10/18at 05:49; Admin Dose 50 MLS/HR; Start 07/06/18 at 16:00 Insulin Aspart (Novolog Insulin Pen) NOVOLOG *MILD* ALGORI... AC MEALS AND BEDTIME SC ; Start 07/08/18 at 18:00 Miscellaneous Information 1 ea NOTE XX ; Start 07/08/18 at 14:00 Glucose (Glutose) 15 gm Q15M PRN PO DECREASED GLUCOSE; Start 07/08/18 at 14:00 Glucose (Glutose) 22.5 gm Q15M PRN PO DECREASED GLUCOSE; Start 07/08/18 at 14:00 Dextrose (D50w Syringe) 25 ml Q15M PRN IV DECREASED GLUCOSE; Start 07/08/18 at 14:00 Dextrose (D50w Syringe) 50 ml Q15M PRN IV DECREASED GLUCOSE; Start 07/08/18 at 14:00 Glucagon (Glucagen) 1 mg Q15M PRN IM DECREASED GLUCOSE; Start 07/08/18 at 14:00 Glucose (Glutose) 15 gm Q15M PRN BUCCAL DECREASED GLUCOSE; Start 07/08/18 at 14:00 Bisacodyl (Dulcolax Supp) 10 mg DAILY PRN [place] CONSTIPATION; Start 07/08/18 at 14:30 Morphine Sulfate (morphine) 2 mg Q4H PRN IV SEVERE PAIN LEVEL 7-10 Last administered on 07/10/18at 10:12; Admin Dose 2 MG; Start 07/09/18 at 05:51 ELVIA PALACIOS Jul 10, 2018 10:41
[2018-07-10] MEDS: POLYETHYLENE GLYCOL 17 GM PACKET PO SCH (11:31)
[2018-07-10] MEDS: LUBIPROSTONE 8 MCG CAPSULE PO SCH ×2 (12:57→21:46)
--- NOTE | 2018-07-10 13:37 | PN ---
TRACY QUEZADA 07/10/18 1337: Date/Time of Note Date/Time of Note DATE: 07/10/18 TIME: 13:36 Assessment/Plan VTE Prophylaxis Risk score (from [facility] [place])>0 risk: 10 SCD applied (from [facility] [place]): Yes Pharmacological prophylaxis: NA/contraindicated Pharm contraindication: bleeding, blood coag disorder, liver dx Lines/Catheters IV C[facility]ter Type (from [facility]): Peripheral IV Urinary Cath still in place: No Assessment/Plan Hospital Course 1 Sepsis with severe lactic acidosis probably due to cholangitis S.p stent placed in 09/2017 s/p ERCP with removal, still with persistent leukoctytosis, enterococcus in urine now with pancreatitis ? s/p ERCP??, lipase improved however worsening abdominal distension 2. 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 Chemotherapy ended last week, started March 2018 3. Pancreatic ductal dilatation noted on US 4. Abnormal LFTs 5. Mod free fluid and diffuse intra abdominal stranding seen in CT scan 6. Anemia, chronic 7. H/O Hep C 8. H/O cholecystectomy for blocked cystic duct 9 JULIO with worsening Creatine ? ATN due to abx ?? Vanco/zosyn 10 Anasarca with edema BLE , neg for DVT with hypoalbuminemia. 11 Persistent leukocytosis to 25 Assessment/Plan - duodenal stent Wednesday - c/ telemetry - monitor WBC, down to 22>. 17 - constipation relief - cw meropenem - full liquid diet - monitor amylase/lipase - strict I and o - fu ID and GI rec Result Diagram: 07/10/18 0507/10/18 0524 Results 24hrs Laboratory Tests Test 07/09/18 17:31 07/09/18 20:34 07/10/18 05:23 07/10/18 05:24 Bedside Glucose 117 115 Total Bilirubin 1.7 H Direct Bilirubin 1.10 H Indirect Bilirubin 0.6 Aspartate Amino 235 H Transf (AST/SGOT) Alanine 34 Aminotransferase (AL T/SGPT) Alkaline Phosphatase 462 H Total Protein 5.5 #L Albumin 2.1 L White Blood Count 17.1 #H Red Blood Count 2.58 L Hemoglobin 7.4 L Hematocrit 23.4 L Mean Corpuscular 90.7 Volume Mean Corpuscular 28.7 L Hemoglobin Mean Corpuscular 31.6 L Hemoglobin Concent Red Cell 25.0 H Distribution Width Platelet Count 235 # Mean Platelet Volume 10.8 H Immature 1.000 H Granulocytes % Neutrophils % 80.7 H Lymphocytes % 9.9 L Monocytes % 8.2 Eosinophils % 0.1 Basophils % 0.1 Nucleated Red Blood 0.0 Cells % Immature 0.170 H Granulocytes # Neutrophils # 13.8 H Lymphocytes # 1.7 Monocytes # 1.4 H Eosinophils # 0.0 Basophils # 0.0 Nucleated Red Blood 0.0 Cells # Sodium Level 136 Potassium Level 3.8 Chloride Level 110 Carbon Dioxide Level 21 Anion Gap 5 Blood Urea Nitrogen 24 H Creatinine 1.12 Est Glomerular > 60 Filtrat Rate mL/min Glucose Level 100 Calcium Level 7.9 L Test 07/10/18 08:29 07/10/18 12:02 Bedside Glucose 110 120 Subjective 24 Hr Interval Summary Gastrointestinal: constipation Exam/Review of Systems Vital Signs Vitals Vital Signs Date Temp Pulse Resp B/P (MAP) Pulse Ox O2 O2 Flow FiO2 Time Delivery Rate 07/10/18 87 12:25 07/10/18 98.1 18 132/71 99 11:37 (91) 07/10/18 Room Air 03:47 Intake and Output 07/09/18 07/09/18 07/10/18 1515:00 23:00 07:00 IntakeIntake Total 50 ml 2110 ml 600 ml OutputOutput Total 800 ml BalanceBalance 50 ml 1310 ml 600 ml Exam Constitutional: alert, oriented Eyes: nl conjunctiva ENMT: nl external ears & nose Respiratory: clear to auscultation Cardiovascular: regular rate and rhythm Musculoskeletal: swelling (lower extremities) Medications Medications Current Medications IV Flush (NS 3 ml) 3 ml PER PROTOCOL IV ; Start 07/01/18 at 03:30 Acetaminophen (Tylenol Tab) 650 mg Q6H PRN PO PAIN LEVEL 1-3 OR FEVER Last administered on 07/05/18at 01:41; Admin Dose 650 MG; Start 07/01/18 at 03:30 Ondansetron HCl (Zofran Inj) 4 mg Q4 PRN IV NAUSEA AND/OR VOMITING Last administered on 07/10/18at 10:12; Admin Dose 4 MG; Start 07/01/18 at 03:30 Pantoprazole (Protonix Iv) 40 mg BID@06,18 IV Last administered on 07/10/18at 05:46; Admin Dose 40 MG; Start 07/01/18 at 18:00 Meropenem/Sodium Chloride 50 ml @ 100 mls/hr Q12 IVPB Last administered on 07/10/18at 08:30; Admin Dose 100 MLS/HR; Start 07/05/18 at 21:00 Dextrose/Sodium Chloride 1,000 ml @ 50 mls/hr Q20H IV Last administered on 07/10/18at 05:49; Admin Dose 50 MLS/HR; Start 07/06/18 at 16:00 Insulin Aspart (Novolog Insulin Pen) NOVOLOG *MILD* ALGORI... AC MEALS AND BEDTIME SC ; Start 07/08/18 at 18:00 Miscellaneous Information 1 ea NOTE XX ; Start 07/08/18 at 14:00 Glucose (Glutose) 15 gm Q15M PRN PO DECREASED GLUCOSE; Start 07/08/18 at 14:00 Glucose (Glutose) 22.5 gm Q15M PRN PO DECREASED GLUCOSE; Start 07/08/18 at 14:00 Dextrose (D50w Syringe) 25 ml Q15M PRN IV DECREASED GLUCOSE; Start 07/08/18 at 14:00 Dextrose (D50w Syringe) 50 ml Q15M PRN IV DECREASED GLUCOSE; Start 07/08/18 at 14:00 Glucagon (Glucagen) 1 mg Q15M PRN IM DECREASED GLUCOSE; Start 07/08/18 at 14:00 Glucose (Glutose) 15 gm Q15M PRN BUCCAL DECREASED GLUCOSE; Start 07/08/18 at 14:00 Bisacodyl (Dulcolax Supp) 10 mg DAILY PRN [place] CONSTIPATION; Start 07/08/18 at 14:30 Morphine Sulfate (morphine) 2 mg Q4H PRN IV SEVERE PAIN LEVEL 7-10 Last administered on 07/10/18at 10:12; Admin Dose 2 MG; Start 07/09/18 at 05:51 Polyethylene Glycol (Miralax) 17 gm DAILY PO Last administered on 07/10/18at 11:31; Admin Dose 17 GM; Start 07/10/18 at 11:30 Lubiprostone (Amitiza) 16 mcg BID PO Last administered on 07/10/18at 12:57; Admin Dose 16 MCG; Start 07/10/18 at 12:00 MARYCARMEN DE LA CRUZ MD 07/10/18 1535: Assessment/Plan Assessment/Plan Assessment/Plan WBC IMPROVING TODAY CR STABLE DEC FLUIDS Result Diagram: 07/10/18 0524 07/10/18 0524 TRACY QUEZADA Jul 10, 2018 13:37 MARYCARMEN DE LA CRUZ MD Jul 10, 2018 15:35
[2018-07-10] MEDS ORDERED: FUROSEMIDE 20 MG INJ IV ONE (14:30)
--- NOTE | 2018-07-10 16:08 | CONS ---
Date/Time of Note Date/Time of Note DATE: 07/10/18 TIME: 16:04 Assessment/Plan Assessment/Plan Hospital Course ID PROGRESS NOTE CURRENT ABX: DAY # 10=> Merrem s/p Zosyn / Vanco IV 07/10/1824 07/10/18523 24H INTERVAL SUMMARY * NO new issues -- awake, alert, responsive, watching TV, ABD pain is tolerable. * No fevers/chills/no diarrhea, WBC slightly down today * (+)Jaundice w/elevated T.Bili -- Lipase @ 2134 yesterday MICRO * Microbiology: Blood cultures since admission negative urine culture grew enterococcus, stool for C. difficile negative PHYSICAL EXAMINATION: GENERAL: Afebrile, VSS, (+)Jaundice, a/a/o w/intermittent ABD pain - he is tolerating well HEENT: AT, NC, (+)mild icteric NECK: Supple, trach midline CHEST: Equal chest rise bilaterally, without dyspnea on observation HEART: Pulse RRR ABDOMEN: Soft / NT EXTREMITIES: Warm, dry SKIN: No rash, no diaphoresis ID ASSESSMENT 63 yo M admit with: 1. Persistent leukocytosis = suspect reactive, possibly secondary to #2 + acute pancreatitis 2. Cholangiocarcinoma with liver metastases, status post chemotherapy 3. Status post SIRS due to ENTEROCOCCAL urinary tract infection * s/p Zosyn / Vanco IV 4. Acute kidney injury 5. Status post ERCP with removal of the old clogged stent with sphincterotomy 6. Pancreatitis status post ERCP ( )MRSA Nares ABX ALLERGIES: NKDA INVASIVES: PI CURRENT ABX:DAY #10=> Merrem s/p Zosyn / Vanco IV ID RECOMMENDATIONS/PLAN: Continue current ABX -- WBC downtrending At risk for pancreatic necrosis -- He is tolerating ABX well, anticipate continue over the 3-day [facility] weekend. . Result Diagram: 07/10/1852307/10/18523 Results 24hrs Laboratory Tests Test 07/09/18 17:31 07/09/18 20:34 07/10/18 05:23 07/10/18 05:24 Bedside Glucose 117 115 Total Bilirubin 1.7 H Direct Bilirubin 1.10 H Indirect Bilirubin 0.6 Aspartate Amino 235 H Transf (AST/SGOT) Alanine 34 Aminotransferase (AL T/SGPT) Alkaline Phosphatase 462 H Total Protein 5.5 #L Albumin 2.1 L White Blood Count 17.1 #H Red Blood Count 2.58 L Hemoglobin 7.4 L Hematocrit 23.4 L Mean Corpuscular 90.7 Volume Mean Corpuscular 28.7 L Hemoglobin Mean Corpuscular 31.6 L Hemoglobin Concent Red Cell 25.0 H Distribution Width Platelet Count 235 # Mean Platelet Volume 10.8 H Immature 1.000 H Granulocytes % Neutrophils % 80.7 H Lymphocytes % 9.9 L Monocytes % 8.2 Eosinophils % 0.1 Basophils % 0.1 Nucleated Red Blood 0.0 Cells % Immature 0.170 H Granulocytes # Neutrophils # 13.8 H Lymphocytes # 1.7 Monocytes # 1.4 H Eosinophils # 0.0 Basophils # 0.0 Nucleated Red Blood 0.0 Cells # Sodium Level 136 Potassium Level 3.8 Chloride Level 110 Carbon Dioxide Level 21 Anion Gap 5 Blood Urea Nitrogen 24 H Creatinine 1.12 Est Glomerular > 60 Filtrat Rate mL/min Glucose Level 100 Calcium Level 7.9 L Test 07/10/18 08:29 07/10/18 12:02 Bedside Glucose 110 120 Consultation Date/Type/Reason Admit Date/Time Jul 01, 2018 at 03:27 Initial Consult Date Exam/Review of Systems Vital Signs Vitals Vital Signs Date Temp Pulse Resp B/P (MAP) Pulse Ox O2 O2 Flow FiO2 Time Delivery Rate 07/10/18 98.6 95 19 125/63 100 15:46 (83) 07/10/18 Room Air 03:47 Intake and Output 07/09/18 07/09/18 07/10/18 1515:00 23:00 07:00 IntakeIntake Total 50 ml 2110 ml 600 ml OutputOutput Total 800 ml BalanceBalance 50 ml 1310 ml 600 ml Medications Medications Current Medications IV Flush (NS 3 ml) 3 ml PER PROTOCOL IV ; Start 07/01/18 at 03:30 Acetaminophen (Tylenol Tab) 650 mg Q6H PRN PO PAIN LEVEL 1-3 OR FEVER Last administered on 07/05/18at 01:41; Admin Dose 650 MG; Start 07/01/18 at 03:30 Ondansetron HCl (Zofran Inj) 4 mg Q4 PRN IV NAUSEA AND/OR VOMITING Last administered on 07/10/18at 10:12; Admin Dose 4 MG; Start 07/01/18 at 03:30 Pantoprazole (Protonix Iv) 40 mg BID@06,18 IV Last administered on 07/10/18at 05:46; Admin Dose 40 MG; Start 07/01/18 at 18:00 Meropenem/Sodium Chloride 50 ml @ 100 mls/hr Q12 IVPB Last administered on 07/10/18at 08:30; Admin Dose 100 MLS/HR; Start 07/05/18 at 21:00 Dextrose/Sodium Chloride 1,000 ml @ 20 mls/hr Q24H IV Last administered on 07/10/18at 05:49; Admin Dose 50 MLS/HR; Start 07/06/18 at 16:00 Insulin Aspart (Novolog Insulin Pen) NOVOLOG *MILD* ALGORI... AC MEALS AND BEDTIME SC ; Start 07/08/18 at 18:00 Miscellaneous Information 1 ea NOTE XX ; Start 07/08/18 at 14:00 Glucose (Glutose) 15 gm Q15M PRN PO DECREASED GLUCOSE; Start 07/08/18 at 14:00 Glucose (Glutose) 22.5 gm Q15M PRN PO DECREASED GLUCOSE; Start 07/08/18 at 14:00 Dextrose (D50w Syringe) 25 ml Q15M PRN IV DECREASED GLUCOSE; Start 07/08/18 at 14:00 Dextrose (D50w Syringe) 50 ml Q15M PRN IV DECREASED GLUCOSE; Start 07/08/18 at 14:00 Glucagon (Glucagen) 1 mg Q15M PRN IM DECREASED GLUCOSE; Start 07/08/18 at 14:00 Glucose (Glutose) 15 gm Q15M PRN BUCCAL DECREASED GLUCOSE; Start 07/08/18 at 14:00 Bisacodyl (Dulcolax Supp) 10 mg DAILY PRN [place] CONSTIPATION; Start 07/08/18 at 14:30 Morphine Sulfate (morphine) 2 mg Q4H PRN IV SEVERE PAIN LEVEL 7-10 Last administered on 07/10/18at 10:12; Admin Dose 2 MG; Start 07/09/18 at 05:51 Polyethylene Glycol (Miralax) 17 gm DAILY PO Last administered on 07/10/18at 11:31; Admin Dose 17 GM; Start 07/10/18 at 11:30 Lubiprostone (Amitiza) 16 mcg BID PO Last administered on 07/10/18at 12:57; Admin Dose 16 MCG; Start 07/10/18 at 12:00 YONI MAHAJAN NP Jul 10, 2018 16:07
--- NOTE | 2018-07-10 18:18 | NUR ---
EOSS Patient stable, sinus rhythm/sinus tachycardia in low 100s, blood glucose controlled with no insulin coverage required, maintain on IV fluids and clear liquid diet, vomited x1, administered bowel regimen including tap water enema x1 with no bowel movement and patient only reports flatulence but no constipation or desire to have a bowel movement at this time, midline abdominal pain controlled with morphine 2mg IV administered twice, patient currently resting comfortably, will endorse to rn shift mgr.
[2018-07-11] VITALS (12 sets, daily range): BP systolic 107–119; BP diastolic 66–68; PULSE 58–115; RESP 18–19
[2018-07-11] MEDS: ONDANSETRON 4 MG INJ IV PRN ×2 (00:35→04:37)
[2018-07-11] MEDS: morphine 4 MG/ML VIAL IV PRN ×4 (00:36→16:49)
[2018-07-11] MEDS: PANTOPRAZOLE 40 MG INJ IV SCH ×2 (05:00→17:45)
--- NOTE | 2018-07-11 05:53 | NUR ---
EOSS: Pt A&O x 4. VSS. SR/ST on the monitor. Morphine administered for abdominal pain; Zofran administered X 1 for nausea. Patient had 1 episode of nausea and vomiting. No current s/s of distress, resting in bed comfortably. Fall precautions maintained. Hourly rounding performed. Call light within reach; instructed pt to call for assistance as needed. Pt clean and dry; all needs and concerns attended to. AM labs to be drawn. Will endorse pt to AM RN for continuity of care.
[2018-07-11] MEDS: INSULIN ASPART [NOVOLOG] 3 ML PEN SC SCH ×4 (08:03→20:47)
--- NOTE | 2018-07-11 08:48 | CONS ---
Date/Time of Note Date/Time of Note DATE: 07/11/18 TIME: 08:47 Assessment/Plan Assessment/Plan Hospital Course 63 yo male with cholangiocarcinoma presents with worsening epigastric pain 1. Abdominal pain secondary to pancreatitis -improved 2. Pancreatitis spontaneous - lipase 19,127->->1502->1575->2134 3. 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 Pancreatic ductal dilatation noted on US secondary to tumor 5. Abnormal LFTs -tbili 1.8->1.7, direct bili 1.10, AST 35, ALT 235 , alk 462. -trending down 6. Mod free fluid and diffuse intra abdominal stranding seen in CT scan 7. Anemia, chronic -FOB neg, Iron and TIBC low, anemia work up noted. 8. H/O Hep C 9. H/O cholecystectomy for blocked cystic duct 10. Status post ERCP and removal of the metallic biliary stent 07/02 11. Obstruction of the second part of the duodenum most probably from the infiltrating tumor 12. Bilateral pedal edema 13. Acute renal injury 14. Leukocytosis -infectious vs inflammatory? -on meropenum -trending down 15. Anasarca 16. Constipation -pt has not been eating much, receiving Morphine Plan: Dulcolax 20 mg x 1 EGD tomorrow, CBC/CMP/INR in am, No anti coagulants, NPO p MN Bowel regimen: amitiza and miralax Promote ambulation, keep lower extremities raised ERCP for duodenal stent placement Wednesday Full liquid diet okay Monitor LFTs, amylase, lipase Pain management, morphine 2 mg q 6 hours prn pain Recommend iron supplements Continue with abx PPI for GI prophylaxis Pt examined and plan of care discussed iw Dr. Hu Result Diagram: 07/11/18 0524 07/11/18 0524 Results 24hrs Laboratory Tests Test 07/10/18 12:02 07/10/18 16:46 07/10/18 21:49 07/11/18 05:24 Bedside Glucose 120 118 114 White Blood Count 18.5 H Red Blood Count 2.93 L Hemoglobin 8.3 L Hematocrit 26.6 L Mean Corpuscular 90.8 Volume Mean Corpuscular 28.3 L Hemoglobin Mean Corpuscular 31.2 L Hemoglobin Concent Red Cell 24.4 H Distribution Width Platelet Count 255 Mean Platelet Volume 10.7 H Immature 1.100 H Granulocytes % Neutrophils % 83.9 H Lymphocytes % 7.8 L Monocytes % 7.1 Eosinophils % 0.0 Basophils % 0.1 Nucleated Red Blood 0.0 Cells % Immature 0.200 H Granulocytes # Neutrophils # 15.6 H Lymphocytes # 1.4 Monocytes # 1.3 H Eosinophils # 0.0 Basophils # 0.0 Nucleated Red Blood 0.0 Cells # Sodium Level 137 Potassium Level 3.6 Chloride Level 111 H Carbon Dioxide Level 19 L Anion Gap 7 Blood Urea Nitrogen 28 H Creatinine 1.31 H Est Glomerular 55 L Filtrat Rate mL/min Glucose Level 111 Calcium Level 8.1 L Test 07/11/18 08:02 Bedside Glucose 112 Consultation Date/Type/Reason Admit Date/Time Jul 01, 2018 at 03:27 Initial Consult Date 24 HR Interval Summary Free Text/Dictation Still no bm. pos bowel sounds. Abd soft but distended. Exam/Review of Systems Vital Signs Vitals Vital Signs Date Temp Pulse Resp B/P (MAP) Pulse Ox O2 O2 Flow FiO2 Time Delivery Rate 07/11/18 97.9 92 18 107/66 98 07:32 (80) 07/11/18 Room Air 04:52 Intake and Output 07/10/18 07/10/18 07/11/18 1414:59 22:59 06:59 IntakeIntake Total 50 ml 1130 ml 450 ml BalanceBalance 50 ml 1130 ml 450 ml Exam Constitutional: alert, oriented Eyes: PERRL, other (clsera icteric) Respiratory: clear to auscultation, diminished breath sounds Cardiovascular: regular rate and rhythm Gastrointestinal: soft, non-tender, distended Neurological: nl mental status Medications Medications Current Medications IV Flush (NS 3 ml) 3 ml PER PROTOCOL IV ; Start 07/01/18 at 03:30 Acetaminophen (Tylenol Tab) 650 mg Q6H PRN PO PAIN LEVEL 1-3 OR FEVER Last administered on 07/05/18at 01:41; Admin Dose 650 MG; Start 07/01/18 at 03:30 Ondansetron HCl (Zofran Inj) 4 mg Q4 PRN IV NAUSEA AND/OR VOMITING Last admini stered on 07/11/18at 04:37; Admin Dose 4 MG; Start 07/01/18 at 03:30 Pantoprazole (Protonix Iv) 40 mg BID@06,18 IV Last administered on 07/11/18at 05:00; Admin Dose 40 MG; Start 07/01/18 at 18:00 Meropenem/Sodium Chloride 50 ml @ 100 mls/hr Q12 IVPB Last administered on 07/10/18at 20:32; Admin Dose 100 MLS/HR; Start 07/05/18 at 21:00 Dextrose/Sodium Chloride 1,000 ml @ 20 mls/hr Q24H IV Last administered on 07/10/18at 05:49; Admin Dose 50 MLS/HR; Start 07/06/18 at 16:00 Insulin Aspart (Novolog Insulin Pen) NOVOLOG *MILD* ALGORI... AC MEALS AND BEDTIME SC ; Start 07/08/18 at 18:00 Miscellaneous Information 1 ea NOTE XX ; Start 07/08/18 at 14:00 Glucose (Glutose) 15 gm Q15M PRN PO DECREASED GLUCOSE; Start 07/08/18 at 14:00 Glucose (Glutose) 22.5 gm Q15M PRN PO DECREASED GLUCOSE; Start 07/08/18 at 14:00 Dextrose (D50w Syringe) 25 ml Q15M PRN IV DECREASED GLUCOSE; Start 07/08/18 at 14:00 Dextrose (D50w Syringe) 50 ml Q15M PRN IV DECREASED GLUCOSE; Start 07/08/18 at 14:00 Glucagon (Glucagen) 1 mg Q15M PRN IM DECREASED GLUCOSE; Start 07/08/18 at 14:00 Glucose (Glutose) 15 gm Q15M PRN BUCCAL DECREASED GLUCOSE; Start 07/08/18 at 14:00 Bisacodyl (Dulcolax Supp) 10 mg DAILY PRN [place] CONSTIPATION; Start 07/08/18 at 14:30 Morphine Sulfate (morphine) 2 mg Q4H PRN IV SEVERE PAIN LEVEL 7-10 Last administered on 07/11/18at 04:37; Admin Dose 2 MG; Start 07/09/18 at 05:51 Polyethylene Glycol (Miralax) 17 gm DAILY PO Last administered on 07/10/18at 11:31; Admin Dose 17 GM; Start 07/10/18 at 11:30 Lubiprostone (Amitiza) 16 mcg BID PO Last administered on 07/10/18at 21:46; Admin Dose 16 MCG; Start 07/10/18 at 12:00 ELVIA PALACIOS Jul 11, 2018 08:48
[2018-07-11] MEDS: POLYETHYLENE GLYCOL 17 GM PACKET PO SCH (09:12)
[2018-07-11] MEDS: LUBIPROSTONE 8 MCG CAPSULE PO SCH ×2 (09:12→20:42)
[2018-07-11] MEDS: MEROPENEM 500MG/50 ML (PMX) 50 ML IVPB SCH ×2 (09:16→20:42)
--- NOTE | 2018-07-11 09:42 | CONS ---
Date/Time of Note Date/Time of Note DATE: 07/11/18 TIME: 09:42 Assessment/Plan Assessment/Plan Hospital Course Assessment/Plan 63 yo with met cholangiocarcinoma on chemo with gemcitabine and cisplatin s/p cycle 4 about 3 weeks ago #met cholangiocarcinoma -his current scans show multiple liver lesions new compared to scan from September 2017 however what would be most useful is to compare the current scan to scan from Jan 2018 done as an outpt. Recommend continuation of current care, supportive care. once he is stable recommend f/u with Dr Lawson who is his primary oncologist. pt asking to see Dr Lawson who will probably be able to see early next week in the hospital LFTs trending down #ARF Cr stabilizing suspected due to abx? meds? sepsis? #ID -cholangitis and suspected UTI, on abx #pancreatitis supportive care NPO IVF monitor lipase #normocytic anemia suspect anemia of chronic disease and due to chemo iron studies consistent with chronic disease and ongoing inflammation with very elevated ferritin stop IV iron transfuse if hgb <7 Will sign off for now, please call with questions. Result Diagram: 07/11/18 0524 07/11/18 0524 Results 24hrs Laboratory Tests Test 07/10/18 12:02 07/10/18 16:46 07/10/18 21:49 07/11/18 05:24 Bedside Glucose 120 118 114 White Blood Count 18.5 H Red Blood Count 2.93 L Hemoglobin 8.3 L Hematocrit 26.6 L Mean Corpuscular 90.8 Volume Mean Corpuscular 28.3 L Hemoglobin Mean Corpuscular 31.2 L Hemoglobin Concent Red Cell 24.4 H Distribution Width Platelet Count 255 Mean Platelet Volume 10.7 H Immature 1.100 H Granulocytes % Neutrophils % 83.9 H Lymphocytes % 7.8 L Monocytes % 7.1 Eosinophils % 0.0 Basophils % 0.1 Nucleated Red Blood 0.0 Cells % Immature 0.200 H Granulocytes # Neutrophils # 15.6 H Lymphocytes # 1.4 Monocytes # 1.3 H Eosinophils # 0.0 Basophils # 0.0 Nucleated Red Blood 0.0 Cells # Sodium Level 137 Potassium Level 3.6 Chloride Level 111 H Carbon Dioxide Level 19 L Anion Gap 7 Blood Urea Nitrogen 28 H Creatinine 1.31 H Est Glomerular 55 L Filtrat Rate mL/min Glucose Level 111 Calcium Level 8.1 L Test 07/11/18 08:02 Bedside Glucose 112 Consultation Date/Type/Reason Admit Date/Time Jul 01, 2018 at 03:27 Initial Consult Date 24 HR Interval Summary Free Text/Dictation notes mild abdo discomfort Exam/Review of Systems Vital Signs Vitals Vital Signs Date Temp Pulse Resp B/P (MAP) Pulse Ox O2 O2 Flow FiO2 Time Delivery Rate 07/11/18 90 08:00 07/11/18 97.9 18 107/66 98 07:32 (80) 07/11/18 Room Air 04:52 Intake and Output 07/10/18 07/10/18 07/11/18 1515:00 23:00 07:00 IntakeIntake Total 50 ml 1130 ml 450 ml BalanceBalance 50 ml 1130 ml 450 ml Exam Constitutional: frail Head: normocephalic, atraumatic Respiratory: normal air movement Gastrointestinal: distended Neurological: nl strength Medications Medications Current Medications IV Flush (NS 3 ml) 3 ml PER PROTOCOL IV ; Start 07/01/18 at 03:30 Acetaminophen (Tylenol Tab) 650 mg Q6H PRN PO PAIN LEVEL 1-3 OR FEVER Last administered on 07/05/18at 01:41; Admin Dose 650 MG; Start 07/01/18 at 03:30 Ondansetron HCl (Zofran Inj) 4 mg Q4 PRN IV NAUSEA AND/OR VOMITING Last administered on 07/11/18at 04:37; Admin Dose 4 MG; Start 07/01/18 at 03:30 Pantoprazole (Protonix Iv) 40 mg BID@06,18 IV Last administered on 07/11/18at 05:00; Admin Dose 40 MG; Start 07/01/18 at 18:00 Meropenem/Sodium Chloride 50 ml @ 100 mls/hr Q12 IVPB Last administered on 07/11/18at 09:16; Admin Dose 100 MLS/HR; Start 07/05/18 at 21:00 Dextrose/Sodium Chloride 1,000 ml @ 20 mls/hr Q24H IV Last administered on 07/10/18at 05:49; Admin Dose 50 MLS/HR; Start 07/06/18 at 16:00 Insulin Aspart (Novolog Insulin Pen) NOVOLOG *MILD* ALGORI... AC MEALS AND BEDTIME SC ; Start 07/08/18 at 18:00 Miscellaneous Information 1 ea NOTE XX ; Start 07/08/18 at 14:00 Glucose (Glutose) 15 gm Q15M PRN PO DECREASED GLUCOSE; Start 07/08/18 at 14:00 Glucose (Glutose) 22.5 gm Q15M PRN PO DECREASED GLUCOSE; Start 07/08/18 at 14:00 Dextrose (D50w Syringe) 25 ml Q15M PRN IV DECREASED GLUCOSE; Start 07/08/18 at 14:00 Dextrose (D50w Syringe) 50 ml Q15M PRN IV DECREASED GLUCOSE; Start 07/08/18 at 14:00 Glucagon (Glucagen) 1 mg Q15M PRN IM DECREASED GLUCOSE; Start 07/08/18 at 14:00 Glucose (Glutose) 15 gm Q15M PRN BUCCAL DECREASED GLUCOSE; Start 07/08/18 at 14:00 Bisacodyl (Dulcolax Supp) 10 mg DAILY PRN [place] CONSTIPATION; Start 07/08/18 at 14:30 Morphine Sulfate (morphine) 2 mg Q4H PRN IV SEVERE PAIN LEVEL 7-10 Last administered on 07/11/18at 04:37; Admin Dose 2 MG; Start 07/09/18 at 05:51 Polyethylene Glycol (Miralax) 17 gm DAILY PO Last administered on 07/11/18at 09:12; Admin Dose 17 GM; Start 07/10/18 at 11:30 Lubiprostone (Amitiza) 16 mcg BID PO Last administered on 07/11/18 09:12; Admin Dose 16 MCG; Start 07/10/18 at 12:00 RYANN GONSALES Jul 11, 2018 09:42
[2018-07-11] MEDS ORDERED: BISACODYL (EC) 5 MG TAB PO ONE ×2 (10:30)
--- NOTE | 2018-07-11 10:47 | NUR ---
SS NOTE: PABLO PT IS A 63 YO MALE WITH HISTORY OF GASTRIC CA WITH METS TO LIVER. PT IS A&O, CALM AND COOPERATIVE, BUT APPEARED WEAK. PT LIVES WITH IN A 1 LEVEL HOUSE NO STEP TO ENTER. PT HAS 4 CHILDREN (3 IN [place] AND 1 IN [place]). PRIOR ADMISSION, PT IS INDEPENDENT AND AMBULATES WITHOUT DME. PT STOPPED DRIVING 3 MONTHS AGO DUE TO WEAKNESS. DAUGHTER PROVIDES TRANSPORTATION. UNEMPLOYED ABLE TO ASSIST IN PT'S CARE AT HOME IF NEEDED. NO PRIOR HOME HEALTH. PT DOES NOT HAVE AN AHCD, BUT STATED HE WOULD WANT BOTH HIS AND DAUGHTER TO BE HIS SURROGATE DECISION MAKERS. PLAN IS FOR PT TO RETURN HOME AND DAUGHTER WILL PROVIDE TRANSPORTATION. Addendum: 07/11/18 at 1054 by NOLAN DVAIS Amended: Links added.
--- NOTE | 2018-07-11 11:15 | PN ---
Date/Time of Note Date/Time of Note DATE: 07/11/18 TIME: 11:13 Assessment/Plan VTE Prophylaxis Risk score (from [facility] [place])>0 risk: 7 SCD applied (from Ns): Yes Pharmacological prophylaxis: NA/contraindicated Pharm contraindication: low risk/ambulating Lines/Catheters [facility] ([facility] portacath Urinary Cath still in place: No Assessment/Plan Hospital Course 63 y/o with 1 Sepsis with severe lactic acidosis probably due to cholangittis S.p stent placed in 09/2017 s/p ERCP with removal, still with persistent leukoctytosis, enterococcus in urine now with pancreatitis ? s/p ERCP??, lipase improved however worseinig abdominal distension 2. 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 Chemotherapy ended last week, started March 2018 3. Pancreatic ductal dilatation noted on US 4. Abnormal LFTs due to mets and pancreatitis 5. Mod free fluid and diffuse intra abdominal stranding seen in CT scan 6. Anemia, chronic 7. H/O Hep C 8. H/O cholecystectomy for blocked cystic duct 9 JULIO i with worseinng Creatine ? ATN due to abx ?? Vanco/zosyn 10 Anasarca with edema BLE , neg for DVT with hypoalbunemia 11 Persistent leukocytosis to 25 improving Plan - -duodenal stent Wednesday - c/ telemetry - monitor WBC, down to 18.5 - stool softners - cw meropenem - clear liquid diet - monitor amylase/lipase - strict I and o - fu ID and GI recs - ambulate with assistance Result Diagram: 07/11/18 0524 07/11/18 0524 Results 24hrs Laboratory Tests Test 07/10/18 12:02 07/10/18 16:46 07/10/18 21:49 07/11/18 05:24 Bedside Glucose 120 118 114 White Blood Count 18.5 H Red Blood Count 2.93 L Hemoglobin 8.3 L Hematocrit 26.6 L Mean Corpuscular 90.8 Volume Mean Corpuscular 28.3 L Hemoglobin Mean Corpuscular 31.2 L Hemoglobin Concent Red Cell 24.4 H Distribution Width Platelet Count 255 Mean Platelet Volume 10.7 H Immature 1.100 H Granulocytes % Neutrophils % 83.9 H Lymphocytes % 7.8 L Monocytes % 7.1 Eosinophils % 0.0 Basophils % 0.1 Nucleated Red Blood 0.0 Cells % Immature 0.200 H Granulocytes # Neutrophils # 15.6 H Lymphocytes # 1.4 Monocytes # 1.3 H Eosinophils # 0.0 Basophils # 0.0 Nucleated Red Blood 0.0 Cells # Sodium Level 137 Potassium Level 3.6 Chloride Level 111 H Carbon Dioxide Level 19 L Anion Gap 7 Blood Urea Nitrogen 28 H Creatinine 1.31 H Est Glomerular 55 L Filtrat Rate mL/min Glucose Level 111 Calcium Level 8.1 L Test 07/11/18 08:02 Bedside Glucose 112 Subjective 24 Hr Interval Summary Free Text/Dictation has some pain yesterday still constipated Exam/Review of Systems Vital Signs Vitals Vital Signs Date Temp Pulse Resp B/P (MAP) Pulse Ox O2 O2 Flow FiO2 Time Delivery Rate 07/11/18 90 08:00 07/11/18 97.9 18 107/66 98 07:32 (80) 07/11/18 Room Air 04:52 Intake and Output 07/10/18 07/10/18 07/11/18 1515:00 23:00 07:00 IntakeIntake Total 50 ml 1130 ml 450 ml BalanceBalance 50 ml 1130 ml 450 ml Exam onstitutional: alert, oriented Eyes: nl conjunctiva. scleral icterus ENMT: nl external ears & nose Respiratory: clear to auscultation Cardiovascular: regular rate and rhythm Musculoskeletal: swelling (lower extremities) Medications Medications Current Medications IV Flush (NS 3 ml) 3 ml PER PROTOCOL IV ; Start 07/01/18 at 03:30 Acetaminophen (Tylenol Tab) 650 mg Q6H PRN PO PAIN LEVEL 1-3 OR FEVER Last administered on 07/05/18at 01:41; Admin Dose 650 MG; Start 07/01/18 at 03:30 Ondansetron HCl (Zofran Inj) 4 mg Q4 PRN IV NAUSEA AND/OR VOMITING Last administered on 07/11/18at 04:37; Admin Dose 4 MG; Start 07/01/18 at 03:30 Pantoprazole (Protonix Iv) 40 mg BID@06,18 IV Last administered on 07/11/18at 05:00; Admin Dose 40 MG; Start 07/01/18 at 18:00 Meropenem/Sodium Chloride 50 ml @ 100 mls/hr Q12 IVPB Last administered on 07/11/18at 09:16; Admin Dose 100 MLS/HR; Start 07/05/18 at 21:00 Dextrose/Sodium Chloride 1,000 ml @ 20 mls/hr Q24H IV Last administered on 07/10/18at 05:49; Admin Dose 50 MLS/HR; Start 07/06/18 at 16:00 Insulin Aspart (Novolog Insulin Pen) NOVOLOG *MILD* ALGORI... AC MEALS AND BEDTIME SC ; Start 07/08/18 at 18:00 Miscellaneous Information 1 ea NOTE XX ; Start 07/08/18 at 14:00 Glucose (Glutose) 15 gm Q15M PRN PO DECREASED GLUCOSE; Start 07/08/18 at 14:00 Glucose (Glutose) 22.5 gm Q15M PRN PO DECREASED GLUCOSE; Start 07/08/18 at 14:00 Dextrose (D50w Syringe) 25 ml Q15M PRN IV DECREASED GLUCOSE; Start 07/08/18 at 14:00 Dextrose (D50w Syringe) 50 ml Q15M PRN IV DECREASED GLUCOSE; Start 07/08/18 at 14:00 Glucagon (Glucagen) 1 mg Q15M PRN IM DECREASED GLUCOSE; Start 07/08/18 at 14:00 Glucose (Glutose) 15 gm Q15M PRN BUCCAL DECREASED GLUCOSE; Start 07/08/18 at 14:00 Bisacodyl (Dulcolax Supp) [address] CONSTIPATION; Start 07/08/18 at 14:30 Morphine Sulfate (morphine) 2 mg Q4H PRN IV SEVERE PAIN LEVEL 7-10 Last administered on 07/11/18at 04:37; Admin Dose 2 MG; Start 07/09/18 at 05:51 Polyethylene Glycol (Miralax) 17 gm DAILY PO Last administered on 07/11/18at 09:12; Admin Dose 17 GM; Start 07/10/18 at 11:30 Lubiprostone (Amitiza) 16 mcg BID PO Last administered on 07/11/18at 09:12; Admin Dose 16 MCG; Start 07/10/18 at 12:00 MARYCARMEN DE LA CRUZ MD Jul 11, 2018 11:15
[2018-07-11] MEDS: DEXTROSE 5%-0.45% NACL 1,000 ML IV SCH (16:41)
[2018-07-12] VITALS (31 sets, daily range): BP systolic 98–119; BP diastolic 53–80; PULSE 54–99; RESP 14–20
[2018-07-12] MEDS: PANTOPRAZOLE 40 MG INJ IV SCH ×2 (05:49→17:44)
--- NOTE | 2018-07-12 06:38 | NUR ---
EOSS: Patient was comfortable last night. Did not ask for pain medication. at bedside. Patient remains afebrile. On sinus rhythm. Blood glucose remains WNL. NPO after midnight for EGD today.
[2018-07-12] MEDS: INSULIN ASPART [NOVOLOG] 3 ML PEN SC SCH ×4 (07:00→21:00)
[2018-07-12] MEDS: POLYETHYLENE GLYCOL 17 GM PACKET PO SCH (08:44)
[2018-07-12] MEDS: MEROPENEM 500MG/50 ML (PMX) 50 ML IVPB SCH ×2 (08:44→20:58)
[2018-07-12] MEDS: LUBIPROSTONE 8 MCG CAPSULE PO SCH ×2 (08:45→21:07)
--- NOTE | 2018-07-12 10:38 | PREAC ---
Date/Time of Note Date/Time of Note DATE: 07/12/18 TIME: 10:34 Anesthesia Eval and Record Evaluation Time Pre-Procedure Interview DATE: 07/12/18 TIME: 10:34 Age 63 Sex male NPO: 8 hrs Preoperative diagnosis Cholangiocarcinoma with Liver Metastasis Planned procedure EGD, Stent Placement Past Medical History Past Medical History: Includes Endo: Diabetes Renal: CKD Hepatic: Other (Hep C, Cholangiocarninoma) Heme: Anemia Infection(s): Hep C Surgery & Anesthesia Issues No known issue Meds Anticoagulation: No Beta Cassandra within 24 hr: No Reason Beta Cassandra not given: Pt. not on B-Cassandra Reported Medications Morphine Sulfate* (Ms Contin ER*) 15 Mg Tabsr, 15 MG PO BID PRN for PAIN LEVEL 6-10, TAB TAKE 1 TABLET BY MOUTH TWICE A DAY IF NEEDED FOR PAIN. 07/01/18 Atorvastatin* (Atorvastatin*) 80 Mg Tablet, 80 MG PO QHS, #30 TAB 03/23/18 Current Medications IV Flush (NS 3 ml) 3 ml PER PROTOCOL IV ; Start 07/01/18 at 03:30 Acetaminophen (Tylenol Tab) 650 mg Q6H PRN PO PAIN LEVEL 1-3 OR FEVER Last administered on 07/05/18at 01:41; Admin Dose 650 MG; Start 07/01/18 at 03:30 Ondansetron HCl (Zofran Inj) 4 mg Q4 PRN IV NAUSEA AND/OR VOMITING Last administered on 07/11/18at 04:37; Admin Dose 4 MG; Start 07/01/18 at 03:30 Pantoprazole (Protonix Iv) 40 mg BID@06,18 IV Last administered on 07/12/18at 05:49; Admin Dose 40 MG; Start 07/01/18 at 18:00 Meropenem/Sodium Chloride 50 ml @ 100 mls/hr Q12 IVPB Last administered on 07/12/18at 08:44; Admin Dose 100 MLS/HR; Start 07/05/18 at 21:00 Dextrose/Sodium Chloride 1,000 ml @ 20 mls/hr Q24H IV Last administered on 07/11/18at 16:41; Admin Dose 20 MLS/HR; Start 07/06/18 at 16:00 Insulin Aspart (Novolog Insulin Pen) NOVOLOG *MILD* ALGORI... AC MEALS AND BEDTIME SC ; Start 07/08/18 at 18:00 Miscellaneous Information 1 ea NOTE XX ; Start 07/08/18 at 14:00 Glucose (Glutose) 15 gm Q15M PRN PO DECREASED GLUCOSE; Start 07/08/18 at 14:00 Glucose (Glutose) 22.5 gm Q15M PRN PO DECREASED GLUCOSE; Start 07/08/18 at 14:00 Dextrose (D50w Syringe) 25 ml Q15M PRN IV DECREASED GLUCOSE; Start 07/08/18 at 14:00 Dextrose (D50w Syringe) 50 ml Q15M PRN IV DECREASED GLUCOSE; Start 07/08/18 at 14:00 Glucagon (Glucagen) 1 mg Q15M PRN IM DECREASED GLUCOSE; Start 07/08/18 at 14:00 Glucose (Glutose) 15 gm Q15M PRN BUCCAL DECREASED GLUCOSE; Start 07/08/18 at 14:00 Bisacodyl (Dulcolax Supp) 10 mg DAILY PRN [place] CONSTIPATION; Start 07/08/18 at 14:30 Morphine Sulfate (morphine) 2 mg Q4H PRN IV SEVERE PAIN LEVEL 7-10 Last administered on 07/11/18at 16:49; Admin Dose 2 MG; Start 07/09/18 at 05:51 Polyethylene Glycol (Miralax) 17 gm DAILY PO Last administered on 07/11/18at 09:12; Admin Dose 17 GM; Start 07/10/18 at 11:30 Lubiprostone (Amitiza) 16 mcg BID PO Last administered on 07/12/18at 08:45; Admin Dose 16 MCG; Start 07/10/18 at 12:00 Meds reviewed: Yes Allergies Coded Allergies: No Known Allergy (Unverified , 07/01/18) Allergies Reviewed: Yes Labs/Studies Labs Reviewed: Reviewed by anesthesiologist Result Diagram: 07/12/1815 07/12/18 0515 Laboratory Tests 07/12/18 05:15 test: N/A Studies: ECG (n/a), CXR (n/a) Pre-procedure Exam Last vitals Vital Signs Date Temp Pulse Resp B/P (MAP) Pulse Ox O2 O2 Flow FiO2 Time Delivery Rate 07/12/18 98 08:00 07/12/18 98.5 18 109/68 98 Room Air 07:38 (82) Airway: Adequate mouth opening, Adequate thyromental dist Mallampati: Mallampati II Teeth: Normal Lung: Normal Heart: Normal ASA Physical Status ASA physical status: 4 Emergency: None Planned Anesthetic General/MAC: MAC Planned Pain Management Parenteral pain med Pre-operative Attestations Prior to commencing anesthesia and surgery, the patient was re-evaluated, there was verification of: *The patient's identity *The results of appropriate recent lab work and preoperative vital signs *The above evaluation not changing prior to induction *Anesthetic plan, risk benefits, alternative and complications discussed with patient/family; questions answered; patient/family understands, accepts and wishes to proceed. TAMIKO SORENSEN MD Jul 12, 2018 10:38
[2018-07-12] MEDS ORDERED: IOHEXOL 300MG/ML 30 ML BTL ONE (10:43)
[2018-07-12] MEDS ORDERED: MIDAZOLAM 1 MG/ML 2 ML INJ ONE (10:51)
[2018-07-12] MEDS ORDERED: FENTAnyl 50 MCG/ML VIAL ONE (10:51)
[2018-07-12] MEDS ORDERED: PROPOFOL 20 ML ONE ×3 (10:51→11:58)
[2018-07-12] MEDS ORDERED: GLUCAGON 1 MG INJ ONE (10:58)
[2018-07-12] MEDS ORDERED: hydrALAzine 20 MG INJ IV PRN (11:00)
[2018-07-12] MEDS ORDERED: ONDANSETRON 4 MG INJ IV PRN (11:00)
[2018-07-12] MEDS ORDERED: FENTAnyl 50 MCG/ML VIAL IV PRN ×2 (11:00)
[2018-07-12] MEDS ORDERED: DIPHENHYDRAMINE 50 MG INJ IV PRN (11:00)
[2018-07-12] MEDS ORDERED: METOCLOPRAMIDE 10 MG INJ IV PRN (11:00)
[2018-07-12] MEDS ORDERED: LABETALOL HCL 20MG INJ IV PRN (11:00)
[2018-07-12] MEDS ORDERED: HYDROmorphONE 1 MG/5 ML IV SYRINGE IV PRN ×2 (11:00)
[2018-07-12] MEDS ORDERED: MEPERIDINE 25 MG INJ IV PRN (11:00)
[2018-07-12] MEDS ORDERED: EPHEDrine SULFATE 50 MG/5 ML SYG IV PRN (11:00)
[2018-07-12] MEDS ORDERED: ONDANSETRON 4 MG INJ ONE (11:02)
[2018-07-12] MEDS ORDERED: METOCLOPRAMIDE 10 MG INJ ONE (11:02)
[2018-07-12] MEDS ORDERED: DEXAMETHASONE 4 MG/ML 5 ML INJ ONE (11:04)
--- NOTE | 2018-07-12 12:06 | PAC ---
Date/Time of Note Date/Time of Note DATE: 07/12/18 TIME: 12:05 Post-Anesthesia Notes Post-Anesthesia Note Last documented vital signs Vital Signs Date Temp Pulse Resp B/P (MAP) Pulse Ox O2 O2 Flow FiO2 Time Delivery Rate 07/12/18 98 08:00 07/12/18 98.5 91 18 109/68 98 Room Air 012:08 (82) Activity: WNL Respiratory function: WNL Cardiovascular function: WNL Mental status: Baseline Pain reasonably controlled: Yes Hydration appropriate: Yes Nausea/Vomiting absent: Yes TAMIKO SORENSEN MD Jul 12, 2018 12:06
--- NOTE | 2018-07-12 12:30 | PN ---
Date/Time of Note Date/Time of Note DATE: 07/12/18 TIME: 12:25 Assessment/Plan VTE Prophylaxis Risk score (from Ns)>0 risk: 7 SCD applied (from Ns): Yes Pharmacological prophylaxis: NA/contraindicated Pharm contraindication: low risk/ambulating Lines/Catheters IV C[facility] Type [facility]from [facility] Peripheral IV Urinary Cath still in place: No Assessment/Plan Hospital Course unfortunate man with cholangiocarcinoma with liver metastasis and duodenal obstruction from tumor. recently had biliary stent removed because infected. abdomen distended, hard epigastric mass CT reviewed labs: not jaundiced. leukocytosis, unchanged plan: NGT to see if any residual, if not will give pt clears and laxative abd xray to assess distention( duodenal obstruction. no bm 6 dayas, fissue distention on exam MRCP: to determine if any dominant stricture and/or multiple isolated intrahepatic ducts from tumor burden with that information: ? Interventional radiology vs repeat endoscopic placement. Will place a duodenal stent wednesday should help ugi sx's and provide access to repeat stent placement if feasible and clinically indicated Assessment/Plan 1. cholangiocarcinoma metastatic 2 duodenal obstruction See dictation for full details Attempted to place a self-expanding metal stent in the duodenum to relieve obstruction this was attempted under fluoroscopic and endoscopic guidance unfortunately we were unsuccessful Impression duodenal obstruction from metastatic cholangiocarcinoma unable to relieve obstruction Recommendation hospice care clear liquids if tolerated NGT NG tube suction as needed Signed Ayan Shoemaker Result Diagram: 07/12/18 0515 07/12/1815 Results 24hrs Laboratory Tests Test 07/11/18 17:44 07/11/18 20:44 07/12/18 05:15 07/12/18 07:56 Bedside Glucose 101 102 93 White Blood Count 17.3 H Red Blood Count 2.88 L Hemoglobin 8.2 L Hematocrit 26.2 L Mean Corpuscular 91.0 Volume Mean Corpuscular 28.5 L Hemoglobin Mean Corpuscular 31.3 L Hemoglobin Concent Red Cell 24.3 H Distribution Width Platelet Count 230 Mean Platelet Volume 10.5 H Immature 1.100 H Granulocytes % Neutrophils % 82.8 H Lymphocytes % 9.0 L Monocytes % 7.0 Eosinophils % 0.0 Basophils % 0.1 Nucleated Red Blood 0.0 Cells % Immature 0.190 H Granulocytes # Neutrophils # 14.3 H Lymphocytes # 1.6 Monocytes # 1.2 H Eosinophils # 0.0 Basophils # 0.0 Nucleated Red Blood 0.0 Cells # Prothrombin Time 19.2 H Prothrombin Time 1.5 Ratio INR International 1.61 Normalized Ratio Activated 36.1 H Partial Thromboplast Time Sodium Level 138 Potassium Level 3.9 Chloride Level 108 Carbon Dioxide Level 20 L Anion Gap 10 Blood Urea Nitrogen 34 H Creatinine 1.40 H Est Glomerular 51 L Filtrat Rate mL/min Glucose Level 100 Calcium Level 8.1 L Phosphorus Level 4.1 Magnesium Level 1.8 Total Bilirubin 1.9 H Direct Bilirubin 1.30 H Indirect Bilirubin 0.6 Aspartate Amino 322 H Transf (AST/SGOT) Alanine 32 Aminotransferase (AL T/SGPT) Alkaline Phosphatase 458 H Total Protein 6.5 # Albumin 2.4 L Globulin 4.10 H Albumin/Globulin 0.58 Ratio Amylase Level 179 H Lipase 874 H Exam/Review of Systems Vital Signs Vitals Vital Signs Date Temp Pulse Resp B/P (MAP) Pulse Ox O2 O2 Flow FiO2 Time Delivery Rate 07/12/18 98.1 80 18 114/66 99 Mask 12:03 (82) 82 91 Intake and Output 07/11/18 07/11/18 07/12/18 1515:00 23:00 07:00 IntakeIntake Total 360 ml 570 ml 240 ml BalanceBalance 360 ml 570 ml 240 ml Medications Medications Current Medications IV Flush (NS 3 ml) 3 ml PER PROTOCOL IV ; Start 07/01/18 at 03:30 Acetaminophen (Tylenol Tab) 650 mg Q6H PRN PO PAIN LEVEL 1-3 OR FEVER Last administered on 07/05/18at 01:41; Admin Dose 650 MG; Start 07/01/18 at 03:30 Ondansetron HCl (Zofran Inj) 4 mg Q4 PRN IV NAUSEA AND/OR VOMITING Last administered on 07/11/18at 04:37; Admin Dose 4 MG; Start 07/01/18 at 03:30 Pantoprazole (Protonix Iv) 40 mg BID@06,18 IV Last administered on 07/12/18at 05:49; Admin Dose 40 MG; Start 07/01/18 at 18:00 Meropenem/Sodium Chloride 50 ml @ 100 mls/hr Q12 IVPB Last administered on 07/12/18at 08:44; Admin Dose 100 MLS/HR; Start 07/05/18 at 21:00 Dextrose/Sodium Chloride 1,000 ml @ 20 mls/hr Q24H IV Last administered on 07/11/18at 16:41; Admin Dose 20 MLS/HR; Start 07/06/18 at 16:00 Insulin Aspart (Novolog Insulin Pen) NOVOLOG *MILD* ALGORI... AC MEALS AND BEDTIME SC ; Start 07/08/18 at 18:00 Miscellaneous Information 1 ea NOTE XX ; Start 07/08/18 at 14:00 Glucose (Glutose) 15 gm Q15M PRN PO DECREASED GLUCOSE; Start 07/08/18 at 14:00 Glucose (Glutose) 22.5 gm Q15M PRN PO DECREASED GLUCOSE; Start 07/08/18 at 14:00 Dextrose (D50w Syringe) 25 ml Q15M PRN IV DECREASED GLUCOSE; Start 07/08/18 at 14:00 Dextrose (D50w Syringe) 50 ml Q15M PRN IV DECREASED GLUCOSE; Start 07/08/18 at 14:00 Glucagon (Glucagen) 1 mg Q15M PRN IM DECREASED GLUCOSE; Start 07/08/18 at 14:00 Glucose (Glutose) 15 gm Q15M PRN BUCCAL DECREASED GLUCOSE; Start 07/08/18 at 14:00 Bisacodyl (Dulcolax Supp) 10 mg DAILY PRN [place] CONSTIPATION; Start 07/08/18 at 14:30 Morphine Sulfate (morphine) 2 mg Q4H PRN IV SEVERE PAIN LEVEL 7-10 Last administered on 07/11/18at 16:49; Admin Dose 2 MG; Start 07/09/18 at 05:51 Polyethylene Glycol (Miralax) 17 gm DAILY PO Last administered on 07/11/18at 09:12; Admin Dose 17 GM; Start 07/10/18 at 11:30 Lubiprostone (Amitiza) 16 mcg BID PO Last administered on 07/12/18at 08:45; Admin Dose 16 MCG; Start 07/10/18 at 12:00 Hydromorphone HCl (Dilaudid) 0.2 mg PACU PRN IV MILD PAIN LEVEL 1-3; Start 07/12/18 at 11:00; Stop 07/12/18 at 15:00 Hydromorphone HCl (Dilaudid) 0.4 mg PACU PRN IV MODERATE PAIN LEVEL 4-6; Start 07/12/18 at 11:00; Stop 07/12/18 at 15:00 Fentanyl (Sublimaze) 25 mcg PACU ORDER PRN IV MILD PAIN LEVEL 1-3; Start 07/12/18 at 11:00; Stop 07/12/18 at 15:00 Fentanyl (Sublimaze) 50 mcg PACU ORDER PRN IV MODERATE PAIN LEVEL 4-6; Start 07/12/18 at 11:00; Stop 07/12/18 at 15:00 Ondansetron HCl (Zofran Inj) 4 mg PACU ORDER PRN IV NAUSEA AND/OR VOMITING; Start 07/12/18 at 11:00; Stop 07/12/18 at 15:00 Metoclopramide HCl (Reglan) 10 mg PACU ORDER PRN IV NAUSEA AND/OR VOMITING; Start 07/12/18 at 11:00; Stop 07/12/18 at 15:00 Labetalol HCl (Labetalol) 5 mg PACU ORDER PRN IV ELEVATED BLOOD PRESSURE; Start 07/12/18 at 11:00; Stop 07/12/18 at 15:00 Hydralazine HCl (Apresoline) 5 mg PACU ORDER PRN IV ELEVATED BLOOD PRESSURE; Start 07/12/18 at 11:00; Stop 07/12/18 at 15:00 Ephedrine Sulfate 5 mg PACU ORDER PRN IV BLOOD PRESSURE SUPPORT; Start 07/12/18 at 11:00; Stop 07/12/18 at 15:00 Meperidine HCl (Demerol) 25 mg PACU ORDER PRN IV POST OPERATIVE SHIVERING; Start 07/12/18 at 11:00; Stop 07/12/18 at 15:00 Diphenhydramine HCl (Benadryl) 25 mg PACU ORDER PRN IV PRURITUS; Start 07/12/18 at 11:00; Stop 07/12/18 at 15:00 QUINN SHOEMAKER MD Jul 12, 2018 12:30
--- NOTE | 2018-07-12 12:50 | NUR ---
pacu pt awake no c/o pain room air no resp distress has port a cath on rt upper chest vs stable report given to juan Bass
--- NOTE | 2018-07-12 14:14 | CONS ---
Assessment/Plan Assessment/Plan Hospital Course 1000 No acute changes overnight patient looks comfortable, no fevers WBC 17.3 platelets 230 neutrophils 82.8 BUN 34 creatinine 1.40 Microbiology: Blood cultures since admission negative urine culture grew e nterococcus, stool for C. difficile negative Physical examination this is a chronically ill-appearing elderly man who is in no distress. Head atraumatic normocephalic sclera nonicteric vehicle mucosa dry neck is supple chest rise symmetrical breath sounds diminished bases. Heart: S1-S2. Abdomen distended, soft, some tenderness on palpation. Extremities without cyanosis. Assessment: 1. Ongoing leukocytosis, possibly secondary to #2 2. Cholangiocarcinoma with liver metastases, status post chemotherapy 3. Status post urinary tract infection 4. Acute kidney injury 5. Status post ERCP with removal of the old clogged stent with sphincterotomy 6. Pancreatitis status post ERCP Plan: Patient remains stable, WBC trending down, continue antibiotics, follow GI recommendations, plan for duodenal stent today Result Diagram: 07/12/18 0515 07/12/18 0515 Results 24hrs Laboratory Tests Test 07/11/18 17:44 07/11/18 20:44 07/12/18 05:15 07/12/18 07:56 Bedside Glucose 101 102 93 White Blood Count 17.3 H Red Blood Count 2.88 L Hemoglobin 8.2 L Hematocrit 26.2 L Mean Corpuscular 91.0 Volume Mean Corpuscular 28.5 L Hemoglobin Mean Corpuscular 31.3 L Hemoglobin Concent Red Cell 24.3 H Distribution Width Platelet Count 230 Mean Platelet Volume 10.5 H Immature 1.100 H Granulocytes % Neutrophils % 82.8 H Lymphocytes % 9.0 L Monocytes % 7.0 Eosinophils % 0.0 Basophils % 0.1 Nucleated Red Blood 0.0 Cells % Immature 0.190 H Granulocytes # Neutrophils # 14.3 H Lymphocytes # 1.6 Monocytes # 1.2 H Eosinophils # 0.0 Basophils # 0.0 Nucleated Red Blood 0.0 Cells # Prothrombin Time 19.2 H Prothrombin Time 1.5 Ratio INR International 1.61 Normalized Ratio Activated 36.1 H Partial Thromboplast Time Sodium Level 138 Potassium Level 3.9 Chloride Level 108 Carbon Dioxide Level 20 L Anion Gap 10 Blood Urea Nitrogen 34 H Creatinine 1.40 H Est Glomerular 51 L Filtrat Rate mL/min Glucose Level 100 Calcium Level 8.1 L Phosphorus Level 4.1 Magnesium Level 1.8 Total Bilirubin 1.9 H Direct Bilirubin 1.30 H Indirect Bilirubin 0.6 Aspartate Amino 322 H Transf (AST/SGOT) Alanine 32 Aminotransferase (AL T/SGPT) Alkaline Phosphatase 458 H Total Protein 6.5 # Albumin 2.4 L Globulin 4.10 H Albumin/Globulin 0.58 Ratio Amylase Level 179 H Lipase 874 H Consultation Date/Type/Reason Admit Date/Time Jul 01, 2018 at 03:27 Initial Consult Date Type of Consult id Exam/Review of Systems Vital Signs Vitals Vital Signs Date Temp Pulse Resp B/P (MAP) Pulse Ox O2 O2 Flow FiO2 Time Delivery Rate 07/12/18 99 13:05 07/12/18 80 14 119/80 Room Air 13:03 (93) 07/12/18 98.1 12:03 Intake and Output 07/11/18 07/11/18 07/12/18 1414:59 22:59 06:59 IntakeIntake Total 360 ml 570 ml 240 ml BalanceBalance 360 ml 570 ml 240 ml Medications Medications Current Medications IV Flush (NS 3 ml) 3 ml PER PROTOCOL IV ; Start 07/01/18 at 03:30 Acetaminophen (Tylenol Tab) 650 mg Q6H PRN PO PAIN LEVEL 1-3 OR FEVER Last administered on 07/05/18at 01:41; Admin Dose 650 MG; Start 07/01/18 at 03:30 Ondansetron HCl (Zofran Inj) 4 mg Q4 PRN IV NAUSEA AND/OR VOMITING Last administered on 07/11/18at 04:37; Admin Dose 4 MG; Start 07/01/18 at 03:30 Pantoprazole (Protonix Iv) 40 mg BID@06,18 IV Last administered on 07/12/18at 05:49; Admin Dose 40 MG; Start 07/01/18 at 18:00 Meropenem/Sodium Chloride 50 ml @ 100 mls/hr Q12 IVPB Last administered on 07/12/18at 08:44; Admin Dose 100 MLS/HR; Start 07/05/18 at 21:00 Dextrose/Sodium Chloride 1,000 ml @ 20 mls/hr Q24H IV Last administered on 07/11/18at 16:41; Admin Dose 20 MLS/HR; Start 07/06/18 at 16:00 Insulin Aspart (Novolog Insulin Pen) NOVOLOG *MILD* ALGORI... AC MEALS AND BEDTIME SC ; Start 07/08/18 at 18:00 Miscellaneous Information 1 ea NOTE XX ; Start 07/08/18 at 14:00 Glucose (Glutose) 15 gm Q15M PRN PO DECREASED GLUCOSE; Start 07/08/18 at 14:00 Glucose (Glutose) 22.5 gm Q15M PRN PO DECREASED GLUCOSE; Start 07/08/18 at 14:00 Dextrose (D50w Syringe) 25 ml Q15M PRN IV DECREASED GLUCOSE; Start 07/08/18 at 14:00 Dextrose (D50w Syringe) 50 ml Q15M PRN IV DECREASED GLUCOSE; Start 07/08/18 at 14:00 Glucagon (Glucagen) 1 mg Q15M PRN IM DECREASED GLUCOSE; Start 07/08/18 at 14:00 Glucose (Glutose) 15 gm Q15M PRN BUCCAL DECREASED GLUCOSE; Start 07/08/18 at 14:00 Bisacodyl (Dulcolax Supp) 10 mg DAILY PRN [place] CONSTIPATION; Start 07/08/18 at 14:30 Morphine Sulfate (morphine) 2 mg Q4H PRN IV SEVERE PAIN LEVEL 7-10 Last administered on 07/11/18at 16:49; Admin Dose 2 MG; Start 07/09/18 at 05:51 Polyethylene Glycol (Miralax) 17 gm DAILY PO Last administered on 07/11/18at 09:12; Admin Dose 17 GM; Start 07/10/18 at 11:30 Lubiprostone (Amitiza) 16 mcg BID PO Last administered on 07/12/18at 08:45; Admi n Dose 16 MCG; Start 07/10/18 at 12:00 Hydromorphone HCl (Dilaudid) 0.2 mg PACU PRN IV MILD PAIN LEVEL 1-3; Start 07/12/18 at 11:00; Stop 07/12/18 at 15:00 Hydromorphone HCl (Dilaudid) 0.4 mg PACU PRN IV MODERATE PAIN LEVEL 4-6; Start 07/12/18 at 11:00; Stop 07/12/18 at 15:00 Fentanyl (Sublimaze) 25 mcg PACU ORDER PRN IV MILD PAIN LEVEL 1-3; Start 07/12/18 at 11:00; Stop 07/12/18 at 15:00 Fentanyl (Sublimaze) 50 mcg PACU ORDER PRN IV MODERATE PAIN LEVEL 4-6; Start 07/12/18 at 11:00; Stop 07/12/18 at 15:00 Ondansetron HCl (Zofran Inj) 4 mg PACU ORDER PRN IV NAUSEA AND/OR VOMITING; Start 07/12/18 at 11:00; Stop 07/12/18 at 15:00 Metoclopramide HCl (Reglan) 10 mg PACU ORDER PRN IV NAUSEA AND/OR VOMITING; Start 07/12/18 at 11:00; Stop 07/12/18 at 15:00 Labetalol HCl (Labetalol) 5 mg PACU ORDER PRN IV ELEVATED BLOOD PRESSURE; Start 07/12/18 at 11:00; Stop 07/12/18 at 15:00 Hydralazine HCl (Apresoline) 5 mg PACU ORDER PRN IV ELEVATED BLOOD PRESSURE; Start 07/12/18 at 11:00; Stop 07/12/18 at 15:00 Ephedrine Sulfate 5 mg PACU ORDER PRN IV BLOOD PRESSURE SUPPORT; Start 07/12/18 at 11:00; Stop 07/12/18 at 15:00 Meperidine HCl (Demerol) 25 mg PACU ORDER PRN IV POST OPERATIVE SHIVERING; Start 07/12/18 at 11:00; Stop 07/12/18 at 15:00 Diphenhydramine HCl (Benadryl) 25 mg PACU ORDER PRN IV PRURITUS; Start 07/12/18 at 11:00; Stop 07/12/18 at 15:00 Date/Time of Note Date/Time of Note DATE: 07/12/18 TIME: 14:12 CLARK HOLT NP Jul 12, 2018 14:14
--- NOTE | 2018-07-12 15:17 | SP ---
DATE OF PROCEDURE: PROCEDURE NOTE ASSISTING PHYSICIAN: Arron Hu MD PROCEDURE: Endoscopy with attempted placement of duodenal stent. 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 Patient was recently admitted because of sepsis and cholangitis. He was found to have a clogged endoscopic stent which was removed. Unfortunately, because of duodenal obstr uction, a new stent could not be placed today under MAC anesthesia assistance using fluoroscopic and endoscopic guidance, an attempt at placing a duodenal stent was done. DESCRIPTION OF PROCEDURE: The patient was endoscoped. There was a mild to moderate amount of bile-s tained secretions in the stomach which were aspirated. With a standard endoscope, went down to the d escending duodenum. The anatomy was very distorted, very difficult to get clear visualization. Intr avenous Glucagon was given in 2.5 mg doses. The point just beyond the obstruction was visualized wit h difficulty, passed a wire down through a very tiny luminal orifice with endoscopy guidance and fluo roscopic guidance. We were unsure at this point if the wire was in the correct place over the guidew mike, a hydratome sphincterotome was placed and contrast was injected, but it was not flowing down the duodenal sweep. As we were unsure where the guidewire was since its distal extent could not be dete rmined endoscopically or fluoroscopically, the procedure was terminated. IMPRESSION: 1. Cholangiocarcinoma metastatic to the liver and to duodenum. 2. Duodenal obstruction, unable to relieve the obstruction. Unfortunately, the recommendation is cl ear liquids as tolerated. NG tube suction if necessary, and hospice care. Dictated By: QUINN MOON MD FS/NTS Conf#: [id number] DID#: [id number] CC: EDDIE ANGLIN MD;*EndCC*
--- NOTE | 2018-07-12 15:29 | PN ---
Date/Time of Note Date/Time of Note DATE: 07/12/18 TIME: 15:27 Assessment/Plan VTE Prophylaxis Risk score (from Ns)>0 risk: 7 SCD applied (from [facility] [place] Yes Pharmacological prophylaxis: NA/contraindicated Pharm contraindication: low risk/ambulating Lines/Catheters IV Catheter Type (from [facility]): Peripheral IV Urinary Cath still in place: No Assessment/Plan Hospital Course 63 y/o with 1 Sepsis with severe lactic acidosis probably due to cholangittis S.p stent placed in 09/2017 s/p ERCP with removal, still with persistent leukoctytosis, enterococcus in urine now with pancreatitis ? s/p ERCP??, lipase improved however worseinig abdominal distension 2. 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 Chemotherapy ended last week, started March 2018 3. Pancreatic ductal dilatation noted on US 4. Abnormal LFTs due to mets and pancreatitis 5. Mod free fluid and diffuse intra abdominal stranding seen in CT scan 6. Anemia, chronic 7. H/O Hep C 8. H/O cholecystectomy for blocked cystic duct 9 JULIO i with worseinng Creatine ? ATN due to abx ?? Vanco/zosyn 10 Anasarca with edema BLE , neg for DVT with hypoalbunemia 11 Persistent leukocytosis to 25 improving Plan - -duodenal stent Wednesday, unable to place, recoomended hospice - will call dr granados - c/w telemetry - monitor WBC - stool softners - cw meropenem - clear liquid diet - monitor amylase/lipase - strict I and o - fu ID and GI recs - ambulate with assistance Result Diagram: 07/12/18 0515 07/12/18 0515 Results 24hrs Laboratory Tests Test 07/11/18 17:44 07/11/18 20:44 07/12/18 05:15 07/12/18 07:56 Bedside Glucose 101 102 93 White Blood Count 17.3 H Red Blood Count 2.88 L Hemoglobin 8.2 L Hematocrit 26.2 L Mean Corpuscular 91.0 Volume Mean Corpuscular 28.5 L Hemoglobin Mean Corpuscular 31.3 L Hemoglobin Concent Red Cell 24.3 H Distribution Width Platelet Count 230 Mean Platelet Volume 10.5 H Immature 1.100 H Granulocytes % Neutrophils % 82.8 H Lymphocytes % 9.0 L Monocytes % 7.0 Eosinophils % 0.0 Basophils % 0.1 Nucleated Red Blood 0.0 Cells % Immature 0.190 H Granulocytes # Neutrophils # 14.3 H Lymphocytes # 1.6 Monocytes # 1.2 H Eosinophils # 0.0 Basophils # 0.0 Nucleated Red Blood 0.0 Cells # Prothrombin Time 19.2 H Prothrombin Time 1.5 Ratio INR International 1.61 Normalized Ratio Activated 36.1 H Partial Thromboplast Time Sodium Level 138 Potassium Level 3.9 Chloride Level 108 Carbon Dioxide Level 20 L Anion Gap 10 Blood Urea Nitrogen 34 H Creatinine 1.40 H Est Glomerular 51 L Filtrat Rate mL/min Glucose Level 100 Calcium Level 8.1 L Phosphorus Level 4.1 Magnesium Level 1.8 Total Bilirubin 1.9 H Direct Bilirubin 1.30 H Indirect Bilirubin 0.6 Aspartate Amino 322 H Transf (AST/SGOT) Alanine 32 Aminotransferase (AL T/SGPT) Alkaline Phosphatase 458 H Total Protein 6.5 # Albumin 2.4 L Globulin 4.10 H Albumin/Globulin 0.58 Ratio Amylase Level 179 H Lipase 874 H Subjective 24 Hr Interval Summary Free Text/Dictation per GI unable to place stent , recommended hospice Exam/Review of Systems Vital Signs Vitals Vital Signs Date Temp Pulse Resp B/P (MAP) Pulse Ox O2 O2 Flow FiO2 Time Delivery Rate 07/12/18 84 13:11 07/12/18 99 13:05 07/12/18 14 119/80 Room Air 13:03 (93) 07/12/18 98.1 12:03 Intake and Output 07/11/18 07/11/18 07/12/18 1515:00 23:00 07:00 IntakeIntake Total 360 ml 570 ml 240 ml BalanceBalance 360 ml 570 ml 240 ml Exam nstitutional: alert, oriented Eyes: nl conjunctiva. scleral icterus ENMT: nl external ears & nose Respiratory: clear to auscultation Cardiovascular: regular rate and rhythm Musculoskeletal: swelling (lower extremities) Medications Medications Current Medications IV Flush (NS 3 ml) 3 ml PER PROTOCOL IV ; Start 07/01/18 at 03:30 Acetaminophen (Tylenol Tab) 650 mg Q6H PRN PO PAIN LEVEL 1-3 OR FEVER Last administered on 07/05/18at 01:41; Admin Dose 650 MG; Start 07/01/18 at 03:30 Ondansetron HCl (Zofran Inj) 4 mg Q4 PRN IV NAUSEA AND/OR VOMITING Last administered on 07/11/18at 04:37; Admin Dose 4 MG; Start 07/01/18 at 03:30 Pantoprazole (Protonix Iv) 40 mg BID@06,18 IV Last administered on 07/12/18at 05:49; Admin Dose 40 MG; Start 07/01/18 at 18:00 Meropenem/Sodium Chloride 50 ml @ 100 mls/hr Q12 IVPB Last administered on 07/12/18at 08:44; Admin Dose 100 MLS/HR; Start 07/05/18 at 21:00 Dextrose/Sodium Chloride 1,000 ml @ 20 mls/hr Q24H IV Last administered on 07/11/18at 16:41; Admin Dose 20 MLS/HR; Start 07/06/18 at 16:00 Insulin Aspart (Novolog Insulin Pen) NOVOLOG *MILD* ALGORI... AC MEALS AND BEDTIME SC ; Start 07/08/18 at 18:00 Miscellaneous Information 1 ea NOTE XX ; Start 07/08/18 at 14:00 Glucose (Glutose) 15 gm Q15M PRN PO DECREASED GLUCOSE; Start 07/08/18 at 14:00 Glucose (Glutose) 22.5 gm Q15M PRN PO DECREASED GLUCOSE; Start 07/08/18 at 14:00 Dextrose (D50w Syringe) 25 ml Q15M PRN IV DECREASED GLUCOSE; Start 07/08/18 at 14:00 Dextrose (D50w Syringe) 50 ml Q15M PRN IV DECREASED GLUCOSE; Start 07/08/18 at 14:00 Glucagon (Glucagen) 1 mg Q15M PRN IM DECREASED GLUCOSE; Start 07/08/18 at 14:00 Glucose (Glutose) 15 gm Q15M PRN BUCCAL DECREASED GLUCOSE; Start 07/08/18 at 14:00 Bisacodyl (Dulcolax Supp) 10 mg DAILY PRN [place] CONSTIPATION; Start 07/08/18 at 14:30 Morphine Sulfate (morphine) 2 mg Q4H PRN IV SEVERE PAIN LEVEL 7-10 Last administered on 07/11/18at 16:49; Admin Dose 2 MG; Start 07/09/18 at 05:51 Polyethylene Glycol (Miralax) 17 gm DAILY PO Last administered on 07/11/18at 09:12; Admin Dose 17 GM; Start 07/10/18 at 11:30 Lubiprostone (Amitiza) 16 mcg BID PO Last administered on 07/12/18at 08:45; Admin Dose 16 MCG; Start 07/10/18 at 12:00 MARYCARMEN DE LA CRUZ MD Jul 12, 2018 15:29
[2018-07-12] MEDS: DEXTROSE 5%-0.45% NACL 1,000 ML IV SCH (16:27)
--- NOTE | 2018-07-12 17:27 | CONS ---
Assessment/Plan Assessment/Plan Hospital Course unfortunate man with cholangiocarcinoma with liver metastasis and duodenal obstruction from tumor. recently had biliary stent removed because infected. abdomen distended, hard epigastric mass CT reviewed labs: not jaundiced. leukocytosis, unchanged plan: NGT to see if any residual, if not will give pt clears and laxative abd xray to assess distention( duodenal obstruction. no bm 6 dayas, fissue distention on exam MRCP: to determine if any dominant stricture and/or multiple isolated intrahepatic ducts from tumor burden with that information: ? Interventional radiology vs repeat endoscopic placement. Will place a duodenal stent wednesday should help ugi sx's and provide access to repeat stent placement if feasible and clinically indicated Result Diagram: 07/12/1851407/12/18514 Results 24hrs Laboratory Tests Test 07/11/18 17:44 07/11/18 20:44 07/12/18 05:15 07/12/18 07:56 Bedside Glucose 101 102 93 White Blood Count 17.3 H Red Blood Count 2.88 L Hemoglobin 8.2 L Hematocrit 26.2 L Mean Corpuscular 91.0 Volume Mean Corpuscular 28.5 L Hemoglobin Mean Corpuscular 31.3 L Hemoglobin Concent Red Cell 24.3 H Distribution Width Platelet Count 230 Mean Platelet Volume 10.5 H Immature 1.100 H Granulocytes % Neutrophils % 82.8 H Lymphocytes % 9.0 L Monocytes % 7.0 Eosinophils % 0.0 Basophils % 0.1 Nucleated Red Blood 0.0 Cells % Immature 0.190 H Granulocytes # Neutrophils # 14.3 H Lymphocytes # 1.6 Monocytes # 1.2 H Eosinophils # 0.0 Basophils # 0.0 Nucleated Red Blood 0.0 Cells # Prothrombin Time 19.2 H Prothrombin Time 1.5 Ratio INR International 1.61 Normalized Ratio Activated 36.1 H Partial Thromboplast Time Sodium Level 138 Potassium Level 3.9 Chloride Level 108 Carbon Dioxide Level 20 L Anion Gap 10 Blood Urea Nitrogen 34 H Creatinine 1.40 H Est Glomerular 51 L Filtrat Rate mL/min Glucose Level 100 Calcium Level 8.1 L Phosphorus Level 4.1 Magnesium Level 1.8 Total Bilirubin 1.9 H Direct Bilirubin 1.30 H Indirect Bilirubin 0.6 Aspartate Amino 322 H Transf (AST/SGOT) Alanine 32 Aminotransferase (AL T/SGPT) Alkaline Phosphatase 458 H Total Protein 6.5 # Albumin 2.4 L Globulin 4.10 H Albumin/Globulin 0.58 Ratio Amylase Level 179 H Lipase 874 H Consultation Date/Type/Reason Admit Date/Time Jul 01, 2018 at 03:27 Initial Consult Date Type of Consult Consult follow up Exam/Review of Systems Vital Signs Vitals Vital Signs Date Temp Pulse Resp B/P (MAP) Pulse Ox O2 O2 Flow FiO2 Time Delivery Rate 07/12/18 88 16:00 07/12/18 98.7 18 107/71 98 Room Air 15:54 (83) Intake and Output 07/11/18 07/11/18 07/12/18 1414:59 22:59 06:59 IntakeIntake Total 360 ml 570 ml 240 ml BalanceBalance 360 ml 570 ml 240 ml Medications Medications Current Medications IV Flush (NS 3 ml) 3 ml PER PROTOCOL IV ; Start 07/01/18 at 03:30 Acetaminophen (Tylenol Tab) 650 mg Q6H PRN PO PAIN LEVEL 1-3 OR FEVER Last administered on 07/05/18at 01:41; Admin Dose 650 MG; Start 07/01/18 at 03:30 Ondansetron HCl (Zofran Inj) 4 mg Q4 PRN IV NAUSEA AND/OR VOMITING Last administered on 07/11/18at 04:37; Admin Dose 4 MG; Start 07/01/18 at 03:30 Pantoprazole (Protonix Iv) 40 mg BID@06,18 IV Last administered on 07/12/18at 05:49; Admin Dose 40 MG; Start 07/01/18 at 18:00 Meropenem/Sodium Chloride 50 ml @ 100 mls/hr Q12 IVPB Last administered on 07/12/18at 08:44; Admin Dose 100 MLS/HR; Start 07/05/18 at 21:00 Dextrose/Sodium Chloride 1,000 ml @ 20 mls/hr Q24H IV Last administered on 07/11/18at 16:41; Admin Dose 20 MLS/HR; Start 07/06/18 at 16:00 Insulin Aspart (Novolog Insulin Pen) NOVOLOG *MILD* ALGORI... AC MEALS AND BED TIME SC ; Start 07/08/18 at 18:00 Miscellaneous Information 1 ea NOTE XX ; Start 07/08/18 at 14:00 Glucose (Glutose) 15 gm Q15M PRN PO DECREASED GLUCOSE; Start 07/08/18 at 14:00 Glucose (Glutose) 22.5 gm Q15M PRN PO DECREASED GLUCOSE; Start 07/08/18 at 14:00 Dextrose (D50w Syringe) 25 ml Q15M PRN IV DECREASED GLUCOSE; Start 07/08/18 at 14:00 Dextrose (D50w Syringe) 50 ml Q15M PRN IV DECREASED GLUCOSE; Start 07/08/18 at 14:00 Glucagon (Glucagen) 1 mg Q15M PRN IM DECREASED GLUCOSE; Start 07/08/18 at 14:00 Glucose (Glutose) 15 gm Q15M PRN BUCCAL DECREASED GLUCOSE; Start 07/08/18 at 14:00 Bisacodyl (Dulcolax Supp) 10 mg DAILY PRN [place] CONSTIPATION; Start 07/08/18 at 14:30 Morphine Sulfate (morphine) 2 mg Q4H PRN IV SEVERE PAIN LEVEL 7-10 Last administered on 07/11/18at 16:49; Admin Dose 2 MG; Start 07/09/18 at 05:51 Polyethylene Glycol (Miralax) 17 gm DAILY PO Last administered on 07/11/18at 09:12; Admin Dose 17 GM; Start 07/10/18 at 11:30 Lubiprostone (Amitiza) 16 mcg BID PO Last administered on 07/12/18at 08:45; Admin Dose 16 MCG; Start 07/10/18 at 12:00 Date/Time of Note Date/Time of Note DATE: 07/12/18 TIME: 17:26 QUINN MOON MD Jul 12, 2018 17:27
--- NOTE | 2018-07-12 17:28 | CONS ---
Assessment/Plan Assessment/Plan Hospital Course unsuccessful placing duodenal stent widely metastatic cholangiocarcinoma discussed end of life issues with . daughter may come tomorrow rec: hospice/home Result Diagram: 07/12/18 0515 07/12/18 0515 Results 24hrs Laboratory Tests Test 07/11/18 17:44 07/11/18 20:44 07/12/18 05:15 07/12/18 07:56 Bedside Glucose 101 102 93 White Blood Count 17.3 H Red Blood Count 2.88 L Hemoglobin 8.2 L Hematocrit 26.2 L Mean Corpuscular 91.0 Volume Mean Corpuscular 28.5 L Hemoglobin Mean Corpuscular 31.3 L Hemoglobin Concent Red Cell 24.3 H Distribution Width Platelet Count 230 Mean Platelet Volume 10.5 H Immature 1.100 H Granulocytes % Neutrophils % 82.8 H Lymphocytes % 9.0 L Monocytes % 7.0 Eosinophils % 0.0 Basophils % 0.1 Nucleated Red Blood 0.0 Cells % Immature 0.190 H Granulocytes # Neutrophils # 14.3 H Lymphocytes # 1.6 Monocytes # 1.2 H Eosinophils # 0.0 Basophils # 0.0 Nucleated Red Blood 0.0 Cells # Prothrombin Time 19.2 H Prothrombin Time 1.5 Ratio INR International 1.61 Normalized Ratio Activated 36.1 H Partial Thromboplast Time Sodium Level 138 Potassium Level 3.9 Chloride Level 108 Carbon Dioxide Level 20 L Anion Gap 10 Blood Urea Nitrogen 34 H Creatinine 1.40 H Est Glomerular 51 L Filtrat Rate mL/min Glucose Level 100 Calcium Level 8.1 L Phosphorus Level 4.1 Magnesium Level 1.8 Total Bilirubin 1.9 H Direct Bilirubin 1.30 H Indirect Bilirubin 0.6 Aspartate Amino 322 H Transf (AST/SGOT) Alanine 32 Aminotransferase (AL T/SGPT) Alkaline Phosphatase 458 H Total Protein 6.5 # Albumin 2.4 L Globulin 4.10 H Albumin/Globulin 0.58 Ratio Amylase Level 179 H Lipase 874 H Consultation Date/Type/Reason Admit Date/Time Jul 01, 2018 at 03:27 Initial Consult Date Type of Consult Consult follow up Exam/Review of Systems Vital Signs Vitals Vital Signs Date Temp Pulse Resp B/P (MAP) Pulse Ox O2 O2 Flow FiO2 Time Delivery Rate 07/12/18 88 16:00 07/12/18 98.7 18 107/71 98 Room Air 15:54 (83) Intake and Output 07/11/18 07/11/18 07/12/18 1414:59 22:59 06:59 IntakeIntake Total 360 ml 570 ml 240 ml BalanceBalance 360 ml 570 ml 240 ml Medications Medications Current Medications IV Flush (NS 3 ml) 3 ml PER PROTOCOL IV ; Start 07/01/18 at 03:30 Acetaminophen (Tylenol Tab) 650 mg Q6H PRN PO PAIN LEVEL 1-3 OR FEVER Last administered on 07/05/18at 01:41; Admin Dose 650 MG; Start 07/01/18 at 03:30 Ondansetron HCl (Zofran Inj) 4 mg Q4 PRN IV NAUSEA AND/OR VOMITING Last administered on 07/11/18at 04:37; Admin Dose 4 MG; Start 07/01/18 at 03:30 Pantoprazole (Protonix Iv) 40 mg BID@06,18 IV Last administered on 07/12/18at 05:49; Admin Dose 40 MG; Start 07/01/18 at 18:00 Meropenem/Sodium Chloride 50 ml @ 100 mls/hr Q12 IVPB Last administered on 07/12/18at 08:44; Admin Dose 100 MLS/HR; Start 07/05/18 at 21:00 Dextrose/Sodium Chloride 1,000 ml @ 20 mls/hr Q24H IV Last administered on 07/11/18at 16:41; Admin Dose 20 MLS/HR; Start 07/06/18 at 16:00 Insulin Aspart (Novolog Insulin Pen) NOVOLOG *MILD* ALGORI... AC MEALS AND BEDTIME SC ; Start 07/08/18 at 18:00 Miscellaneous Information 1 ea NOTE XX ; Start 07/08/18 at 14:00 Glucose (Glutose) 15 gm Q15M PRN PO DECREASED GLUCOSE; Start 07/08/18 at 14:00 Glucose (Glutose) 22.5 gm Q15M PRN PO DECREASED GLUCOSE; Start 07/08/18 at 14:00 Dextrose (D50w Syringe) 25 ml Q15M PRN IV DECREASED GLUCOSE; Start 07/08/18 at 14:00 Dextrose (D50w Syringe) 50 ml Q15M PRN IV DECREASED GLUCOSE; Start 07/08/18 at 14:00 Glucagon (Glucagen) 1 mg Q15M PRN IM DECREASED GLUCOSE; Start 07/08/18 at 14:00 Glucose (Glutose) 15 gm Q15M PRN BUCCAL DECREASED GLUCOSE; Start 07/08/18 at 14:00 Bisacodyl (Dulcolax Supp) 10 mg DAILY PRN [place] CONSTIPATION; Start 07/08/18 at 14:30 Morphine Sulfate (morphine) 2 mg Q4H PRN IV SEVERE PAIN LEVEL 7-10 Last administered on 07/11/18at 16:49; Admin Dose 2 MG; Start 07/09/18 at 05:51 Polyethylene Glycol (Miralax) 17 gm DAILY PO Last administered on 07/11/18at 09:12; Admin Dose 17 GM; Start 07/10/18 at 11:30 Lubiprostone (Amitiza) 16 mcg BID PO Last administered on 07/12/18at 08:45; Admin Dose 16 MCG; Start 07/10/18 at 12:00 Date/Time of Note Date/Time of Note DATE: 07/12/18 TIME: 17:27 QUINN MOON MD Jul 12, 2018 17:28
--- NOTE | 2018-07-12 17:59 | NUR ---
patient had EGD today with stent placement but no stents was placed because it was noted that during the procedure they couldnt see through what they were going to so the procedure ws terminated and it was said that the cholangio carcinoma has spread to the liver and duodenum already. patient back to his room,pre procedure orders resumed and a feferra to written.dr.schlossel randolph to the [facility] to speak to the jackelynd he told her about the metastasis.dttill no bowel movement,iv at 20 cc/hr via portacath line.blood sugar within normal range,has not complained of pain so far.
[2018-07-12] MEDS: morphine 4 MG/ML VIAL IV PRN (19:55)
[2018-07-13] VITALS (9 sets, daily range): BP systolic 104–131; BP diastolic 72–86; PULSE 75–94; RESP 18–19
[2018-07-13] MEDS: morphine 4 MG/ML VIAL IV PRN ×5 (00:05→16:33)
[2018-07-13] MEDS: PANTOPRAZOLE 40 MG INJ IV SCH (05:13)
[2018-07-13] MEDS: INSULIN ASPART [NOVOLOG] 3 ML PEN SC SCH ×2 (07:00→12:10)
--- NOTE | 2018-07-13 07:25 | NUR ---
EOSS: No acute event overnight. Pain meds given Q4H with good pain relief. I believe encourage by family member. Pending consult with Dr. Newberry for palliative care. at bedside. Multiple family members visited last night updated with plan of care. Endorsed.
--- NOTE | 2018-07-13 08:02 | CONS ---
Assessment/Plan Assessment/Plan Hospital Course unsuccessful placing duodenal stent widely metastatic cholangiocarcinoma discussed end of life issues with . daughter may come tomorrow rec: hospice/home Assessment/Plan metastatic cholangiocarcinoma duodenal obstruction unable to place duodenal stent prognosis grim having no BM's abd distended, tender epigastric mass daughter to come in this am so i can talk to her. prognosis grim Result Diagram: 07/13/18 0511 07/13/18 0516 Results 24hrs Laboratory Tests Test 07/12/18 17:37 07/12/18 19:54 07/13/18 05:11 07/13/18 05:16 Bedside Glucose 104 137 White Blood Count 17.3 H Red Blood Count 3.00 L Hemoglobin 8.6 L Hematocrit 27.3 L Mean Corpuscular 91.0 Volume Mean Corpuscular 28.7 L Hemoglobin Mean Corpuscular 31.5 L Hemoglobin Concent Red Cell 24.1 H Distribution Width Platelet Count 241 Mean Platelet Volume 10.5 H Immature 1.200 H Granulocytes % Neutrophils % 90.1 H Lymphocytes % 5.4 L Monocytes % 3.1 Eosinophils % 0.0 Basophils % 0.2 Nucleated Red Blood 0.0 Cells % Immature 0.210 H Granulocytes # Neutrophils # 15.6 H Lymphocytes # 0.9 Monocytes # 0.5 Eosinophils # 0.0 Basophils # 0.0 Nucleated Red Blood 0.0 Cells # Phosphorus Level 4.9 Magnesium Level 1.9 Sodium Level 139 Potassium Level 4.2 Chloride Level 107 Carbon Dioxide Level 20 L Anion Gap 12 Blood Urea Nitrogen 39 H Creatinine 1.44 H Est Glomerular 49 L Filtrat Rate mL/min Glucose Level 143 # Calcium Level 7.9 L Consultation Date/Type/Reason Admit Date/Time Jul 01, 2018 at 03:27 Initial Consult Date Type of Consult Consult follow up Exam/Review of Systems Vital Signs Vitals Vital Signs Date Temp Pulse Resp B/P (MAP) Pulse Ox O2 O2 Flow FiO2 Time Delivery Rate 07/13/18 97.5 92 19 119/72 95 07:51 (88) 07/12/18 Room Air 15:54 Intake and Output 07/12/18 07/12/18 07/13/18 1515:00 23:00 07:00 IntakeIntake Total 100 ml 450 ml 294 ml OutputOutput Total 100 ml BalanceBalance 100 ml 450 ml 194 ml Medications Medications Current Medications IV Flush (NS 3 ml) 3 ml PER PROTOCOL IV ; Start 07/01/18 at 03:30 Acetaminophen (Tylenol Tab) 650 mg Q6H PRN PO PAIN LEVEL 1-3 OR FEVER Last administered on 07/05/18at 01:41; Admin Dose 650 MG; Start 07/01/18 at 03:30 Ondansetron HCl (Zofran Inj) 4 mg Q4 PRN IV NAUSEA AND/OR VOMITING Last administered on 07/11/18at 04:37; Admin Dose 4 MG; Start 07/01/18 at 03:30 Pantoprazole (Protonix Iv) 40 mg BID@06,18 IV Last administered on 07/13/18at 05:13; Admin Dose 40 MG; Start 07/01/18 at 18:00 Meropenem/Sodium Chloride 50 ml @ 100 mls/hr Q12 IVPB Last administered on 07/12/18at 20:58; Admin Dose 100 MLS/HR; Start 07/05/18 at 21:00 Dextrose/Sodium Chloride 1,000 ml @ 20 mls/hr Q24H IV Last administered on 07/11/18at 16:41; Admin Dose 20 MLS/HR; Start 07/06/18 at 16:00 Insulin Aspart (Novolog Insulin Pen) NOVOLOG *MILD* ALGORI... AC MEALS AND BEDTIME SC ; Start 07/08/18 at 18:00 Miscellaneous Information 1 ea NOTE XX ; Start 07/08/18 at 14:00 Glucose (Glutose) 15 gm Q15M PRN PO DECREASED GLUCOSE; Start 07/08/18 at 14:00 Glucose (Glutose) 22.5 gm Q15M PRN PO DECREASED GLUCOSE; Start 07/08/18 at 14:00 Dextrose (D50w Syringe) 25 ml Q15M PRN IV DECREASED GLUCOSE; Start 07/08/18 at 14:00 Dextrose (D50w Syringe) 50 ml Q15M PRN IV DECREASED GLUCOSE; Start 07/08/18 at 14:00 Glucagon (Glucagen) 1 mg Q15M PRN IM DECREASED GLUCOSE; Start 07/08/18 at 14:00 Glucose (Glutose) 15 gm Q15M PRN BUCCAL DECREASED GLUCOSE; Start 07/08/18 at 14:00 Bisacodyl (Dulcolax Supp) 10 mg DAILY PRN [place] CONSTIPATION; Start 07/08/18 at 14:30 Morphine Sulfate (morphine) 2 mg Q4H PRN IV SEVERE PAIN LEVEL 7-10 Last administered on 07/13/18at 04:04; Admin Dose 2 MG; Start 07/09/18 at 05:51 Polyethylene Glycol (Miralax) 17 gm DAILY PO Last administered on 07/11/18at 09:12; Admin Dose 17 GM; Start 07/10/18 at 11:30 Lubiprostone (Amitiza) 16 mcg BID PO Last administered on 07/12/18at 21:07; Admin Dose 16 MCG; Start 07/10/18 at 12:00 Date/Time of Note Date/Time of Note DATE: 07/13/18 TIME: 08:00 QUINN MOON MD Jul 13, 2018 08:02
[2018-07-13] MEDS: LUBIPROSTONE 8 MCG CAPSULE PO SCH (08:46)
[2018-07-13] MEDS: MEROPENEM 500MG/50 ML (PMX) 50 ML IVPB SCH (08:46)
[2018-07-13] MEDS: POLYETHYLENE GLYCOL 17 GM PACKET PO SCH (08:46)
--- NOTE | 2018-07-13 11:25 | PN ---
Date/Time of Note Date/Time of Note DATE: 07/13/18 TIME: 11:24 Assessment/Plan VTE Prophylaxis Risk score (from [facility])>0 risk: 12 SCD applied (from [facility]): No SCD contraindicated: low risk/ambulating Pharmacological prophylaxis: NA/contraindicated Pharm contraindication: bleeding, liver dx Lines/Catheters IV Catheter Type (from [facility]): portacath Urinary Cath still in place: No Assessment/Plan Hospital Course 1 Sepsis with severe lactic acidosis probably due to cholangitis S.p stent placed in 09/2017 s/p ERCP with removal, still with persistent leukoctytosis, enterococcus in urine now with pancreatitis ? s/p ERCP??, lipase improved [place] worsening abdominal distension 2. 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 Chemotherapy ended last week, started March 2018 3. Pancreatic ductal dilatation noted on US 4. Abnormal LFTs 5. Mod free fluid and diffuse intra abdominal stranding seen in CT scan 6. Anemia, chronic 7. H/O Hep C 8. H/O cholecystectomy for blocked cystic duct 9 JULIO with worsening Creatine ? ATN due to abx ?? Vanco/zosyn 10 Anasarca with edema BLE , neg for DVT with hypoalbuminemia. 11 Persistent leukocytosis to 25 Assessment/Plan - -duodenal stent Wednesday, unable to place, recommended hospice - dr Newberry palliative care - c/w telemetry - monitor WBC - stool softeners. - cw meropenem - clear liquid diet - monitor amylase/lipase - strict I and o - fu ID and GI recs - ambulate with assistance Result Diagram: 07/13/18 0511 07/13/18 0516 Results 24hrs Laboratory Tests Test 07/12/18 17:37 07/12/18 19:54 07/13/18 05:11 07/13/18 05:16 Bedside Glucose 104 137 White Blood Count 17.3 H Red Blood Count 3.00 L Hemoglobin 8.6 L Hematocrit 27.3 L Mean Corpuscular 91.0 Volume Mean Corpuscular 28.7 L Hemoglobin Mean Corpuscular 31.5 L Hemoglobin Concent Red Cell 24.1 H Distribution Width Platelet Count 241 Mean Platelet Volume 10.5 H Immature 1.200 H Granulocytes % Neutrophils % 90.1 H Lymphocytes % 5.4 L Monocytes % 3.1 Eosinophils % 0.0 Basophils % 0.2 Nucleated Red Blood 0.0 Cells % Immature 0.210 H Granulocytes # Neutrophils # 15.6 H Lymphocytes # 0.9 Monocytes # 0.5 Eosinophils # 0.0 Basophils # 0.0 Nucleated Red Blood 0.0 Cells # Phosphorus Level 4.9 Magnesium Level 1.9 Sodium Level 139 Potassium Level 4.2 Chloride Level 107 Carbon Dioxide Level 20 L Anion Gap 12 Blood Urea Nitrogen 39 H Creatinine 1.44 H Est Glomerular 49 L Filtrat Rate mL/min Glucose Level 143 # Calcium Level 7.9 L Test 07/13/18 08:11 Bedside Glucose 139 Subjective 24 Hr Interval Summary Gastrointestinal: pain Exam/Review of Systems Vital Signs Vitals Vital Signs Date Temp Pulse Resp B/P (MAP) Pulse Ox O2 O2 Flow FiO2 Time Delivery Rate 07/13/18 94 08:59 07/13/18 97.5 19 119/72 95 07:51 (88) 07/12/18 Room Air 15:54 Intake and Output 07/12/18 07/12/18 07/13/18 1515:00 23:00 07:00 IntakeIntake Total 100 ml 450 ml 294 ml OutputOutput Total 100 ml BalanceBalance 100 ml 450 ml 194 ml Exam Constitutional: alert, oriented Neck: supple Respiratory: diminished breath sounds Cardiovascular: regular rate and rhythm Gastrointestinal: soft, distended Medications Medications Current Medications IV Flush (NS 3 ml) 3 ml PER PROTOCOL IV ; Start 07/01/18 at 03:30 Acetaminophen (Tylenol Tab) 650 mg Q6H PRN PO PAIN LEVEL 1-3 OR FEVER Last administered on 07/05/18at 01:41; Admin Dose 650 MG; Start 07/01/18 at 03:30 Ondansetron HCl (Zofran Inj) 4 mg Q4 PRN IV NAUSEA AND/OR VOMITING Last administered on 07/11/18at 04:37; Admin Dose 4 MG; Start 07/01/18 at 03:30 Pantoprazole (Protonix Iv) 40 mg BID@06,18 IV Last administered on 07/13/18at 05:13; Admin Dose 40 MG; Start 07/01/18 at 18:00 Meropenem/Sodium Chloride 50 ml @ 100 mls/hr Q12 IVPB Last administered on 07/13/18at 08:46; Admin Dose 100 MLS/HR; Start 1/15/19 at 21:00 Dextrose/Sodium Chloride 1,000 ml @ 20 mls/hr Q24H IV Last administered on 07/11/18at 16:41; Admin Dose 20 MLS/HR; Start 07/06/18 at 16:00 Insulin Aspart (Novolog Insulin Pen) NOVOLOG *MILD* ALGORI... AC MEALS AND BEDTIME SC ; Start 07/08/18 at 18:00 Miscellaneous Information 1 ea NOTE XX ; Start 07/08/18 at 14:00 Glucose (Glutose) 15 gm Q15M PRN PO DECREASED GLUCOSE; Start 07/08/18 at 14:00 Glucose (Glutose) 22.5 gm Q15M PRN PO DECREASED GLUCOSE; Start 07/08/18 at 14:00 Dextrose (D50w Syringe) 25 ml Q15M PRN IV DECREASED GLUCOSE; Start 07/08/18 at 14:00 Dextrose (D50w Syringe) 50 ml Q15M PRN IV DECREASED GLUCOSE; Start 07/08/18 at 14:00 Glucagon (Glucagen) 1 mg Q15M PRN IM DECREASED GLUCOSE; Start 07/08/18 at 14:00 Glucose (Glutose) 15 gm Q15M PRN BUCCAL DECREASED GLUCOSE; Start 07/08/18 at 14:00 Bisacodyl (Dulcolax Supp) 10 mg DAILY PRN WI CONSTIPATION; Start 07/08/18 at 14:30 Morphine Sulfate (morphine) 2 mg Q4H PRN IV SEVERE PAIN LEVEL 7-10 Last administered on 07/13/18at 08:56; Admin Dose 2 MG; Start 07/09/18 at 05:51 Polyethylene Glycol (Miralax) 17 gm DAILY PO Last administered on 07/13/18at 08:46; Admin Dose 17 GM; Start 07/10/18 at 11:30 Lubiprostone (Amitiza) 16 mcg BID PO Last administered on 07/13/18 08:46; Admin Dose 16 MCG; Start 07/10/18 at 12:00 TRACY QUEZADA Jul 13, 2018 11:25
--- NOTE | 2018-07-13 12:39 | DS ---
Date/Time of Note Date/Time of Note DATE: 07/13/18 TIME: 12:39 Discharge Summary Admission/Discharge Info Admit Date/Time Jul 01, 2018 at 03:27 Discharge Date/Time Discharge Diagnosis Cholangiocarcinoma with new metastasis to liver Patient Condition: Stable Hx of Present Illness This is a 63-year-old male with a past medical history of diabetes, hypertension, hyperlipidemia, who was admitted recently at [facility] secondary to acute liver failure, CBD stone, he had stent placed. He resenting to the ER because of epigastric abdominal pain, worse tonight, constipation, dysuria, vomiting and subjective fever for the last 3 days. He is taking MS Contin 15 mg for pain but it is not controlling his pain. He complains of bilateral leg edema for the last 11-day and intermittent dyspnea. Past medical history: Diabetes mellitus, dyslipidemia, gastric carcinoma on chemotherapy since March 2018, last chemotherapy was about a week ago, history of cholangitis, hypertension, hepatitis C Past surgical history: Cholecystectomy, left inguinal herniorrhaphy, ERCP with stent placement and removal Hospital Course This is a 63-year-old male with a past medical history of diabetes, hypertension, hyperlipidemia, who was admitted recently at [facility] secondary to acute liver failure, CBD stone, he had stent placed. He resenting to the ER because of epigastric abdominal pain, worse tonight, constipation, dysuria, vomiting and subjective fever for the last 3 days. He is taking MS Contin 15 mg for pain but it is not controlling his pain. He complains of bilateral leg edema for the last 11-day and intermittent dyspnea. Past medical history: Diabetes mellitus, dyslipidemia, gastric carcinoma on chemotherapy since March 2018, last chemotherapy was about a week ago, history of cholangitis, hypertension, hepatitis C Past surgical history: Cholecystectomy, left inguinal herniorrhaphy, ERCP with stent placement and removal 1 Sepsis with severe lactic acidosis probably due to cholangitis S.p stent placed in 09/2017 s/p ERCP with removal, still with persistent leukoctytosis, enterococcus in urine now with pancreatitis ? s/p ERCP??, lipase improved however worsening abdominal distension 2. 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 Chemotherapy ended last week, started March 2018 3. Pancreatic ductal dilatation noted on US 4. Abnormal LFTs 5. Mod free fluid and diffuse intra abdominal stranding seen in CT scan 6. Anemia, chronic 7. H/O Hep C 8. H/O cholecystectomy for blocked cystic duct 9 JULIO with worsening Creatine ? ATN due to abx ?? Vanco/zosyn 10 Anasarca with edema BLE , neg for DVT with hypoalbuminemia. 11 Persistent leukocytosis to 25 During hospitalization there were few consultants on the case, such as Dr Lucio, oncology who was a partner of Cole miller, pt primary outpatient oncology. She recommended palliative care. Infectious disease Md Dr Brothers was managing pt. a/b. Pt was on vancomycin and zosyn. Dr snider, GI specialist was tried to place an intestinal stent,unsuccessful. Recommended a palliative care. Pt bilirubin went down but pt pain was only decreased with over the clock pain Medications. Pt was seen by hospice specialist and offered hospice care, pt and his family agreed. Social service arranged d/c paperwork. Home Meds Reported Medications Morphine Sulfate* (Ms Contin ER*) 15 Mg Tabsr, 15 MG PO BID PRN for PAIN LEVEL 6-10, TAB TAKE 1 TABLET BY MOUTH TWICE A DAY IF NEEDED FOR PAIN. 07/01/18 Discontinued Reported Medications Atorvastatin* (Atorvastatin*) 80 Mg Tablet, 80 MG PO QHS, #30 TAB 03/23/18 Follow-up Plan hospice care Primary Care Provider Not On Staff Doctor Time spent on discharge: < 30 minutes Pending Labs Laboratory Tests Test 07/12/18 17:37 07/12/18 19:54 07/13/18 05:11 07/13/18 05:16 Bedside 104 137 Glucose mg/dL (70-220) mg/dL (70-220) White Blood 17.3 Count 10^3/ul (4.8-1 0.8) Red Blood 3.00 Count 10^6/ul (4.70- 6.10) Hemoglobin 8.6 g/dl (14.0-18. 0) Hematocrit 27.3 % (42.0-52.0) Mean 91.0 Corpuscular fl (82.0-101.0 Volume ) Mean 28.7 Corpuscular pg (29.0-33.0) Hemoglobin Mean 31.5 Corpuscular g/dl (32.0-37. Hemoglobin Conc 0) ent Red Cell 24.1 Distribution % (11.5-14.5) Width Platelet Count 241 10^3/UL (140-4 15) Mean Platelet 10.5 Volume fl (7.4-10.4) Immature 1.200 Granulocytes % % (0.001-0.429 ) Neutrophils % 90.1 % (39.0-77.0) Lymphocytes % 5.4 % (15.0-51.0) Monocytes % 3.1 % (0.0-11.0) Eosinophils % 0.0 % (0.0-7.0) Basophils % 0.2 % (0.0-2.0) Nucleated Red 0.0 Blood Cells % /100WBC (0.0-0 .0) Immature 0.210 Granulocytes # 10^3/ul (0.0-0 .031) Neutrophils # 15.6 10^3/ul (1.6-7 .5) Lymphocytes # 0.9 10^3/ul (0.8-2 .9) Monocytes # 0.5 10^3/ul (0.3-0 .9) Eosinophils # 0.0 10^3/ul (0.0-0 .5) Basophils # 0.0 10^3/ul (0.0-0 .1) Nucleated Red 0.0 Blood Cells # 10^3/ul (0.0-0 .0) Phosphorus 4.9 Level mg/dl (2.5-4.9 ) Magnesium 1.9 Level mg/dl (1.7-2.5 ) Sodium Level 139 mmol/L (135-14 4) Potassium 4.2 Level mmol/L (3.5-5. 1) Chloride Level 107 mmol/L (97-110 ) Carbon Dioxide 20 Level mmol/L (21-31) Anion Gap 12 (5-13) Blood Urea 39 Nitrogen mg/dl (7-20) Creatinine 1.44 mg/dl (0.61-1. 24) Est Glomerular 49 Filtrat mL/min (>60) Rate mL/min Glucose Level 143 mg/dl (70-220) Calcium Level 7.9 mg/dl (8.4-10. 2) Test 07/13/18 08:11 07/13/18 12:05 Bedside 139 145 Glucose mg/dL (70-220) mg/dL (70-220) TRACY QUEZADA Jul 13, 2018 12:39
--- NOTE | 2018-07-13 12:42 | PDOCDIS ---
Discharge Instructions DIAGNOSIS Discharge Diagnosis Cholangiocarcinoma with new metastasis to liver CONDITION [id number] Patient Condition: [id number] Fair HOME CARE INSTRUCTIONS: [id number] Special Diet: [id number] Clear liquid ACTIVITY: [id number] Activity Restrictions: [id number] Rest between Activity Avoid heavy lifting FOLLOW UP/APPOINTMENTS Follow-up Plan hospice care SCHOOL/WORK RELEASE May return to School/Work with: No Restrictions TRACY QUEZADA Jul 13, 2018 12:42
--- NOTE | 2018-07-13 14:04 | CONS ---
Assessment/Plan Assessment/Plan Hospital Course Patient is sitting in a chair family at bedside, no fevers Microbiology: Blood cultures since admission negative urine culture grew enterococcus, stool for C. difficile negative Physical examination this is a chronically ill-appearing elderly man who is in no distress. Head atraumatic normocephalic sclera nonicteric vehicle mucosa dry neck is supple chest rise symmetrical breath sounds diminished bases. Heart: S1-S2. Abdomen distended, soft, some tenderness on palpation. Extremities without cyanosis. Assessment: 1. Ongoing leukocytosis, possibly secondary to #2 2. Cholangiocarcinoma with liver metastases, status post chemotherapy 3. Status post urinary tract infection 4. Acute kidney injury 5. Status post ERCP with removal of the old clogged stent with sphincterotomy 6. Pancreatitis status post ERCP Plan: Patient is status post unsuccessful placing duodenal stent 2 to widely metastatic cholangiocarcinoma. GI recommendations noted. Prognosis very poor, patient will possibly be discharged home with hospice Result Diagram: 07/13/18 0511 07/13/18 0516 Results 24hrs Laboratory Tests Test 07/12/18 17:37 07/12/18 19:54 07/13/18 05:11 07/13/18 05:16 Bedside Glucose 104 137 White Blood Count 17.3 H Red Blood Count 3.00 L Hemoglobin 8.6 L Hematocrit 27.3 L Mean Corpuscular 91.0 Volume Mean Corpuscular 28.7 L Hemoglobin Mean Corpuscular 31.5 L Hemoglobin Concent Red Cell 24.1 H Distribution Width Platelet Count 241 Mean Platelet Volume 10.5 H Immature 1.200 H Granulocytes % Neutrophils % 90.1 H Lymphocytes % 5.4 L Monocytes % 3.1 Eosinophils % 0.0 Basophils % 0.2 Nucleated Red Blood 0.0 Cells % Immature 0.210 H Granulocytes # Neutrophils # 15.6 H Lymphocytes # 0.9 Monocytes # 0.5 Eosinophils # 0.0 Basophils # 0.0 Nucleated Red Blood 0.0 Cells # Phosphorus Level 4.9 Magnesium Level 1.9 Sodium Level 139 Potassium Level 4.2 Chloride Level 107 Carbon Dioxide Level 20 L Anion Gap 12 Blood Urea Nitrogen 39 H Creatinine 1.44 H Est Glomerular 49 L Filtrat Rate mL/min Glucose Level 143 # Calcium Level 7.9 L Test 07/13/18 08:11 07/13/18 12:05 Bedside Glucose 139 145 Consultation Date/Type/Reason Admit Date/Time Jul 01, 2018 at 03:27 Initial Consult Date Type of Consult id Exam/Review of Systems Vital Signs Vitals Vital Signs Date Temp Pulse Resp B/P (MAP) Pulse Ox O2 O2 Flow FiO2 Time Delivery Rate 07/13/18 84 12:41 07/13/18 97.7 19 131/86 94 12:00 (101) 07/12/18 Room Air 15:54 Intake and Output 07/12/18 07/12/18 07/13/18 1515:00 23:00 07:00 IntakeIntake Total 100 ml 450 ml 294 ml OutputOutput Total 100 ml BalanceBalance 100 ml 450 ml 194 ml Medications Medications Current Medications IV Flush (NS 3 ml) 3 ml PER PROTOCOL IV ; Start 07/01/18 at 03:30 Acetaminophen (Tylenol Tab) 650 mg Q6H PRN PO PAIN LEVEL 1-3 OR FEVER Last administered on 07/05/18at 01:41; Admin Dose 650 MG; Start 07/01/18 at 03:30 Ondansetron HCl (Zofran Inj) 4 mg Q4 PRN IV NAUSEA AND/OR VOMITING Last administered on 07/11/18at 04:37; Admin Dose 4 MG; Start 07/01/18 at 03:30 Pantoprazole (Protonix Iv) 40 mg BID@06,18 IV Last administered on 07/13/18at 05:13; Admin Dose 40 MG; Start 07/01/18 at 18:00 Meropenem/Sodium Chloride 50 ml @ 100 mls/hr Q12 IVPB Last administered on 07/13/18at 08:46; Admin Dose 100 MLS/HR; Start 07/05/18 at 21:00 Dextrose/Sodium Chloride 1,000 ml @ 20 mls/hr Q24H IV Last administered on 07/11/18at 16:41; Admin Dose 20 MLS/HR; Start 07/06/18 at 16:00 Insulin Aspart (Novolog Insulin Pen) NOVOLOG *MILD* ALGORI... AC MEALS AND BEDTIME SC Last administered on 07/13/18at 12:10; Admin Dose 1 UNIT; Start 07/08/18 at 18:00 Miscellaneous Information 1 ea NOTE XX ; Start 07/08/18 at 14:00 Glucose (Glutose) 15 gm Q15M PRN PO DECREASED GLUCOSE; Start 07/08/18 at 14:00 Glucose (Glutose) 22.5 gm Q15M PRN PO DECREASED GLUCOSE; Start 07/08/18 at 14:00 Dextrose (D50w Syringe) 25 ml Q15M PRN IV DECREASED GLUCOSE; Start 07/08/18 at 14:00 Dextrose (D50w Syringe) 50 ml Q15M PRN IV DECREASED GLUCOSE; Start 07/08/18 at 14:00 Glucagon (Glucagen) 1 mg Q15M PRN IM DECREASED GLUCOSE; Start 07/08/18 at 14:00 Glucose (Glutose) 15 gm Q15M PRN BUCCAL DECREASED GLUCOSE; Start 07/08/18 at 14:00 Bisacodyl (Dulcolax Supp) 10 mg DAILY PRN [place] CONSTIPATION; Start 07/08/18 at 14:30 Morphine Sulfate (morphine) 2 mg Q4H PRN IV SEVERE PAIN LEVEL 7-10 Last administered on 07/13/18at 12:42; Admin Dose 2 MG; Start 07/09/18 at 05:51 Polyethylene Glycol (Miralax) 17 gm DAILY PO Last administered on 07/13/18at 08:46; Admin Dose 17 GM; Start 07/10/18 at 11:30 Lubiprostone (Amitiza) 16 mcg BID PO Last administered on 07/13/18at 08:46; Admin Dose 16 MCG; Start 07/10/18 at 12:00 Date/Time of Note Date/Time of Note DATE: 07/13/18 TIME: 14:02 CLARK HOLT NP Jul 13, 2018 14:04
--- NOTE | 2018-07-13 14:23 | NUR ---
SW: HOSPICE [facility] contacted this keno writer/runner, requesting intake packet be faxed to [phone]. However, SW had not spoken with family yet and did not have a hospice order. JESS spoke with Dr. Wu, who states that custom decorating consultant has recommended hospice, and Dr. Wu states she consulted Dr. Newberry. JESS reviewed chart, and there is a d/c order in place for [facility] by MAKSIM Gomes. JESS called and spoke with patient's daughter Brittany Peck ([phone]), and informed her that she has options for hospice agencies, and offered to provide resources. She verbalized okay to fax intake packet to [facility], and requested this writers phone number to contact if they change their mind or want to change hospice agency. JESS provided her with this writers contact number and encouraged her to call with any questions/ concerns. JESS faxed intake packet to [facility], with daughters verbal consent. All other questions/ concerns denied at this time. JESS remains available as needed.
[2018-07-13] MEDS: ONDANSETRON 4 MG INJ IV PRN (16:51)
--- NOTE | 2018-07-13 18:13 | NUR ---
DC home with hospice. Patient stable. Not in acute distress. Patient accompanied by family. DC on monitor anc came home with right chest portacath.
== END 2018-07-13 17:30 | disposition hospice, home (50) | DRG 871 ==
LOC: E/R 22:30 → TEL 07-01 03:27 → UNDODISIN 07-01 19:05 → PP2 07-01 19:08 → 6WM 07-07 18:19
PROVIDERS: ADMIT Internal Medicine Nephrology; ATTEND Internal Medicine Nephrology
PROC: 0DB98ZX Excision of Duodenum, Via Natural or Artificial Opening Endoscopic, Diagnostic (ICD-10-PCS; 2018-07-02)
PROC: 0FPB8DZ Removal of Intraluminal Device from Hepatobiliary Duct, Via Natural or Artificial Opening Endoscopic (ICD-10-PCS; principal; 2018-07-02 11:00)
PROC: 0FJB8ZZ Inspection of Hepatobiliary Duct, Via Natural or Artificial Opening Endoscopic (ICD-10-PCS; 2018-07-12)
DX: A41.9 Sepsis, unspecified organism (principal); K83.1 Obstruction of bile duct; N17.0 Acute kidney failure with tubular necrosis; K85.90 Acute pancreatitis without necrosis or infection, unspecified; E87.2 Acidosis; K83.09 Other cholangitis; C22.1 Intrahepatic bile duct carcinoma; C78.7 Secondary malignant neoplasm of liver and intrahepatic bile duct; C78.4 Secondary malignant neoplasm of small intestine; N39.0 Urinary tract infection, site not specified; R65.20 Severe sepsis without septic shock; B95.2 Enterococcus as the cause of diseases classified elsewhere; D63.8 Anemia in other chronic diseases classified elsewhere; D64.81 Anemia due to antineoplastic chemotherapy; D72.829 Elevated white blood cell count, unspecified; R60.1 Generalized edema
CPT/HCPCS: 36415; 71045; 74018; 74176; 74181; 74330; 76705; 76775; 80048; 80053; 80061; 80076; 80202; 81001; 82150; 82270; 82607; 82728; 82746; 82962; 83036; 83540; 83605; 83615; 83690; 83735; 83880; 84100; 84484; 85025; 85045; 85610; 85730; 87040; 87045; 87075; 87086; 88305; 93005; 93970; 96374; 96375; C2617; C9113; J0610; J0690; J0692; J1100; J1610; J1815; J1940; J2185; J2250; J2270; J2274; J2405; J2543; J2765; J2916; J3010; J3370; J7030; J7042; J7120; Q9967